=== PATIENT | female | born 1955 | race Two or more races ===

== ENCOUNTER 2022-12-07 13:40 | Outpatient (OUT) | payer MEDICARE, SELFPAY ==
--- NOTE | 2022-12-07 13:43 | US_ITS ---
[address] [address] Patient Name: SEEMA HOOPER MRN: [id number] date: 1955 Sex: F Assigned Patient Location: Current Patient Location: Accession/Order Number: [id number] Exam Date: 12/07/2022 13:44 Report Date: 12/07/2022 16:40 At the request of: NON-STAFF PHYSICIAN Procedure: US carotid duplex BI EXAMINATION: US carotid duplex BI HISTORY: Occlusion And Stenosis Of Bilateral Carotid Arteries I65.23 COMPARISON: No relevant comparison available. TECHNIQUE: Duplex Doppler ultrasound analysis of carotid and vertebral arteries. . Bilateral carotid arterial duplex examination was performed using B-mode, color flow and spectral analysis. Carotid stenosis is reported according to validated velocity parameters, similar to NASCET criteria. FINDINGS: RIGHT CAROTID ARTERY Mild atherosclerotic plaque Subclavian: PSV: 145.7 cm/s cm/s EDV: 8.1 cm/s cm/s CCA: Prox: PSV: 63.3 cm/s cm/s EDV: 14.1 cm/s cm/s Mid: PSV: 74.7 cm/s cm/s EDV: 12.7 cm/s cm/s Distal: PSV: 69.4 cm/s cm/s EDV: 12.7 cm/s cm/s BULB: PSV: 43.3 cm/s cm/s EDV: 9.2 cm/s cm/s ICA: Prox: PSV: 57.2 cm/s cm/s EDV: 15.3 cm/s cm/s Mid: PSV: 64.2 cm/s cm/s EDV: 19.7 cm/s cm/s Distal: PSV: 79.9 cm/s cm/s EDV: 24.1 cm/s cm/s ECA: PSV: 107.6 cm/s cm/s EDV: 7.4 cm/s cm/s VERTEBRAL: PSV: 44.2 cm/s cm/s EDV: 12.4 cm/s cm/s ICA/CCA ratio: PSV: 1.2 EDV: 1.9 LEFT CAROTID ARTERY mild atherosclerotic plaque Subclavian: PSV: 153.0 cm/s cm/s EDV: 10.6 cm/s CCA: Prox: PSV: 80.9 cm/s cm/s EDV: 14.9 cm/s Mid: PSV: 73.2 cm/s cm/s EDV: 10.5 cm/s Distal: PSV: 72.1 cm/s cm/s EDV: 14.9 cm/s BULB: PSV: 54.5 cm/s cm/s EDV: 10.5 cm/s ICA: Prox: PSV: 54.5 cm/s cm/s EDV: 17.1 cm/s Mid: PSV: 71.0 cm/s cm/s EDV: 20.4 cm/s Distal: PSV: 51.2 cm/s cm/s EDV: 13.8 cm/s ECA: PSV: 95.6 cm/s cm/s EDV: 6.3 cm/s VERTEBRAL: PSV: 43.5 cm/s cm/s EDV: 14.7 cm/s ICA/CCA ratio: PSV: 1.0 EDV: 1.4 IMPRESSION: 0-49% flow stenosis bilateral internal carotid arteries Spectral Doppler US Thresholds (Reference: Kings EG, et al. Radiology 2000; 214:247-252) Stenosis (%) PSV (cm/sec) VICA/VCCA 0-49 <150 <2.5 50-69 150-225 2.5-4.0 >70 >225 >4.0 Electronically authenticated by: ERICH WOODRUFF Date: 12/07/2022 16:40
== END 2022-12-07 13:41 | disposition home or self-care (01) ==
LOC: US 13:40
PROVIDERS: PCP Family Medicine
DX: I65.23 Occlusion and stenosis of bilateral carotid arteries (principal)
CPT/HCPCS: 93880

== ENCOUNTER 2023-01-30 11:44 | Outpatient (OUT) | payer MEDICARE, SELFPAY ==
[2023-01-30 12:42] LABS: Estimated Average Glucose 123 mg/dL; Glycohemoglobin A1C 5.9 % (4.5-6.2)
== END 2023-01-30 11:45 | disposition home or self-care (01) ==
LOC: LAB 11:46
PROVIDERS: PCP Family Medicine; Visit Provider Family Medicine
DX: E11.65 Type 2 diabetes mellitus with hyperglycemia (principal)
CPT/HCPCS: 36415; 83036

== ENCOUNTER 2023-07-17 12:01 | Outpatient (OUT) | payer MEDICARE, SELFPAY ==
[2023-07-17 12:46] LABS: Microalbumin Urine Random 1.3 mg/dL (<=30.0)
[2023-07-17 16:24] LABS: Basophils Absolute Auto 0.1 10^3/uL (0.0-0.1); Basophils Percent Auto 0.7 % (0.2-2.0); Eosinophils Absolute Auto 0.1 10^3/uL (0.0-0.7); Eosinophils Percent Auto 1.8 % (0.9-7.0); Hematocrit 33.1 % (36.0-48.0); Hemoglobin 9.7 g/dL (12.0-16.0); Immature Granulocytes Abs Auto 0.02 10^3/uL (0.00-0.03); Immature Granulocytes Pct Auto 0.3 % (0.0-0.5); Lymphocytes Absolute Auto 2.3 10^3/uL (1.2-3.8); Lymphocytes Percent Auto 30.7 % (20.5-60.0); Mean Corpuscular HGB Conc 29.3 g/dL (29.9-35.2); Mean Corpuscular Hemoglobin 22.4 pg (26.7-34.0); Mean Corpuscular Volume 76.3 fL (81.0-99.0); Monocytes Absolute Auto 0.5 10^3/uL (0.3-0.8); Neutrophils Absolute Auto 4.4 10^3/uL (1.4-6.5); Neutrophils Percent Auto 59.5 % (43.0-75.0); Platelet Count 325 10^3/uL (150-450); Red Blood Count 4.34 10^6/uL (4.20-5.40); Red Cell Distribution Width 16.5 % (11.0-15.0); White Blood Count 7.3 10^3/uL (4.0-11.0)
[2023-07-17 16:25] LABS: Estimated Average Glucose 123 mg/dL; Glycohemoglobin A1C 5.9 % (4.5-6.2)
[2023-07-17 16:44] LABS: Alanine Aminotransferase 15 U/L (14-59); Albumin Globulin Ratio 0.6; Albumin Level 3.1 g/dL (3.4-5.0); Alkaline Phosphatase 169 U/L (46-116); Anion Gap 11.8; Aspartate Amino Transferase 14 U/L (15-37); BUN Creatinine Ratio 19.1; Bilirubin Direct 0.1 mg/dL (0.0-0.2); Bilirubin Total 0.5 mg/dL (0.2-1.0); Calcium 9.2 mg/dL (8.5-10.1); Carbon Dioxide 28.4 mmol/L (21.0-32.0); Chloride 107 mmol/L (98-107); Chol HDL Ratio 2.5; Cholesterol 109 mg/dL (<=200); Estimated GFR (African America >60 (>=60); Estimated GFR (Non-African Ame >60 (>=60); Glucose 60 mg/dL (74-106); HDL Cholesterol 43 mg/dL (40-60); LDL Cholesterol Calculated 50.4 mg/dL; Potassium 4.2 mmol/L (3.5-5.1); Sodium 143 mmol/L (136-145); Thyroid Stimulating Hormone 1.067 uIU/mL (0.358-3.740); Total Protein 8.1 g/dL (6.4-8.2); Triglycerides 78 mg/dL (<=150); VLDL CHOLESTEROL 15.6 mg/dL
== END 2023-07-17 12:02 | disposition home or self-care (01) ==
PROVIDERS: PCP Family Medicine; Visit Provider Family Medicine
DX: E11.65 Type 2 diabetes mellitus with hyperglycemia (principal); I10 Essential (primary) hypertension; Z79.899 Other long term (current) drug therapy; E78.5 Hyperlipidemia, unspecified; E66.01 Morbid (severe) obesity due to excess calories; E55.9 Vitamin D deficiency, unspecified
CPT/HCPCS: 36415; 80048; 80061; 80076; 82043; 82306; 83036; 84443; 85025

== ENCOUNTER 2023-08-21 13:32 | Outpatient (OUT) | payer MEDICARE, SELFPAY ==
--- NOTE | 2023-08-21 13:38 | MM_ITS ---
Patient Name: SEEMA HOOPER MR#: [id number] : 1955 Exam Date: 08/21/2023 Ordering Doctor: DR Matt Hutchins . RADIOLOGY REPORT PROCEDURE: MM TOMOSYNTHESIS SCREENING BI COMPARISON: MG MAMM SCREEN ALEE W CAD, 04/22/2019. MG MAMM SCREEN 3D ALEE CAD, 07/31/2022. INDICATIONS: Screening Calculator Name NCI Breast Cancer Risk Assessment Tool 5 Year Breast Cancer Risk Not Reported. Lifetime Breast Cancer Risk Not Reported. Personal Breast Cancer No Personal Ovarian Cancer No Treatments None Family Cancers None LOCATION: [facility] BREAST COMPOSITION: Heterogeneously dense,which may obscure small masses. FINDINGS: DIAGNOSTIC CATEGORY 0--INCOMPLETE: NEED ADDITIONAL IMAGING EVALUATION. Scattered benign-appearing calcifications are present. RIGHT BREAST: Increase in size of a round nodule 2.9 x 2.6 cm retroareolar, a cyst is suspected. Ultrasound follow up necessary. LEFT BREAST: No significant suspicious finding. RECOMMENDATIONS: ULTRASOUND: RIGHT BREAST PLEASE NOTE: A NORMAL MAMMOGRAM DOES NOT EXCLUDE THE POSSIBILITY OF BREAST CANCER. A CLINICALLY SUSPICIOUS PALPABLE LUMP SHOULD BE BIOPSIED. Dictated by: Manoj Junior MD on 08/21/2023 at 15:07 Approved by: Manoj Junior MD on 08/21/2023 at 15:14
== END 2023-08-21 13:33 | disposition home or self-care (01) ==
LOC: MAMMO 13:33
PROVIDERS: PCP Family Medicine; Visit Provider Family Medicine
DX: Z12.31 Encounter for screening mammogram for malignant neoplasm of breast (principal); N63.10 Unspecified lump in the right breast, unspecified quadrant
CPT/HCPCS: 77063; 77067

== ENCOUNTER 2023-09-04 12:12 | Outpatient (OUT) | payer MEDICARE, SELFPAY ==
--- NOTE | 2023-09-04 12:16 | US_ITS ---
Patient Name: SEEMA HOOPER MR#: [id number] : 1955 Exam Date: 09/04/2023 Ordering Doctor: DR Matt Hutchins . RADIOLOGY REPORT PROCEDURE: MM DIAGNOSTIC MAMMO UNILAT RT, 09/04/2023, 11:40 US BREAST RT LIMITED, 09/04/2023, 12:52 COMPARISON: MM TOMOSYNTHESIS SCREENING BI, 08/21/2023. MG MAMM SCREEN 3D ALEE CAD, 07/31/2022. MG MAMM SCREEN ALEE W CAD, 04/22/2019. MG MAMM ALEE SCRN W CAD DIG, 09/24/2016. INDICATIONS: abnormal mammogram Calculator Name NCI Breast Cancer Risk Assessment Tool 5 Year Breast Cancer Risk Not Reported. Lifetime Breast Cancer Risk Not Reported. Personal Breast Cancer No Personal Ovarian Cancer No Treatments None Family Cancers None LOCATION: [facility] BREAST COMPOSITION: Heterogeneously dense,which may obscure small masses. FINDINGS: DIAGNOSTIC CATEGORY 2--BENIGN FINDING. NO CHANGE FROM COMPARISON. RIGHT BREAST: Spot magnification views demonstrate persistence of a partially circumscribed mass versus cyst within anterior right breast subareolar region. Ultrasound evaluation demonstrates a thin walled anechoic benign-appearing cyst in the subareolar region, 2.9 x 2.7 x 0.8 cm. This cyst could be drained if causing patient discomfort, otherwise annual screening mammography is recommended. RECOMMENDATIONS: ROUTINE MAMMOGRAM AND CLINICAL EVALUATION IN 12 MONTHS. PLEASE NOTE: A NORMAL MAMMOGRAM DOES NOT EXCLUDE THE POSSIBILITY OF BREAST CANCER. A CLINICALLY SUSPICIOUS PALPABLE LUMP SHOULD BE BIOPSIED. Dictated by: Aaron Gilmore M.D. on 09/04/2023 at 13:51 Approved by: Aaron Gilmore M.D. on 09/04/2023 at 13:57
--- OUTSIDE RECORDS SUMMARY | 2023-09-04 12:27 | XMS_ITS | CCD ---
Author Organization [facility] Care Team Providers Care Tan Room Supervisor Name Role Phone EITAN CHILD Unavailable Unavailable MATEUSZEITAN Unavailable Unavailable STEWART, AARON Emerson Unavailable Unavailable EITAN CHILD Unavailable Unavailable NADERER, MATT Referring Unavailable NADERER, MATT Primary Care Unavailable MILLY, PATY Attending Unavailable MILLY, PATY Admitting Unavailable NADERER, DR MATT Uribe Admitting Unavailable NADERER, DR MATT Uribe Attending Unavailable WEST, DR ERICH Shaw Consulting Unavailable NADERER, DR MATT Uribe Primary Care Unavailable NADERER, DR MATT Uribe Consulting Unavailable NADERER, DR MATT Uribe Admitting Unavailable NADERER, DR MATT Uribe Attending Unavailable NADERER, DR MATT Uribe Consulting Unavailable NADERER, DR MATT Uribe Primary Care Unavailable NADERER, DR MATT Uribe Admitting Unavailable NADERER, DR MATT Uribe Attending Unavailable NADERER, DR MATT Uribe Consulting Unavailable NADERER, DR MATT Uribe Primary Care Unavailable ANAIS SMALLWOOD Admitting Unavailable CL, ANAIS Attending Unavailable WEST, DR ERICH Shaw Consulting Unavailable NADERER, DR MATT Uribe Primary Care Unavailable ANAIS SMALLWOOD Consulting Unavailable ELTAHAWY, DR KEYES Attending Unavailable ELTAHAWY, DR KEYES Admitting Unavailable NADERER, DR MATT Uribe Primary Care Unavailable ELTAHAWY, DR KEYES Attending Unavailable ELTAHAWY, DR KEYES Consulting Unavailable ELTAHAWY, DR KEYES Admitting Unavailable NADERER, DR MATT Uribe Primary Care Unavailable ELTAHAWY, DR KEYES Attending Unavailable ELTAHAWY, DR KEYES Admitting Unavailable NADERER, DR MATT Uribe Primary Care Unavailable ZiebAaron rodgers Consulting Unavailable NADERER, DR MATT Uribe Attending Unavailable NADERER, DR MATT Uribe Primary Care Unavailable NADERER, DR MATT Uribe Admitting Unavailable NADERER, DR MATT Uribe Consulting Unavailable NADERER, DR MATT Uribe Primary Care Unavailable RETA, DR MATT Uribe Attending Unavailable RETA, DR MATT Uribe Consulting Unavailable RETA, DR MATT Uribe Admitting Unavailable RETA, DR MATT Uribe Primary Care Unavailable ARDENTHE DIMOCK CENTERGabbi, DR KEYES Consulting Unavailable ARDENTHE DIMOCK CENTERGabbi, DR KEYES Admitting Unavailable ARDENTHE DIMOCK CENTERGabbi, DR KEYES Attending Unavailable RANJAN, DR ERICH Shaw Consulting Unavailable IVETTE KLINE Admitting Unavailable IVETTE KLINE Attending Unavailable RETA, DR MATT Uribe Primary Care Unavailable IVETTE KLINE Consulting Unavailable Matt Mcduffie MD Primary Care Provider RETA, MATT Attending Unavailable IVETTE KLINE Attending Unavailable DONNIE, WALI Attending Unavailable NELLIE RAMIREZ Attending Unavailable Allergies Allergy Classification Reported Allergen(s) Allergy Type Date of Onset Reaction(s) Facility (1 source) Adhesive bandage Drug allergy (disorder) [facility] Repository (1 source) natural latex rubber Drug allergy (disorder) [facility] (1 source) Latex Propensity to adverse reactions 1 [facility] Medications Current Medications Medication Drug Class(es) Dates Sig (Normalized) Sig (Original) ALPRAZolam 0.5 mg disintegrating oral tablet (1 source) Benzodiazepine Start: 04-30-2023 take 1 tablet by mouth three times daily as needed for anxiety ALPRAZolam (Niravam) 0.5 MG disintegrating tablet Indications: ANMOL (generalized anxiety disorder) ([facility]) Take 1 tablet (0.5 mg) by mouth 3 (three) times a day as needed for anxiety. 90 tablet 0 04/30/2023 Active amLODIPine 5 mg oral tablet (1 source) Dihydropyridine Calcium Channel Coreen take 1 tablet by mouth in the morning amLODIPine (Norvasc) 5 MG tablet Take 5 mg by mouth in the morning. 0 Active aspirin 81 mg delayed release oral tablet (1 source) Platelet Aggregation Inhibitor, Nonsteroidal Anti-inflammatory Drug take 1 tablet by mouth in the morning aspirin 81 MG EC tablet Take 81 mg by mouth in the morning. 0 Active atorvastatin 80 mg oral tablet (1 source) HMG-CoA Reductase Inhibitor take 1 tablet by mouth in the morning atorvastatin (Lipitor) 80 MG tablet Take 80 mg by mouth in the morning and 80 mg before bedtime. 0 Active Blood Glucose Monitoring Suppl (FreeDynexyle InsuLinx System) w/Device kit (1 source) Blood Glucose Monitoring Suppl (FreeStyle InsuLinx System) w/Device kit carvedilol 12.5 mg oral tablet (1 source) alpha-Adrenergic Coreen, beta-Adrenergic Coreen take 1 tablet by mouth in the morning carvedilol (Coreg) 12.5 MG tablet Take 12.5 mg by mouth in the morning and 12.5 mg in the evening. Take with meals. 0 Active cefdinir 300 mg oral capsule (1 source) Cephalosporin Antibacterial Start: 05-14-2023 take 1 capsule by mouth twice daily cefdinir (Omnicef) 300 MG capsule Indications: Acute upper respiratory infection, unspecified TAKE 1 CAPSULE BY MOUTH TWICE DAILY 20 capsule 0 05/14/2023 Active cholecalciferol 0.05 mg oral tablet (1 source) Vitamin D take 1 tablet by mouth in the morning cholecalciferol (Vitamin D-3) 50 MCG (2000 UT) tablet Take 2,000 Units by mouth in the morning. 0 Active clopidogrel 75 mg oral tablet (1 source) P2Y12 Platelet Inhibitor take 1 tablet by mouth in the morning clopidogrel (Plavix) 75 MG tablet Take 75 mg by mouth in the morning. 0 Active glipiZIDE 10 mg oral tablet (1 source) Sulfonylurea Start: 06-26-2023 take 1 tablet by mouth once daily glipiZIDE (Glucotrol) 10 MG tablet Indications: Type 2 diabetes mellitus with hyperglycemia ([facility]) TAKE 1 TABLET BY MOUTH DAILY 30 tablet 5 06/26/2023 Active losartan potassium 50 mg oral tablet (1 source) Angiotensin 2 Receptor Coreen take 1 tablet by mouth in the morning losartan (Cozaar) 50 MG tablet Take 50 mg by mouth in the morning. 0 Active meloxicam 15 mg oral tablet (1 source) Nonsteroidal Anti-inflammatory Drug take 1 tablet by mouth in the morning meloxicam (Mobic) 15 MG tablet Take 15 mg by mouth in the morning. 0 Active methocarbamol 750 mg oral tablet (1 source) Muscle Relaxant take 1 tablet by mouth in the morning, then take 1 tablet by mouth in the evening, then take 1 tablet by mouth at bedtime methocarbamol (Robaxin) 750 MG tablet Take 750 mg by mouth in the morning and 750 mg in the evening and 750 mg before bedtime. 0 Active omeprazole 40 mg delayed release oral capsule (1 source) Proton Pump Inhibitor take 1 capsule by mouth before mealtime omeprazole (PriLOSEC) [address] capsule Take 40 mg by mouth in the morning. Take before meals. Do not crush or chew.. 0 Active semaglutide (Ozempic, 1 MG/DOSE,) 4 MG/3ML solution pen-injector (1 source) inject 1 mg by subcutaneous injection every week semaglutide (Ozempic, 1 MG/DOSE,) 4 MG/3ML solution pen-injector Inject 1 mg under the skin 1 (one) time per week 0 Active valACYclovir 1000 mg oral tablet (1 source) Herpesvirus Nucleoside Analog DNA Polymerase Inhibitor, Herpes Simplex Virus Nucleoside Analog DNA Polymerase Inhibitor, Herpes Zoster Virus Nucleoside Analog DNA Polymerase Inhibitor valACYclovir (Valtrex) 1 g tablet Take 1,000 mg by mouth every 8 (eight) hours 0 Active Problems Active Problems Problem Classification Problem Date Documented Date Episodic/Chronic Anxiety disorders (1 source) Generalized anxiety disorder; 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: [Generalized anxiety disorder] Onset: 07-11-2023 07-11-2023 Chronic Coronary atherosclerosis and other heart disease (4 sources) Atherosclerotic heart disease of lummi coronary artery without angina pectoris; 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: [Coronary arteriosclerosis] Onset: 05-17-2022 07-11-2023 Chronic Diabetes mellitus with complications (5 sources) Type 2 diabetes mellitus with hyperglycemia; 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: [Type 2 diabetes mellitus] Onset: 10-01-2022 Chronic Diabetes mellitus without complication (4 sources) Type 2 diabetes mellitus without complications; 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: [Type 2 diabetes mellitus without complications] Onset: 01-03-2017 Chronic Disorders of lipid metabolism (4 sources) Hyperlipidemia, unspecified; 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: [Dyslipidemia] Onset: 03-16-2016 07-11-2023 Chronic Disorders of teeth and jaw (4 sources) Jaw pain; 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: [JAW PAIN] Onset: 08-02-2022 Episodic Esophageal disorders (1 source) Gastroesophageal reflux disease without esophagitis; 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: [Gastro-esophageal reflux disease without esophagitis] Onset: 07-11-2023 07-11-2023 Chronic Essential hypertension (4 sources) Essential (primary) hypertension; 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: [Essential hypertension] Onset: 05-04-2019 07-11-2023 Chronic Nutritional deficiencies (1 source) Vitamin D deficiency; 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: [Vitamin D deficiency, unspecified] Onset: 07-11-2023 07-11-2023 Chronic Osteoarthritis (5 sources) Primary osteoarthritis, left hand; 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: [Primary osteoarthritis, right hand] Onset: 05-05-2022 07-11-2023 Chronic Other 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 source) Patient encounter status; 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: [Other fci (current) drug therapy] Onset: 07-11-2023 07-11-2023 Episodic Other nervous system disorders (4 sources) Aphasia; 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: [APHASIA] Onset: 06-07-2022 Chronic Other nutritional; endocrine; and metabolic disorders (1 source) Morbid obesity; 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: [Morbid (severe) obesity due to excess calories] Onset: 07-11-2023 07-11-2023 Chronic Other screening for suspected conditions (not mental disorders or infectious disease) (8 sources) Encounter for screening mammogram for malignant neoplasm of breast; 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: [Encounter for screening, unspecified] Onset: 05-16-2022 Episodic Other upper respiratory disease (1 source) Allergic rhinitis due to pollen; 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: [Allergic rhinitis due to pollen] Onset: 07-11-2023 07-11-2023 Chronic Residual codes; unclassified (1 source) Obstructive sleep apnea syndrome; 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: [Obstructive sleep apnea (adult) (pediatric)] Onset: 05-04-2019 07-11-2023 Chronic Unclassified (1 source) LOW BACK PAIN, UNSPECIFIED; 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: [LOW BACK PAIN, UNSPECIFIED] Onset: 05-05-2022 Past or Other Problems Problem Classification Problem Date Documented Da te Episodic/Chronic Other 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 source) 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 (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; 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: [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 CURRENT USE OF INSULIN] Onset: 07-04-2022 Episodic Other connective tissue disease (2 sources) Lateral epicondylitis, right elbow; 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: [Lateral epicondylitis, right elbow] Onset: 04-17-2017 Episodic Other connective tissue disease (4 sources) Pain in right hand; 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: [PAIN IN RIGHT HAND] Onset: 04-30-2022 Episodic Other connective tissue disease (1 source) Pain in left hand; 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: [PAIN IN LEFT HAND] Onset: 05-05-2022 Episodic Other non-traumatic joint disorders (1 source) Pain in right hip; 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: [PAIN IN RIGHT HIP] Onset: 05-05-2022 Episodic [place]-; endo-; and myocarditis; cardiomyopathy (except that caused by tuberculosis or sexually transmitted disease) (1 source) Pericardial effusion (noninflammatory); 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: [PERICARDIAL EFFUSION NONINFLAMM] Onset: 02-18-2022 Episodic Residual codes; unclassified (4 sources) Edema, unspecified; 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: [EDEMA UNSPECIFIED] Onset: 05-16-2022 Episodic Results Test Name Value Interpretation Reference Range Facility Office Visiton 08-28-2023 Follow-up visit [id number] DavidKayli 1955 F Date Provider Department Center 08/28/2023 Jessica-WALI QUIÑONES MONICA Malin Family History Problem Relation Age of Onset Stroke Mother Heart attack Father Hypertension Father Diabetes type II Brother Heart disease Brother Family Status - Relation Status Age at Mother Father Brother Level of Service:68183 [place] OFFICE/OUTPATIENT ESTABLISHED LOW MDM 20 MIN [facility] MICROALBUMIN, RAND URon 07-17-2023 MICROALBUMIN URINE RANDOM 1.3 mg/dL NINF - 30.0 mg/dL [facility] Office Visiton 06-19-2023 Follow-up visit [id number] HernandezKayli 1955 F Date Provider Department Center 06/19/2023 NELLIE CENTENO [facility] Family History Problem Relation Age of Onset Stroke Mother Heart attack Father Hypertension Father Diabetes type II Brother Heart disease Brother Family Status - Relation Status Age at Mother Father Brother Level of Service:46916 [place] OFFICE/OUTPATIENT ESTABLISHED MOD MDM 30 MIN Reason for Visit and Comments: Follow-up [569080] Normal [facility] Office Visiton 12-14-2022 Follow-up visit [id number] HernandezKayli rm 1955 F Date Provider Department Center 12/14/2022 IVETTE DAN [facility] No family history on file Level of Service:45181 [place] OFFICE/OUTPATIENT ESTABLISHED MOD MDM 30-39 MIN Reason for Visit and Comments: Follow-up [270037] - 6 mo f/u w/ carotid us Normal [facility] GLYCOHEMOGLOBIN A1Con 2022 ADA RECOMMENDATION SEE BELOW Normal [facility] Comment on above: Result Comment: ADA RECOMMENDED LIMIT 4.0 - 6.0 ADA THERAPEUTIC TARGET < 7.0 ACTION SUGGESTED > 7.0 Performed By: #### A 1C #### [facility] [address] [place] [address] Dr. Radha Willis Glucose [Mass/Vol] 163 mg/dL Normal [facility] Comment on above: Performed By: #### A 1C #### [facility] [address] [address] [address] Radha Willis HbA1c (Bld) [Mass fraction] 7.3 % Critically high 4.5-6.2 [facility] Comment on above: Performed By: #### A 1C #### [facility] [address] [place] [address] Dr. Radha Willis NM STRESS/REST MULTIon 08-02 NM STRESS/REST MULTI Patient: KAYLI HERNANDEZ Exam Date: 08/02/2022 : 1955 Gender:F Ordering : IVETTE KLINE Admission #: [id number] Family : Order #: [id number] CLICK HERE TO VIEW EXAM RADIOLOGY REPORT PROCEDURE: RADIONUCLIDE IMAGING STRESS/REST MULTI COMPARISON: NM STRESS/REST MULTI, 12/07/2020. NM STRESS/REST MULTI, 04/02/2019. INDICATIONS: Jaw pain R68.84 TECHNIQUE: Exam Description: Stress/Rest one day protocol gated SPECT Rest Imagin.7 mCi Tc-99m Cardiolite IV on 08/02/2022 Stress Imaging 30.1 mCi Tc-99m Cardiolite IV on 08/02/2022 Exercise Protocol: 0.4 mg Lexiscan given IV Heart Rate (bpm): Rest: 83 Max: 113 PMHR: 72 Blood Pressure: Rest: 172/100 Max: 172/100 Symptoms: Rest and peak stress ECG findings were normal and the exercise portion of the study was normal per attending physician Dr. Jasvir Olivier . For more details please see separate cardiac stress test report. FINDINGS: QUALITY OF STUDY: Good. PERFUSION DEFECT: None. LOCATION: N/A SIZE: N/A. SEVERITY: N/A. TYPE: N/A. WALL MOTION: Normal. LV SIZE: Normal. 57 mL. TID / TCD: None; 0.9 LVEF: Normal. Calculated EF 83%. SUMMARY: Myocardial perfusion imaging study is NORMAL. CONCLUSION: 1. No reversible ischemia 2. Normal exercise test Dictated by: Erich Woodruff MD on 08/03/2022 at 11:53 Approved by: Erich Woodruff MD on 08/03/2022 at 11:55 Normal [facility] MAMM SCREEN 3D ALEE CADon 07-31-2022 MG MAMM SCREEN 3D ALEE CAD Patient: KAYLI HERNANDEZ Exam Date: 07/31/2022 : 1955 Gender:F Ordering : DR MATT MCDUFFIE . Admission #: [id number] Family : Order #: [id number] CLICK HERE TO VIEW EXAM RADIOLOGY REPORT PROCEDURE: MAMMOGRAM SCREENING 3D BILATERAL CAD COMPARISON: MG MAMM ALEE SCRN W CAD DIG, 09/24/2016. MAMM SCREEN ALEE W CAD, 04/22/2019. INDICATIONS: Screening mammography Calculator Name NCI Breast Cancer Risk Assessment Tool 5 Year Breast Cancer Risk Not Reported. Lifetime Breast Cancer Risk Not Reported. Personal Breast Cancer No Personal Ovarian Cancer No Treatments None Family Cancers None LOCATION: [facility] BREAST COMPOSITION: Heterogeneously dense,which may obscure small masses. FINDINGS: DIAGNOSTIC CATEGORY 1--NEGATIVE. NO CHANGE FROM COMPARISON ASSESSMENT. Scattered benign-appearing calcifications are present. Scattered benign-appearing lymph nodes are present. RIGHT BREAST: No significant suspicious finding. LEFT BREAST: No significant suspicious finding. RECOMMENDATIONS: ROUTINE MAMMOGRAM AND CLINICAL EVALUATION IN 12 MONTHS. PLEASE NOTE: A NORMAL MAMMOGRAM DOES NOT EXCLUDE THE POSSIBILITY OF BREAST CANCER. A CLINICALLY SUSPICIOUS PALPABLE LUMP SHOULD BE BIOPSIED. Dictated by: Erich Woodruff MD on 07/31/2022 at 14:10 Approved by: Erich Woodruff MD on 07/31/2022 at 14:[address] [facility] GLYCOHEMOGLOBIN A1Con 2022 ADA RECOMMENDATION SEE BELOW Normal [facility] Comment on above: Result Comment: ADA RECOMMENDED LIMIT 4.0 - 6.0 ADA THERAPEUTIC TARGET < 7.0 ACTION SUGGESTED > 7.0 Performed By: #### A 1C #### [facility] [address] [address] [address] Radha Willis Glucose [Mass/Vol] 151 mg/dL Normal [facility] Comment on above: Performed By: #### A 1C #### [facility] [address] [address] [address] Radha Willis HbA1c (Bld) [Mass fraction] 6.9 % Critically high 4.5-6.2 [facility] Comment on above: Performed By: #### A 1C #### [facility] [address] [address] [address] Radha Willis MRI BRAIN WO W CONon 023 MRI BRAIN WO W CON EXAMINATION: MRI BRAIN WO W CON HISTORY: Aphasia COMPARISON: No relevant comparison available. TECHNIQUE: A variety of imaging planes and parameters were utilized for visualization of suspected pathology. Images were performed without and with Dotarem contrast. FINDINGS: CEREBRUM: No hemorrhage mass or acute infarct. Moderate bilateral white matter signal abnormality, nonspecific CEREBELLUM: No edema, hemorrhage, mass, acute infarction, or inappropriate atrophy. BRAINSTEM: No edema, hemorrhage, mass, acute infarction, or inappropriate atrophy. CSF SPACES: Ventricles, cisterns, and sulci are appropriate for age. No hydrocephalus, subarachnoid hemorrhage, or mass. SKULL: No mass or other significant visible lesion. SINUSES: Limited views demonstrate no significant mucosal thickening or fluid. ORBITS: Limited views are unremarkable. OTHER: No abnormal meningeal or parenchymal enhancement. IMPRESSION: Moderate bilateral white matter signal abnormality, the differential diagnosis would include chronic small vessel ischemic changes versus demyelinating process Electronically authenticated by: ERICH WOODRUFF Date: 2022-06-07 14:[address] [facility] PROF 14(COMP METB)on 022 Albumin [Mass/Vol] 3.3 g/dL Critically low 3.4-5.[address] [facility] Comment on above: Performed By: #### A 1C #### [facility] [address] [address] [address] Radha Willis Albumin/Globulin [Mass ratio] 0.8 {ratio} Normal [facility] Comment on above: Performed By: #### A 1C #### [facility] [address] [address] [address] Radha Willis ALP [Catalytic activity/Vol] 211 U/L Critically high 46-116 [facility] Comment on above: Performed By: #### A 1C #### [facility] [address] [address] [address] Radha Willis ALT [Catalytic activity/Vol] 25 U/L Normal 14-59 [facility] Comment on above: Performed By: #### A 1C #### [facility] [address] [address] [address] Radha Willis Anion gap [Moles/Vol] 12.3 mmol/L Normal [facility] Comment on above: Performed By: #### A 1C #### [facility] [address] [address] [address] Radha Willis AST [Catalytic activity/Vol] 17 U/L Normal 15-37 [facility] Comment on above: Performed By: #### A 1C #### [facility] [address] [address] [address] Radha Willis Bilirubin [Mass/Vol] 0.3 mg/dL Normal 0.2-1.0 [facility] Comment on above: Performed By: #### A 1C #### [facility] [address] [address] [address] Radha Willis Calcium [Mass/Vol] 9.2 mg/dL Normal 8.5-10.1 [facility] Comment on above: Performed By: #### A 1C #### [facility] [address] [address] [address] Radha Willis Chloride [Moles/Vol] 104 mmol/L Normal 98-[address] [facility] Comment on above: Performed By: #### A 1C #### [facility] [address] [address] [address] Radha Willis CO2 [Moles/Vol] 28.6 mmol/L Normal 21.0-32.0 [facility] Comment on above: Performed By: #### A 1C #### [facility] [address] [address] [address] Radha Willis Creatinine [Mass/Vol] 0.78 mg/dL Normal 0.55-1.02 [facility] Comment on above: Performed By: #### A 1C #### [facility] [address] [address] [address] Radha Willis EGFR-AF [facility] LUCIAN >60 Normal >=60 [facility] Comment on above: Performed By: #### A 1C #### [facility] [address] [address] [address] Radha Willis EGFR-NON AF [facility] LUCIAN >60 Normal >=60 [facility] Comment on above: Performed By: #### A 1C #### [facility] [address] [address] [address] Radha Willis Globulin (S) [Mass/Vol] 4.4 g/dL Normal [facility] Comment on above: Performed By: #### A 1C #### [facility] [address] [place] [address] Dr. Radha Willis Glucose [Mass/Vol] 50 mg/dL Critically low 74-106 [facility] Comment on above: Performed By: #### A 1C #### [facility] [address] [address] [address] Radha Willis Potassium [Moles/Vol] 3.9 mmol/L Normal 3.5-5.1 [facility] Comment on above: Performed By: #### A 1C #### [facility] [address] [place] [address] Dr. Radha Willis Protein [Mass/Vol] 7.7 g/dL Normal 6.4-8.2 [facility] Comment on above: Performed By: #### A 1C #### [facility] [address] [address] [address] Radha Willis Sodium [Moles/Vol] 141 mmol/L Normal 136-145 [facility] Comment on above: Performed By: #### A 1C #### [facility] [address] [address] [address] Radha Willis Urea nitrogen [Mass/Vol] 12.0 mg/dL Normal 7.0-18.0 [facility] Comment on above: Performed By: #### A 1C #### [facility] [address] [address] [address] Radha Willis Urea nitrogen/Creatinine [Mass ratio] 15.4 mg/mg Normal [facility] Comment on above: Performed By: #### A 1C #### [facility] [address] [place] [address] Dr. Radha Willis XR HAND ALEE MIN 3Von 022 XR HAND ALEE MIN 3V EXAMINATION: XR HAND ALEE MIN 3V HISTORY: Pain of bilateral hands COMPARISON: No relevant comparison available. FINDINGS: RIGHT FINDINGS: BONES: No significant arthropathy or acute abnormality. SOFT TISSUES: No visible soft tissue swelling. OTHER: Negative. LEFT FINDINGS: BONES: No significant arthropathy or acute abnormality. SOFT TISSUES: No visible soft tissue swelling. OTHER: Negative. IMPRESSION: RIGHT CONCLUSION: Multifocal mild degenerative joint disease favoring osteoarthritis. LEFT CONCLUSION: Multifocal mild degenerative joint disease favoring osteoarthritis. Electronically authenticated by: AARON GILMORE Date: 2022-04-30 19:39 Normal [facility] XR LSPINE 2_3 VIEWSon 2021 XR LSPINE 2_3 VIEWS EXAMINATION: XR LSPINE 2_3 VIEWS HISTORY: Low back pain COMPARISON: CT abdomen pelvis 11/10/2020 FINDINGS: BONES: Mild degenerative changes of the facet joints at L4-L5 and L5-S1. Normal height and alignment of vertebral bodies; no fracture spondylolisthesis. DISC SPACES: Mild narrowing L5-S1. PARASPINOUS: Atherosclerotic disease of aorta without visible aneurysm. OTHER: Negative. IMPRESSION: 1. Mild degenerative changes of the lower lumbar spine; slightly progressed compared to prior study allowing for differences in technique. Electronically authenticated by: AARON GILMORE Date: 2022-04-30 19:[address] [facility] XR WRIST ALEE MIN 3 Von 04-30 XR WRIST ALEE MIN 3 V EXAMINATION: XR WRI ST ALEE MIN 3 V HISTORY: Pain of bilateral hands COMPARISON: No relevant comparison available. FINDINGS: RIGHT FINDINGS: BONES: No significant arthropathy or acute abnormality. SOFT TISSUES: No visible soft tissue swelling. OTHER: Negative. LEFT FINDINGS: BONES: No significant arthropathy or acute abnormality. SOFT TISSUES: No visible soft tissue swelling. OTHER: Negative. IMPRESSION: RIGHT CONCLUSION: No acute abnormality or significant degenerative joint disease. LEFT CONCLUSION: No acute abnormality or significant degenerative joint disease. Electronically authenticated by: AARON GILMORE Date: 2022-04-30 19:42 Normal [facility] GLYCOHEMOGLOBIN A1Con 2021 ADA RECOMMENDATION SEE BELOW Normal [facility] Comment on above: Result Comment: ADA RECOMMENDED LIMIT 4.0 - 6.0 ADA THERAPEUTIC TARGET < 7.0 ACTION SUGGESTED > 7.0 Performed By: #### A 1C #### [facility] Laboratory [address] [address] [address] Radha Willis Glucose [Mass/Vol] 140 mg/dL Normal [facility] Comment on above: Performed By: #### A 1C #### [facility] Laboratory [address] [address] [address] Radha Willis HbA1c (Bld) [Mass fraction] 6.5 % Critically high 4.5-6.2 [facility] Comment on above: Performed By: #### A 1C #### [facility] Laboratory [address] [address] [address] Radha Willis ECHOCARDIO M/2D COMPLETEon 0 02-14-2022 ECHOCARDIO M/2D COMPLETE Patient: KAYLI HERNANDEZ Exam Date: 02/14/2022 : 1955 Gender:F Ordering : DR WALI QUIÑONES M.D. Admission #: [id number] Family : Order #: [id number] CLICK HERE TO VIEW EXAM ECHOCARDIOGRAM REPORT PROCEDURE: CARDIO PULMONARY ECHOCARDIO M/2D COMP INDICATIONS: Pericardial effusion COMPARISON: None. DESCRIPTION: COMPLETE ECHOCARDIOGRAM Real-time transthoracic echocardiography with 2D, M-mode, spectral and color flow Doppler performed. QUALITY: Technical quality was good. LEFT VENTRICLE: Normal chamber size. Normal left ventricular wall thickness. Global left ventricular systolic function is normal. Visual estimation of left ventricular ejection fraction is 65%. LV EF: DIASTOLIC: Normal diastolic function. ATRIAL SEPTUM: LEFT ATRIUM: Normal chamber size. RIGHT ATRIUM: Normal chamber size. RIGHT VENTRICLE: Normal chamber size. Normal right ventricular systolic function. TRICUSPID VALVE: Normal mobility and thickness. No stenosis with trivial regurgitation. No evidence of pulmonary hypertension. RVSP 22 mmHg MITRAL VALVE: Normal mobility and thickness. No mitral valve prolapse. No evidence of mitral valve stenosis. There is no mitral annular calcification. No mitral regurgitation. AORTIC VALVE: Normal trileaflet appearance. No visible sclerosis. Normal leaflet mobility. No evidence of aortic valve stenosis. DVI 0.7. No aortic regurgitation. AORTIC ROOT: Normal diameter and appearance. PULMONIC VALVE: Normal thickness and mobility. No stenosis. Trivial regurgitation. PERICARDIUM: Trivial pericardial effusion. IVC: Collapses with inspirations. Normal size PLEURA: CONCLUSION: 1. Normal ventricular systolic function. LVEF is 65%. 2. No significant valvular dysfunction. 3. Normal right-sided pressures. Adult Echocardiography Procedure Report Left Ventricle LVEDD (3.7 - 5.6 cm): 4.34 cm LVESD (2.2 - 4.0 cm): 2.70 cm LVIVS thickness (0.6 - 1.2 cm): 0.86 cm LVPW thickness (0.5 - 1.0 cm): 0.82 cm e': 0.09 m/s LVOT Max Demetri (1.5 m per sec): 1.03 m/s Left Ventricular Ejection Fraction: 65% Left Atrium Mitral Valve MV E to A Ratio: 0.76 Right Ventricle RV Internal Diastolic Dimension: 3.22 cm Aorta AO Root Diam: 2.48 cm Ascending Ao Diam: 2.79 cm Aortic Valve Peak Velocity (Antegrade Flow): 1.47 m/s Tricuspid Valve TV Mean Gradient: 1.11 mm[Hg] Peak Velocity (Regurgitant Flow): 0.53 m/s Mean Velocity: 0.53 m/s Pulmonic Valve Mean Gradient: 3.47 mm[Hg] Mean Velocity: 0.88 m/s Right Atrium Dictated by: Devon Kohli M.D. on 02/16/2022 at 18:54 Approved by: Devon Kohli M.D. on 02/16/2022 at 18:58 Normal [facility] CREATININE BLOODon 1 Creatinine [Mass/Vol] 0.78 mg/dL Normal 0.60-1.20 [facility] Comment on above: Order Comment: No: D o not add to previous draw Performed By: #### 2 5656 #### [facility] [address] [place] [address], [facility] GFR/1.73 sq M.predicted among blacks MDRD (S/P/Bld) [Vol rate/Area] mL/min/{1.73_m2} Normal >60 [facility] Comment on above: Order Comment: No: D o not add to previous draw Performed By: #### 2 5656 #### [facility] [address] [place] [address], [facility] GFR/1.73 sq M.predicted among non-blacks MDRD (S/P/Bld) [Vol rate/Area] mL/min/{1.73_m2} Normal >60 [facility] Comment on above: Order Comment: No: D o not add to previous draw Performed By: #### 2 5656 #### [facility] [address] HEMATOCRITon 12-24-2020 Hematocrit (Bld) [Volume fraction] 34.8 % Low 36.0-45.0 [facility] Comment on above: Order Comment: No: D o not add to previous draw Performed By: #### 9 2088, [id number] #### [facility] [address] [place] [address], [facility] HEMOGLOBINon 12-24-2020 Hemoglobin (Bld) [Mass/Vol] 11.1 g/dL Low 12.0-15.0 [facility] Comment on above: Order Comment: No: D o not add to previous draw Performed By: #### 9 2088, 13698 #### [facility] [address] [place] [address], [facility] POC GLUCOSE LABon 12-24-2020 Glucose [Mass/Vol] 135 mg/dL High 70-100 [facility] Comment on above: Performed By: #### 8 5499 #### [facility] [address] [place] [address], [facility] CBC COMPLETE BLOOD COUNTon 0 12-23-2020 Erythrocyte distribution width (RBC) [Ratio] 13.5 % Normal 11.5-15.0 [facility] Comment on above: Order Comment: No: D o not add to previous draw Performed By: #### 5 0608 #### [facility] [address] [place] [address], [facility] Hematocrit (Bld) [Volume fraction] 36.2 % Normal 36.0-45.0 [facility] Comment on above: Order Comment: No: D o not add to previous draw Performed By: #### 5 0608 #### [facility] [address] [place] [address], [facility] Hemoglobin (Bld) [Mass/Vol] 11.4 g/dL Low 12.0-15.0 [facility] Comment on above: Order Comment: No: D o not add to previous draw Performed By: #### 5 0608 #### [facility] [address] [place] [address], [facility] MCH (RBC) [Entitic mass] 26.5 pg Low 27.0-33.0 [facility] Comment on above: Order Comment: No: D o not add to previous draw Performed By: #### 5 0608 #### [facility] [address] [place] [address], [facility] MCHC (RBC) [Mass/Vol] 31.5 g/dL Low 32.0-35.0 [facility] Comment on above: Order Comment: No: D o not add to previous draw Performed By: #### 5 0608 #### [facility] [address] [facility] [place] [place] [address], [facility] MCV (RBC) [Entitic vol] 84.2 fL Normal 82.0-98.0 [facility] Comment on above: Order Comment: No: D o not add to previous draw Performed By: #### 5 0608 #### [facility] [address] [facility] [place] [address], [facility] Nucleated RBC/100 WBC (Bld) [Ratio] 0 % Normal 0-0 [facility] Comment on above: Order Comment: No: D o not add to previous draw Performed By: #### 5 0608 #### [facility] [address] [place] [address], [facility] PLAT CNT 248 10*3/uL Normal 150-400 The [facility] Comment on above: Order Comment: No: D o not add to previous draw Performed By: #### 5 0608 #### [facility] [address] [place] [address], [facility] RBC (Bld) [#/Vol] 4.30 10*6/uL Normal 3.80-5.00 The [facility] Comment on above: Order Comment: No: D o not add to previous draw Performed By: #### 5 0608 #### [facility] [address] [place] [id number], [facility] WBC (Bld) [#/Vol] 6.43 10*3/uL Normal 4.00-10.60 [facility] Comment on above: Order Comment: No: D o not add to previous draw Performed By: #### 5 0608 #### [facility] [address] [place] [address], [facility] CREATININE BLOODon 1 Creatinine [Mass/Vol] 0.70 mg/dL Normal 0.60-1.20 [facility] Comment on above: Order Comment: No: D o not add to previous draw Performed By: #### 2 5656 #### [facility] [address] [place] [id number], [facility] GFR/1.73 sq M.predicted among blacks MDRD (S/P/Bld) [Vol rate/Area] mL/min/{1.73_m2} Normal >60 [facility] Comment on above: Order Comment: No: D o not add to previous draw Performed By: #### 2 5656 #### [facility] [address] [place] [address], [place] GFR/1.73 sq M.predicted among non-blacks MDRD (S/P/Bld) [Vol rate/Area] mL/min/{1.73_m2} Normal >60 [facility] Comment on above: Order Comment: No: D o not add to previous draw Performed By: #### 2 5656 #### [facility] [address] [place] [address], [facility] Cardiovascular Lab Reporton 12-23-2020 Cardiovascular Lab Report [facility] #: [id number] Physician: Devon Medrano of Shea Kohli Medicine Service Date: 12/23/2020 Division of Birthdate: 1955 Cardiology Room #: [id number] Adult Cardiovascular Services [facility] [address] [facility] [place] [id number] Cardiovascular Laboratory Report INDICATION: The patient is a 65-year-old woman, who was evaluated in Cardiology Clinic for unstable angina and referred for cardiac catheterization. This was performed yesterday. This showed a high-grade stenosis in the LAD and the ostium of the right PDA. She was evaluated by Cardiothoracic Surgery and was turned down for bypass surgery due to her small caliber vessels. She was brought today for balloon angioplasty of the ostium of the right PDA. PROCEDURES: 1. Successful balloon dilatation and angioplasty of 99% stenosis in the ostium of the right PDA, reduced to 20% by balloon angioplasty alone. 2. Administration of intracoronary nitroglycerin. 3. Limited right common femoral angiography. 4. Access into the right common femoral artery under ultrasound guidance. METHODS: The procedure was explained to the patient with the risks and benefits. She signed the informed consent. She was brought to supervisor labor gang in a fasting state. The right groin area was prepped and draped in usual fashion. Micropuncture technique and ultrasound guidance was used for access in the right common femoral artery. The inner cannula angiography was performed followed by upsizing to a 6-Liberian x 11 cm sheath. Heparin was given intravenously and therapeutic ECT confirmed during the rest of the procedure. A 6-Liberian JR4 guiding catheter was advanced and used to engage the right coronary ostium, however, this could not engage the right coronary ostium at all, therefore after multiple attempts we exchanged to a 6-Liberian AR1 guiding catheter, which was initially able to sit right next to the ostium, we therefore advanced a Prowater wire into the mid segment of the right coronary artery to achieve better stability of the guiding catheter position. Angiography of the right coronary artery was performed in multiple views. This identified 99% stenosis at the ostium of the right PDA. At this time, we advanced the wire, but this particular wire could not engage the ostium of the PDA, therefore, we left the wire in the PLV and advanced another Prowater wire with a better distal curve and this was eventually able to wire into the ostium of the PDA. The other wire was retracted, an Emerge 2.0 x 15 mm balloon was advanced to the ostium of the PDA and used to perform balloon angioplasty at 10 atmospheres. Angiography revealed improvement of the stenosis, however, there was still residual significant stenosis, therefore, we advanced an NC Emerge 2.5 x 12 mm balloon and inflated it repeatedly at 12 atmospheres at the ostium of the PDA. Intracoronary nitroglycerin was administered. Additional angiography was performed. The Prowater wire was retracted to the mid RCA. Intracoronary nitroglycerin was again administered. Final angiography was performed showing COBY-3 flow in the RCA and branches. No evidence of dissection or perforation and reduction of the stenosis at the ostium of the RCA to about 20%. At this time, the procedure was concluded. The guiding catheter was removed. The patient was loaded with 600 mg of Plavix at the end of the procedure. She was transferred to the cardiovascular recovery area. The access sheath will be removed and manual compression applied for hemostasis. When the ACT is subtherapeutic, she will then be transferred back to her room. TOTAL FLUORO TIME: 21.34 minutes. TOTAL AIR KERMA: 1048 mGy. TOTAL SEDATION TIME: 57 minutes. TOTAL CONTRAST VOLUME: 140 mL. HEMODYNAMICS: AO 120/62, mean 88. RECOMMENDATIONS: 1. Aspirin and Plavix therapy for a minimum of 1 year, preferably longer given the patient's plaque burden. 2. Statin therapy for life. 3. Maximum control of risk factors. 4. The patient will be evaluated in followup in Cardiology Clinic for need for additional interventions. Electronically Signed by: Devon Kohli M.D. 12/26/2020 12:20 A Devon Kohli M.D. Date Dict: 12/23/2020/10:54 A/Devon Kohli M.D. Date Trans: 12/23/2020 11:13 A/nilesh [id number] cc: Matt Mcduffie M.D. [address] [facility] [address] [place] [facility] Cardiovascular Lab Report [facility] #: [id number] Physician: Devon Funes Department cade Kohli M.D. Medicine Service Date: 12/22/2020 Division of Birthdate: 1955 Cardiology Room #: [id number] Adult Cardiovascular Services [place] [address] Cardiovascular Laboratory Report INDICATION: The patient is a 65-year-old woman, who was evaluated recently in Cardiology Clinic because of symptoms of unstable angina. She underwent a stress test that did not show a clear area of ischemia. However, she developed chest pain with stress. Because of that, she was referred for cardiac catheterization. PROCEDURE: Bilateral selective coronary angiography from the left radial access. METHODS: Procedure was explained to the patient with the risks and benefits. She signed the informed consent. She was brought to supervisor labor gang in a fasting state. The left wrist area was prepped and draped in usual fashion. Modified Neil's test was favorable. Access in the left radial artery was obtained using micropuncture technique. A 5-Liberian x 11 cm slender sheath was advanced. Verapamil was given through the sheath and heparin was administered intravenously. Initial catheter advancement was made feasible using an angled Glidewire. Bilateral selective coronary angiography was then performed using a 5-Liberian JL3.5 catheter for engagement of the left coronary artery and a 5-Liberian JR5 diagnostic catheter for engagement of the right coronary artery. Note that we were not able to selectively engage the ostium of the right coronary artery despite attempting to use an AR modified and an AL1 diagnostic catheter. Catheters were removed. Procedure was concluded. A TR band was used for hemostasis in the left radial artery. She will be admitted for further management. She tolerated the procedure well. TOTAL SEDATION TIME: 40 minutes. TOTAL FLUORO TIME: 8.59 minutes. TOTAL AIR KERMA: 692 mGy. TOTAL CONTRAST VOLUME: 60 mL. HEMODYNAMICS: AO 126/64, mean 91. CORONARY ANGIOGRAPHY: This is a right dominant circulation. Left main: This arises from left coronary cusp. It bifurcates into left anterior descending and circumflex vessels. The left main has mild diffuse tubular narrowing about 30% in diameter narrowing seen in 1 or 2 views making this an eccentric narrowing of the left main. Left anterior descending: This has a 30% ostial narrowing after that. The caliber of the LAD tapers quickly after the takeoff of a small caliber diagonal branch. The mid LAD has an 80% stenosis. The [id number] LAD is a very small caliber and did not change significantly after administration of intracoronary nitroglycerin. Circumflex vessel: This is large and nondominant. It has a 30% mid segment narrowing. The distal circumflex is free of disease. Right coronary artery: This arises from the right coronary cusp. It is a large and dominant vessel. It has a 50% stenosis in the mid segment. Distally, it gives rise to PDA and PLV branches. The PLV branch has mild diffuse disease. It is of small caliber. The PDA branch is of small caliber and has a 90% ostial stenosis. SUMMARY OF THE FINDINGS: 1. Multivessel coronary artery disease. 2. 30% tubular left main stenosis. 3. 80% mid LAD stenosis. The caliber of the LAD is very small. 4. 30% mid circumflex stenosis. 5. 50% mid RCA and 90% ostial PDA stenosis, the caliber of the PDA is small. RECOMMENDATIONS: 1. Continue medical therapy for coronary artery disease. 2. CT Surgical consultation to consider option of revascularization by bypass surgery. 3. Consider balloon angioplasty to the ostium of the PDA if the patient is not a candidate for bypass surgery. Electronically Signed by: Devon Kohli M.D. 12/26/2020 12:04 A Devon Kohli M.D. Date Dict: 12/22/2020/04:47 P/Devon Kohli M.D. Date Trans: 12/23/2020 05:26 A/nilesh [id number] cc: Matt Mcduffie M.D. [address] [facility] [address] Normal [facility] POC GLUCOSE LABon 12-23-2020 Glucose [Mass/Vol] 170 mg/dL High 70-100 The [facility] Comment on above: Performed By: #### 8 [id number] #### [facility] [address] [facility] [place] [address], [facility] Glucose [Mass/Vol] 119 mg/dL High 70-100 [facility] Comment on above: Performed By: #### 8 5499 #### [facility] [address] [facility] [place] [address], [place] Glucose [Mass/Vol] 121 mg/dL High 70-100 [facility] Comment on above: Performed By: #### 8 5499 #### [facility] [address] [facility] [place] [address], [facility] POC GLUCOSE LABon 12-22-2020 Glucose [Mass/Vol] 117 mg/dL High 70-100 [facility] Comment on above: Performed By: #### 8 5499 #### [facility] [address] [facility] [place] [address], [facility] Lab Reportson 02-23-2020 Lab Reports [id number] .[id number]:127 Normal [facility] Lab Reports [id number] .[id number]:127 Normal [facility] Lab Reportson 02-18-2020 Lab Reports [id number]:127 Normal [facility] Ambulatory Clinical Summaryo n 02-17-2020 Ambulatory Clinical Summary {[id number] Normal [facility] Patient Educationon 02-17-20 Patient Education Family Medicine Diarrhea Diarrhea is watery poop (stool ). It can make you feel weak, tired, thirsty, or give you a dry mouth (signs of dehydration ). Watery poop is a sign of another problem, most often an infection. It often lasts 2?3 days. It can last longer if it is a sign of something serious. Take care of yourself as told by your doctor. HOME CARE ? Drink 1 cup (8 ounces) of fluid each time you have watery poop. ? Do not drink the following fluids: ? Those that contain simple sugars (fructose, glucose, galactose, lactose, sucrose, maltose). ? Sports drinks. ? Fruit juices. ? Whole milk products. ? Sodas. ? Drinks with caffeine (coffee, tea, soda) or alcohol. ? Oral rehydration solution may be used if the doctor says it is okay. You may make your own solution. Follow this recipe: ? teaspoon table salt. ? ? teaspoon baking soda. ? ? teaspoon salt substitute containing potassium chloride. ? 1 ? tablespoons sugar. ? 1 liter (34 ounces) of water. ? Avoid the following foods: ? High fiber foods, such as raw fruits and vegetables. ? Nuts, seeds, and whole grain breads and cereals. ? Those that are sweetened with sugar alcohols (xylitol, sorbitol, mannitol). ? Try eating the following foods: ? Starchy foods, such as rice, toast, pasta, low-sugar cereal, oatmeal, baked potatoes, crackers, and bagels. ? Bananas. ? Applesauce. ? Eat probiotic-rich foods, such as yogurt and milk products that are fermented. ? Wash your hands well after each time you have watery poop. ? Only take medicine as told by your doctor. ? Take a warm bath to help lessen burning or pain from having watery poop. GET HELP RIGHT AWAY IF: ? You cannot drink fluids without throwing up (vomiting ). ? You keep throwing up. ? You have blood in your poop, or your poop looks black and tarry. ? You do not pee (urinate ) in 6?8 hours, or there is only a small amount of very dark pee. ? You have belly (abdominal ) pain that gets worse or stays in the same spot (localizes ). ? You are weak, dizzy, confused, or lightheaded. ? You have a very bad headache. ? Your watery poop gets worse or does not get better. ? You have a fever or lasting symptoms for more than 2?3 days. ? You have a fever and your symptoms suddenly get worse. MAKE SURE YOU: ? Understand these instructions. ? Will watch your condition. ? Will get help right away if you are not doing well or get worse. Document Released: 11/05/2008 Document Revised: 02/11/2013 Document Reviewed: 01/25/2013 ExitCare? Patient Information ?2013 [employer]. Normal [facility] ALT-SGPTon 06-26-2017 Alanine aminotransferase (ALT) 40 U/L Normal 5-59 [facility] AST-SGOTon 06-26-2017 AST-SGOT 29 IU/L Normal 10-42 [facility] HEMOGLOBIN A1Con 06-26-2017 Glucose mass conc 160 mg/dL High 66-114 [facility] Comment on above: Result Comment: HEMO GLOBIN A1c DEGREE OF GLUCOSE CONTROL <5.7% Decreased risk of diabetes 5.7 - 6.4% Increased risk of diabetes >6.4% Consistent with diagnosis of diabetesPathology [employer] [address] [place], [place] [address]Laboratory Director: ISATU BarryIA No. [id number] CAP Accreditation No. [id number] Hemoglobin A1c/Hemoglobin.total mass fraction (Bld) 7.2 % High 4.2-5.8 [facility] RA Screenon 04-18-2017 RA Screen <10 Normal <14 [facility] Comment on above: Result Comment: Perf ormed at [address] [address] Performed By: #### C DP, CRP, SED ####[address] [place] [address] #### RA ####[address] [address] C-Reactive Proteinon 017 C reactive protein (CRP) 12.5 mg/L High 0.0-5.0 [facility] Comment on above: Result Comment: Perf ormed at [address] [place] [address] Performed By: #### C DP, CRP, SED ####[address] [place] [address] #### RA ####[address] [address] CBC with Diffon 04-17-2017 Abs. Basophil 0.00 k/uL Normal 0.0-0.2 [facility] Comment on above: Result Comment: Perf ormed at [address] [place] [address] Performed By: #### C DP, CRP, SED ####[address] [place] [address] #### RA ####[address] [address] Abs.Neutrophil (Seg) 6.30 k/uL Normal 1.8-7.7 [facility] Comment on above: Performed By: #### C DP, CRP, SED ####[address] [place] [address] #### RA ####[address] [address] Basophils/100 WBC Auto (Bld) 0 % Normal [facility] Comment on above: Performed By: #### C DP, CRP, SED ####[address] [place] [address] #### RA ####[address] [address] Eosinophils 0.20 10*3/uL Normal 0.0-0.4 [facility] Comment on above: Performed By: #### C DP, CRP, SED ####[address] [place] [address] #### RA ####[address] [address] Eosinophils/100 leukocytes 2 % Normal [facility] Comment on above: Performed By: #### C DP, CRP, SED ####[address] [place] [id number] #### RA ####[address] [address] Erythrocyte distribution width Auto Ratio (RBC) 12.9 % Normal 12.1-15.2 [facility] Comment on above: Performed By: #### C DP, CRP, SED ####[address] [place] [address] #### RA ####[address] [address] Erythrocytes (RBC) 4.68 10*6/uL Normal 4.0-5.2 [facility] Comment on above: Performed By: #### C DP, CRP, SED ####[address] [place] [address] #### RA ####[address] [address] Hematocrit (HCT) 39.4 % Normal 36-46 [facility] Comment on above: Performed By: #### C DP, CRP, SED ####[address] [place] [address] #### RA ####[address] [address] Hemoglobin mass conc (Bld) 13.1 g/dL Normal 12.0-16.0 [facility] Comment on above: Performed By: #### C DP, CRP, SED ####[address] [place] [address] #### RA ####[address] [address] Lymphocytes 1.90 10*3/uL Normal 1.0-4.8 [facility] Comment on above: Performed By: #### C DP, CRP, SED ####[address] [place] [address] #### RA ####[address] [address] Lymphocytes/100 leukocytes 22 % Normal [facility] Comment on above: Performed By: #### C DP, CRP, SED ####[address] [place] [address] #### RA ####[address] [address] MCH 27.9 pg Normal 26-34 [facility] Comment on above: Performed By: #### C DP, CRP, SED ####[address] [place] [address] #### RA ####[address] [address] MCHC mass conc (RBC) 33.2 g/dL Normal 31-37 [facility] Comment on above: Performed By: #### C DP, CRP, SED ####[address] [place] [address] #### RA ####[address] [address] MCV 84.1 fL Normal 80-100 [facility] Comment on above: Performed By: #### C DP, CRP, SED ####[address] [place] [address] #### RA ####[address] [address] Monocytes 0.50 10*3/uL Normal 0.2-0.8 [facility] Comment on above: Performed By: #### C DP, CRP, SED ####[address] [place] [address] #### RA ####[address] [address] Monocytes/100 leukocytes 6 % Normal [facility] Comment on above: Performed By: #### C DP, CRP, SED ####[address] [place] [address] #### RA ####[address] [address] Neutrophil (Seg) 70 % Normal [facility] Comment on above: Performed By: #### C DP, CRP, SED ####[address] [place] [address] #### RA ####[address] [address] Platelet mean volume (PMV) 9.4 fL Normal 6.0-12.0 [facility] Comment on above: Performed By: #### C DP, CRP, SED ####[address] [place] [address] #### RA ####[address] [address] Platelets 248 10*3/uL Normal 140-450 [facility] Comment on above: Performed By: #### C DP, CRP, SED ####[address] [place] [address] #### RA ####[address] [address] WBC (Leukocytes) 8.9 10*3/uL Normal 3.5-11.0 [facility] Comment on above: Performed By: #### C DP, CRP, SED ####[address] [place] [address] #### RA ####[address] [address] Auto Diff Performed NOT REPORTED Normal [facility] Comment on above: Performed By: #### C DP, CRP, SED ####[address] [place] [address] #### RA ####[address] [address] Erythrocyte morphology NOT REPORTED Normal [facility] Comment on above: Performed By: #### C DP, CRP, SED ####[address] [place] [address] #### RA ####[address] [address] Granulocytes/100 WBC (Bld) NOT REPORTED Normal 0.00-0.30 [facility] Comment on above: Performed By: #### C DP, CRP, SED ####[address] [place] [address] #### RA ####[address] [address] Immature granulocytes #/vol (Bld) NOT REPORTED Normal 0 [facility] Comment on above: Performed By: #### C DP, CRP, SED ####[address] [place] [address] #### RA ####[address] [place] [address] Platelets NOT REPORTED Normal [facility] Comment on above: Performed By: #### C DP, CRP, SED ####[address] [place] [address] #### RA ####[address] [place] [address] WBC Morphology NOT REPORTED Normal [facility] Comment on above: Performed By: #### C DP, CRP, SED ####[address] [place] [address] #### RA ####[address] [address] Sedimentation Rateon 11-15-2 017 Sedimentation Rate 43 mm High 0-20 [facility] Comment on above: Result Comment: Perf ormed at [address] [place] [address] Performed By: #### C DP, CRP, SED ####[address] [place] [address] #### RA ####[address] [address] Hemoglobin A1Con 01-03-2017 Glucose mass conc 131 mg/dL Normal [facility] Comment on above: Result Comment: The ADA and AACC recommend providing the estimated average glucose result to permit better patient understanding of their HBA1c result.Performed at [address] [place] [address] Performed By: #### G LYHGB ####[address] [place] [address] Hemoglobin A1c/Hemoglobin.total mass fraction (Bld) 6.2 % High 4.8-5.9 [facility] Comment on above: Performed By: #### G LYHGB ####[address] [place] [address] Encounters Encounter Date Encounter Type Care Provider Facility Start: 08-28-2023 End: 08-28-2023 ambulatory [facility] Start: 08-14-2023 End: 08-14-2023 ambulatory MATT MCDUFFIE Not Available Start: 07-17-2023 Clinisync Result Encounter Matt Mcduffie MD Work Phone: [facility] Unsolicited Start: 07-17-2023 Clinisync Result Encounter Matt Mcduffie MD Work Phone: [facility] Unsolicited Start: 06-19-2023 End: 06-19-2023 ambulatory NELLIE [facility] Start: 12-14-2022 End: 12-14-2022 ambulatory IVETTE [facility] Start: 10-01-2022 End: 10-02-[address] MATT MCDUFFIE Facility:[facility] Start: 08-02-2022 End: 08-03-[address] ERICH WOODRUFF Facility:[facility] Start: 07-31-2022 End: 08-01-[address] MATT MCDUFFIE Facility:[facility] Start: 07-03-2022 End: 07-04-[address] MATT MCDUFFIE Facility:[facility] Start: 06-07-2022 End: 06-08-2022 ambulatory ANAIS SMALLWOOD Facility:[facility] Start: 05-16-2022 End: 05-17-[address] WALI QUIÑONES Facility:[facility] Start: 05-16-2022 End: 05-17-[address] WALI QUIÑONES Facility:[facility] Start: 04-30-2022 End: 05-01-2022 ambulatory Aaron Gilmore Facility:[facility] Start: 04-02-2022 End: 04-03-[address] MATT MCDUFFIE Facility:[facility] Start: 02-14-2022 End: 02-15-[address] MATT MCDUFFIE Facility: Start: 12-22-2020 End: 12-24-2020 ambulatory MATT MCDUFFIE Facility:[facility] Start: 04-17-2017 End: 04-18-2017 Ambulatory [facility] Start: 01-03-2017 End: 01-04-2017 Ambulatory [facility] Procedures Date Procedure Procedure Detail Performing Clinician Start: 07-17-2023 [facility] MICROALBUMIN, RAND UR Matt Mcduffie MD Work Phone: Start: 12-14-2022 Follow-up visit Follow-up IVETTE MCARTHUR Start: 04-17-2017 C-reactive protein RAFAEL CHILD Start: 04-17-2017 CBC WITH AUTO DIFFERENTIAL EITAN CHILD Start: 04-17-2017 RHEUMATOID FACTOR EITAN CHILD Start: 04-17-2017 SEDIMENTATION RATE RAFAEL CHILD Start: 01-03-2017 HEMOGLOBIN A1C EITAN GASTELUM LTGILDARDO Start: 09-24-2016 Mammography Matt rodgers MD Work Phone: Plan of Treatment Date Care Activity Detail Author Start: 08-14-2023 End: 08-14-2023 Patient encounter procedure 08/14/2023 1:30 PM EDT Office Visit [facility] [address] [place] [id number] Matt Mcduffie MD [address] [place] [address] [facility] Start: 05-12-2020 Pneumococcal Vaccine : 65+ Years (2 - PPSV23 or PCV20) Pneumococcal Vaccine: 65+ Years (2 - PPSV23 or PCV20) [facility] Start: 09-24-2017 Screening for malign ant neoplasm of breast Mammogram [facility] Start: 07-23-2017 Medicare Annual Well ness (AWV) Medicare Annual Wellness (AWV) [facility] Start: 09-26-1987 Screening for malign ant neoplasm of cervix [facility] Start: 1978 Screening for malign ant neoplasm of cervix Pap Smear [facility] Start: 1976 Urine screening for protein Diabetes: Urine Protein Screening [facility] Start: 09-26-1967 Glaucoma screening Diabetes: R etinopathy Screening [facility] Start: 1957 Hemoglobin A1c measurement Diabetes: Hemoglobin A1C [facility] Start: 1957 Screening for malign ant neoplasm of colon [facility] Payers Date Payer Category Payer Medicare AETNA MEDICARE A DVANTAGE AETNA MEDICARE REPLACEMENT [id number] 2021-Present [address] [place] [address] [id number] 2018 Unknown [id number] 2016 Unknown [id number] 1959 Medicare [id number] 1957 Unknown [id number] 1957 Unknown [id number] 1957 Unknown [id number] 1957 Unknown [id number] 1957 Unknown [id number] [id number] 1957 Unknown [id number] [id number] 1957 Unknown [id number] [id number] 1957 Unknown [id number] [id number] 1957 Unknown [id number] [id number] 1957 Unknown [id number] [id number] 1957 Unknown [id number] 1957 Unknown [id number] [id number] 1957 Unknown [id number] Social History Date Type Detail Facility Start: 07-11-2023 Tobacco smoking status NHIS Never sm oked tobacco [facility] Start: 07-11-2023 History of Social function [facility] Start: 07-11-2023 Tobacco use panel [facility] Start: 1955 Sex Assigned At Not on file N [facility] Clinical Notes 02-17-2020 to 08-28-2023 Note Date & Type Note Facility 08-28-2023 Note [facility] Cardiology Clinic Note Chief Complaint: Patient here for 3 mo follow up CAD, hypertension, and hyperlipidemia. She had routine labs last month. She is only taking carvedilol once a day. Says she feels her heart pulsating when she sits sometimes, also sometimes when lying down. Denies chest pain and SOB. HPI: Kayli Hernandez is a 67 y.o. female History of coronary artery disease s/p balloon angioplasty, hypertension and diabetes here in routine follow-up Cardiology ROS: Review of Systems Cardiovascular: Positive for palpitations ( a couple times ). Neurological: Positive for light-headedness (per patient due to hypoglycemia). Psychiatric/Behavioral: The patient is nervous/anxious. All other systems reviewed and are negative. Past Medical History She has a past medical history of Coronary artery disease, Diabetes mellitus (CMS/HCC), Hyperlipidemia, Hypertension, and Sleep apnea. Surgical History She has a past surgical history that includes Cardiac catheterization; Coronary stent placement; section, classic; Hysterectomy; Cholecystectomy; Knee surgery; Elbow surgery; Shoulder surgery; and Coronary artery bypass graft. Social History She reports that she has never smoked. She has never used smokeless tobacco. She reports that she does not currently use alcohol after a past usage of about 2.0 standard drinks of alcohol per week. She reports that she does not use drugs. Family History Family History Problem Relation Name Age of Onset Stroke Mother Tangela Hernandez Heart attack Father Roge Hernandez Sr. Hypertension Father Roge Hernandez Sr. Diabetes type II Brother Roge Hernandez Jr Heart disease Brother Roge Hernandez Jr Allergies Patient has no known allergies. Medications Current Outpatient Medications: aspirin 81 mg chewable tablet, in the morning., Disp: , Rfl: atorvastatin (Lipitor) 80 mg tablet, atorvastatin 80 mg tablet take 1 tablet by mouth once daily, Disp: 90 tablet, Rfl: 3 carvedilol (Coreg) 25 mg tablet, Take 1 tablet (25 mg) by mouth with breakfast and with evening meal., Disp: 180 tablet, Rfl: 3 clopidogrel (Plavix) 75 mg tablet, Take 75 mg by mouth in the morning., Disp: , Rfl: glipiZIDE (Glucotrol) 10 mg tablet, glipizide 10 mg tablet take 1 tablet by mouth once daily, Disp: , Rfl: isosorbide mononitrate ER (Imdur) 30 mg 24 hr tablet, Take 1 tablet (30 mg) by mouth in the morning., Disp: 90 tablet, Rfl: 3 losartan (Cozaar) 50 mg tablet, losartan 50 mg tablet Take 1 tablet by mouth daily, Disp: , Rfl: omeprazole (PriLOSEC) [address] capsule, omeprazole 40 mg capsule,delayed release take 1 capsule by mouth once daily, Disp: , Rfl: semaglutide (Ozempic) 1 mg/dose (2 mg/1.5 mL) pen injector, Inject 1 mg under the skin 1 (one) time per week., Disp: , Rfl: Last Recorded Vitals BP 148/78 (BP Location: Left arm, Patient Position: Sitting) Pulse 82 Ht 1.448 m (4' 9 ) Wt 83.5 kg (184 lb) SpO2 99% BMI 39.82 kg/m??? Physical Examination: GENERAL: alert and oriented x3, well developed, in no acute distress. HEAD: atraumatic, normocephalic. EYES: SCOTT, EOMI. NECK: trachea midline, no JVD present, no carotid bruits present. CARDIAC: S1, S2 present. RRR. No murmur, rubs, or gallops. RESPIRATORY: CTAB, no increased effort of breathing, no rales, rhonchi, or wheezing. ABDOMEN: soft, nontender, nondistended. EXTREMITIES: no lower extremity edema, peripheral pulses are 2+ bilaterally. No rash/skin discoloration present. NEURO: strength/sensation equal and symmetric in bilateral upper and lower extremities. PSYCH: appropriate mood, affect, and judgement. Labs: 09/27/21 CBC stable NA 139, K+ 4.2 normal BUN 10, CR 0.62- normal ALT 29, AST 17- normal; ALP 215 elevated Chol 146, HDL 44, Trig 85, LDL 85 A1C 9.0 Last lab values have been reviewed CV Testin02/14/23 TTE Normal ventricular systolic function, LVEF 65% No significant valvular dysfunction Normal rt sided pressures Stress test: 08/03/22- no reversible ischemia, myocardial perfusion is normal Treadmill stress test 12/2020: Normal myocardial perfusion scan. No reversible ischemia. Nondiagnostic exercise test. Carotid US- B/L ICA 0-49% stenosis Coronary angiogram: 12/2020 Cardiovascular Laboratory Report INDICATION: The patient is a 65-year-old woman, who was evaluated in Cardiology Clinic for unstable angina and referred for cardiac catheterization. This was performed yesterday. This showed a high-grade stenosis in the LAD and the ostium of the right PDA. She was evaluated by Cardiothoracic Surgery and was turned down for bypass surgery due to her small caliber vessels. She was brought today for balloon angioplasty of the ostium of the right PDA. PROCEDURES: 1. Successful balloon dilatation and angioplasty of 99% stenosis in the ostium of the right PDA, reduced to 20% by balloon angioplasty alone. 2. Administration of intraco (more content not included)... [facility] 06-19-2023 Note F/U with PCP for management [facility] 06-19-2023 Note Coronary artery dise ase is stable Continue GDMT- ASA, plavix, lipitor, Coreg continue risk factor modifications- heart healthy diet, regular exercise as tolerated and continue all medications. [facility] 06-19-2023 Note Hypertension is well controlled 124/81 Continue coreg, losartan [facility] 01-17-2024 Note Continue lipitor 80 [facility] daily [facility] CARDIOLOGY PROGR ESS NOTE HPI: Kayli Hernandez is a 67 y.o. female here for Follow-up HPI F/U for known past medical history of CAD, hypertension, diabetes type 2. She is s/p balloon angioplasty Overall states she is doing well. Admits this last April just before thanksgiving she awoke with mid sternal chest pressure and anxiety, denied SOB, nausea or sweating during this episode. States that she talked herself through this episode and chest pain resolved after just a couple minutes. Denied any re-occurrence of chest pain, or activity limiting symptoms. 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 Overall states that she is doing well, denied any other concerning symptoms. Review of Systems Constitutional: Negative. Respiratory: Negative. Cardiovascular: Negative. Neurological: Negative. All other systems reviewed and are negative. Visit Vitals BP 124/81 (BP Location: Left arm, Patient Position: Sitting, BP Cuff Size: Adult) Pulse 85 Resp 12 Ht 1.448 m (4' 9 ) Wt 82.2 kg (181 lb 4.8 oz) SpO2 98% BMI 39.23 kg/m??? Smoking Status Never BSA 1.82 m??? No Known Allergies Medications: Current Outpatient Medications on File Prior to Visit Medication Sig Dispense Refill aspirin 81 mg chewable tablet in the morning. atorvastatin (Lipitor) 80 mg tablet atorvastatin 80 mg tablet take 1 tablet by mouth once daily 90 tablet 3 carvedilol (Coreg) 25 mg tablet Take 1 tablet (25 mg) by mouth with breakfast and with evening meal. 180 tablet 3 clopidogrel (Plavix) 75 mg tablet Take 75 mg by mouth in the morning. glipiZIDE (Glucotrol) 10 mg tablet glipizide 10 mg tablet take 1 tablet by mouth once daily losartan (Cozaar) 50 mg tablet losartan 50 mg tablet Take 1 tablet by mouth daily omeprazole (PriLOSEC) [address] capsule omeprazole 40 mg capsule,delayed release take 1 capsule by mouth once daily semaglutide (Ozempic) 1 mg/dose (2 mg/1.5 mL) pen injector Inject 1 mg under the skin 1 (one) time per week. isosorbide mononitrate ER (Imdur) 30 mg 24 hr tablet Take 1 tablet (30 mg) by mouth in the morning. 90 tablet 3 [DISCONTINUED] ALPRAZolam (Xanax) 0.5 mg tablet take 1 tablet by mouth three times a day if needed [DISCONTINUED] amLODIPine (Norvasc) 10 mg tablet Take 1 tablet (10 mg) by mouth in the morning. 30 tablet 11 [DISCONTINUED] escitalopram (Lexapro) 10 mg tablet [DISCONTINUED] furosemide (Lasix) 20 mg tablet Take 20 mg by mouth in the morning. [DISCONTINUED] meloxicam (Mobic) 15 mg tablet Take 15 mg by mouth in the morning. [DISCONTINUED] metFORMIN (Glucophage) 500 mg tablet metformin 500 mg tablet Take 1 tablet by mouth daily [DISCONTINUED] Vitamin D3 50 mcg (2,000 unit) tablet Take by mouth in the morning. No current facility-administered medications on file prior to visit. Physical Exam: Constitutional: Appearance: Normal appearance. Without apparent distress, obese, chronically ill HENT: Head: Normocephalic and atraumatic. Nose: Nose normal. Mouth/Throat: Mouth: Mucous membranes are moist. Eyes: Extraocular Movements: Extraocular movements intact. Conjunctiva/sclera: Conjunctivae normal. Neck: Vascular: No JVD. Cardiovascular: Rate and Rhythm: Normal rate and regular rhythm. Pulses: Dorsalis pedis pulses are 3 on the right side and 3on the left side. Posterior tibial pulses are 3 on the right side and 3 on the left side. Heart sounds: Normal heart sounds, S1 normal and S2 normal. Pulmonary: Effort: Pulmonary effort is normal. Breath sounds: Normal breath sounds. Abdominal: General: Bowel sounds are normal. Palpations: Abdomen is soft. Musculoskeletal: General: Normal range of motion. Cervical back: Normal range of motion. Right lower leg: No edema. Left lower leg: No edema. Skin: General: Skin is warm and dry. Capillary Refill: Capillary refill takes less than 2 seconds. Neurological: General: No focal deficit present. Mental Status: he is alert and oriented to person, place, and time. Psychiatric: Mood and Affect: Mood normal. Behavior: Behavior normal. Thought Content: Thought content normal. Judgment: Judgment normal. Labs: 09/27/21 CBC stable NA 139, K+ 4.2 normal BUN 10, CR 0.62- normal ALT 29, AST 17- normal; ALP 215 elevated Chol 146, HDL 44, Trig 85, LDL 85 A1C 9.0 Last lab values have been reviewed CV Testin02/14/23 TTE Normal ventricular systolic function, LVEF 65% No significant valvular dysfunction Normal rt sided pressures Stress test: 08/03/22- no reversible ischemia, myocardial perfusion is normal Treadmill stress test 12/2020: Normal myocardial perfusion scan. No reversible ischemia. Nondiagnostic exercise test. Carotid US- B/L ICA 0-49% s (more content not included)... [facility] 12-14-2022 Note Review of Systems All other systems reviewed and are negative. [facility] 12-14-2022 Note [place] Cardiology Note [facility] Reason for follow up: CAD, echo, hypertension, recent atypical chest pain HPI: Kayli Hernandez is a 67 y.o. year old with past medical history of CAD, hypertension, diabetes type 2. She is s/p balloon angioplasty She is here for 6 month follow up She has stopped her amlodipine, lasix as she did not think she needed it She was evaluated by neurology per last visit due to concerns for TIA -- her episode was determined to likely be hypoglycemia Review of Systems Constitutional: Negative for diaphoresis and malaise/fatigue. Eyes: Negative for visual disturbance. Cardiovascular: Negative for chest pain, cyanosis, dyspnea on exertion, leg swelling and near-syncope. Respiratory: Negative for shortness of breath and sleep disturbances due to breathing. Neurological: Negative for aphonia, focal weakness and paresthesias. All other systems reviewed and are negative. -------- Previous HPI per Dr. Quiñones 02/07/22: Mrs. Hernandez continues to experience atypical chest discomfort; she had an episode while driving her car. She describes sharp epigastric pain. This lasted for several minutes and resolve spontaneously. She had another episode of chest pressure while asleep at night. This was associated with shortness of breath and palpitations. Interestingly, she does not have exertional chest pain. She does have shortness of breath with exertion however this is longstanding. Investigations: reviewed 04/19/21 Chol 131, trig 68, HDL 45, LDL 72.4 LFT AST 13, ALT 26, ALP 194 CBC stable Echo 12/21/20 Normal LVSF no significant valvular abnormalities normal Rt sided pressures sm circumferential pericardial effusion Treadmill stress test 12/2020: Normal myocardial perfusion scan. No reversible ischemia. Nondiagnostic exercise test. 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 (CMS/HCC) Type 2 diabetes mellitus without complication (CMS/HCC) TIA (transient ischemic attack) Coronary artery disease involving lummi coronary artery of lummi heart without angina pectoris PSH: Past Surgical History: Procedure Laterality Date CARDIAC CATHETERIZATION SECTION, CLASSIC CHOLECYSTECTOMY CORONARY STENT PLACEMENT ELBOW SURGERY HYSTERECTOMY KNEE SURGERY SHOULDER SURGERY SH: Social Determinants of Health Tobacco Use: Not on file Alcohol Use: Not on file Financial Resource Strain: Not on file Food Insecurity: Not on file Transportation Needs: Not on file Physical Activity: Not on file Stress: Not on file Social Connections: Not on file Intimate Partner Violence: Not on file Depression: Not on file Housing Stability: Not on file Weight 83.3kg No Known Allergies Meds: Current Outpatient Medications on File Prior to Visit Medication Sig Dispense Refill ALPRAZolam (Xanax) 0.5 mg tablet take 1 tablet by mouth three times a day if needed aspirin 81 mg chewable tablet in the morning. atorvastatin (Lipitor) 80 mg tablet atorvastatin 80 mg tablet take 1 tablet by mouth once daily 90 tablet 3 carvedilol (Coreg) 25 mg tablet Take 1 tablet (25 mg) by mouth with breakfast and with evening meal. 180 tablet 3 clopidogrel (Plavix) 75 mg tablet Take 75 mg by mouth in the morning. isosorbide mononitrate ER (Imdur) 30 mg 24 hr tablet Take 1 tablet (30 mg) by mouth in the morning. 90 tablet 3 losartan (Cozaar) 50 mg tablet losartan 50 mg tablet Take 1 tablet by mouth daily omeprazole (PriLOSEC) [address] capsule omeprazole 40 mg capsule,delayed release take 1 capsule by mouth once daily semaglutide (Ozempic) 1 mg/dose (2 mg/1.5 mL) pen injector Inject 1 mg under the skin 1 (one) time per week. amLODIPine (Norvasc) 10 mg tablet Take 1 tablet (10 mg) by mouth in the morning. (Patient not taking: Reported on 12/14/2022) 30 tablet 11 escitalopram (Lexapro) 10 mg tablet furosemide (Lasix) 20 mg tablet Take 20 mg by mouth in the morning. glipiZIDE (Glucotrol) 10 mg tablet glipizide 10 mg tablet take 1 tablet by mouth once daily meloxicam (Mobic) 15 mg tablet Take 15 mg by mouth in the morning. metFORMIN (Glucophage) 500 mg tablet metformin 500 mg tablet Take 1 tablet by mouth daily Vitamin D3 50 mcg (2,000 unit) tablet Take by mouth in the morning. No current facility-administered medications on file prior to visit. Physical Exam: Constitutional General Appearance: well-nourished, well-developed, appears stated age Level of Distress: comfortable Psychiatric Mental Status: alert, normal affect Orientation: o (more content not included)... [facility] 04-30-2022 Note PROCEDURE: XR HIP RT 2 3V WO PELVIS HISTORY: Bilateral hip joint pain COMPARISON: None. FINDINGS: BONES:No fracture, acute abnormality, or significant arthropathy. SOFT TISSUES:No visible soft tissue swelling. EFFUSION:None visible. OTHER: Negative. IMPRESSION: 1. No acute bone abnormality. 2. Minimal degenerative joint disease. Electronically authenticated by: AARON GILMORE Date: 2022-04-30 19:37 [facility] 12-24-2020 Note MR#: [id number] [facility] Pt. Name: Kayli Hernandez Admitted: 12/22/2020 Discharged: 12/24/2020 Date of : 1955 Physician: Patric Fonseca MD DISCHARGE SUMMARY PRINCIPAL DIAGNOSES: 1. Unstable angina. 2. Hypertension. 3. Diabetes mellitus type 2. 4. Hyperlipidemia. 5. Obesity. IMAGING PROCEDURES: The patient had cardiac catheterization with successful balloon dilation and angioplasty of 99% stenosis and the ostium of the right PDA reduced to 20% by balloon angioplasty alone. Again, the patient was admitted to the hospital on 12/22/2020 with chest pain and she was taken to the cardiac cath for which balloon angioplasty was done as I mentioned above. The patient did fairly well and she is being discharged today. The patient denies any chest pain or shortness of breath. PHYSICAL EXAMINATION: HEENT: Eyes, extraocular muscles intact. NECK: Supple. No JVD. No lymphadenopathy. LUNGS: Clear to auscultation. HEART: S1, S2. ABDOMEN: Soft. Positive bowel sounds. EXTREMITIES: Positive pulses. MEDICATIONS ON DISCHARGE: As far as medication, the patient to continue same home medication. Only Plavix was added to her regimen. The patient to follow up with Cardiology in 3-[address] Quiñones. Total time of discharge 60 minutes. Electronically Signed by: Patric Fonseca MD 01/04/2021 12:40 P Patric Fonseca MD Date Dict: 12/24/2020/11:04 A/Patric Fonseca MD Date Trans: 12/24/2020 11:58 A/nilesh [id number] cc: Matt Mcduffie M.D. [id number] [facility] [id number] [facility] 02-17-2020 Note Chief Complaint consultation for rectal bleeding HPI Staff 64 year old female presents on self referral consultation for abdominal pain x 4 days with 3 days of diarrhea. Notes tinge of pink blood with wiping. Decrease in appetite. Denies nausea or vomiting. Believes this is related to known diverticulosis. Last colonoscopy 03/2019 with sigmoid diverticulosis. History of Present Illness 64 yo female with DMII, reports 4 day h/o abdominal pain, crampy/ache mid abd and RLQ, intermittent; no N/V; some decreased appetite; frequent loose, watery stools, even without eating; over 5 x/day; no gross blood; low grade fever at the start of this pain; had knee surgery as outpatient 4 days prior to start of pain, was on Percocet, then took a laxative for constipation; had EGD and colonoscopy 04/2019 with sigmoid diverticulosis; no left sided pain; unsure if she had antibiotic at time of knee surgery; no travel or other medication changes. patient is drinking lots of liquids. Review of Systems PHQ Score Initial Depression Screen Score: 0 ROS - Provider Constitutional: no fever, no sweats, no weight loss. Eyes: no glasses, no blurred vision, no visual loss. ENMT: no dentures, no hoarseness, no swallowing difficulties, no hearing loss, no ear infection(s), no nose bleeds. Cardiovascular: normal blood pressure, no chest pain, regular heartbeat, no heart murmur. Respiratory: no shortness of breath, no cough, no asthma, no wheezing. Gastrointestinal: no nausea, no vomiting, yes diarrhea, no constipation, no blood in stool, yes change in bowel habits, moderate abdominal pain, no hepatitis. Genitourinary: no kidney stones, no urine infection, no dysuria. Musculoskeletal: mild pain, no weakness. Skin: no changing moles, no rash, no skin lumps. Neurologic: no seizures, no epilepsy, no headache. Psychiatric: no emotional or psychiatric problem. Heme/Lymph: no bleeding problems, no anemia, no blood clots, no transfusions. Allergy/Immunologic: no swollen lymph nodes/glands, no IV drug abuse. Other: Additional ROS info: Except as noted in the above Review of Systems and in the History of Present Illness, all other systems have been reviewed and are negative or noncontributory. Physical Exam Vitals & Measurements T: 36.8 ?C (Tympanic) HR: 78(Peripheral) RR: 16 BP: 124/76 HT: 142 cm HT: 142.0 cm WT: 83.0 kg WT: 83.0 kg BMI: 41.16 HEENT: normal conjunctiva, sclera clear, no scleral icterus, EOM intact, PERRLA. oral mucosa moist without lesions Neck: trachea midline , no mass, symmetric, no thyromegaly or nodules. no adenopathy Respiratory: lungs CTA, respirations non labored. Cardiovascular: regular rate and rhythm, no murmur, , no pedal edema or varicosities. Gastrointestinal: obese, soft, non distended, mild tenderness, mid abdomen and RLQ, no peritoneal signs, no masses, no palpable hernias, diastasis recti yes, no hepatosplenomegaly. normal bs Lymphatic: no cervical adenopathy, no axillary adenopathy, Musculoskeletal: abnormalgait, digits and nails without infection, nodes, cyanosis, clubbing. Skin: no rashes, no lesions, no ulcers, no subcutaneous nodules, induration. Psychiatric/Neuro: oriented to time, place, person, judgement normal, affect appropriate for age, insight intact, no focal deficits. Tests: , review of old records completed, Assessment/Plan 1. Diarrhea (R19.7: Diarrhea, unspecified) possible infectious colitis; C diff possible since recent surgical procedure; check stool studies; cbc, chem 8; empiric Flagyl; will call patient with results, call sooner if problems/questions; if worsening pain, N/V; dehydration, present to ED for evaluation. Ordered: metronidazole, 500 mg = 1 tab(s), Oral, TID, X 10 day(s), # 30 tab(s), Refills(s) 0, Pharmacy: [facility] 142, cm, 02/17/20 14:42:00 EDT, Height/Length Dosing, 83, kg, 02/17/20 14:42:00 EDT, Weight Dosing Basic Metabolic Panel CBC w/ Auto Diff Clostridium difficile by PCR Enteric Panel by PCR O & P Exam, Routine 2. Abdominal pain, right lower quadrant (R10.31: Right lower quadrant pain) see # 1 Ordered: metronidazole, 500 mg = 1 tab(s), Oral, TID, X 10 day(s), # 30 tab(s), Refills(s) 0, Pharmacy: [facility] 142, cm, 02/17/20 14:42:00 EDT, Height/Length Dosing, 83, kg, 02/17/20 14:42:00 EDT, Weight Dosing Basic Metabolic Panel CBC w/ Auto Diff Clostridium difficile by PCR Enteric Panel by PCR O & P Exam, Routine 3. Abdominal pain, acute, generalized (R10.84: Generalized abdominal pain) see # 1 Ordered: metronidazole, 500 mg = 1 tab(s), Oral, TID, X 10 day(s), # 30 tab(s), Refills(s) 0, Pharmacy: [facility] 142, cm, 02/17/20 14:42:00 EDT, Height/Length Dosing, 83, kg, 02/17/20 14:42:00 EDT, Weight Dosing Basic Metabolic Panel CBC w/ Auto Diff Clostridium difficile by PCR Enteric Panel by PCR O & P Exam, Routine 4. Change in bowel habits (R19.4: Change in bowel habit) see # 1 5. BMI 40 (more content not included)... [facility] Comment on above: Result Comment: Elec tronically Signed By: EARNEST VILLANUEVA, Ho Lion.shabnam\Date and Time Signed: 02/17/20 17:23 EDT Summary Purpose Family History No Family History Records FoundNo Family History Records FoundNo Family History Records FoundNo Family History Records FoundNo Family History Records FoundNo Family History Records FoundNo Family History Records Found Advance Directives No Advanced Directives Records FoundNo Advanced Directives Records FoundNo Advanced Directives Records FoundNo Advanced Directives Records FoundNo Advanced Directives Records FoundNo Advanced Directives Records FoundNo Advanced Directives Records Found Additional Source Comments INFORMATION SOURCE (unrecogn ized section and content) DATE CREATED AUTHOR 11/25/2017 [facility] DATE CREATED AUTHOR AUTHOR'S ORGANIZ ATION 11/26/2017 Rosa Martin [facility] DATE CREATED AUTHOR AUTHOR'S ORGANIZ ATION 10/15/2020 [facility] DATE CREATED AUTHOR AUTHOR'S ORGANIZ ATION 01/05/2021 [facility] DATE CREATED AUTHOR AUTHOR'S ORGANIZ ATION 10/05/2022 [facility] DATE CREATED AUTHOR AUTHOR'S ORGANIZ ATION 08/15/2023 [facility] EP[facility] DATE CREATED AUTHOR AUTHOR'S ORGANIZ ATION 08/29/2023 [facility] Care Teams (unrecognized sec tion and content) Tan Room Supervisor Relationship Specialty Start Date End Date Matt Mcduffie MD [address] [place] [address] PCP - General Family Medicine 07/08/23 FOR RECORDS PERTAINING TO PATIENTS WHO ARE OR HAVE BEEN ENROLLED IN A CHEMICAL DEPENDENCY/SUBSTANCEABUSE PROGRAM, SOME INFORMATION MAY BE OMITTED. This clinical summary was aggregated from multiple sources. Caution should be exercised in using it in the provision of clinical care. This summary normalizes information from multiple sources, and as a consequence, information in this document may materially change the coding, format and clinical context of patient data. In addition, data may be omitted in some cases. CLINICAL DECISIONS SHOULD BE BASED ON THE PRIMARY CLINICAL RECORDS. [facility]. provides no warranty or guarantee of the accuracy or completeness of information in this document.
== END 2023-09-04 12:13 | disposition home or self-care (01) ==
LOC: MAMMO 12:12
PROVIDERS: PCP Family Medicine; Visit Provider Family Medicine
DX: R92.8 Other abnormal and inconclusive findings on diagnostic imaging of breast (principal)
CPT/HCPCS: 76642; 77065

== ENCOUNTER 2024-01-23 09:35 | Outpatient (OUT) | payer OTHER, SELFPAY ==
--- OUTSIDE RECORDS SUMMARY | 2024-01-23 09:54 | XMS_ITS | CCD ---
Author Organization [facility] Care Team Providers Care Systems Navigator Name Role Phone EITAN CHILD Unavailable Unavailable MATEUSZ, EITAN Tyler Unavailable Unavailable STEWARTAARON Unavailable Unavailable EITAN CHILD Unavailable Unavailable NADERECeline, MATT Referring Unavailable NADERER, MATT Primary Care [...] Primary Care Unavailable NADERER, DR MATT Uribe Attending Unavailable RETA, DR MATT Uribe Consulting Unavailable RETA, DR MATT Uribe Admitting Unavailable RETA, DR MATT Uribe Primary Care Unavailable [facility], DR KEYES Consulting Unavailable [facility], DR KEYES Admitting Unavailable [facility], DR KEYES Attending Unavailable [place], DR ERICH Shaw Consulting Unavailable IVETTE KLINE Admitting Unavailable IVETTE KLINE Attending Unavailable RETA, DR MATT Uribe Primary Care Unavailable IVETTE KLINE Consulting Unavailable Matt Mcduffie MD Primary Care Provider MATT MCDUFFIE Attending Unavailable IVETTE KLINE Attending Unavailable DONNIE, WALI Attending Unavailable NELLIE RAMIREZ Attending Unavailable Allergies Allergy Classification Reported Allergen(s) Allergy Type Date of Onset Reaction(s) Facility (1 source) Adhesive bandage Drug allergy (disorder) [facility] (1 source) natural latex rubber Drug allergy (disorder) [facility] (1 source) Latex Propensity to adverse reactions 1 [facility] Medications Current Medications Medication Drug Class(es) Dates Sig (Normalized) Sig (Original) ALPRAZolam 0.5 mg disintegrating oral tablet (1 source) Benzodiazepine Start: 04-30-2023 take 1 tablet by mouth three times daily as needed for anxiety ALPRAZolam (Niravam) 0.5 MG disintegrating tablet Indications: ANMOL (generalized anxiety disorder) ([facility]) Take 1 tablet (0.5 mg) by mouth [...] bedtime. 0 Active Blood Glucose Monitoring Suppl ([employer] System) w/Device kit (1 source) Blood [...] the morning cholecalciferol (Vitamin D-3) 50 MCG (1999 [place]) tablet Take 2,000 Units by mouth [...] Indications: Type 2 diabetes mellitus with hyperglycemia (CMS/HCC) TAKE 1 TABLET BY MOUTH DAILY 30 [...] disease (4 sources) Atherosclerotic heart disease of [place] coronary artery without angina pectoris; 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: [Coronary [...] (1 source) Patient encounter status; 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: [Other [facility] (current) drug therapy] Onset: 07-11-2023 07-11-2023 Episodic [...] Da te Episodic/Chronic Other 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 source) [facility] (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; 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: [JAIL CURRENT USE OF INSULIN] Onset: 07-04-2022 Episodic [...] Range Facility Office Visiton 08-28-2023 Follow-up visit [id number] Jessica Hernandezbeth 1955 F Date Provider Department Center 08/28/2023 Jessica-WALI QUIÑONES MONICA Malin Family History Problem Relation Age of Onset Stroke Mother Heart attack Father Hypertension Father Diabetes type II Brother Heart disease Brother Family Status - Relation Status Age at Mother Father Brother Level of Service:[address] [place] OFFICE/OUTPATIENT ESTABLISHED LOW MDM 20 MIN Normal [facility] MICROALBUMIN, RAND URon 07-17-2023 MICROALBUMIN URINE RANDOM 1.3 mg/dL NINF - 30.0 mg/dL [facility] Office Visiton 06-19-2023 Follow-up visit [id number] Jessica Hernandezbeth 1955 F Date Provider Department Center 06/19/2023 NELLIE CENTENO MONICA [facility] Family History Problem Relation Age of Onset Stroke Mother Heart attack Father Hypertension Father Diabetes type II Brother Heart disease Brother Family Status - Relation Status Age at Mother Father Brother Level of Service:59520 [place] OFFICE/OUTPATIENT ESTABLISHED MOD MDM 30 MIN Reason for Visit and Comments: Follow-up [622556] Normal [facility] Office Visiton 12-14-2022 Follow-up visit [id number] Jessica Hernandezbeth 1955 F Date Provider Department Center 12/14/2022 Dafne-IVETTE KLINE MONICA [facility] No family history on file Level of Service:15597 [place] OFFICE/OUTPATIENT ESTABLISHED MOD MDM 30-39 MIN Reason for Visit and Comments: Follow-up [976231] - 6 mo f/u w/ carotid us Normal [facility] GLYCOHEMOGLOBIN A1Con 2022 ADA RECOMMENDATION SEE BELOW Normal [facility] Comment on above: Result Comment: ADA RECOMMENDED LIMIT 4.0 - 6.0 ADA THERAPEUTIC TARGET < 7.0 ACTION SUGGESTED > 7.0 Performed By: #### A 1C #### [facility] [address] [address] [address] Radha Willis Glucose [Mass/Vol] 163 mg/dL Normal [facility] Comment on above: Performed By: #### A 1C #### [facility] [address] [address] [address] Radha Willis HbA1c (Bld) [Mass fraction] 7.3 % Critically high 4.5-6.2 [facility] Comment on above: Performed By: #### A 1C #### [facility] [address] [place] [address] Dr. Radha Willis NM STRESS/REST MULTIon 08-02 NM STRESS/REST MULTI Patient: KAYLI HERNANDEZ Exam Date: 08/02/2022 : 1955 Gender:F Ordering : IVETTE KLINE Admission #: [id number] Family : Order #: [id number] CLICK HERE TO VIEW EXAM RADIOLOGY REPORT [...] Woodruff MD on 08/03/2022 at 11:55 Normal [facility] MAMM SCREEN 3D ALEE CADon 07-31-2022 MG MAMM SCREEN 3D ALEE CAD Patient: KAYLI HERNANDEZ Exam Date: 07/31/2022 : 1955 Gender:F Ordering : DR MATT MCDUFFIE . Admission #: [id number] Family : Order #: [id number] CLICK HERE TO VIEW EXAM RADIOLOGY REPORT [...] Treatments None Family Cancers None LOCATION: [facility] BREAST COMPOSITION: Heterogeneously dense,which may obscure small [...] Woodruff MD on 07/31/2022 at 14:12 Normal [facility] GLYCOHEMOGLOBIN A1Con 2022 ADA RECOMMENDATION SEE BELOW Normal [facility] Comment on above: Result Comment: ADA RECOMMENDED LIMIT 4.0 - 6.0 ADA THERAPEUTIC TARGET < 7.0 ACTION SUGGESTED > 7.0 Performed By: #### A 1C #### [facility] [address] [address] [address] Radha Willis Glucose [Mass/Vol] 151 mg/dL Normal [facility] Comment on above: Performed By: #### A 1C #### [facility] [address] [address] [address] Radha Willis HbA1c (Bld) [Mass fraction] 6.9 % Critically high 4.5-6.2 [facility] Comment on above: Performed By: #### A 1C #### [facility] [address] [place], [place] [address] Dr. Radha Willis MRI BRAIN WO W [...] ERICH WOODRUFF Date: 2022-06-07 14:46 Normal [facility] PROF 14(COMP METB)on 022 Albumin [Mass/Vol] 3.3 g/dL Critically low 3.4-5.0 Th [facility] Comment on above: Performed By: #### A 1C #### [facility] [address] [address] [address] Radha Willis Albumin/Globulin [Mass ratio] 0.8 {ratio} Normal [facility] Comment on above: Performed By: #### A 1C #### [facility] [address] [place], [place] [address] Dr. Radha Willis ALP [Catalytic activity/Vol] 211 U/L Critically high 46-116 [facility] Comment on above: Performed By: #### A 1C #### [facility] [address] [address] [address] Radha Willis ALT [Catalytic activity/Vol] 25 U/L Normal 14-59 [facility] Comment on above: Performed By: #### A 1C #### [facility] [address] [address] [address] Radha Willis Anion gap [Moles/Vol] 12.3 mmol/L Normal [facility] Comment on above: Performed By: #### A 1C #### [facility] [address] [address] [address] Radha Willis AST [Catalytic activity/Vol] 17 U/L Normal 15-37 [facility] Comment on above: Performed By: #### A 1C #### [facility] [address] [place] [address] Dr. Radha Willis Bilirubin [Mass/Vol] 0.3 mg/dL Normal 0.2-1.0 [facility] Comment on above: Performed By: #### A 1C #### [facility] [address] [place] [address] Dr. Radha Willis Calcium [Mass/Vol] 9.2 mg/dL Normal 8.5-10.1 [facility] Comment on above: Performed By: #### A 1C #### [facility] [address] [place] [address] Dr. Radha Willis Chloride [Moles/Vol] 104 mmol/L Normal 98-107 [facility] Comment on above: Performed By: #### A 1C #### [facility] [address] [place] [address] Dr. Radha Willis CO2 [Moles/Vol] 28.6 mmol/L Normal 21.0-32.0 [facility] Comment on above: Performed By: #### A 1C #### [facility] [address] [place] [address] Dr. Radha Willis Creatinine [Mass/Vol] 0.78 mg/dL Normal 0.55-1.02 [facility] Comment on above: Performed By: #### A 1C #### [facility] [address] [place] [address] Dr. Radha Willis EGFR-AF LATVIAN >60 Normal >=60 [facility] Comment on above: Performed By: #### A 1C #### [facility] [address] [address] [address] Radha Willis EGFR-NON AF LATVIAN >60 Normal >=60 [facility] Comment on above: Performed By: #### A 1C #### [facility] [address] [address] [address] Radha Willis Globulin (S) [Mass/Vol] 4.4 g/dL Normal [facility] Comment on above: Performed By: #### A 1C #### [facility] [address] [address] [address] Radha Willis Glucose [Mass/Vol] 50 mg/dL Critically low 74-106 Th [facility] Comment on above: Performed By: #### A 1C #### [facility] [address] [address] [address] Radha Willis Potassium [Moles/Vol] 3.9 mmol/L Normal 3.5-5.1 [facility] Comment on above: Performed By: #### A 1C #### [facility] [address] [place] [address] Dr. Radha Willis Protein [Mass/Vol] 7.7 g/dL Normal 6.4-8.2 [facility] Comment on above: Performed By: #### A 1C #### [facility] [address] [address] [address] Radha Willis Sodium [Moles/Vol] 141 mmol/L Normal 136-145 [facility] Comment on above: Performed By: #### A 1C #### [facility] [address] [address] [address] Radha Willis Urea nitrogen [Mass/Vol] 12.0 mg/dL Normal 7.0-18.0 [facility] Comment on above: Performed By: #### A 1C #### [facility] [address] [address] [address] Radha Willis Urea nitrogen/Creatinine [Mass ratio] 15.4 mg/mg Normal [facility] Comment on above: Performed By: #### A 1C #### [facility] [address] [address] [address] Radha Willis XR HAND ALEE MIN [...] by: AARON GILMORE Date: 2022-04-30 19:39 Normal [facility] XR LSPINE 2_3 VIEWSon 2021 XR LSPINE [...] AARON GILMORE Date: 2022-04-30 19:45 Normal [facility] XR WRIST ALEE MIN 3 Von 04-30 [...] by: AARON GILMORE Date: 2022-04-30 19:42 Normal [facility] GLYCOHEMOGLOBIN A1Con 2021 ADA RECOMMENDATION SEE BELOW Normal [facility] Comment on above: Result Comment: ADA RECOMMENDED LIMIT 4.0 - 6.0 ADA THERAPEUTIC TARGET < 7.0 ACTION SUGGESTED > 7.0 Performed By: #### A 1C #### [facility] [address] [address] [address] Radha Willis Glucose [Mass/Vol] 140 mg/dL Normal [facility] Comment on above: Performed By: #### A 1C #### [facility] [address] [address] [address] Radha Willis HbA1c (Bld) [Mass fraction] 6.5 % Critically high 4.5-6.2 [facility] Comment on above: Performed By: #### A 1C #### [facility] [address] [place] [address] Dr. Radha Willis ECHOCARDIO M/2D COMPLETEon 0 02-14-2022 ECHOCARDIO M/2D COMPLETE Patient: KAYLI HERNANDEZ Exam Date: 02/14/2022 : 1955 Gender:F Ordering : DR WALI QUIÑONES M.D. Admission #: [id number] Family : Order #: [id number] CLICK HERE TO VIEW EXAM ECHOCARDIOGRAM REPORT [...] Kohli M.D. on 02/16/2022 at 18:58 Normal [facility] CREATININE BLOODon 1 Creatinine [Mass/Vol] 0.78 mg/dL Normal 0.60-1.20 [facility] Comment on above: Order Comment: No: D o not add to previous draw Performed By: #### 2 5656 #### [address] [place] [address], [facility] GFR/1.73 sq M.predicted among blacks MDRD (S/P/Bld) [Vol rate/Area] mL/min/{1.73_m2} Normal >60 [facility] Comment on above: Order Comment: No: D o not add to previous draw Performed By: #### 2 5656 #### [facility] [address] [place] [address], [facility] GFR/1.73 sq M.predicted among non-blacks MDRD (S/P/Bld) [Vol rate/Area] mL/min/{1.73_m2} Normal >60 [facility] Comment on above: Order Comment: No: D o not add to previous draw Performed By: #### 2 5656 #### [facility] [address] [place] [address], [facility] HEMATOCRITon 12-24-2020 Hematocrit (Bld) [Volume fraction] 34.8 % Low 36.0-45.0 [facility] Comment on above: Order Comment: No: D o not add to previous draw Performed By: #### 9 2088, 28208 #### [facility] [address] [place] [address], [facility] HEMOGLOBINon 12-24-2020 Hemoglobin (Bld) [Mass/Vol] 11.1 g/dL Low 12.0-15.0 [facility] Comment on above: Order Comment: No: D o not add to previous draw Performed By: #### 9 2088, 65037 #### [facility] [address] [place] [address], [facility] POC GLUCOSE LABon 12-24-2020 Glucose [Mass/Vol] 135 mg/dL High 70-100 [facility] Comment on above: Performed By: #### 8 5499 #### [facility] [address] [place] [address], [facility] CBC COMPLETE BLOOD COUNTon 0 12-23-2020 Erythrocyte distribution width (RBC) [Ratio] 13.5 % Normal 11.5-15.0 [facility] Comment on above: Order Comment: No: D o not add to previous draw Performed By: #### 5 0608 #### [facility] [address] [place] [address], [facility] Hematocrit (Bld) [Volume fraction] 36.2 % Normal 36.0-45.0 [facility] Comment on above: Order Comment: No: D o not add to previous draw Performed By: #### 5 0608 #### [facility] [address] [place] [address], [facility] Hemoglobin (Bld) [Mass/Vol] 11.4 g/dL Low 12.0-15.0 [facility] Comment on above: Order Comment: No: D o not add to previous draw Performed By: #### 5 0608 #### [facility] [address] [place] [address], [facility] MCH (RBC) [Entitic mass] 26.5 pg Low 27.0-33.0 [facility] Comment on above: Order Comment: No: D o not add to previous draw Performed By: #### 5 0608 #### [facility] [address] [place] [address], [facility] MCHC (RBC) [Mass/Vol] 31.5 g/dL Low 32.0-35.0 [facility] Comment on above: Order Comment: No: D o not add to previous draw Performed By: #### 5 0608 #### [facility] [address] [place] [address], [facility] MCV (RBC) [Entitic vol] 84.2 fL Normal 82.0-98.0 [facility] Comment on above: Order Comment: No: D o not add to previous draw Performed By: #### 5 0608 #### [facility] [address] [facility] [place] [address], [facility] Nucleated RBC/100 WBC (Bld) [Ratio] 0 % Normal 0-0 [facility] Comment on above: Order Comment: No: D o not add to previous draw Performed By: #### 5 0608 #### [facility] [address] [place] [address], [facility] PLAT CNT 248 10*3/uL Normal 150-400 [facility] Comment on above: Order Comment: No: D o not add to previous draw Performed By: #### 5 0608 #### [facility] [address] [place] [id number], [facility] RBC (Bld) [#/Vol] 4.30 10*6/uL Normal 3.80-5.00 [facility] Comment on above: Order Comment: No: D o not add to previous draw Performed By: #### 5 0608 #### [facility] [address] [place] [address], [facility] WBC (Bld) [#/Vol] 6.43 10*3/uL Normal 4.00-10.60 [facility] Comment on above: Order Comment: No: D o not add to previous draw Performed By: #### 5 0608 #### [facility] [address] [place] [address], [facility] CREATININE BLOODon 1 Creatinine [Mass/Vol] 0.70 mg/dL Normal 0.60-1.20 [facility] Comment on above: Order Comment: No: D o not add to previous draw Performed By: #### 2 5656 #### [facility] [address] [place] [address], [facility] GFR/1.73 sq M.predicted among blacks MDRD (S/P/Bld) [Vol rate/Area] mL/min/{1.73_m2} Normal >60 [facility] Comment on above: Order Comment: No: D o not add to previous draw Performed By: #### 2 5656 #### [facility] [address] [place] [id number], [facility] GFR/1.73 sq M.predicted among non-blacks MDRD (S/P/Bld) [Vol rate/Area] mL/min/{1.73_m2} Normal >60 [facility] Comment on above: Order Comment: No: D o not add to previous draw Performed By: #### 2 5656 #### [facility] [address] [place] [address], [facility] Cardiovascular Lab Reporton 12-23-2020 Cardiovascular Lab Report [facility]: [id number] Physician: Devon Medrano of Shea Kohli Medicine Service Date: 12/23/2020 Division of Birthdate: 1955 Cardiology Room #: [id number] Adult Cardiovascular Services [facility] [address] [place] [address] Cardiovascular Laboratory Report INDICATION: The patient is [...] the informed consent. She was brought to dairy and food laboratory assistant in a fasting state. The right groin area was prepped and draped in usual fashion. Micropuncture technique and ultrasound guidance was used for access in the right common femoral artery. The inner cannula angiography was performed followed by upsizing to a 6-Paraguayan x 11 cm sheath. Heparin was given intravenously and therapeutic ECT confirmed during the rest of the procedure. A 6-Paraguayan JR4 guiding catheter was advanced and used to engage the right coronary ostium, however, this could not engage the right coronary ostium at all, therefore after multiple attempts we exchanged to a 6-Paraguayan AR1 guiding catheter, which was initially able [...] A/Devon Kohli M.D. Date Trans: 12/23/2020 11:13 Jojo/nilesh [id number] cc: Matt Mcduffie M.D. [address] [facility] [address] [place] [facility] Cardiovascular Lab Report [facility] #: [id number] Physician: Devon Medrano of Shea Kohli Medicine Service Date: 12/22/2020 Division of Birthdate: 1955 Cardiology Room #: 4CD [id number] Adult Cardiovascular Services [address] [place] [address] Cardiovascular Laboratory Report INDICATION: The patient is [...] the informed consent. She was brought to dairy and food laboratory assistant in a fasting state. The left wrist area was prepped and draped in usual fashion. Modified Neil's test was favorable. Access in the left radial artery was obtained using micropuncture technique. A 5-Paraguayan x 11 cm slender sheath was advanced. Verapamil was given through the sheath and heparin was administered intravenously. Initial catheter advancement was made feasible using an angled Glidewire. Bilateral selective coronary angiography was then performed using a 5-Paraguayan JL3.5 catheter for engagement of the left coronary artery and a 5-Paraguayan JR5 diagnostic catheter for engagement of the [...] mid LAD has an 80% stenosis. The hei-rq-pesukn LAD is a very small caliber and [...] P/Devon Kohli M.D. Date Trans: 12/23/2020 05:26 A/lucreciao [id number] cc: Matt Mcduffie M.D. [address] [facility] [address] Normal [facility] POC GLUCOSE LABon 12-23-2020 Glucose [Mass/Vol] 170 mg/dL High 70-100 [facility] Comment on above: Performed By: #### 8 5499 #### [facility] [address] [facility] [place] [address], [facility] Glucose [Mass/Vol] 119 mg/dL High 70-100 [facility] Comment on above: Performed By: #### 8 5499 #### [facility] [address] [place] [address], [place] Glucose [Mass/Vol] 121 mg/dL High 70-100 [facility] Comment on above: Performed By: #### 8 5499 #### [facility] [address] [facility] [place] [place] [address], [facility] POC GLUCOSE LABon 12-22-2020 Glucose [Mass/Vol] 117 mg/dL High 70-100 [facility] Comment on above: Performed By: #### 8 5499 #### [facility] [address] [place] [place] [address], [facility] Lab Reportson 02-23-2020 Lab Reports [id number] .00CD:127 Normal [facility] Lab Reports [id number] .[id number]:127 Normal [facility] Lab Reportson 02-18-2020 Lab Reports [id number] .[id number]:127 Normal [facility] Ambulatory Clinical Summaryo n 02-17-2020 Ambulatory Clinical Summary {[id number] -[id number] Normal [facility] Patient Educationon 02-17-20 Patient Education Family [...] Document Reviewed: 01/25/2013 ExitCare? Patient Information ?2013 [employer]. Normal [facility] ALT-SGPTon 06-26-2017 Alanine aminotransferase (ALT) 40 U/L Normal 5-59 [facility] AST-SGOTon 06-26-2017 AST-SGOT 29 IU/L Normal 10-42 [facility] HEMOGLOBIN A1Con 06-26-2017 Glucose mass conc 160 mg/dL High 66-114 [facility] Comment on above: Result Comment: HEMO GLOBIN A1c DEGREE OF GLUCOSE CONTROL <5.7% Decreased risk of diabetes 5.7 - 6.4% Increased risk of diabetes >6.4% Consistent with diagnosis of diabetesPathology [employer] [address] [place], [place] [address]Laboratory Director: Connor Silver M.D.NOMIIA No. [id number] CAP Accreditation No. [id number] Hemoglobin A1c/Hemoglobin.total mass fraction (Bld) 7.2 % High 4.2-5.8 [facility] RA Screenon 04-18-2017 RA Screen <10 Normal <14 [facility] Comment on above: Result Comment: Perf ormed at [address] [address] Performed By: #### C DP, CRP, SED ####[address] [place] [address] #### RA ####[address] [address] C-Reactive Proteinon 017 C reactive protein (CRP) 12.5 mg/L High 0.0-5.0 [facility] Comment on above: Result Comment: Perf ormed at [address] [place] [address] Performed By: #### C DP, CRP, SED ####[address] [place] [address] #### RA ####[address] [address] CBC with Diffon 04-17-2017 Abs. Basophil 0.00 k/uL Normal 0.0-0.2 [facility] Comment on above: Result Comment: Perf ormed at [address] [place] [address] Performed By: #### C DP, CRP, SED ####[address] [place] [address] #### RA ####[address] [address] Abs.Neutrophil (Seg) 6.30 k/uL Normal 1.8-7.7 [facility] Comment on above: Performed By: #### C DP, CRP, SED ####[address] [place] [address] #### RA ####[address] [address] Basophils/100 WBC Auto (Bld) 0 % Normal [facility] Comment on above: Performed By: #### C DP, CRP, SED ####[address] [place] [address] #### RA ####[address] [address] Eosinophils 0.20 10*3/uL Normal 0.0-0.4 [facility] Comment on above: Performed By: #### C DP, CRP, SED ####[address] [place] [address] #### RA ####[address] [address] Eosinophils/100 leukocytes 2 % Normal [facility] Comment on above: Performed By: #### C DP, CRP, SED ####[address] [place] [address] #### RA ####[address] [address] Erythrocyte distribution width Auto Ratio (RBC) 12.9 % Normal 12.1-15.2 [facility] Comment on above: Performed By: #### C DP, CRP, SED ####[address] [place] [address] #### RA ####[address] [address] Erythrocytes (RBC) 4.68 10*6/uL Normal 4.0-5.2 [facility] Comment on above: Performed By: #### C DP, CRP, SED ####[address] [place] [address] #### RA ####[address] [address] Hematocrit (HCT) 39.4 % Normal 36-46 [facility] Comment on above: Performed By: #### C DP, CRP, SED ####[address] [place] [address] #### RA ####[address] [address] Hemoglobin mass conc (Bld) 13.1 g/dL Normal 12.0-16.0 [facility] Comment on above: Performed By: #### C DP, CRP, SED ####[address] [place] [address] #### RA ####[address] [address] Lymphocytes 1.90 10*3/uL Normal 1.0-4.8 [facility] Comment on above: Performed By: #### C DP, CRP, SED ####[address] [place] [address] #### RA ####[address] [address] Lymphocytes/100 leukocytes 22 % Normal [facility] Comment on above: Performed By: #### C DP, CRP, SED ####[address] [place] [address] #### RA ####[address] [address] MCH 27.9 pg Normal 26-34 [facility] Comment on above: Performed By: #### C DP, CRP, SED ####[address] [place] [address] #### RA ####[address] [address] MCHC mass conc (RBC) 33.2 g/dL Normal 31-37 [facility] Comment on above: Performed By: #### C DP, CRP, SED ####[address] [place] [address] #### RA ####[address] [address] MCV 84.1 fL Normal 80-100 [facility] Comment on above: Performed By: #### C DP, CRP, SED ####[address] [place] [address] #### RA ####[address] [address] Monocytes 0.50 10*3/uL Normal 0.2-0.8 [facility] Comment on above: Performed By: #### C DP, CRP, SED ####[address] [place] [address] #### RA ####[address] [address] Monocytes/100 leukocytes 6 % Normal [facility] Comment on above: Performed By: #### C DP, CRP, SED ####[address] [place] [address] #### RA ####[address] [address] Neutrophil (Seg) 70 % Normal [facility] Comment on above: Performed By: #### C DP, CRP, SED ####[address] [place] [address] #### RA ####[address] [address] Platelet mean volume (PMV) 9.4 fL Normal 6.0-12.0 [facility] Comment on above: Performed By: #### C DP, CRP, SED ####[address] [place] [address] #### RA ####[address] [address] Platelets 248 10*3/uL Normal 140-450 [facility] Comment on above: Performed By: #### C DP, CRP, SED ####[address] [place] [address] #### RA ####[address] [address] WBC (Leukocytes) 8.9 10*3/uL Normal 3.5-11.0 [facility] Comment on above: Performed By: #### C DP, CRP, SED ####[address] [place] [address] #### RA ####[address] [address] Auto Diff Performed NOT REPORTED Normal [facility] Comment on above: Performed By: #### C DP, CRP, SED ####[address] [place] [address] #### RA ####[address] [address] Erythrocyte morphology NOT REPORTED Normal [facility] Comment on above: Performed By: #### C DP, CRP, SED ####[address] [place] [address] #### RA ####[address] [address] Granulocytes/100 WBC (Bld) NOT REPORTED Normal 0.00-0.30 [facility] Comment on above: Performed By: #### C DP, CRP, SED ####[address] [place] [address] #### RA ####[address] [address] Immature granulocytes #/vol (Bld) NOT REPORTED Normal 0 [facility] Comment on above: Performed By: #### C DP, CRP, SED ####[address] [place] [address] #### RA ####[address] [address] Platelets NOT REPORTED Normal [facility] Comment on above: Performed By: #### C DP, CRP, SED ####[address] [place] [address] #### RA ####[address] [address] WBC Morphology NOT REPORTED Normal [facility] Comment on above: Performed By: #### C DP, CRP, SED ####[address] [place] [address] #### RA ####[address] [address] Sedimentation Rateon 11-15-2 017 Sedimentation Rate 43 mm High 0-20 [facility] Comment on above: Result Comment: Perf ormed at [address] [place] [address] Performed By: #### C DP, CRP, SED ####[address] [place] [address] #### RA ####[address] [address] Hemoglobin A1Con 01-03-2017 Glucose mass conc 131 mg/dL Normal [facility] Comment on above: Result Comment: The ADA and AACC recommend providing the estimated average glucose result to permit better patient understanding of their HBA1c result.Performed at [address] [place] [address] Performed By: #### G LYHGB ####[address] [place] [address] Hemoglobin A1c/Hemoglobin.total mass fraction (Bld) 6.2 % High 4.8-5.9 [facility] Comment on above: Performed By: #### G LYHGB ####[address] [place] [address] Encounters Encounter Date Encounter Type Care Provider Facility Start: 08-28-2023 End: 08-28-2023 ambulatory [facility] Start: 08-14-2023 End: 08-14-2023 ambulatory MATT MCDUFFIE Not Available Start: 07-17-2023 Clinisync Result Encounter Matt Mcduffie MD Work Phone: [facility] Unsolicited Start: 07-17-2023 Clinisync Result Encounter Matt Mcduffie MD Work Phone: [facility] Unsolicited Start: 06-19-2023 End: 06-19-2023 ambulatory [facility] Start: 12-14-2022 End: 12-14-[address] [facility] Start: 10-01-2022 End: 10-02-[address] MATT [...] 04-02-2022 End: 04-03-[address] MATT MCDUFFIE Facility: Start: 02-14-2022 End: 02-15-[address] MATT MCDUFFIE Facility: Start: 12-22-2020 End: 12-24-2020 ambulatory MATT MCDUFFIE Facility:[facility] Start: 04-17-2017 End: 04-18-2017 Ambulatory [facility] Start: 01-03-2017 End: 01-04-2017 Ambulatory EITAN CHILD [facility] Procedures Date Procedure Procedure Detail Performing Clinician Start: 07-17-2023 [facility] MICROALBUMIN, RAND UR Matt Mcduffie MD Work Phone: Start: 12-14-2022 Follow-up visit Follow-up IVETTE MCARTHUR Start: 04-17-2017 C-reactive protein RAFAEL CHILD Start: 04-17-2017 CBC WITH AUTO DIFFERENTIAL EITAN MATEUSZ Start: 04-17-2017 RHEUMATOID FACTOR EITAN CHILD Start: 04-17-2017 SEDIMENTATION RATE RAFAEL CHILD Start: 01-03-2017 HEMOGLOBIN A1C EITAN GASTELUM EDER Start: 09-24-2016 Mammography Matt rodgers MD Work Phone: Plan of Treatment Date Care Activity Detail Author Start: 08-14-2023 End: 08-14-2023 Patient encounter procedure 08/14/2023 1:30 PM EDT Office Visit [facility] [address] [place] [id number] Matt Mcduffie MD [address] [place] [id number] [facility] Start: 05-12-2020 Pneumococcal Vaccine [...] AETNA MEDICARE A DVANTAGE AETNA MEDICARE REPLACEMENT [id number] 2021-Present [address] [place] [address] [id number] 2018 Unknown [id number] 2016 Unknown [id number] 1957 Medicare [id number] 1957 Unknown [id number] [id number]7 1957 Unknown [id number] 2.16.840.1.889709.3.579.2.593 1957 Unknown [id number] 2.16.840.1.151969.3.579.2.593 1957 Unknown [id number] 2.16.840.1.658558.3.579.2.593 1957 Unknown [id number] 2.16.840.1.229812.3.579.2.593 1957 Unknown [id number] 2.16.840.1.832887.3.579.2.593 1957 Unknown [id number] 2.16.840.1.860380.3.579.2.593 1957 Unknown [id number] 2.16.840.1.482298.3.579.2.593 1957 Unknown [id number] 2.16.840.1.467736.3.579.2.593 1957 Unknown [id number] 2.16.840.1.839309.3.579.2.593 1957 Unknown [id number] 2.16.840.1.785732.3.579.2.593 1957 Unknown [id number] 2.16.840.1.894485.3.579.2.593 1957 Unknown [id number] 2.16.840.1.920629.3.579.2.1259 Social History Date Type Detail Facility Start: 07-11-2023 Tobacco smoking status NHIS Never sm oked tobacco [facility] Start: 07-11-2023 History of Social function [facility] Start: 07-11-2023 Tobacco use panel [facility] Start: 1955 Sex Assigned At Not on file [facility] Clinical Notes 02-17-2020 to 08-28-2023 Note Date & Type Note Facility 08-28-2023 Note [facility] Note Chief Complaint: Patient [...] Administration of intraco (more content not included)... [facility] 06-19-2023 Note F/U with PCP for management [facility] 06-19-2023 Note Coronary artery dise ase is stable Continue GDMT- ASA, plavix, lipitor, Coreg continue risk factor modifications- heart healthy diet, regular exercise as tolerated and continue all medications. [facility] 06-19-2023 Note Hypertension is well controlled 124/81 Continue coreg, losartan [facility] 06-19-2023 Note Continue lipitor 80 mg daily [facility] 06-19-2023 Note [facility] CARDIOLOGY PROGR ESS NOTE [...] ICA 0-49% s (more content not included)... [facility] 12-14-2022 Note Review of Systems All other systems reviewed and are negative. [facility] 12-14-2022 Note [facility] Reason for follow up: CAD, echo, hypertension, [...] (transient ischemic attack) Coronary artery disease involving [place] coronary artery of [place] heart without angina pectoris PSH: Past Surgical [...] affect Orientation: o (more content not included)... [facility] 04-30-2022 Note PROCEDURE: XR HIP RT 2 3V WO PELVIS HISTORY: Bilateral hip joint pain COMPARISON: None. FINDINGS: BONES:No fracture, acute abnormality, or significant arthropathy. SOFT TISSUES:No visible soft tissue swelling. EFFUSION:None visible. OTHER: Negative. IMPRESSION: 1. No acute bone abnormality. 2. Minimal degenerative joint disease. Electronically authenticated by: AARON GILMORE Date: 2022-04-30 19:37 [facility] 12-24-2020 Note MR#: [id number] 2 [facility] Pt. Name: Kayli Hernandez Admitted: 12/22/2020 [...] Fonseca MD Date Trans: 12/24/2020 11:58 A/nilesh [id number] cc: Matt Mcduffie M.D. [address] [facility] [address] [facility] 02-17-2020 Note Chief Complaint consultation for [...] day(s), # 30 tab(s), Refills(s) 0, Pharmacy: [facility], 142, cm, 02/17/20 14:42:00 EDT, Height/Length Dosing, [...] day(s), # 30 tab(s), Refills(s) 0, Pharmacy: [facility], 142, cm, 02/17/20 14:42:00 EDT, Height/Length Dosing, [...] day(s), # 30 tab(s), Refills(s) 0, Pharmacy: [facility] 142, cm, 02/17/20 14:42:00 EDT, Height/Length Dosing, 83, kg, 02/17/20 14:42:00 EDT, Weight Dosing Basic Metabolic Panel CBC w/ Auto Diff Clostridium difficile by PCR Enteric Panel by PCR O & P Exam, Routine 4. Change in bowel habits (R19.4: Change in bowel habit) see # 1 5. BMI 40 (more content not included)... [facility] Comment on above: Result Comment: Elec tronically Signed By: EARNEST VILLANUEVA, Ho Berger\ozzy\Date and Time Signed: 02/17/20 17:23 EDT Summary [...] AUTHOR AUTHOR'S ORGANIZ ATION 11/26/2017 [facility] DATE CREATED AUTHOR AUTHOR'S ORGANIZ ATION 10/15/2020 [facility] DATE CREATED AUTHOR AUTHOR'S ORGANIZ ATION 01/05/2021 [facility] DATE CREATED AUTHOR AUTHOR'S ORGANIZ ATION 10/05/2022 [facility] DATE CREATED AUTHOR AUTHOR'S ORGANIZ ATION 08/15/2023 [facility] EPIC DATE CREATED AUTHOR AUTHOR'S ORGANIZ ATION 08/29/2023 [facility] Care Teams (unrecognized sec tion and content) Systems Navigator Relationship Specialty Start Date End Date Matt Mcduffie MD [address] [facility] [place] [address] PCP - General Family Medicine 07/08/23 FOR [...] BE BASED ON THE PRIMARY CLINICAL RECORDS. [facility] [employer], [facility]. provides no warranty or guarantee of the accuracy or completeness of information in this document.
[2024-01-23 10:23] LABS: Estimated Average Glucose 126 mg/dL
== END 2024-01-23 09:36 | disposition home or self-care (01) ==
LOC: LAB 09:38
PROVIDERS: PCP Family Medicine; Visit Provider Family Medicine
DX: E11.65 Type 2 diabetes mellitus with hyperglycemia (principal)
CPT/HCPCS: 36415; 83036

== ENCOUNTER 2024-03-14 14:39 | Observation (INO) | payer OTHER, SELFPAY ==
[2024-03-14] VITALS (26 sets, daily range): BP systolic 147–176; BP diastolic 77–92; PULSE 74–89; TEMP 36.6–36.9; O2SAT 99–100; BMI 51.2; BMI 43.7
--- OUTSIDE RECORDS SUMMARY | 2024-03-14 14:45 | XMS_ITS | CCD ---
Author Organization [facility] Care Team Providers Care Gum Worker Name Role Phone EITAN CHILD Unavailable Unavailable MATEUSZ, EITAN Tyler Unavailable Unavailable STEWARTAARON Unavailable Unavailable EITAN CHILD Unavailable Unavailable NADERER, [...] Unavailable ANAIS SMALLWOOD Consulting Unavailable ELTAHAWY, DR EKYES Attending Unavailable ELTAHAWY, DR KEYES Admitting Unavailable NADERER, DR MATT Uribe Primary Care Unavailable ELTAHAWY, DR KEYES Attending Unavailable ELTAHAWY, DR KEYES Consulting Unavailable ELTAHAWY, DR KEYES Admitting Unavailable NADERER, DR MATT Uribe Primary Care Unavailable ELTAHAWY, DR KYEES Attending Unavailable ELTAHAWY, DR KEYES Admitting Unavailable [...] RETA, DR MATT Uribe Primary Care Unavailable [facility], DR KEYES Consulting Unavailable [facility], DR KEYES Admitting Unavailable [facility], DR KEYES Attending Unavailable CRUGER, DR ERICH Shaw Consulting Unavailable IVETTE KLINE Admitting Unavailable IVETTE KLINE Attending Unavailable RETA, DR MATT Uribe Primary Care Unavailable IVETTE KLINE Consulting Unavailable Matt Mcduffie MD Primary Care Provider [phone] IVETTE KLINE Attending Unavailable DONNIE, WALI Attending Unavailable NELLIE RAMIREZ Attending Unavailable RETA, MATT Attending Unavailable RETA, MATT Attending Unavailable RETA, MATT Attending Unavailable Allergies Allergy Classification Reported Allergen(s) Allergy Type Date of Onset Reaction(s) Facility (1 source) Adhesive bandage Drug allergy (disorder) [facility] (1 source) natural latex rubber Drug allergy (disorder) [facility] (1 source) Latex Propensity to adverse reactions 1 [facility] Medications Current Medications Medication Drug Class(es) Dates Sig (Normalized) Sig (Original) ALPRAZolam 0.5 mg disintegrating oral tablet (1 source) Benzodiazepine Start: 04-30-2023 take 1 tablet by mouth three times daily as needed for anxiety ALPRAZolam (Niravam) 0.5 MG disintegrating tablet Indications: ANMOL (generalized anxiety disorder) ([facility]) Take 1 tablet (0.5 mg) by [...] bedtime. 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] Onset: 07-11-2023 07-11-2023 Episodic [...] Da te Episodic/Chronic Other 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 source) 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; 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: [[facility] CURRENT USE OF INSULIN] Onset: 07-04-2022 Episodic [...] Range Facility Office Visiton 08-28-2023 Follow-up visit [id number] DavidKayli 1955 Date Provider Department Center 08/28/2023 271-WALI Q[facility] Family History Problem Relation Age of Onset Stroke Mother Heart attack Father Hypertension Father Diabetes type II Brother Heart disease Brother Family Status - Relation Status Age at Mother Father Brother Level of Service:08139 [place] OFFICE/OUTPATIENT ESTABLISHED LOW MDM 20 MIN [facility] MICROALBUMIN, RAND URon 07-17-2023 MICROALBUMIN URINE RANDOM 1.3 mg/dL NINF - 30.0 mg/dL [facility] e Office Visiton 06-19-2023 Follow-up visit [id number] HernandezKayli 1955 Date Provider Department Center 06/19/2023 120-NELLIE RAMIREZ [facility] Family History Problem Relation Age of Onset Stroke Mother Heart attack Father Hypertension Father Diabetes type II Brother Heart disease Brother Family Status - Relation Status Age at Mother Father Brother Level of Service:43450 [place] OFFICE/OUTPATIENT ESTABLISHED MOD MDM 30 MIN Reason for Visit and Comments: Follow-up [933535] Normal [facility] Office Visiton 12-14-2022 Follow-up visit [id number] HernandezKayli rm 1955 F Date Provider Department Center 12/14/2022 Dafne-IVETTE KLINE [facility] No family history on file Level of Service:39579 [place] OFFICE/OUTPATIENT ESTABLISHED MOD MDM 30-39 MIN Reason for Visit and Comments: Follow-up [468342] - 6 mo f/u w/ carotid us Normal [facility] GLYCOHEMOGLOBIN A1Con 2022 ADA RECOMMENDATION SEE BELOW Normal [facility] Comment on above: Result Comment: ADA RECOMMENDED LIMIT 4.0 - 6.0 ADA THERAPEUTIC TARGET < 7.0 ACTION SUGGESTED > 7.0 Performed By: #### A 1C #### [facility] [address] [address] [address] Radha Willis Glucose [Mass/Vol] 163 mg/dL Normal [facility] Comment on above: Performed By: #### A 1C #### [facility] [address] [address] [address] Radha Willis HbA1c (Bld) [Mass fraction] 7.3 % Critically high 4.5-6.2 [facility] Comment on above: Performed By: #### A 1C #### [facility] [address] [address] [address] Radha Willis NM STRESS/REST MULTIon 08-02 NM STRESS/REST MULTI Patient: KAYLI HERNANDEZ Exam Date: 08/02/2022 : 1955 Gender:F Ordering : IVETTE KLINE Admission #: [id number] Family : Order #: [id number] CLICK HERE TO VIEW EXAM RADIOLOGY REPORT [...] MD on 08/03/2022 at 11:55 Normal [facility] MAMM SCREEN 3D ALEE CADon 07-31-2022 MG MAMM SCREEN 3D ALEE CAD Patient: KAYLI HERNANDEZ Exam Date: 07/31/2022 : 1955 Gender:F Ordering : DR MATT MCDUFFIE . Admission #: [id number] Family : Order #: [id number] CLICK HERE TO VIEW EXAM RADIOLOGY REPORT PROCEDURE: MAMMOGRAM SCREENING 3D BILATERAL CAD COMPARISON: MG MAMM ALEE SCRN W CAD DIG, 09/24/2016. MG MAMM SCREEN ALEE W CAD, 04/22/2019. INDICATIONS: Screening mammography Calculator Name NCI Breast Cancer Risk Assessment Tool 5 Year Breast Cancer Risk Not Reported. Lifetime Breast Cancer Risk Not Reported. Personal Breast Cancer No Personal Ovarian Cancer No Treatments None Family Cancers None LOCATION: [facility] BREAST COMPOSITION: Heterogeneously dense,which may obscure [...] MD on 07/31/2022 at 14:12 Normal [facility] GLYCOHEMOGLOBIN A1Con 2022 ADA RECOMMENDATION SEE BELOW Normal [facility] Comment on above: Result Comment: ADA RECOMMENDED LIMIT 4.0 - 6.0 ADA THERAPEUTIC TARGET < 7.0 ACTION SUGGESTED > 7.0 Performed By: #### A 1C #### [facility] [address] [address] [address] Radha Willis Glucose [Mass/Vol] 151 mg/dL Normal [facility] Comment on above: Performed By: #### A 1C #### [facility] [address] [address] [address] Radha Willis HbA1c (Bld) [Mass fraction] 6.9 % Critically high 4.5-6.2 [facility] Comment on above: Performed By: #### A 1C #### [facility] [address] [address] [address] Radha Willis MRI BRAIN WO W [...] ERICH WOODRUFF Date: 2022-06-07 14:46 Normal [facility] PROF 14(COMP METB)on 022 Albumin [Mass/Vol] 3.3 g/dL Critically low 3.4-5.0 Th e [facility] Comment on above: Performed By: #### A 1C #### [facility] [id number] Radha Willis Albumin/Globulin [Mass ratio] 0.8 {ratio} Normal [facility] Comment on above: Performed By: #### A 1C #### [facility] [address] [place], [place] [address] Dr. Radha Willis ALP [Catalytic activity/Vol] 211 U/L Critically high 46-116 [facility] Comment on above: Performed By: #### A 1C #### [facility] [address] [address] [address] Radha Willis ALT [Catalytic activity/Vol] 25 U/L Normal 14-59 [facility] Comment on above: Performed By: #### A 1C #### [facility] [address] [place] [address] Dr. Radha Willis Anion gap [Moles/Vol] 12.3 mmol/L Normal [facility] Comment on above: Performed By: #### A 1C #### [facility] [address] [address] [address] Radha Willis AST [Catalytic activity/Vol] 17 U/L Normal 15-37 [facility] Comment on above: Performed By: #### A 1C #### [facility] [address] [place] [address] Dr. Radha Willis Bilirubin [Mass/Vol] 0.3 mg/dL Normal 0.2-1.0 [facility] Comment on above: Performed By: #### A 1C #### [facility] [address] [place] [address] Dr. Radha Willis Calcium [Mass/Vol] 9.2 mg/dL Normal 8.5-10.1 [facility] Comment on above: Performed By: #### A 1C #### [facility] [address] [place] [address] Dr. Radha Willis Chloride [Moles/Vol] 104 mmol/L Normal 98-107 [facility] Comment on above: Performed By: #### A 1C #### [facility] [address] [address] [address] Radha Willis CO2 [Moles/Vol] 28.6 mmol/L Normal 21.0-32.0 [facility] Comment on above: Performed By: #### A 1C #### [facility] [address] [place] [address] Dr. Radha Willis Creatinine [Mass/Vol] 0.78 mg/dL Normal 0.55-1.02 [facility] Comment on above: Performed By: #### A 1C #### [facility] [address] [address] [address] Radha Willis EGFR-AF ANDORRAN >60 Normal >=60 [facility] Comment on above: Performed By: #### A 1C #### [facility] [address] [place] [address] Dr. Radha Willis EGFR-NON AF ANDORRAN >60 Normal >=60 [facility] Comment on above: Performed By: #### A 1C #### [facility] [address] [address] [address] Radha Willis Globulin (S) [Mass/Vol] 4.4 g/dL Normal [facility] Comment on above: Performed By: #### A 1C #### [facility] [address] [place] [address] Dr. Radha Willis Glucose [Mass/Vol] 50 mg/dL Critically low 74-106 Th [facility] Comment on above: Performed By: #### A 1C #### [facility] [address] [place] [address] Dr. Radha Willis Potassium [Moles/Vol] 3.9 mmol/L Normal 3.5-5.1 [facility] Comment on above: Performed By: #### A 1C #### [facility] [address] [place] [address] Dr. Radha Willis Protein [Mass/Vol] 7.7 g/dL Normal 6.4-8.2 [facility] Comment on above: Performed By: #### A 1C #### [facility] [address] [place] [address] Dr. Radha Willis Sodium [Moles/Vol] 141 mmol/L Normal 136-145 [facility] Comment on above: Performed By: #### A 1C #### [facility] [address] [place] [address] Dr. Radha Willis Urea nitrogen [Mass/Vol] 12.0 mg/dL Normal 7.0-18.0 [facility] Comment on above: Performed By: #### A 1C #### [facility] [address] [place] [address] Dr. Radha Willis Urea nitrogen/Creatinine [Mass ratio] 15.4 mg/mg Normal [facility] Comment on above: Performed By: #### A 1C #### [facility] [address] [place] [address] Dr. Radha Willis XR HAND ALEE MIN [...] by: AARON GILMORE Date: 2022-04-30 19:39 Normal [facility] XR LSPINE 2_3 VIEWSon 2021 XR LSPINE [...] AARON GILMORE Date: 2022-04-30 19:45 Normal [facility] XR WRIST ALEE MIN 3 Von [...] by: AARON GILMORE Date: 2022-04-30 19:42 Normal [facility] GLYCOHEMOGLOBIN A1Con 2021 ADA RECOMMENDATION SEE BELOW Normal [facility] Comment on above: Result Comment: ADA RECOMMENDED LIMIT 4.0 - 6.0 ADA THERAPEUTIC TARGET < 7.0 ACTION SUGGESTED > 7.0 Performed By: #### A 1C #### [facility] [address] [address] [address] Radha Willis Glucose [Mass/Vol] 140 mg/dL Normal [facility] Comment on above: Performed By: #### A 1C #### [facility] [address] [address] [address] Radha Willis HbA1c (Bld) [Mass fraction] 6.5 % Critically high 4.5-6.2 [facility] Comment on above: Performed By: #### A 1C #### [facility] [address] [place] [address] Dr. Radha Willis ECHOCARDIO M/2D COMPLETEon 0 02-14-2022 ECHOCARDIO M/2D COMPLETE Patient: KAYLI HERNANDEZ Exam Date: 02/14/2022 : 1955 Gender:F Ordering : DR WALI QUIÑONES M.D. Admission #: [id number] Family : Order #: [id number] CLICK HERE TO VIEW EXAM ECHOCARDIOGRAM REPORT [...] Kohli M.D. on 02/16/2022 at 18:58 Normal [facility] CREATININE BLOODon 1 Creatinine [Mass/Vol] 0.78 mg/dL Normal 0.60-1.20 [facility] Comment on above: Order Comment: No: D o not add to previous draw Performed By: #### 2 5656 #### [facility] [address] [place] [address], [facility] GFR/1.73 sq M.predicted among blacks MDRD (S/P/Bld) [Vol rate/Area] mL/min/{1.73_m2} Normal >60 [facility] Comment on above: Order Comment: No: D o not add to previous draw Performed By: #### 2 5656 #### [facility] [address] [place] [address], [facility] GFR/1.73 sq M.predicted among non-blacks MDRD (S/P/Bld) [Vol rate/Area] mL/min/{1.73_m2} Normal >60 [facility] Comment on above: Order Comment: No: D o not add to previous draw Performed By: #### 2 5656 #### [facility] [address] HEMATOCRITon 12-24-2020 Hematocrit (Bld) [Volume fraction] 34.8 % Low 36.0-45.0 [facility] Comment on above: Order Comment: No: D o not add to previous draw Performed By: #### 9 2088, 05130 #### [facility] [address] HEMOGLOBINon 12-24-2020 Hemoglobin (Bld) [Mass/Vol] 11.1 g/dL Low 12.0-15.0 [facility] Comment on above: Order Comment: No: D o not add to previous draw Performed By: #### 9 2088, 72453 #### [facility] [address] [place] [address], [facility] POC GLUCOSE LABon 12-24-2020 Glucose [Mass/Vol] 135 mg/dL High 70-100 [facility] Comment on above: Performed By: #### 8 5499 #### [facility] [address] CBC COMPLETE BLOOD COUNTon 0 12-23-2020 Erythrocyte distribution width (RBC) [Ratio] 13.5 % Normal 11.5-15.0 [facility] Comment on above: Order Comment: No: D o not add to previous draw Performed By: #### 5 0608 #### [facility] [address] [place] [address], [facility] Hematocrit (Bld) [Volume fraction] 36.2 % Normal 36.0-45.0 [facility] Comment on above: Order Comment: No: D o not add to previous draw Performed By: #### 5 0608 #### [facility] [address] [place] [id number], [facility] Hemoglobin (Bld) [Mass/Vol] 11.4 g/dL Low 12.0-15.0 [facility] Comment on above: Order Comment: No: D o not add to previous draw Performed By: #### 5 0608 #### [facility] [address] [place] [address], [facility] MCH (RBC) [Entitic mass] 26.5 pg Low 27.0-33.0 [facility] Comment on above: Order Comment: No: D o not add to previous draw Performed By: #### 5 0608 #### [facility] [address] [place] [address], [facility] MCHC (RBC) [Mass/Vol] 31.5 g/dL Low 32.0-35.0 [facility] Comment on above: Order Comment: No: D o not add to previous draw Performed By: #### 5 0608 #### [facility] [address] [address] [address], [facility] MCV (RBC) [Entitic vol] 84.2 fL Normal 82.0-98.0 [facility] Comment on above: Order Comment: No: D o not add to previous draw Performed By: #### 5 0608 #### [facility] [address] [place] [address], [facility] Nucleated RBC/100 WBC (Bld) [Ratio] 0 % Normal 0-0 [facility] Comment on above: Order Comment: No: D o not add to previous draw Performed By: #### 5 0608 #### [facility] [address] [place] [id number], [facility] PLAT CNT 248 10*3/uL Normal 150-400 The [facility] Comment on above: Order Comment: No: D o not add to previous draw Performed By: #### 5 0608 #### [facility] [address] [place] [id number], [facility] RBC (Bld) [#/Vol] 4.30 10*6/uL Normal 3.80-5.00 The [facility] Comment on above: Order Comment: No: D o not add to previous draw Performed By: #### 5 0608 #### [facility] [address] [place] [id number], [facility] WBC (Bld) [#/Vol] 6.43 10*3/uL Normal 4.00-10.60 [facility] Comment on above: Order Comment: No: D o not add to previous draw Performed By: #### 5 0608 #### [facility] [address] [place] [id number], [facility] CREATININE BLOODon 1 Creatinine [Mass/Vol] 0.70 mg/dL Normal 0.60-1.20 [facility] Comment on above: Order Comment: No: D o not add to previous draw Performed By: #### 2 5656 #### [facility] [address] [place] [address], [facility] GFR/1.73 sq M.predicted among blacks MDRD (S/P/Bld) [Vol rate/Area] mL/min/{1.73_m2} Normal >60 [facility] Comment on above: Order Comment: No: D o not add to previous draw Performed By: #### 2 5656 #### [facility] [address] [place] [address], [facility] GFR/1.73 sq M.predicted among non-blacks MDRD (S/P/Bld) [Vol rate/Area] mL/min/{1.73_m2} Normal >60 [facility] Comment on above: Order Comment: No: D o not add to previous draw Performed By: #### 2 5656 #### [facility] [address] [place] [address], [facility] Cardiovascular Lab Reporton 12-23-2020 Cardiovascular Lab Report [facility]: [id number] Physician: Devon Medrano of [facility] Service Date: 12/23/2020 Division of Birthdate: 1955 Cardiology Room #: [id number] Adult Cardiovascular Services [facility] [address] [address] [place] [address] Cardiovascular Laboratory Report INDICATION: The patient is [...] the informed consent. 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 The right groin area was prepped and draped in usual fashion. Micropuncture technique and ultrasound guidance was used for access in the right common femoral artery. The inner cannula angiography was performed followed by upsizing to a 6-Bolivian x 11 cm sheath. Heparin was given intravenously and therapeutic ECT confirmed during the rest of the procedure. A 6-[place]ivian JR4 guiding catheter was advanced and used to engage the right coronary ostium, however, this could not engage the right coronary ostium at all, therefore after multiple attempts we exchanged to a 6-Bolivian AR1 guiding catheter, which was initially able [...] Kohli M.D. Date Trans: 12/23/2020 11:13 A/nilesh [id number] cc: Matt Mcduffie M.D. [address] [facility] [address] [place] [facility] Cardiovascular Lab Report [facility] #: [id number] Physician: Devon Funes Department of [facility] Service Date: 12/22/2020 Division of Birthdate: 1955 Cardiology Room #: [id number] Adult Cardiovascular Services [place] [address] Cardiovascular Laboratory Report INDICATION: The patient is [...] the informed consent. 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 The left wrist area was prepped and draped in usual fashion. Modified Neil's test was favorable. Access in the left radial artery was obtained using micropuncture technique. A 5-Bolivian x 11 cm slender sheath was advanced. Verapamil was given through the sheath and heparin was administered intravenously. Initial catheter advancement was made feasible using an angled Glidewire. Bilateral selective coronary angiography was then performed using a 5-Bolivian JL3.5 catheter for engagement of the left coronary artery and a 5-Bolivian JR5 diagnostic catheter for engagement of the [...] mid LAD has an 80% stenosis. The kro-kj-jdhduv LAD is a very small caliber and [...] Kohli M.D. Date Trans: 12/23/2020 05:26 A/nilesh [id number] cc: Matt Mcduffie M.D. [address] [facility] [address] Normal [facility] POC GLUCOSE LABon 12-23-2020 Glucose [Mass/Vol] 170 mg/dL High 70-100 [facility] Comment on above: Performed By: #### 8 5499 #### [facility] [address] [place] [address], [facility] Glucose [Mass/Vol] 119 mg/dL High 70-100 [facility] Comment on above: Performed By: #### 8 5499 #### [facility] [address] [facility] [place] [address], [place] Glucose [Mass/Vol] 121 mg/dL High 70-100 [facility] Comment on above: Performed By: #### 8 5499 #### [facility] [address] [facility] [place] [address], [place] POC GLUCOSE LABon 12-22-2020 Glucose [Mass/Vol] 117 mg/dL High 70-100 [facility] Comment on above: Performed By: #### 8 5499 #### [facility] [address] [place] [address], [place] Lab Reportson 02-23-2020 Lab Reports [id number] .00CD:127 Normal [facility] Lab Reports [id number] .00CD:127 Normal [facility] Lab Reportson 02-18-2020 Lab Reports [id number] .00CD:127 Normal [facility] Ambulatory Clinical Summaryo n 02-17-2020 Ambulatory Clinical Summary {[id number]}CD:[id number] Normal [facility] Patient Educationon 02-17-20 Patient Education Family [...] Document Reviewed: 01/25/2013 ExitCare? Patient Information ?2013 nap- Naturally Attached Parents. Normal [facility] ALT-SGPTon 06-26-2017 Alanine aminotransferase (ALT) 40 U/L Normal 5-59 [facility] AST-SGOTon 06-26-2017 AST-SGOT 29 IU/L Normal 10-42 [facility] HEMOGLOBIN A1Con 06-26-2017 Glucose mass conc 160 mg/dL High 66-114 [facility] Comment on above: Result Comment: HEMO GLOBIN A1c DEGREE OF GLUCOSE CONTROL <5.7% Decreased risk of diabetes 5.7 - 6.4% Increased risk of diabetes >6.4% Consistent with diagnosis of diabetesPathology [facility] [employer] [address] [place], [place] [address]Laboratory Director: Connor Silver M.D.CLIA No. [id number] CAP Accreditation No. [id number] Hemoglobin A1c/Hemoglobin.total mass fraction (Bld) 7.2 % High 4.2-5.8 [facility] RA Screenon 04-18-2017 RA Screen <10 Normal <14 [facility] Comment on above: Result Comment: Perf ormed at [address] [address] Performed By: #### C DP, CRP, SED ####[address] [place] [address] #### RA ####[address] [address] C-Reactive Proteinon 017 C reactive protein (CRP) 12.5 mg/L High 0.0-5.0 [facility] Comment on above: Result Comment: Perf ormed at [address] [place] [address] Performed By: #### C DP, CRP, SED ####[address] [place] [address] #### RA ####[address] [address] CBC with Diffon 04-17-2017 Abs. Basophil 0.00 k/uL Normal 0.0-0.2 [facility] Comment on above: Result Comment: Perf ormed at [address] [place] [address] Performed By: #### C DP, CRP, SED ####[address] [place] [address] #### RA ####[address] [address] Abs.Neutrophil (Seg) 6.30 k/uL Normal 1.8-7.7 [facility] Comment on above: Performed By: #### C DP, CRP, SED ####[address] [place] [address] #### RA ####[address] [address] Basophils/100 WBC Auto (Bld) 0 % Normal [facility] Comment on above: Performed By: #### C DP, CRP, SED ####[address] [place] [address] #### RA ####[address] [address] Eosinophils 0.20 10*3/uL Normal 0.0-0.4 [facility] Comment on above: Performed By: #### C DP, CRP, SED ####[address] [place] [address] #### RA ####[address] [address] Eosinophils/100 leukocytes 2 % Normal [facility] Comment on above: Performed By: #### C DP, CRP, SED ####[address] [place] [address] #### RA ####[address] [address] Erythrocyte distribution width Auto Ratio (RBC) 12.9 % Normal 12.1-15.2 [facility] Comment on above: Performed By: #### C DP, CRP, SED ####[address] [place] [address] #### RA ####[address] [address] Erythrocytes (RBC) 4.68 10*6/uL Normal 4.0-5.2 [facility] Comment on above: Performed By: #### C DP, CRP, SED ####[address] [place] [address] #### RA ####[address] [address] Hematocrit (HCT) 39.4 % Normal 36-46 [facility] Comment on above: Performed By: #### C DP, CRP, SED ####[address] [place] [address] #### RA ####[address] [address] Hemoglobin mass conc (Bld) 13.1 g/dL Normal 12.0-16.0 [facility] Comment on above: Performed By: #### C DP, CRP, SED ####[address] [place] [address] #### RA ####[address] [address] Lymphocytes 1.90 10*3/uL Normal 1.0-4.8 [facility] Comment on above: Performed By: #### C DP, CRP, SED ####[address] [place] [address] #### RA ####[address] [address] Lymphocytes/100 leukocytes 22 % Normal [facility] Comment on above: Performed By: #### C DP, CRP, SED ####[address] [place] [address] #### RA ####[address] [address] MCH 27.9 pg Normal 26-34 [facility] Comment on above: Performed By: #### C DP, CRP, SED ####[address] [place] [address] #### RA ####[address] [address] MCHC mass conc (RBC) 33.2 g/dL Normal 31-37 [facility] Comment on above: Performed By: #### C DP, CRP, SED ####[address] [place] [address] #### RA ####[address] [address] MCV 84.1 fL Normal 80-100 [facility] Comment on above: Performed By: #### C DP, CRP, SED ####[address] [place] [address] #### RA ####[address] [address] Monocytes 0.50 10*3/uL Normal 0.2-0.8 [facility] Comment on above: Performed By: #### C DP, CRP, SED ####[address] [place] [address] #### RA ####[address] [address] Monocytes/100 leukocytes 6 % Normal [facility] Comment on above: Performed By: #### C DP, CRP, SED ####[address] [place] [address] #### RA ####[address] [address] Neutrophil (Seg) 70 % Normal [facility] Comment on above: Performed By: #### C DP, CRP, SED ####[address] [place] [address] #### RA ####[address] [address] Platelet mean volume (PMV) 9.4 fL Normal 6.0-12.0 [facility] Comment on above: Performed By: #### C DP, CRP, SED ####[address] [place] [address] #### RA ####[address] [address] Platelets 248 10*3/uL Normal 140-450 [facility] Comment on above: Performed By: #### C DP, CRP, SED ####[address] [place] [address] #### RA ####[address] [address] WBC (Leukocytes) 8.9 10*3/uL Normal 3.5-11.0 [facility] Comment on above: Performed By: #### C DP, CRP, SED ####[address] [place] [address] #### RA ####[address] [address] Auto Diff Performed NOT REPORTED Normal [facility] Comment on above: Performed By: #### C DP, CRP, SED ####[address] [place] [address] #### RA ####[address] [address] Erythrocyte morphology NOT REPORTED Normal [facility] Comment on above: Performed By: #### C DP, CRP, SED ####[address] [place] [address] #### RA ####[address] [address] Granulocytes/100 WBC (Bld) NOT REPORTED Normal 0.00-0.30 [facility] Comment on above: Performed By: #### C DP, CRP, SED ####[address] [place] [address] #### RA ####[address] [place] [address] Immature granulocytes #/vol (Bld) NOT REPORTED Normal 0 [facility] Comment on above: Performed By: #### C DP, CRP, SED ####[address] [place] [address] #### RA ####[address] [address] Platelets NOT REPORTED Normal [facility] Comment on above: Performed By: #### C DP, CRP, SED ####[address] [place] [address] #### RA ####[address] [address] WBC Morphology NOT REPORTED Normal [facility] Comment on above: Performed By: #### C DP, CRP, SED ####[address] [place] [address] #### RA ####[address] [address] Sedimentation Rateon 11-15-2 017 Sedimentation Rate 43 mm High 0-20 [facility] Comment on above: Result Comment: Perf ormed at [address] [place] [address] Performed By: #### C DP, CRP, SED ####[address] [place] [address] #### RA ####[address] [address] Hemoglobin A1Con 01-03-2017 Glucose mass conc 131 mg/dL Normal [facility] Comment on above: Result Comment: The ADA and AACC recommend providing the estimated average glucose result to permit better patient understanding of their HBA1c result.Performed at [address] [place] [address] Performed By: #### G LYHGB ####[address] [place] [address] Hemoglobin A1c/Hemoglobin.total mass fraction (Bld) 6.2 % High 4.8-5.9 [facility] Comment on above: Performed By: #### G LYHGB ####[address] [place] [address] Encounters Encounter Date Encounter Type Care Provider Facility Start: 02-19-2024 End: 02-19-2024 ambulatory MATT MCDUFFIE Not Available Start: 01-22-2024 End: 01-22-2024 ambulatory MATT MCDUFFIE Not Available Start: 08-28-2023 End: [facility]28[facility]23 [facility] Start: 08-14-2023 End: 08-14-2023 ambulatory MATT MCDUFFIE Not Available Start: 07-17-2023 Clinisync Result Encounter Matt Mcduffie MD Work Phone: [facility] External [facility] Unsolicited Start: 07-17-2023 Clinisync Result Encounter Matt Mcduffie MD Work Phone: [facility] External [facility] Unsolicited Start: 06-19-2023 End: 06-19-2023 ambulatory NELLIE ASHLEY [facility] Start: 12-14-2022 End: 12-14-2022 ambulatory IVETTE [facility] Start: 10-01-2022 End: 10-02-[address] [...] 02-14-2022 End: 02-15-[address] MATT MCDUFFIE Facility:[facility] Start: 12-22-2020 End: 12-24-2020 ambulatory MATT MCDUFFIE Facility:[facility] Start: 04-17-2017 End: 04-18-2017 Ambulatory [facility] Start: 01-03-2017 End: 01-04-2017 Ambulatory EITAN CHILD [facility] Procedures Date Procedure Procedure Detail Performing Clinician Start: 07-17-2023 [facility] MICROALBUMIN, RAND UR Matt Mcduffie MD Work Phone: Start: 12-14-2022 Follow-up visit Follow-up IVETTE MCARTHUR Start: 04-17-2017 C-reactive protein RAFAEL Filiberto CHILD Start: 04-17-2017 CBC WITH AUTO DIFFERENTIAL EITAN CHILD Start: 04-17-2017 RHEUMATOID FACTOR EITAN CHILD Start: 04-17-2017 SEDIMENTATION RATE RAFAEL De Los Santos MATEUSZ Start: 01-03-2017 HEMOGLOBIN A1C EITAN GAINES Start: 09-24-2016 Mammography Matt rodgers MD Work Phone: Plan of Treatment Date Care Activity Detail Author Start: 08-14-2023 End: 08-14-2023 Patient encounter procedure 08/14/2023 1:30 PM EDT Office Visit [facility] [address] [place] [id number] Matt Mcduffie MD [address] [place] [id number] [facility] Start: 05-12-2020 Pneumococcal Vaccine : 65+ Years (2 - PPSV23 or PCV20) Pneumococcal Vaccine: 65+ Years (2 - PPSV23 or PCV20) [facility] Start: 09-24-2017 Screening for malign ant neoplasm [...] [facility] Payers Date Payer Category Payer Unknown [id number] 2021 Medicare AETNA MEDICARE A DVANTAGE AETNA MEDICARE REPLACEMENT [id number] 2021-Present [address] [place] [address] [id number] 2018 Unknown [id number] 2016 Unknown [id number] 1959 Medicare [id number] 1957 Unknown [id number] [id number] 1957 Unknown [id number] [id number] 1957 Unknown [id number] 2.840.1.772556.3.579.2.593 1957 Unknown [id number] 2.840.1.091050.3.579.2.593 1957 Unknown [id number] 2.16.840.1.301111.3.579.2.593 1957 Unknown [id number] 2.16.840.1.057339.3.579.2.593 1957 Unknown [id number] 2.16.840.1.099211.3.579.2.593 1957 Unknown [id number] 2.16.840.1.794169.3.579.2.593 1957 Unknown [id number] 2.16.840.1.285091.3.579.2.593 1957 Unknown [id number] 2.16.840.1.456976.3.579.2.593 1957 Unknown [id number] 2.16.840.1.273302.3.579.2.593 1957 Unknown [id number] 2.16.840.1.442360.3.579.2.593 1957 Unknown [id number] 2.16.840.1.049080.3.579.2.1259 1957 Unknown [id number] 2.16.840.1.345311.3.579.2.1259 1957 Unknown [id number] 2.16.840.1.862149.3.579.2.1259 Social History Date Type Detail Facility Start: 07-11-2023 Tobacco smoking status NHIS Never sm oked tobacco [facility] Start: 07-11-2023 History of Social function [facility] Start: 07-11-2023 Tobacco use panel [facility] Start: 1955 Sex Assigned At Not on file [facility] Clinical Notes 02-17-2020 to 08-28-2023 Note Date & Type Note Facility 08-28-2023 Note [facility] Cardiology Clinic Note Chief Complaint: Patient [...] Administration of intraco (more content not included)... [facility] 06-19-2023 Note F/U with PCP for management [facility] 06-19-2023 Note Coronary artery dise ase is stable Continue GDMT- ASA, plavix, lipitor, Coreg continue risk factor modifications- heart healthy diet, regular exercise as tolerated and continue all medications. [facility] 06-19-2023 Note Hypertension is well controlled 124/81 Continue coreg, losartan [facility] 06-19-2023 Note Continue lipitor 80 mg daily [facility] 06-19-2023 Note [facility] CARDIOLOGY PROGR ESS [...] ICA 0-49% s (more content not included)... [facility] 12-14-2022 Note Review of Systems All other systems reviewed and are negative. [facility] 12-14-2022 Note MD Cardiology Note [facility] Reason for follow up: CAD, echo, [...] Diagnosis Date Coronary artery disease Diabetes mellitus ([facility]) Hyperlipidemia Hypertension Sleep apnea Patient Active Problem List Diagnosis Chest pain Essential hypertension External hemorrhoids Hyperlipidemia Obesity Obstructive sleep apnea Osteoarthrosis involving lower leg Segmental colitis with rectal bleeding ([facility]) Type 2 diabetes mellitus without complication ([facility]) TIA (transient ischemic attack) Coronary artery disease involving [place] coronary artery of [place] heart without angina pectoris PSH: Past Surgical [...] affect Orientation: o (more content not included)... [facility] 04-30-2022 Note PROCEDURE: XR HIP RT 2 3V WO PELVIS HISTORY: Bilateral hip joint pain COMPARISON: None. FINDINGS: BONES:No fracture, acute abnormality, or significant arthropathy. SOFT TISSUES:No visible soft tissue swelling. EFFUSION:None visible. OTHER: Negative. IMPRESSION: 1. No acute bone abnormality. 2. Minimal degenerative joint disease. Electronically authenticated by: AARON LYNDON Date: 2022-04-30 19:37 [facility] 12-24-2020 Note MR#: [id number] [facility] Pt. Name: Kayli Hernandez Admitted: 12/22/2020 [...] Fonseca MD Date Trans: 12/24/2020 11:58 A/nilesh NEUMANN_JN:[id number] cc: Matt Mcduffie M.D. [address] [facility] [address] [facility] 02-17-2020 Note Chief Complaint consultation for [...] day(s), # 30 tab(s), Refills(s) 0, Pharmacy: [facility], 142, cm, 02/17/20 14:42:00 EDT, [...] 5. BMI 40 (more content not included)... [facility] Comment on above: Result Comment: Elec [...] AUTHOR AUTHOR'S ORGANIZ ATION 11/26/2017 [facility] DATE CREATED AUTHOR AUTHOR'S ORGANIZ ATION 10/15/2020 [facility] DATE CREATED AUTHOR AUTHOR'S ORGANIZ ATION 01/05/2021 [facility] DATE CREATED AUTHOR AUTHOR'S ORGANIZ ATION 10/05/2022 [facility] DATE CREATED AUTHOR AUTHOR'S ORGANIZ ATION 08/29/2023 [facility] DATE CREATED AUTHOR AUTHOR'S ORGANIZ ATION 02/21/2024 [facility] Care Teams (unrecognized sec tion and content) Gum Worker Relationship Specialty Start Date End Date Matt Mcduffie MD [address] [place] [address] PCP - General Family Medicine 07/08/23 FOR [...] BE BASED ON THE PRIMARY CLINICAL RECORDS. [employer] provides no warranty or guarantee of the accuracy or completeness of information in this document.
--- NOTE | 2024-03-14 14:51 | CT_ITS ---
The [address] [address] Patient Name: SEEMA HOOPER MRN: [id number] date: 1955 Sex: F Assigned Patient Location: ER Current Patient Location: ER Accession/Order Number: [id number] Exam Date: 03/14/2024 15:05 Report Date: 03/14/2024 15:49 At the request of: CHELSEA WILSON Procedure: CT stroke head/brain wo con EXAM: CT stroke head/brain wo con HISTORY: headache and facilar palsy COMPARISON: None. TECHNIQUE: Unenhanced transaxial tomographic sections obtained from the vertex through posterior fossa. FINDINGS: Diffuse cerebral atrophy. Moderate bilateral chronic microvascular ischemic change. Mucosal thickening of the bilateral ethmoidal air cells. The mastoid air cells are clear. CT/CT stroke head/brain wo con IMPRESSION: 1. No acute intracranial process is identified. 2. Mild diffuse cerebral atrophy. Moderate bilateral chronic microvascular ischemic change. Electronically authenticated by: PATRICIA HIGUERA Date: 03/14/2024 15:49
--- NOTE | 2024-03-14 14:56 | ECG_ITS ---
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
[2024-03-14] MEDS: KETOROLAC TROMETHAMINE 30 MG/ML VIAL 15 MG IVP (15:20)
[2024-03-14 15:22] LABS: Basophils Absolute Auto 0.1 10^3/uL (0.0-0.1); Basophils Percent Auto 0.6 % (0.2-2.0); Eosinophils Absolute Auto 0.2 10^3/uL (0.0-0.7); Eosinophils Percent Auto 2.9 % (0.9-7.0); Hematocrit 30.9 % (36.0-48.0); Immature Granulocytes Abs Auto 0.02 10^3/uL (0.00-0.03); Immature Granulocytes Pct Auto 0.2 % (0.0-0.5); Lymphocytes Absolute Auto 2.4 10^3/uL (1.2-3.8); Lymphocytes Percent Auto 29.3 % (20.5-60.0); Mean Corpuscular HGB Conc 29.1 g/dL (29.9-35.2); Mean Corpuscular Hemoglobin 21.5 pg (26.7-34.0); Mean Corpuscular Volume 73.9 fL (81.0-99.0); Mean Platelet Volume 10.9 fL (9.5-13.5); Monocytes Absolute Auto 0.6 10^3/uL (0.3-0.8); Platelet Count 304 10^3/uL (150-450); Red Blood Count 4.18 10^6/uL (4.20-5.40); Red Cell Distribution Width 16.2 % (11.0-15.0); White Blood Count 8.3 10^3/uL (4.0-11.0)
--- NOTE | 2024-03-14 15:28 | ED_ITS ---
HPI HPI - General Adult General Chief complaint: Headache Stated complaint: HEADACHE, CVA SYMPTOMS Time Seen by Provider: 03/14/24 14:51 Source: patient Mode of arrival: walk-in Limitations: no limitations History of Present Illness HPI narrative: The patient is a 68-year-old female with past medical history of hypertension diabetes and hyperlipidemia is coming to us after she noticed yesterday that her left side of the face is normal like she had a dental procedure done, she also noticed that she have a heaviness in her right side more than the left the patient mentioned that she never had any difficulty speaking at any time or any difficultly moving the upper or lower extremities Patient symptoms started yesterday at 3 PM She walked here into the ER with no difficulty and and she denies any other concerns of blurry vision or double vision The patient noticed today that she started having some headache in the left side Related Data Home Medications ?Medication ?Instructions ?Recorded ?Confirmed alprazolam 0.5 mg tablet 0.5 mg PO TID 03/14/24 03/14/24 aspirin 81 mg tablet,delayed 81 mg PO DAILY 03/14/24 03/14/24 release atorvastatin 80 mg tablet 80 mg PO DAILY 03/14/24 03/14/24 carvedilol 25 mg tablet 25 mg PO Q12H 03/14/24 03/14/24 clopidogrel 75 mg tablet 75 mg PO DAILY 03/14/24 03/14/24 gabapentin 100 mg capsule 100 mg PO Q8H 03/14/24 03/14/24 glipizide 10 mg tablet 10 mg PO DAILY 03/14/24 03/14/24 isosorbide dinitrate 30 mg tablet 30 mg PO BID 03/14/24 03/14/24 losartan 50 mg tablet 50 mg PO DAILY 03/14/24 03/14/24 omeprazole 40 mg capsule,delayed 40 mg PO DAILY 03/14/24 03/14/24 release Allergies Allergy/AdvReac Type Severity Reaction Status Date / Time No Known Drug Allergies Allergy Verified 03/14/24 14:43 Opioid HPI Opioid Management Most Recent Opioid Data: Last Pain Scale 3 03/14/24 15:20 03/14/24 Last MAR Pain Assessment 03/14/24 15:20 Review of Systems ROS Status of ROS 10 or more systems reviewed and unremark able except as noted in history and below PFSH PFSH Social History Little interest or pleasure in doing things: not at all Feeling down, depressed, or hopeless: not at all Exam Narrative Exam Narrative: Nurses notes and vital signs reviewed and patient is not hypoxic It was noted upon presentation that the patient whenever she is mild she have mild deviation to the right with weakness on the left side and she can close her left eyelid but not fully compared to the right General: Well-appearing and in no apparent distress. Skin: Warm, dry, no pallor noted. No rash. Head: Normocephalic, atraumatic. Neck: Supple, non-tender. Eye: Pupils are equal, round and EOMI. No scleral icterus. Ears, Nose, Mouth, and Throat: TM are clear, no nasal mucosal hypertrophy. Oral mucosa is moist, no posterior oropharynx erythema, uvula is mid-line Cardiovascular: Regular Rate and Rhythm without murmur, gallop or rub. Respiratory: No accessory muscle use or respiratory distress. Lungs are clear to auscultation, no wheezing, rales or rhonchi Chest Wall: no tenderness Back: No midline thoracic or lumbar vertebral tenderness. No CVA tenderness Musculoskeletal: normal ROM, no calf or popliteal tenderness, no lower extremity edema/swelling GI: Abdomen is soft, non-distended. Normal bowel sounds. No masses appreciated. No tenderness to palpation. No rebound, guarding, or rigidity noted. Neurological: A&O x4. No cranial nerve dysfunction observed. No truncal ataxia. Moves all extremities. Sensation intact. Psychiatric: Cooperative and interactive. Normal mood and affect. Constitutional Vital Signs, click to edit/add: Last Vital Signs Temp 98.5 F 03/14/24 14:43 Pulse 82 03/14/24 18:10 Resp 17 03/14/24 18:10 BP 147/77 H 03/14/24 15:41 Pulse Ox 100 03/14/24 14:43 Course Vital Signs Vital signs: Vital Signs Temperature 98.5 F 03/14/24 14:43 Pulse Rate 87 03/14/24 14:43 Respiratory Rate 18 03/14/24 14:43 Blood Pressure 173/92 H 03/14/24 14:43 Pulse Oximetry 100 03/14/24 14:43 Temperature 98.5 F 03/14/24 14:43 Pulse Rate 82 03/14/24 18:10 Respiratory Rate 17 03/14/24 18:10 Blood Pressure 147/77 H 03/14/24 15:41 Pulse Oximetry 100 03/14/24 14:43 Medical Decision Making MDM Narrative Medical decision making narrative: The patient presented to us with a picture of possible Reyes's palsy although it was noted that she also had elevated blood pressure and headache with the current presentation which was concern Patient presented to us with symptoms that started at least 24 hours ago and the NIH score was 2 upon arrival There was deviation of the mass to the right side with the patient smiling and the patient have numbness in the left face although the patient was not able to tell if the numbness in the upper and lower half of the face or just in the lower The patient initially had her case discussed with the technologist who agreed that this is mostly CVA symptoms The patient had a CT angio head and neck that was negative Neurology recommended MRI to be done on Saturday and the patient will continue the aspirin and Plavix Blood pressure right now is 147/77 but it seems that the patient blood pressure does fluctuate The patient case was discussed with Dr. Lamb and she will be admitted for further evaluation and management under Dr. Waterman Lab Data Labs: Lab Results 03/14/24 03/14/24 Range/Units 15:14 15:38 WBC 8.3 (4.0-11.0) 10^3/uL RBC 4.18 L (4.20-5.40) 10^6/uL Hgb 9.0 L (12.0-16.0) g/dL Hct 30.9 L (36.0-48.0) % MCV 73.9 L (81.0-99.0) fL MCH 21.5 L (26.7-34.0) pg MCHC 29.1 L (29.9-35.2) g/dL RDW 16.2 H (11.0-15.0) % Plt Count 304 (150-450) 10^3/uL MPV 10.9 (9.5-13.5) fL Neut % (Auto) 60.0 (43.0-75.0) % Lymph % (Auto) 29.3 (20.5-60.0) % Gibson % (Auto) 7.0 (1.7-12.0) % Eos % (Auto) 2.9 (0.9-7.0) % Baso % (Auto) 0.6 (0.2-2.0) % Neut # (Auto) 5.0 (1.4-6.5) 10^3/uL Lymph # (Auto) 2.4 (1.2-3.8) 10^3/uL Gibson # (Auto) 0.6 (0.3-0.8) 10^3/uL Eos # (Auto) 0.2 (0.0-0.7) 10^3/uL Baso # (Auto) 0.1 (0.0-0.1) 10^3/uL Abs Immat Gran (auto) 0.02 (0.00-0.03) 10^3/uL Imm/Tot Granulo (auto) 0.2 (0.0-0.5) % PT 10.2 (9.0-11.6) sec INR 0.96 Sodium 140 (136-145) mmol/L Potassium 3.9 (3.5-5.1) mmol/L Chloride 105 (98-107) mmol/L Carbon Dioxide 24.3 (21.0-32.0) mmol/L Anion Gap 14.6 BUN 10.0 (7.0-18.0) mg/dL Creatinine 0.89 (0.55-1.02) mg/dL Est GFR ( Amer) >60 (>=60 mL/min/1.73m^2) Est GFR (Non-Af Amer) >60 (>=60 mL/min/1.73m^2) BUN/Creatinine Ratio 11.2 Glucose 99 (74-106) mg/dL Calcium 9.1 (8.5-10.1) mg/dL Total Bilirubin 0.3 (0.2-1.0) mg/dL AST 14 L (15-37) U/L ALT 16 (14-59) U/L Alkaline Phosphatase 214 H (46-116) U/L Total Protein 7.4 (6.4-8.2) g/dL Albumin 3.0 L (3.4-5.0) g/dL Globulin 4.4 g/dL Albumin/Globulin Ratio 0.7 POC Glucose 88 (74-106) mg/dL Discharge Plan Discharge Chief Complaint: Headache Clinical Impression: Stroke Patient Disposition: Admitted As Inpatient Time of Disposition Decision: 18:27
[2024-03-14 15:40] LABS: Glucometer 88 mg/dL (74-106)
[2024-03-14 15:41] LABS: INR 0.96; Prothrombin Time 10.2 sec (9.0-11.6)
[2024-03-14 15:57] LABS: Alanine Aminotransferase 16 U/L (14-59); Albumin Globulin Ratio 0.7; Alkaline Phosphatase 214 U/L (46-116); Anion Gap 14.6; Aspartate Amino Transferase 14 U/L (15-37); BUN Creatinine Ratio 11.2; Bilirubin Total 0.3 mg/dL (0.2-1.0); Calcium 9.1 mg/dL (8.5-10.1); Carbon Dioxide 24.3 mmol/L (21.0-32.0); Chloride 105 mmol/L (98-107); Estimated GFR (African America >60 (>=60 mL/min/1.73m^2); Estimated GFR (Non-African Ame >60 (>=60 mL/min/1.73m^2); Globulin 4.4 g/dL; Glucose 99 mg/dL (74-106); Potassium 3.9 mmol/L (3.5-5.1); Sodium 140 mmol/L (136-145); Total Protein 7.4 g/dL (6.4-8.2)
--- NOTE | 2024-03-14 16:00 | CT_ITS ---
[address] [address] Patient Name: SEEMA HOOPER MRN: [id number] date: 1955 Sex: F Assigned Patient Location: ER Current Patient Location: Accession/Order Number: [id number] Exam Date: 03/14/2024 16:35 Report Date: 03/14/2024 18:04 At the request of: CHELSEA WILSON Procedure: CT angio head CTA HEAD/NECK. HISTORY: left facial numbness COMPARISON: None. TECHNIQUE: CT angiogram of the head and neck obtained after administration of 75 mL of nonionic intravenous contrast material, Isovue-300. Multiplanar and volume rendered 3-D reformats were created. NASCET criteria was used for evaluation of luminal stenosis. 3-D vascular images were constructed on a separate workstation. FINDINGS: THORACIC AORTA: Normal. There is a normal anatomy at the origin of the great vessels. RIGHT COMMON CAROTID ARTERY: No significant stenosis. RIGHT EXTERNAL CAROTID ARTERY: No significant stenosis. RIGHT INTERNAL CAROTID ARTERY: No significant stenosis. LEFT COMMON CAROTID ARTERY: No significant stenosis. LEFT EXTERNAL CAROTID ARTERY: No significant stenosis. LEFT INTERNAL CAROTID ARTERY: No significant stenosis. RIGHT VERTEBRAL ARTERY: No significant stenosis. LEFT VERTEBRAL ARTERY: No significant stenosis. ENTERPRISE OF COLEMAN: The bilateral intracranial internal carotid arteries, anterior cerebral arteries, middle cerebral arteries and anterior and posterior communicating arteries are normal. POSTERIOR INTRACRANIAL CIRCULATION: The basilar artery and posterior cerebral arteries are patent, without stenosis or occlusion. DURAL SINUSES: Patent. No intracranial aneurysm measuring least 2 mm identified. No intracranial AVM. LUNG APICES: The lung apices are clear. SOFT TISSUES: The prevertebral soft tissues are normal. No soft tissue inflammation. OSSEOUS STRUCTURES: No acute osseous abnormality throughout the imaged axial skeleton and skull base. CT/CT angio head IMPRESSION: No high-grade or hemodynamically flow-limiting stenosis of the major arteries of the head and neck. Electronically authenticated by: NAPOLEON MILLER Date: 03/14/2024 18:04
--- NOTE | 2024-03-14 16:00 | CT_ITS ---
[address] [address] Patient Name: SEEMA HOOPER MRN: [id number] date: 1955 Sex: F Assigned Patient Location: ER Current Patient Location: Accession/Order Number: [id number] Exam Date: 03/14/2024 16:35 Report Date: 03/14/2024 18:04 At the request of: CHELSEA WILSON Procedure: CT angio neck CTA HEAD/NECK. HISTORY: left facial numbness COMPARISON: None. TECHNIQUE: CT angiogram of the head and neck obtained after administration of 75 mL of nonionic intravenous contrast material, Isovue-300. Multiplanar and volume rendered 3-D reformats were created. NASCET criteria was used for evaluation of luminal stenosis. 3-D vascular images were constructed on a separate workstation. FINDINGS: THORACIC AORTA: Normal. There is a normal anatomy at the origin of the great vessels. RIGHT COMMON CAROTID ARTERY: No significant stenosis. RIGHT EXTERNAL CAROTID ARTERY: No significant stenosis. RIGHT INTERNAL CAROTID ARTERY: No significant stenosis. LEFT COMMON CAROTID ARTERY: No significant stenosis. LEFT EXTERNAL CAROTID ARTERY: No significant stenosis. LEFT INTERNAL CAROTID ARTERY: No significant stenosis. RIGHT VERTEBRAL ARTERY: No significant stenosis. LEFT VERTEBRAL ARTERY: No significant stenosis. LITTLE TRAVERSE OF COLEMAN: The bilateral intracranial internal carotid arteries, anterior cerebral arteries, middle cerebral arteries and anterior and posterior communicating arteries are normal. POSTERIOR INTRACRANIAL CIRCULATION: The basilar artery and posterior cerebral arteries are patent, without stenosis or occlusion. DURAL SINUSES: Patent. No intracranial aneurysm measuring least 2 mm identified. No intracranial AVM. LUNG APICES: The lung apices are clear. SOFT TISSUES: The prevertebral soft tissues are normal. No soft tissue inflammation. OSSEOUS STRUCTURES: No acute osseous abnormality throughout the imaged axial skeleton and skull base. CT/CT angio neck IMPRESSION: No high-grade or hemodynamically flow-limiting stenosis of the major arteries of the head and neck. Electronically authenticated by: NAPOLEON MILLER Date: 03/14/2024 18:04
--- OUTSIDE RECORDS SUMMARY | 2024-03-14 19:25 | XMS_ITS | CCD ---
Author Organization [facility] Care Team Providers Care Telecommunications Line Mechanic Name Role Phone EITAN CHILD Unavailable Unavailable [...] MATT Uribe Primary Care Unavailable ELTAHAWY, DR KEEYS Attending Unavailable ELTAHAWY, DR KEYES Admitting Unavailable [...] RETA, DR MATT Uribe Primary Care Unavailable [facility], DR KEYES Consulting Unavailable [facility], DR KEYES Admitting Unavailable [facility], DR KEYES Attending Unavailable GREENWICH, DR ERICH Shaw Consulting Unavailable IVETTE KLINE Admitting Unavailable IVETTE KLINE Attending Unavailable RETA, DR MATT Uribe Primary Care Unavailable IVETTE KLINE Consulting Unavailable Matt Mcduffie MD Primary Care Provider IVETTE KLINE Attending Unavailable DONNIE, WALI Attending Unavailable NELLIE RAMIREZ Attending Unavailable RETA, MATT Attending Unavailable RETA, MATT Attending Unavailable RETA, MATT Attending Unavailable Allergies Allergy Classification Reported Allergen(s) Allergy Type Date of Onset Reaction(s) Facility (1 source) Adhesive bandage Drug allergy (disorder) [facility] (1 source) natural latex rubber Drug allergy (disorder) [facility] (1 source) Latex Propensity to adverse reactions 1 [facility] Medications Current Medications Medication Drug Class(es) Dates Sig (Normalized) Sig (Original) ALPRAZolam 0.5 mg disintegrating oral tablet (1 source) Benzodiazepine Start: 04-30-2023 take 1 tablet by mouth three times daily as needed for anxiety ALPRAZolam (Niravam) 0.5 MG disintegrating tablet Indications: ANMOL (generalized anxiety disorder) ([facility]) Take 1 tablet (0.5 mg) by [...] Indications: Type 2 diabetes mellitus with hyperglycemia ([facility]) TAKE 1 TABLET BY MOUTH DAILY [...] disease (4 sources) Atherosclerotic heart disease of [place] coronary artery without angina pectoris; 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: [Coronary [...] source) Patient encounter status; 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: [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] Onset: 07-11-2023 07-11-2023 [...] Da te Episodic/Chronic Other 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 source) 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; 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: [PRISON CURRENT USE OF INSULIN] Onset: 07-04-2022 Episodic [...] Range Facility Office Visiton 08-28-2023 Follow-up visit [id number] DavidKayli 1955 Date Provider Department Center 08/28/2023 271-WALI Q[facility] Family History Problem Relation Age of Onset Stroke Mother Heart attack Father Hypertension Father Diabetes type II Brother Heart disease Brother Family Status - Relation Status Age at Mother Father Brother Level of Service:95590 [place] OFFICE/OUTPATIENT ESTABLISHED LOW MDM 20 MIN [facility] MICROALBUMIN, RAND URon 07-17-2023 MICROALBUMIN URINE RANDOM 1.3 mg/dL NINF - 30.0 mg/dL [facility] Office Visiton 06-19-2023 Follow-up visit [id number] HernandezKayli 1955 Date Provider Department Center 06/19/2023 120-NELLIE RAMIREZ [facility] Family History Problem Relation Age of Onset Stroke Mother Heart attack Father Hypertension Father Diabetes type II Brother Heart disease Brother Family Status - Relation Status Age at Mother Father Brother Level of Service:67981 [place] OFFICE/OUTPATIENT ESTABLISHED MOD MDM 30 MIN Reason for Visit and Comments: Follow-up [442493] Normal [facility] Office Visiton 12-14-2022 Follow-up visit [id number] HernandezKayli rm 1955 F Date Provider Department Center 12/14/2022 Dafne-IVETTE KLINE [facility] No family history on file Level of Service:59459 [place] OFFICE/OUTPATIENT ESTABLISHED MOD MDM 30-39 MIN Reason for Visit and Comments: Follow-up [240353] - 6 mo f/u w/ carotid us Normal [facility] GLYCOHEMOGLOBIN A1Con 2022 ADA RECOMMENDATION SEE BELOW Normal [facility] Comment on above: Result Comment: ADA RECOMMENDED LIMIT 4.0 - 6.0 ADA THERAPEUTIC TARGET < 7.0 ACTION SUGGESTED > 7.0 Performed By: #### A 1C #### [facility] [address] [address] [address] Radha [place] Glucose [Mass/Vol] 163 mg/dL Normal [facility] Comment on above: Performed By: #### A 1C #### [facility] [address] [address] [address] Radha [place] HbA1c (Bld) [Mass fraction] 7.3 % Critically high 4.5-6.2 [facility] Comment on above: Performed By: #### A 1C #### [facility] [address] [address] [address] Radha [place] NM STRESS/REST MULTIon 08-02 NM STRESS/REST MULTI Patient: KAYLI HERNANDEZ Exam Date: 08/02/2022 : 1955 Gender:F Ordering : IVETTE KLIEN Admission #: [id number] Family : Order #: [id number] CLICK HERE TO VIEW EXAM RADIOLOGY REPORT [...] MD on 08/03/2022 at 11:55 Normal [facility] MAMM SCREEN 3D ALEE CADon 07-31-2022 MG MAMM SCREEN 3D ALEE CAD Patient: KAYLI HERNANDEZ Exam Date: 07/31/2022 : 1955 Gender:F Ordering : DR MATT MCDUFFIE . Admission #: [id number] Family : Order #: [id number] CLICK HERE TO VIEW EXAM RADIOLOGY REPORT [...] Treatments None Family Cancers None LOCATION: [facility] BREAST COMPOSITION: Heterogeneously dense,which may obscure small [...] MD on 07/31/2022 at 14:12 Normal [facility] GLYCOHEMOGLOBIN A1Con 2022 ADA RECOMMENDATION SEE BELOW Normal [facility] Comment on above: Result Comment: ADA RECOMMENDED LIMIT 4.0 - 6.0 ADA THERAPEUTIC TARGET < 7.0 ACTION SUGGESTED > 7.0 Performed By: #### A 1C #### [facility] [address] [address] [address] Radha [place] Glucose [Mass/Vol] 151 mg/dL Normal [facility] Comment on above: Performed By: #### A 1C #### [facility] [address] [address] [address] Radha [place] HbA1c (Bld) [Mass fraction] 6.9 % Critically high 4.5-6.2 [facility] Comment on above: Performed By: #### A 1C #### [facility] [address] [address] [address] Radha [place] MRI BRAIN WO W [...] ERICH WOODRUFF Date: 2022-06-07 14:46 Normal [facility] PROF 14(COMP METB)on 022 Albumin [Mass/Vol] 3.3 g/dL Critically low 3.4-5.0 [facility] Comment on above: Performed By: #### A 1C #### [facility] [id number] Radha [place] Albumin/Globulin [Mass ratio] 0.8 {ratio} Normal [facility] Comment on above: Performed By: #### A 1C #### [facility] [address] [place], [place] [address] Dr. Radha [place] ALP [Catalytic activity/Vol] 211 U/L Critically high 46-116 [facility] Comment on above: Performed By: #### A 1C #### [facility] [address] [address] [address] Radha [place] ALT [Catalytic activity/Vol] 25 U/L Normal 14-59 [facility] Comment on above: Performed By: #### A 1C #### [facility] [address] [place] [address] Dr. Radha [place] Anion gap [Moles/Vol] 12.3 mmol/L Normal [facility] Comment on above: Performed By: #### A 1C #### [facility] [address] [address] [address] Radha [place] AST [Catalytic activity/Vol] 17 U/L Normal 15-37 [facility] Comment on above: Performed By: #### A 1C #### [facility] [address] [place] [address] Dr. Radha [place] Bilirubin [Mass/Vol] 0.3 mg/dL Normal 0.2-1.0 [facility] Comment on above: Performed By: #### A 1C #### [facility] [address] [place] [address] Dr. Radha [place] Calcium [Mass/Vol] 9.2 mg/dL Normal 8.5-10.1 [facility] Comment on above: Performed By: #### A 1C #### [facility] [address] [place] [address] Dr. Radha [place] Chloride [Moles/Vol] 104 mmol/L Normal 98-107 [facility] Comment on above: Performed By: #### A 1C #### [facility] [address] [address] [address] Radha [place] CO2 [Moles/Vol] 28.6 mmol/L Normal 21.0-32.0 [facility] Comment on above: Performed By: #### A 1C #### [facility] [address] [place] [address] Dr. Radha [place] Creatinine [Mass/Vol] 0.78 mg/dL Normal 0.55-1.02 [facility] Comment on above: Performed By: #### A 1C #### [facility] [address] [address] [address] Radha Willis EGFR-AF AUSTRIAN >60 Normal >=60 [facility] Comment on above: Performed By: #### A 1C #### [facility] [address] [place] [address] Dr. Radha Willis EGFR-NON AF AUSTRIAN >60 Normal >=60 [facility] Comment on above: Performed By: #### A 1C #### [facility] [address] [address] [address] Radha Willis Globulin (S) [Mass/Vol] 4.4 g/dL Normal [facility] Comment on above: Performed By: #### A 1C #### [facility] [address] [place] [address] Dr. Radha Willis Glucose [Mass/Vol] 50 mg/dL Critically low 74-106 [facility] Comment on above: Performed By: #### A 1C #### [facility] [address] [place] [address] Dr. Radha Willis Potassium [Moles/Vol] 3.9 mmol/L Normal 3.5-5.1 [facility] Comment on above: Performed By: #### A 1C #### [facility] [address] [place] [address] Dr. Radha Willis Protein [Mass/Vol] 7.7 g/dL Normal 6.4-8.2 [facility] Comment on above: Performed By: #### A 1C #### [facility] [address] [place] [address] Dr. Radha Willis Sodium [Moles/Vol] 141 mmol/L Normal 136-145 [facility] Comment on above: Performed By: #### A 1C #### [facility] [address] [place] [address] Dr. Radha Willis Urea nitrogen [Mass/Vol] 12.0 mg/dL Normal 7.0-18.0 [facility] Comment on above: Performed By: #### A 1C #### [facility] [address] [place] [address] Dr. Radha Willis Urea nitrogen/Creatinine [Mass ratio] 15.4 mg/mg Normal [facility] Comment on above: Performed By: #### A 1C #### [facility] [address] [place] [address] Dr. Radha Willis XR HAND ALEE MIN [...] by: AARON GILMORE Date: 2022-04-30 19:39 Normal [facility] XR LSPINE 2_3 VIEWSon 2021 XR LSPINE [...] AARON GILMORE Date: 2022-04-30 19:45 Normal [facility] XR WRIST ALEE MIN 3 Von 04-30 [...] by: AARON GILMORE Date: 2022-04-30 19:42 Normal [facility] GLYCOHEMOGLOBIN A1Con 2021 ADA RECOMMENDATION SEE BELOW Normal [facility] Comment on above: Result Comment: ADA RECOMMENDED LIMIT 4.0 - 6.0 ADA THERAPEUTIC TARGET < 7.0 ACTION SUGGESTED > 7.0 Performed By: #### A 1C #### [facility] [address] [address] [address] Radha Willis Glucose [Mass/Vol] 140 mg/dL Normal [facility] Comment on above: Performed By: #### A 1C #### [facility] [address] [address] [address] Radha Willis HbA1c (Bld) [Mass fraction] 6.5 % Critically high 4.5-6.2 [facility] Comment on above: Performed By: #### A 1C #### [facility] [address] [place] [address] Dr. Radha Willis ECHOCARDIO M/2D COMPLETEon 0 02-14-2022 ECHOCARDIO M/2D COMPLETE Patient: KAYLI HERNANDEZ Exam Date: 02/14/2022 : 1955 Gender:F Ordering : DR WALI QUIÑONES M.D. Admission #: [id number] Family : Order #: [id number] CLICK HERE TO VIEW EXAM ECHOCARDIOGRAM REPORT [...] Kohli M.D. on 02/16/2022 at 18:58 Normal [facility] CREATININE BLOODon 1 Creatinine [Mass/Vol] 0.78 mg/dL Normal 0.60-1.20 [facility] Comment on above: Order Comment: No: D o not add to previous draw Performed By: #### 2 5656 #### [facility] [address] [place] [address], [facility] GFR/1.73 sq M.predicted among blacks MDRD (S/P/Bld) [Vol rate/Area] mL/min/{1.73_m2} Normal >60 [facility] Comment on above: Order Comment: No: D o not add to previous draw Performed By: #### 2 5656 #### [facility] [address] [place] [address], [facility] GFR/1.73 sq M.predicted among non-blacks MDRD (S/P/Bld) [Vol rate/Area] mL/min/{1.73_m2} Normal >60 [facility] Comment on above: Order Comment: No: D o not add to previous draw Performed By: #### 2 5656 #### [facility] [address] HEMATOCRITon 12-24-2020 Hematocrit (Bld) [Volume fraction] 34.8 % Low 36.0-45.0 [facility] Comment on above: Order Comment: No: D o not add to previous draw Performed By: #### 9 2088, 71749 #### [facility] [address] HEMOGLOBINon 12-24-2020 Hemoglobin (Bld) [Mass/Vol] 11.1 g/dL Low 12.0-15.0 [facility] Comment on above: Order Comment: No: D o not add to previous draw Performed By: #### 9 2088, 33197 #### [facility] [address] [place] [address], [facility] POC GLUCOSE LABon 12-24-2020 Glucose [Mass/Vol] 135 mg/dL High 70-100 [facility] Comment on above: Performed By: #### 8 5499 #### [facility] [address] CBC COMPLETE BLOOD COUNTon 0 12-23-2020 Erythrocyte distribution width (RBC) [Ratio] 13.5 % Normal 11.5-15.0 [facility] Comment on above: Order Comment: No: D o not add to previous draw Performed By: #### 5 0608 #### [facility] [address] [place] [address], [facility] Hematocrit (Bld) [Volume fraction] 36.2 % Normal 36.0-45.0 [facility] Comment on above: Order Comment: No: D o not add to previous draw Performed By: #### 5 0608 #### [facility] [address] [place] [id number], [facility] Hemoglobin (Bld) [Mass/Vol] 11.4 g/dL Low 12.0-15.0 [facility] Comment on above: Order Comment: No: D o not add to previous draw Performed By: #### 5 0608 #### [facility] [address] [place] [address], [facility] MCH (RBC) [Entitic mass] 26.5 pg Low 27.0-33.0 [facility] Comment on above: Order Comment: No: D o not add to previous draw Performed By: #### 5 0608 #### [facility] [address] [place] [address], [facility] MCHC (RBC) [Mass/Vol] 31.5 g/dL Low 32.0-35.0 [facility] Comment on above: Order Comment: No: D o not add to previous draw Performed By: #### 5 0608 #### [facility] [address] [facility] [address], [facility] MCV (RBC) [Entitic vol] 84.2 fL Normal 82.0-98.0 [facility] Comment on above: Order Comment: No: D o not add to previous draw Performed By: #### 5 0608 #### [facility] [address] [place] [address], [facility] Nucleated RBC/100 WBC (Bld) [Ratio] 0 % Normal 0-0 [facility] Comment on above: Order Comment: No: D o not add to previous draw Performed By: #### 5 0608 #### [facility] [address] [place] [id number], [facility] PLAT CNT 248 10*3/uL Normal 150-400 [facility] Comment on above: Order Comment: No: D o not add to previous draw Performed By: #### 5 0608 #### [facility] [address] [place] [id number], [facility] RBC (Bld) [#/Vol] 4.30 10*6/uL Normal 3.80-5.00 [facility] Comment on above: Order Comment: No: D o not add to previous draw Performed By: #### 5 0608 #### [facility] [address] [place] [id number], [facility] WBC (Bld) [#/Vol] 6.43 10*3/uL Normal 4.00-10.60 [facility] Comment on above: Order Comment: No: D o not add to previous draw Performed By: #### 5 0608 #### [facility] [address] [place] [id number], [facility] CREATININE BLOODon 1 Creatinine [Mass/Vol] 0.70 mg/dL Normal 0.60-1.20 [facility] Comment on above: Order Comment: No: D o not add to previous draw Performed By: #### 2 5656 #### [facility] [address] [place] [address], [facility] GFR/1.73 sq M.predicted among blacks MDRD (S/P/Bld) [Vol rate/Area] mL/min/{1.73_m2} Normal >60 [facility] Comment on above: Order Comment: No: D o not add to previous draw Performed By: #### 2 5656 #### [facility] [address] [place] [address], [facility] GFR/1.73 sq M.predicted among non-blacks MDRD (S/P/Bld) [Vol rate/Area] mL/min/{1.73_m2} Normal >60 [facility] Comment on above: Order Comment: No: D o not add to previous draw Performed By: #### 2 5656 #### [facility] [address] [place] [address], [facility] Cardiovascular Lab Reporton 12-23-2020 Cardiovascular Lab Report [facility]: [id number] Physician: Devon Medrano of [facility] Medicine Service Date: 12/23/2020 Division of Birthdate: 1955 Cardiology Room #: [id number] Adult Cardiovascular Services [facility] [address] [facility]. [place] [address] Cardiovascular Laboratory Report INDICATION: The patient is [...] the informed consent. She was brought to cath lab technologist in a fasting state. The right groin area was prepped and draped in usual fashion. Micropuncture technique and ultrasound guidance was used for access in the right common femoral artery. The inner cannula angiography was performed followed by upsizing to a 6-Filipino x 11 cm sheath. Heparin was given intravenously and therapeutic ECT confirmed during the rest of the procedure. A 6-Filipino JR4 guiding catheter was advanced and used to engage the right coronary ostium, however, this could not engage the right coronary ostium at all, therefore after multiple attempts we exchanged to a 6-Filipino AR1 guiding catheter, which was initially able [...] Kohli M.D. Date Trans: 12/23/2020 11:13 A/nilesh [id number] cc: Matt Mcduffie M.D. [address] [facility] [address] [address] [facility] Cardiovascular Lab Report [facility]: [id number] Physician: Devon Funes Department of [facility] Medicine Service Date: 12/22/2020 Division of Birthdate: 1955 Cardiology Room #: 4CD [id number] Adult Cardiovascular Services [place] [address] Cardiovascular Laboratory Report INDICATION: The patient is [...] the informed consent. She was brought to cath lab technologist in a fasting state. The left wrist area was prepped and draped in usual fashion. Modified Neil's test was favorable. Access in the left radial artery was obtained using micropuncture technique. A 5-Filipino x 11 cm slender sheath was advanced. Verapamil was given through the sheath and heparin was administered intravenously. Initial catheter advancement was made feasible using an angled Glidewire. Bilateral selective coronary angiography was then performed using a 5-Filipino JL3.5 catheter for engagement of the left coronary artery and a 5-Filipino JR5 diagnostic catheter for engagement of the [...] mid LAD has an 80% stenosis. The [id number] LAD is a very small caliber and [...] Kohli M.D. Date Trans: 12/23/2020 05:26 A/nilesh [id number] cc: Matt Mcduffie M.D. [address] [facility] [address] Normal [facility] POC GLUCOSE LABon 12-23-2020 Glucose [Mass/Vol] 170 mg/dL High 70-100 [facility] Comment on above: Performed By: #### 8 5499 #### [facility] [address] [place] [address], [facility] Glucose [Mass/Vol] 119 mg/dL High 70-100 [facility] Comment on above: Performed By: #### 8 5499 #### [facility] [address] [facility] [place] [address], [place] Glucose [Mass/Vol] 121 mg/dL High 70-100 [facility] Comment on above: Performed By: #### 8 5499 #### [facility] [address] [facility] [place] [address], [place] POC GLUCOSE LABon 12-22-2020 Glucose [Mass/Vol] 117 mg/dL High 70-100 [facility] Comment on above: Performed By: #### 8 5499 #### [facility] [address] [place] [address], [place] Lab Reportson 02-23-2020 Lab Reports [id number] .00CD:127 Normal [facility] Lab Reports [id number] .[id number]:127 Normal [facility] Lab Reportson 02-18-2020 Lab Reports [id number] .[id number]:127 Normal [facility] Ambulatory Clinical Summaryo n 02-17-2020 Ambulatory Clinical Summary {[id number] -[id number] Normal [facility] Patient Educationon 02-17-20 Patient Education Family [...] Document Reviewed: 01/25/2013 ExitCare? Patient Information ?2013 [employer]. Normal [facility] ALT-SGPTon 06-26-2017 Alanine aminotransferase (ALT) 40 U/L Normal 5-59 [facility] AST-SGOTon 06-26-2017 AST-SGOT 29 IU/L Normal 10-42 [facility] HEMOGLOBIN A1Con 06-26-2017 Glucose mass conc 160 mg/dL High 66-114 [facility] Comment on above: Result Comment: HEMO GLOBIN A1c DEGREE OF GLUCOSE CONTROL <5.7% Decreased risk of diabetes 5.7 - 6.4% Increased risk of diabetes >6.4% Consistent with diagnosis of diabetesPathology [facility] [email or web address] [address] [place], [place] [address]Laboratory Director: Connor Silver M.D.CLIA No. [id number] CAP Accreditation No. [id number] Hemoglobin A1c/Hemoglobin.total mass fraction (Bld) 7.2 % High 4.2-5.8 [facility] RA Screenon 04-18-2017 RA Screen <10 Normal <14 [facility] Comment on above: Result Comment: Perf ormed at [address] [address] Performed By: #### C DP, CRP, SED ####[address] [place] [address] #### RA ####[address] [address] C-Reactive Proteinon 017 C reactive protein (CRP) 12.5 mg/L High 0.0-5.0 [facility] Comment on above: Result Comment: Perf ormed at [address] [place] [address] Performed By: #### C DP, CRP, SED ####[address] [place] [address] #### RA ####[address] [address] CBC with Diffon 04-17-2017 Abs. Basophil 0.00 k/uL Normal 0.0-0.2 [facility] Comment on above: Result Comment: Perf ormed at [address] [place] [address] Performed By: #### C DP, CRP, SED ####[address] [place] [address] #### RA ####[address] [address] Abs.Neutrophil (Seg) 6.30 k/uL Normal 1.8-7.7 [facility] Comment on above: Performed By: #### C DP, CRP, SED ####[address] [place] [address] #### RA ####[address] [address] Basophils/100 WBC Auto (Bld) 0 % Normal [facility] Comment on above: Performed By: #### C DP, CRP, SED ####[address] [place] [address] #### RA ####[address] [address] Eosinophils 0.20 10*3/uL Normal 0.0-0.4 [facility] Comment on above: Performed By: #### C DP, CRP, SED ####[address] [place] [address] #### RA ####[address] [address] Eosinophils/100 leukocytes 2 % Normal [facility] Comment on above: Performed By: #### C DP, CRP, SED ####[address] [place] [address] #### RA ####[address] [address] Erythrocyte distribution width Auto Ratio (RBC) 12.9 % Normal 12.1-15.2 [facility] Comment on above: Performed By: #### C DP, CRP, SED ####[address] [place] [address] #### RA ####[address] [address] Erythrocytes (RBC) 4.68 10*6/uL Normal 4.0-5.2 [facility] [facility] Comment on above: Performed By: #### C DP, CRP, SED ####[address] [place] [address] #### RA ####[address] [address] Hematocrit (HCT) 39.4 % Normal 36-46 [facility] Comment on above: Performed By: #### C DP, CRP, SED ####[address] [place] [address] #### RA ####[address] [address] Hemoglobin mass conc (Bld) 13.1 g/dL Normal 12.0-16.0 [facility] Comment on above: Performed By: #### C DP, CRP, SED ####[address] [place] [address] #### RA ####[address] [address] Lymphocytes 1.90 10*3/uL Normal 1.0-4.8 [facility] Comment on above: Performed By: #### C DP, CRP, SED ####[address] [place] [address] #### RA ####[address] [address] Lymphocytes/100 leukocytes 22 % Normal [facility] Comment on above: Performed By: #### C DP, CRP, SED ####[address] [place] [address] #### RA ####[address] [address] MCH 27.9 pg Normal 26-34 [facility] Comment on above: Performed By: #### C DP, CRP, SED ####[address] [place] [address] #### RA ####[address] [address] MCHC mass conc (RBC) 33.2 g/dL Normal 31-37 [facility] Comment on above: Performed By: #### C DP, CRP, SED ####[address] [place] [address] #### RA ####[address] [address] MCV 84.1 fL Normal 80-100 [facility] Comment on above: Performed By: #### C DP, CRP, SED ####[address] [place] [address] #### RA ####[address] [address] Monocytes 0.50 10*3/uL Normal 0.2-0.8 [facility] Comment on above: Performed By: #### C DP, CRP, SED ####[address] [place] [address] #### RA ####[address] [address] Monocytes/100 leukocytes 6 % Normal [facility] Comment on above: Performed By: #### C DP, CRP, SED ####[address] [place] [address] #### RA ####[address] [address] Neutrophil (Seg) 70 % Normal [facility] Comment on above: Performed By: #### C DP, CRP, SED ####[address] [place] [address] #### RA ####[address] [address] Platelet mean volume (PMV) 9.4 fL Normal 6.0-12.0 [facility] Comment on above: Performed By: #### C DP, CRP, SED ####[address] [place] [address] #### RA ####[address] [address] Platelets 248 10*3/uL Normal 140-450 [facility] Comment on above: Performed By: #### C DP, CRP, SED ####[address] [place] [address] #### RA ####[address] [address] WBC (Leukocytes) 8.9 10*3/uL Normal 3.5-11.0 [facility] Comment on above: Performed By: #### C DP, CRP, SED ####[address] [place] [address] #### RA ####[address] [address] Auto Diff Performed NOT REPORTED Normal [facility] Comment on above: Performed By: #### C DP, CRP, SED ####[address] [place] [address] #### RA ####[address] [address] Erythrocyte morphology NOT REPORTED Normal [facility] Comment on above: Performed By: #### C DP, CRP, SED ####[address] [place] [address] #### RA ####[address] [address] Granulocytes/100 WBC (Bld) NOT REPORTED Normal 0.00-0.30 [facility] Comment on above: Performed By: #### C DP, CRP, SED ####[address] [place] [address] #### RA ####[address] [place] [address] Immature granulocytes #/vol (Bld) NOT REPORTED Normal 0 [facility] Comment on above: Performed By: #### C DP, CRP, SED ####[address] [place] [address] #### RA ####[address] [address] Platelets NOT REPORTED Normal [facility] Comment on above: Performed By: #### C DP, CRP, SED ####[address] [place] [address] #### RA ####[address] [address] WBC Morphology NOT REPORTED Normal [facility] Comment on above: Performed By: #### C DP, CRP, SED ####[address] [place] [address] #### RA ####[address] [address] Sedimentation Rateon 11-15-2 017 Sedimentation Rate 43 mm High 0-20 [facility] Comment on above: Result Comment: Perf ormed at [address] [place] [address] Performed By: #### C DP, CRP, SED ####[address] [place] [address] #### RA ####[address] [address] Hemoglobin A1Con 01-03-2017 Glucose mass conc 131 mg/dL Normal [facility] Comment on above: Result Comment: The ADA and AACC recommend providing the estimated average glucose result to permit better patient understanding of their HBA1c result.Performed at [address] [place] [address] Performed By: #### G LYHGB ####[address] [place] [address] Hemoglobin A1c/Hemoglobin.total mass fraction (Bld) 6.2 % High 4.8-5.9 [facility] Comment on above: Performed By: #### G LYHGB ####[address] [place] [address] Encounters Encounter Date Encounter Type Care Provider Facility Start: 02-19-2024 End: 02-19-2024 ambulatory MATT MCDUFFIE Not Available Start: 01-22-2024 End: 01-22-2024 ambulatory MATT MCDUFFIE Not Available Start: 08-28-2023 End: 08-28-2023 [facility] Start: 08-14-2023 End: 08-14-2023 ambulatory MATT MCDUFFIE Not Available Start: 07-17-2023 Clinisync Result Encounter Matt Mcduffie MD Work Phone: [facility] External Department Unsolicited Start: 07-17-2023 Clinisync Result Encounter Matt Mcduffie MD Work Phone: [facility] External [facility] Unsolicited Start: 06-19-2023 End: 06-19-2023 ambulatory NELLIE ASHLEY [facility] Start: 12-14-2022 End: 12-14-2022 ambulatory IVETTE [facility] Start: 10-01-2022 End: 10-02-[address] [...] Start: 12-22-2020 End: 12-24-2020 ambulatory MATT MCDUFFIE Facility:[facility] Start: 04-17-2017 End: 04-18-2017 [facility] Start: 01-03-2017 End: 01-04-2017 Ambulatory EITAN CHILD [facility] Procedures Date Procedure Procedure Detail [...] procedure 08/14/2023 1:30 PM EDT Office Visit [facility] [address] [place] [id number] Matt Mcduffie MD [address] [place] [id number] [facility] Start: 05-12-2020 Pneumococcal Vaccine : 65+ Years (2 - PPSV23 or PCV20) Pneumococcal Vaccine: 65+ Years (2 - PPSV23 or PCV20) [facility] Start: 09-24-2017 Screening for malign ant neoplasm [...] AETNA MEDICARE A DVANTAGE AETNA MEDICARE REPLACEMENT [id number] 2021-Present [address] [place] [address] [id number] 2018 Unknown [id number] 2016 Unknown [id number] 1959 Medicare [id number] 1957 Unknown [id number] [id number] 1957 Unknown [id number] 2.840.1.268005.3.579.2.593 1957 Unknown [id number] 2.840.1.909233.3.579.2.593 1957 Unknown [id number] 2.840.1.278177.3.579.2.593 1957 Unknown [id number] 2.16.840.1.231358.3.579.2.593 1957 Unknown [id number] 2.16.840.1.322606.3.579.2.593 1957 Unknown [id number] 2.16.840.1.060310.3.579.2.593 1957 Unknown [id number] 2.16.840.1.033134.3.579.2.593 1957 Unknown [id number] 2.16.840.1.739706.3.579.2.593 1957 Unknown [id number] 2.16.840.1.682111.3.579.2.593 1957 Unknown [id number] 2.16.840.1.467589.3.579.2.593 1957 Unknown [id number] 2.16.840.1.297526.3.579.2.593 1957 Unknown [id number] 2.16.840.1.856476.3.579.2.1259 1957 Unknown [id number] 2.16.840.1.093183.3.579.2.1259 1957 Unknown [id number] 2.16.840.1.753699.3.579.2.1259 Social History Date Type Detail Facility Start: 07-11-2023 Tobacco smoking status NHIS Never sm oked tobacco [facility] Start: 07-11-2023 History of Social function [facility] Start: 07-11-2023 Tobacco use panel [facility] Start: 1955 Sex Assigned At Not on file [facility] Clinical Notes 02-17-2020 to 08-28-2023 Note Date & Type Note Facility 08-28-2023 Note [facility] Cardiology Clinic Note Chief Complaint: Patient [...] Father Roge Hernandez Sr. Hypertension Father Roge Heranndez Sr. Diabetes type II Brother Roge Hernandez [...] Administration of intraco (more content not included)... [facility] 06-19-2023 Note F/U with PCP for management [facility] 06-19-2023 Note Coronary artery dise ase is stable Continue GDMT- ASA, plavix, lipitor, Coreg continue risk factor modifications- heart healthy diet, regular exercise as tolerated and continue all medications. [facility] 06-19-2023 Note Hypertension is well controlled 124/81 Continue coreg, losartan [facility] 06-19-2023 Note Continue lipitor 80 mg daily [facility] 06-19-2023 Note [facility] CARDIOLOGY PROGR ESS NOTE [...] ICA 0-49% s (more content not included)... [facility] 12-14-2022 Note Review of Systems All other systems reviewed and are negative. [facility] 12-14-2022 Note [place] [facility] Note [facility] Reason for follow up: CAD, echo, hypertension, [...] Diagnosis Date Coronary artery disease Diabetes mellitus ([facility]) Hyperlipidemia Hypertension Sleep apnea Patient Active Problem List Diagnosis Chest pain Essential hypertension External hemorrhoids Hyperlipidemia Obesity Obstructive sleep apnea Osteoarthrosis involving lower leg Segmental colitis with rectal bleeding ([facility]) Type 2 diabetes mellitus without complication ([facility]) TIA (transient ischemic attack) Coronary artery disease involving [place] coronary artery of [place] heart without angina pectoris PSH: Past Surgical [...] affect Orientation: o (more content not included)... [facility] 04-30-2022 Note PROCEDURE: XR HIP RT 2 3V WO PELVIS HISTORY: Bilateral hip joint pain COMPARISON: None. FINDINGS: BONES:No fracture, acute abnormality, or significant arthropathy. SOFT TISSUES:No visible soft tissue swelling. EFFUSION:None visible. OTHER: Negative. IMPRESSION: 1. No acute bone abnormality. 2. Minimal degenerative joint disease. Electronically authenticated by: AARON LYNDON Date: 2022-04-30 19:37 [facility] 12-24-2020 Note MR#: [id number] 2 [facility] Pt. Name: Kayli Hernandez Admitted: 12/22/2020 [...] Fonseca MD Date Trans: 12/24/2020 11:58 A/nilesh [id number] cc: Matt Mcduffie M.D. [address] [facility] [address] [facility] 02-17-2020 Note Chief Complaint consultation for [...] day(s), # 30 tab(s), Refills(s) 0, Pharmacy: [facility], 142, cm, 02/17/20 14:42:00 EDT, Height/Length [...] 5. BMI 40 (more content not included)... [facility] Comment on above: Result Comment: Elec [...] DATE CREATED AUTHOR AUTHOR'S ORGANIZ ATION 10/15/2020 [facility] DATE CREATED AUTHOR AUTHOR'S ORGANIZ ATION 01/05/2021 [facility] DATE CREATED AUTHOR AUTHOR'S ORGANIZ ATION 10/05/2022 [facility] DATE CREATED AUTHOR AUTHOR'S ORGANIZ ATION 08/29/2023 [facility] DATE CREATED AUTHOR AUTHOR'S ORGANIZ ATION 02/21/2024 [facility] Care Teams (unrecognized sec tion and content) 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 [employer] provides no warranty or guarantee of the accuracy or completeness of information in this document.
[2024-03-14] MEDS: ALPRAZOLAM 0.5 MG TABLET PO (21:37)
[2024-03-14] MEDS: CARVEDILOL 25 MG TABLET PO (21:37)
[2024-03-14] MEDS: GABAPENTIN 100 MG CAPSULE PO (21:37)
[2024-03-14] MEDS: 0.9 % SODIUM CHLORIDE 1,000 ML 100 ML IV (21:37)
[2024-03-14] MEDS: ACETAMINOPHEN 325 MG TABLET 650 MG PO (21:40)
[2024-03-14] MEDS: TEMAZEPAM 15 MG CAPSULE PO (21:40)
[2024-03-14] MEDS: ISOSORBIDE DINITRATE 30 MG TABLET PO (21:56)
[2024-03-15] VITALS (53 sets, daily range): BP systolic 103–117; BP diastolic 56–62; PULSE 63–94; TEMP 36.6–36.9; O2SAT 100
[2024-03-15] MEDS: ALPRAZOLAM 0.5 MG TABLET PO (05:07)
[2024-03-15] MEDS: GABAPENTIN 100 MG CAPSULE PO (05:07)
[2024-03-15 05:23] LABS: Basophils Percent Auto 0.7 % (0.2-2.0); Eosinophils Absolute Auto 0.3 10^3/uL (0.0-0.7); Eosinophils Percent Auto 4.7 % (0.9-7.0); Hematocrit 27.5 % (36.0-48.0); Hemoglobin 7.9 g/dL (12.0-16.0); Immature Granulocytes Abs Auto 0.01 10^3/uL (0.00-0.03); Immature Granulocytes Pct Auto 0.2 % (0.0-0.5); Lymphocytes Percent Auto 35.5 % (20.5-60.0); Mean Corpuscular HGB Conc 28.7 g/dL (29.9-35.2); Mean Corpuscular Hemoglobin 21.1 pg (26.7-34.0); Mean Corpuscular Volume 73.3 fL (81.0-99.0); Mean Platelet Volume 11.2 fL (9.5-13.5); Monocytes Absolute Auto 0.4 10^3/uL (0.3-0.8); Monocytes Percent Auto 7.4 % (1.7-12.0); Neutrophils Absolute Auto 2.9 10^3/uL (1.4-6.5); Neutrophils Percent Auto 51.5 % (43.0-75.0); Platelet Count 259 10^3/uL (150-450); Red Blood Count 3.75 10^6/uL (4.20-5.40); Red Cell Distribution Width 16.4 % (11.0-15.0); White Blood Count 5.6 10^3/uL (4.0-11.0)
[2024-03-15 05:41] LABS: Alanine Aminotransferase 11 U/L (14-59); Albumin Globulin Ratio 0.7; Albumin Level 2.6 g/dL (3.4-5.0); Alkaline Phosphatase 161 U/L (46-116); Anion Gap 14.5; Aspartate Amino Transferase 9 U/L (15-37); BUN Creatinine Ratio 13.2; Bilirubin Total 0.4 mg/dL (0.2-1.0); Calcium 8.7 mg/dL (8.5-10.1); Carbon Dioxide 24.4 mmol/L (21.0-32.0); Chloride 110 mmol/L (98-107); Estimated GFR (African America >60 (>=60 mL/min/1.73m^2); Estimated GFR (Non-African Ame >60 (>=60 mL/min/1.73m^2); Globulin 3.6 g/dL; Glucose 124 mg/dL (74-106); Potassium 3.9 mmol/L (3.5-5.1); Sodium 145 mmol/L (136-145); Total Protein 6.2 g/dL (6.4-8.2)
[2024-03-15] MEDS: OMEPRAZOLE 40 MG CAPSULE.DR PO (08:36)
[2024-03-15] MEDS: CARVEDILOL 25 MG TABLET PO (08:36)
[2024-03-15] MEDS: ASPIRIN 81 MG TABLET.DR PO (08:36)
[2024-03-15] MEDS: LOSARTAN POTASSIUM 50 MG TABLET 100 MG PO (08:36)
[2024-03-15] MEDS: ATORVASTATIN CALCIUM 40 MG TABLET 80 MG PO (08:36)
[2024-03-15] MEDS: ISOSORBIDE MONONITRATE 30 MG TAB.ER.24H PO (08:36)
[2024-03-15] MEDS: CLOPIDOGREL BISULFATE 75 MG TABLET PO (08:37)
[2024-03-15] MEDS: GLIPIZIDE 10 MG TABLET PO (08:37)
[2024-03-15 08:44] LABS: Glucometer 136 mg/dL (74-106)
--- NOTE | 2024-03-15 09:23 | P.HP_ITS ---
HPI H&P: HPI History of Present Illness Chief complaint: HEADACHE, CVA SYMPTOMS, Stroke Not TPA Candidate Narrative: Patient presented to the emergency room with a progressive over the previous 12 hours left facial weakness and thickness, feels like she had a dental procedure done, denied any difficulty with her speech to me she denied any difficulty with strength of her upper or lower extremities. Workup in the ER was done to rule out possible CVA. Testing in the ER was all negative. She does have a history of coronary artery disease so increased risk for stroke. When I saw patient in the intensive care unit, she was resting comfortably in bed, she felt everything felt about the same as it did yesterday deafly not worse, denied difficulty with strength in her upper or lower extremities no difficulty swallowing, no difficulty with her speech or word finding Opioid HPI Opioid Management Most Recent Pain and Opioid Data: Last Pain Scale 3 03/14/24 22:51 03/14/24 Last Pain Assessment 03/15/24 09:49 Last ORT Total Score 0 03/14/24 20:14 03/14/24 Last ORT Risk Category Low Risk 03/14/24 20:14 03/14/24 Review of Systems ROS Status of ROS 10 or more systems reviewed and unremark able except as noted in history and below [facility] Medical History (Updated 03/15/24 @ 10:34 by Juan Diego Waterman MD) Diabetes ?E11.9 - Type 2 diabetes mellitus without complications (ICD-10) Hyperlipidemia ?E78.5 - Hyperlipidemia, unspecified (ICD-10) Obese ?E66.9 - Obesity, unspecified (ICD-10) Knee arthropathy ?M17.10 - Unilateral primary osteoarthritis, unspecified knee (ICD-10) Rotator cuff arthropathy ?M12.819 - Other specific arthropathies, not elsewhere classified, unspecified shoulder (ICD-10) Gallbladder attack ?K82.9 - Disease of gallbladder, unspecified (ICD-10) Arthritis ?M19.90 - Unspecified osteoarthritis, unspecified site (ICD-10) Sleep apnea ?G47.30 - Sleep apnea, unspecified (ICD-10) Neuropathy ?G62.9 - Polyneuropathy, unspecified (ICD-10) Blurring, left eye ?H53.8 - Other visual disturbances (ICD-10) 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) Colitis ?K52.9 - Noninfective gastroenteritis and colitis, unspecified (ICD-10) Diverticulitis ?K57.92 - Diverticulitis of intestine, part unspecified, without perforation or abscess without bleeding (ICD-10) HTN (hypertension) ?I10 - Essential (primary) hypertension (ICD-10) Anxiety ?F41.9 - Anxiety disorder, unspecified (ICD-10) Surgical History (Updated 03/14/24 @ 21:55 by Yen Tompkins) H/O: hysterectomy ?Z90.710 - Acquired absence of both cervix and uterus (ICD-10) Hx of angioplasty ?Z98.62 - Peripheral vascular angioplasty status (ICD-10) Social History Highest level of school completed/degree received: high school graduate Little interest or pleasure in doing things: several days Feeling down, depressed, or hopeless: not at all Meds Home Medications and Allergies Home Medications ?Medication ?Instructions ?Recorded ?Confirmed ?Type alprazolam 0.5 mg tablet 0.5 mg PO TID 03/14/24 03/14/24 History atorvastatin 80 mg tablet 80 mg PO DAILY 03/14/24 03/14/24 History carvedilol 25 mg tablet 25 mg PO Q12H 03/14/24 03/14/24 History clopidogrel 75 mg tablet 75 mg PO DAILY 03/14/24 03/14/24 History gabapentin 100 mg capsule 100 mg PO Q8H 03/14/24 03/14/24 History glipizide 10 mg tablet 10 mg PO DAILY 03/14/24 03/14/24 History losartan 50 mg tablet 50 mg PO DAILY 03/14/24 03/14/24 History omeprazole 40 mg capsule,delayed 40 mg PO DAILY 03/14/24 03/14/24 History release amlodipine 5 mg tablet 5 mg PO .QD 03/15/24 03/15/24 History aspirin 325 mg tablet 325 mg PO DAILY #30 tabs 03/15/24 Rx clopidogrel 75 mg tablet 75 mg PO DAILY #30 tabs 03/15/24 Rx isosorbide mononitrate 30 mg 30 mg PO .QD 03/15/24 03/15/24 History tablet,extended release 24 hr Allergies Allergy/AdvReac Type Severity Reaction Status Date / Time No Known Drug Allergies Allergy Verified 03/14/24 14:43 Exam Constitutional Vital Signs, click to edit/add: Last Vital Signs Temp 97.8 F 03/15/24 04:00 Pulse 79 03/15/24 06:00 Resp 20 03/15/24 04:00 BP 117/62 03/15/24 04:00 Pulse Ox 100 03/15/24 06:00 O2 Del Method Room Air 03/14/24 20:16 Documenting provider has reviewed patient's vital signs: yes Common normals: no apparent distress HENMT Common normals: normocephalic and head/scalp atraumatic Head and scalp: normal to inspection Face and sinus: other (Left facial droop, nl sensation over forehead, nl frontalis muscle strength); facial exam not normal and face not symmetric Chest Common normals: inspection of chest normal Respiratory Common normals: normal respiratory effort Neuro Common normals: oriented x3, CN's II-XII intact bilaterally and moves all extremities Results Labs Labs: Short CBC 03/14/24 03/15/24 Range/Units 15:14 05:08 WBC 8.3 5.6 (4.0-11.0) 10^3/uL Hgb 9.0 L 7.9 L (12.0-16.0) g/dL Hct 30.9 L 27.5 L (36.0-48.0) % Plt Count 304 259 (150-450) 10^3/uL BMP 03/14/24 03/15/24 15:14 05:08 Sodium 140 145 Potassium 3.9 3.9 Chloride 105 110 H Carbon Dioxide 24.3 24.4 BUN 10.0 12.0 Creatinine 0.89 0.91 Glucose 99 124 H Calcium 9.1 8.7 Liver Function 03/14/24 03/15/24 Range/Units 15:14 05:08 Total Bilirubin 0.3 0.4 (0.2-1.0) mg/dL AST 14 L 9 L (15-37) U/L ALT 16 11 L (14-59) U/L Alkaline Phosphatase 214 H 161 H (46-116) U/L Albumin 3.0 L 2.6 L (3.4-5.0) g/dL Assessment and Plan Assessment and Plan (1) Diabetes: (2) Hyperlipidemia: (3) Obese: (4) Sleep apnea: (5) Facial paralysis: (6) HTN (hypertension): (7) Elevated liver function tests: (8) Hyperchloremia: (9) Moderate protein-calorie malnutrition: (10) Iron deficiency anemia: (11) Coronary artery disease: Plan Admission findings: Patient was seen and evaluated in the emergency room after a progressive 12-hour course of left facial weakness. Workup in ER was unremarkable, teleneurology recommended admission for observation overnight and considerations for MRI scan Left facial weakness-on my exam she had normal sensation across her forehead and she had normal strength of the frontalis muscle. 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 Discussed care with patient, she would prefer at this point to be discharged to home, continue with her Plavix, I increased her dose of the aspirin, and she can continue the workup as an outpatient. Encourage patient to not drive but based on her response, that seems unlikely Coronary artery disease-no chest pain, history of cardiac angioplasty without stent per patient Iron deficiency anemia-monitor as an outpatient Moderate protein calorie malnutrition based on NIH criteria for albumin-monitor as an outpatient Hyperchloremia-monitor as an outpatient, improved this morning Elevated liver function test-borderline, no abdominal pain, follow-up as an outpatient Hypertension-continue with home medications Sleep apnea-monitor as an outpatient Diabetes mellitus-monitor sugars Hypercholesterolemia-continue with home medications Admission status: Patient admitted overnight for observation, she is no worse, exam more consistent with Reyes's palsy, patient is would prefer to finish workup as an outpatient. Encouraged her if she has any other symptoms she is to return to the emergency room. Did increase her dose of the aspirin, medically necessary treatment will span only 1 midnights will maintain patient to observation status
--- NOTE | 2024-03-15 10:41 | P.DS_ITS ---
DS: Providers Provider Date of admission: 03/14/24 19:12 Primary care physician: Matt Hutchins MD Consults: 03/14/24 15:33 Consult to Telestroke Routine Reason for consultation: left side facial drooping with headache 03/15/24 07:09 Occupational Therapy Eval and Treat Routine Reason for consultation: Only if needed for Rehab Has provider been notified: No Physical Therapy Eval and Treat Routine Reason for consultation: Eval and Treat Has provider been notified: No 03/15/24 07:12 Speech Therapy Eval and Treat Routine Reason for consultation: Eval and treat Has provider been notified: No DS: Diagnosis Discharge Diagnosis (1) Diabetes: (2) Hyperlipidemia: (3) Obese: (4) Sleep apnea: (5) Facial paralysis: (6) HTN (hypertension): (7) Elevated liver function tests: (8) Hyperchloremia: (9) Moderate protein-calorie malnutrition: (10) Iron deficiency anemia: (11) Coronary artery disease: Plan Admission findings: Patient was seen and evaluated in the emergency room after a progressive 12-hour course of left facial weakness. Workup in ER was unremarkable, teleneurology recommended admission for observation overnight and considerations for MRI scan Left facial weakness-on my exam she had normal sensation across her forehead and she had normal strength of the frontalis muscle. 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 Discussed care with patient, she would prefer at this point to be discharged to home, continue with her Plavix, I increased her dose of the aspirin, and she can continue the workup as an outpatient. Encourage patient to not drive but based on her response, that seems unlikely Coronary artery disease-no chest pain, history of cardiac angioplasty without stent per patient Iron deficiency anemia-monitor as an outpatient Moderate protein calorie malnutrition based on NIH criteria for albumin-monitor as an outpatient Hyperchloremia-monitor as an outpatient, improved this morning Elevated liver function test-borderline, no abdominal pain, follow-up as an outpatient Hypertension-continue with home medications Sleep apnea-monitor as an outpatient Diabetes mellitus-monitor sugars Hypercholesterolemia-continue with home medications Admission status: Patient admitted overnight for observation, she is no worse, exam more consistent with Reyes's palsy, patient is would prefer to finish workup as an outpatient. Encouraged her if she has any other symptoms she is to return to the emergency room. Did increase her dose of the aspirin, medically necessary treatment will span only 1 midnights will maintain patient to observation status ? DS: Summary Hospital Course Hospital Course: Patient was admitted for observation with left facial numbness and paralysis. This was progressive over a 12-hour period of time. When I saw patient in the intensive care unit, she was resting comfortably in bed, no change overnight, no other neurological symptoms, exam more consistent with Reyes's palsy, discussed options with patient and she would prefer to be discharged to home and continue workup as an outpatient. Medications to this. Follow-up with PCP VALERIE Status at Discharge Overall status at discharge: patient is not back to baseline Time Spent with Patient Time attestation: Total time spent providing and/or coordinating discharge services: Time spent: greater than 30 minutes Exam Constitutional Vital Signs, click to edit/add: Last Vital Signs Temp 98.5 F 03/15/24 08:00 Pulse 82 03/15/24 10:20 Resp 8 L 03/15/24 10:20 BP 117/62 03/15/24 04:00 Pulse Ox 100 03/15/24 06:00 O2 Del Method Room Air 03/14/24 20:16 Documenting provider has reviewed patient's vital signs: yes Common normals: no apparent distress HENMT Common normals: normocephalic and head/scalp atraumatic Head and scalp: normal to inspection Face and sinus: other (Left facial droop, nl sensation over forehead, nl frontalis muscle strength); facial exam not normal and face not symmetric Chest Common normals: inspection of chest normal Respiratory Common normals: normal respiratory effort Neuro Common normals: oriented x3, CN's II-XII intact bilaterally and moves all extremities DS: Data Data Completed and Pending Labs on day of discharge: Labs from last 24 hours 03/15/24 03/15/24 03/14/24 08:34 05:08 15:38 WBC 5.6 RBC 3.75 L Hgb 7.9 L Hct 27.5 L MCV 73.3 L MCH 21.1 L MCHC 28.7 L RDW 16.4 H Plt Count 259 MPV 11.2 Neut % (Auto) 51.5 Lymph % (Auto) 35.5 Cotton % (Auto) 7.4 Eos % (Auto) 4.7 Baso % (Auto) 0.7 Neut # (Auto) 2.9 Lymph # (Auto) 2.0 Cotton # (Auto) 0.4 Eos # (Auto) 0.3 Baso # (Auto) 0.0 Abs Immat Gran (auto) 0.01 Imm/Tot Granulo (auto) 0.2 PT INR Sodium 145 Potassium 3.9 Chloride 110 H Carbon Dioxide 24.4 Anion Gap 14.5 BUN 12.0 Creatinine 0.91 Est GFR ( Amer) >60 Est GFR (Non-Af Amer) >60 BUN/Creatinine Ratio 13.2 Glucose 124 H Calcium 8.7 Magnesium 2.0 Total Bilirubin 0.4 AST 9 L ALT 11 L Alkaline Phosphatase 161 H Total Protein 6.2 L Albumin 2.6 L Globulin 3.6 Albumin/Globulin Ratio 0.7 POC Glucose 136 H 88 03/14/24 15:14 WBC 8.3 RBC 4.18 L Hgb 9.0 L Hct 30.9 L MCV 73.9 L MCH 21.5 L MCHC 29.1 L RDW 16.2 H Plt Count 304 MPV 10.9 Neut % (Auto) 60.0 Lymph % (Auto) 29.3 Cotton % (Auto) 7.0 Eos % (Auto) 2.9 Baso % (Auto) 0.6 Neut # (Auto) 5.0 Lymph # (Auto) 2.4 Cotton # (Auto) 0.6 Eos # (Auto) 0.2 Baso # (Auto) 0.1 Abs Immat Gran (auto) 0.02 Imm/Tot Granulo (auto) 0.2 PT 10.2 INR 0.96 Sodium 140 Potassium 3.9 Chloride 105 Carbon Dioxide 24.3 Anion Gap 14.6 BUN 10.0 Creatinine 0.89 Est GFR ( Amer) >60 Est GFR (Non-Af Amer) >60 BUN/Creatinine Ratio 11.2 Glucose 99 Calcium 9.1 Magnesium Total Bilirubin 0.3 AST 14 L ALT 16 Alkaline Phosphatase 214 H Total Protein 7.4 Albumin 3.0 L Globulin 4.4 Albumin/Globulin Ratio 0.7 POC Glucose Discharge Plan Discharge Disposition: Home, Self-Care Discharge Medications: New aspirin 325 mg tablet 325 mg PO DAILY Qty: 30 11RF clopidogrel 75 mg Tablet 75 mg PO DAILY Qty: 30 11RF Continued alprazolam 0.5 mg tablet 0.5 mg PO TID atorvastatin 80 mg tablet 80 mg PO DAILY carvedilol 25 mg tablet 25 mg PO Q12H clopidogrel 75 mg tablet 75 mg PO DAILY gabapentin 100 mg capsule 100 mg PO Q8H losartan 50 mg tablet 50 mg PO DAILY omeprazole 40 mg capsule,delayed release(DR/EC) 40 mg PO DAILY glipizide 10 mg tablet 10 mg PO DAILY amlodipine 5 mg tablet 5 mg PO .QD isosorbide mononitrate 30 mg tablet extended release 24 hr 30 mg PO .QD Discontinued aspirin 81 mg tablet,delayed release (DR/EC) 81 mg PO DAILY Activity: resume usual activities as tolerated Diet: advance to your usual diet Print Language: Yoruba Patient Instructions: Reyes Palsy (GEN), Ischemic Stroke (GEN) Forms: Portal Instructions Follow Up Appointments: Call Dr. Hutchins's office on Saturday. Discharge location: home
--- OUTSIDE RECORDS SUMMARY | 2024-03-16 08:41 | XMS_ITS | CCD ---
Author Organization [facility] Care Team Providers Care Front End Ui Developer Name Role Phone EITAN CHILD Unavailable Unavailable [...] RETA, DR MATT Uribe Primary Care Unavailable [facility], DR KEYES Consulting Unavailable [facility], DR KEYES Admitting Unavailable [facility], DR KEYES Attending Unavailable [place], DR ERICH Shaw Consulting Unavailable IVETTE KLINE [...] source) Adhesive bandage Drug allergy (disorder) [facility] Repository (1 source) natural latex rubber Drug allergy (disorder) [facility] Repository (1 source) Latex Propensity to adverse reactions 1 [facility] Medications Current Medications Medication Drug Class(es) Dates Sig (Normalized) Sig (Original) ALPRAZolam 0.5 mg disintegrating oral tablet (1 source) Benzodiazepine Start: 04-30-2023 take 1 tablet by mouth three times daily as needed for anxiety ALPRAZolam (Niravam) 0.5 MG disintegrating tablet Indications: ANMOL (generalized anxiety disorder) ([facility]) Take 1 tablet (0.5 mg) by mouth [...] Indications: Type 2 diabetes mellitus with hyperglycemia ([facility]) TAKE 1 TABLET BY MOUTH DAILY 30 [...] disease (4 sources) Atherosclerotic heart disease of [place] coronary artery without angina pectoris; 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: [Coronary [...] (1 source) Patient encounter status; 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: [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] Onset: 07-11-2023 07-11-2023 Episodic [...] Da te Episodic/Chronic Other 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 source) 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; 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: [GROUP HOME CURRENT USE OF INSULIN] Onset: 07-04-2022 Episodic [...] Range Facility Office Visiton 08-28-2023 Follow-up visit [id number] DavidKayli 1955 Date Provider Department Center 08/28/2023 271-WALI QUI[facility] Family History Problem Relation Age of Onset Stroke Mother Heart attack Father Hypertension Father Diabetes type II Brother Heart disease Brother Family Status - Relation Status Age at Mother Father Brother Level of Service:55811 [place] OFFICE/OUTPATIENT ESTABLISHED LOW MDM 20 MIN [facility] MICROALBUMIN, RAND URon 07-17-2023 MICROALBUMIN URINE RANDOM 1.3 mg/dL NINF - 30.0 mg/dL [facility] e Office Visiton 06-19-2023 Follow-up visit [id number] HernandezKayli 1955 Date Provider Department Center 06/19/2023 120-NELLIE RAMIREZ [facility] Family History Problem Relation Age of Onset Stroke Mother Heart attack Father Hypertension Father Diabetes type II Brother Heart disease Brother Family Status - Relation Status Age at Mother Father Brother Level of Service:31436 [place] OFFICE/OUTPATIENT ESTABLISHED MOD MDM 30 MIN Reason for Visit and Comments: Follow-up [998296] Normal [facility] Office Visiton 12-14-2022 Follow-up visit [id number] HernandezaKyli rm 1955 F Date Provider Department Center 12/14/2022 Dafne-IVETTE KLINE [facility] No family history on file Level of Service:25204 [place] OFFICE/OUTPATIENT ESTABLISHED MOD MDM 30-39 MIN Reason for Visit and Comments: Follow-up [954756] - 6 mo f/u w/ carotid us Normal [facility] GLYCOHEMOGLOBIN A1Con 2022 ADA RECOMMENDATION SEE BELOW Normal [facility] Comment on above: Result Comment: ADA RECOMMENDED LIMIT 4.0 - 6.0 ADA THERAPEUTIC TARGET < 7.0 ACTION SUGGESTED > 7.0 Performed By: #### A 1C #### [facility] Laboratory [address] [address] [address] Radha Willis Glucose [Mass/Vol] 163 mg/dL Normal [facility] Comment on above: Performed By: #### A 1C #### [facility] [address] [address] [address] Radha Willis HbA1c (Bld) [Mass fraction] 7.3 % Critically high 4.5-6.2 [facility] Comment on above: Performed By: #### A 1C #### [facility] [address] [address] [address] Radha Willis NM STRESS/REST MULTIon 08-02 NM STRESS/REST MULTI Patient: KAYLI HERNANDEZ Exam Date: 08/02/2022 : 1955 Gender:F Ordering : IVETTE KLINE Admission #: [id number] Family : Order #: [id number] CLICK HERE TO VIEW EXAM RADIOLOGY REPORT [...] MD on 08/03/2022 at 11:55 Normal [facility] MAMM SCREEN 3D ALEE CADon 07-31-2022 MG MAMM SCREEN 3D ALEE CAD Patient: KAYLI HERNANDEZ Exam Date: 07/31/2022 : 1955 Gender:F Ordering : DR MATT MCDUFFIE . Admission #: [id number] Family : Order #: [id number] CLICK HERE TO VIEW EXAM RADIOLOGY REPORT [...] Treatments None Family Cancers None LOCATION: [facility] BREAST COMPOSITION: Heterogeneously dense,which may obscure small [...] MD on 07/31/2022 at 14:12 Normal [facility] GLYCOHEMOGLOBIN A1Con 2022 ADA RECOMMENDATION SEE BELOW Normal [facility] Comment on above: Result Comment: ADA RECOMMENDED LIMIT 4.0 - 6.0 ADA THERAPEUTIC TARGET < 7.0 ACTION SUGGESTED > 7.0 Performed By: #### A 1C #### [facility] [address] [address] [address] Radha Willis Glucose [Mass/Vol] 151 mg/dL Normal [facility] Comment on above: Performed By: #### A 1C #### [facility] [address] [address] [address] Radha Willis HbA1c (Bld) [Mass fraction] 6.9 % Critically high 4.5-6.2 [facility] Comment on above: Performed By: #### A 1C #### [facility] [address] [address] [address] Radha Willis MRI BRAIN WO W [...] ERICH WOODRUFF Date: 2022-06-07 14:46 Normal [facility] PROF 14(COMP METB)on 022 Albumin [Mass/Vol] 3.3 g/dL Critically low 3.4-5.0 Th e [facility] Comment on above: Performed By: #### A 1C #### [facility] [id number] Radha Willis Albumin/Globulin [Mass ratio] 0.8 {ratio} Normal [facility] Comment on above: Performed By: #### A 1C #### [facility] [address] [place], [place] [address] Dr. Radha Willis ALP [Catalytic activity/Vol] 211 U/L Critically high 46-116 [facility] Comment on above: Performed By: #### A 1C #### [facility] [address] [address] [address] Radha Willis ALT [Catalytic activity/Vol] 25 U/L Normal 14-59 [facility] Comment on above: Performed By: #### A 1C #### [facility] [address] [place] [address] Dr. Radha Willis Anion gap [Moles/Vol] 12.3 mmol/L Normal [facility] Comment on above: Performed By: #### A 1C #### [facility] [address] [address] [address] Radha Willis AST [Catalytic activity/Vol] 17 U/L Normal 15-37 [facility] Comment on above: Performed By: #### A 1C #### [facility] [address] [place] [address] Dr. Radha Willis Bilirubin [Mass/Vol] 0.3 mg/dL Normal 0.2-1.0 [facility] Comment on above: Performed By: #### A 1C #### [facility] [address] [place] [address] Dr. Radha Willis Calcium [Mass/Vol] 9.2 mg/dL Normal 8.5-10.1 [facility] Comment on above: Performed By: #### A 1C #### [facility] [address] [place] [address] Dr. Radha Willis Chloride [Moles/Vol] 104 mmol/L Normal 98-107 [facility] Comment on above: Performed By: #### A 1C #### [facility] [address] [address] [address] Radha Willis CO2 [Moles/Vol] 28.6 mmol/L Normal 21.0-32.0 [facility] Comment on above: Performed By: #### A 1C #### [facility] [address] [place] [address] Dr. Radha Willis Creatinine [Mass/Vol] 0.78 mg/dL Normal 0.55-1.02 [facility] Comment on above: Performed By: #### A 1C #### [facility] [address] [address] [address] Radha Willis EGFR-AF BRUNEIAN >60 Normal >=60 [facility] Comment on above: Performed By: #### A 1C #### [facility] [address] [place] [address] Dr. Radha Willis EGFR-NON AF BRUNEIAN >60 Normal >=60 [facility] Comment on above: Performed By: #### A 1C #### [facility] [address] [address] [address] Radha Willis Globulin (S) [Mass/Vol] 4.4 g/dL Normal [facility] Comment on above: Performed By: #### A 1C #### [facility] [address] [place] [address] Dr. Radha Willis Glucose [Mass/Vol] 50 mg/dL Critically low 74-106 [facility] Comment on above: Performed By: #### A 1C #### [facility] [address] [place] [address] Dr. Radha Willis Potassium [Moles/Vol] 3.9 mmol/L Normal 3.5-5.1 [facility] Comment on above: Performed By: #### A 1C #### [facility] [address] [place] [address] Dr. Radha Willis Protein [Mass/Vol] 7.7 g/dL Normal 6.4-8.2 [facility] Comment on above: Performed By: #### A 1C #### [facility] [address] [place] [address] Dr. Radha Willis Sodium [Moles/Vol] 141 mmol/L Normal 136-145 [facility] Comment on above: Performed By: #### A 1C #### [facility] [address] [place] [address] Dr. Radha Willis Urea nitrogen [Mass/Vol] 12.0 mg/dL Normal 7.0-18.0 [facility] Comment on above: Performed By: #### A 1C #### [facility] [address] [place] [address] Dr. Radha Willis Urea nitrogen/Creatinine [Mass ratio] 15.4 mg/mg Normal [facility] Comment on above: Performed By: #### A 1C #### [facility] [address] [place] [address] Dr. Radha Willis XR HAND ALEE MIN [...] by: AARON GILMORE Date: 2022-04-30 19:39 Normal [facility] XR LSPINE 2_3 VIEWSon 2021 [...] AARON GILMORE Date: 2022-04-30 19:45 Normal [facility] XR WRIST ALEE MIN 3 Von 04-30 [...] by: AARON GILMORE Date: 2022-04-30 19:42 Normal [facility] GLYCOHEMOGLOBIN A1Con 2021 ADA RECOMMENDATION SEE BELOW Normal [facility] Comment on above: Result Comment: ADA RECOMMENDED LIMIT 4.0 - 6.0 ADA THERAPEUTIC TARGET < 7.0 ACTION SUGGESTED > 7.0 Performed By: #### A 1C #### [facility] [address] [address] [address] Radha Willis Glucose [Mass/Vol] 140 mg/dL Normal [facility] Comment on above: Performed By: #### A 1C #### [facility] [address] [address] [address] Radha Willis HbA1c (Bld) [Mass fraction] 6.5 % Critically high 4.5-6.2 [facility] Comment on above: Performed By: #### A 1C #### [facility] [address] [place] [address] Dr. Radha Willis ECHOCARDIO M/2D COMPLETEon 0 02-14-2022 ECHOCARDIO M/2D COMPLETE Patient: KAYLI HERNANDEZ Exam Date: 02/14/2022 : 1955 Gender:F Ordering : DR WALI QUIÑONES M.D. Admission #: [id number] Family : Order #: [id number] CLICK HERE TO VIEW EXAM ECHOCARDIOGRAM REPORT [...] 0.82 cm e': 0.09 m/s LVOT Max Demetir (1.5 m per sec): 1.03 m/s Left [...] Kohli M.D. on 02/16/2022 at 18:58 Normal [facility] CREATININE BLOODon 1 Creatinine [Mass/Vol] 0.78 mg/dL Normal 0.60-1.20 [facility] Comment on above: Order Comment: No: D o not add to previous draw Performed By: #### 2 5656 #### [facility] [address] [place] [address], [facility] GFR/1.73 sq M.predicted among blacks MDRD (S/P/Bld) [Vol rate/Area] mL/min/{1.73_m2} Normal >60 [facility] Comment on above: Order Comment: No: D o not add to previous draw Performed By: #### 2 5656 #### [facility] [address] [place] [address], [facility] GFR/1.73 sq M.predicted among non-blacks MDRD (S/P/Bld) [Vol rate/Area] mL/min/{1.73_m2} Normal >60 [facility] Comment on above: Order Comment: No: D o not add to previous draw Performed By: #### 2 5656 #### [facility] [address] HEMATOCRITon 12-24-2020 Hematocrit (Bld) [Volume fraction] 34.8 % Low 36.0-45.0 [facility] Comment on above: Order Comment: No: D o not add to previous draw Performed By: #### 9 2088, 53514 #### [facility] [address] HEMOGLOBINon 12-24-2020 Hemoglobin (Bld) [Mass/Vol] 11.1 g/dL Low 12.0-15.0 [facility] Comment on above: Order Comment: No: D o not add to previous draw Performed By: #### 9 2088, 28715 #### [facility] [address] [place] [address], [facility] POC GLUCOSE LABon 12-24-2020 Glucose [Mass/Vol] 135 mg/dL High 70-100 [facility] Comment on above: Performed By: #### 8 5499 #### [facility] [address] CBC COMPLETE BLOOD COUNTon 0 12-23-2020 Erythrocyte distribution width (RBC) [Ratio] 13.5 % Normal 11.5-15.0 [facility] Comment on above: Order Comment: No: D o not add to previous draw Performed By: #### 5 0608 #### [facility] [address] [place] [address], [facility] Hematocrit (Bld) [Volume fraction] 36.2 % Normal 36.0-45.0 [facility] Comment on above: Order Comment: No: D o not add to previous draw Performed By: #### 5 0608 #### [facility] [address] [place] [address], [facility] Hemoglobin (Bld) [Mass/Vol] 11.4 g/dL Low 12.0-15.0 [facility] Comment on above: Order Comment: No: D o not add to previous draw Performed By: #### 5 0608 #### [facility] [address] [place] [address], [facility] MCH (RBC) [Entitic mass] 26.5 pg Low 27.0-33.0 [facility] Comment on above: Order Comment: No: D o not add to previous draw Performed By: #### 5 0608 #### [facility] [address] [place] [address], [facility] MCHC (RBC) [Mass/Vol] 31.5 g/dL Low 32.0-35.0 [facility] Comment on above: Order Comment: No: D o not add to previous draw Performed By: #### 5 0608 #### [facility] [address] [place] [address], [facility] MCV (RBC) [Entitic vol] 84.2 fL Normal 82.0-98.0 [facility] Comment on above: Order Comment: No: D o not add to previous draw Performed By: #### 5 0608 #### [facility] [address] [place] [address], [facility] Nucleated RBC/100 WBC (Bld) [Ratio] 0 % Normal 0-0 [facility] Comment on above: Order Comment: No: D o not add to previous draw Performed By: #### 5 0608 #### [facility] [address] [place] [address], [facility] PLAT CNT 248 10*3/uL Normal 150-400 [facility] Comment on above: Order Comment: No: D o not add to previous draw Performed By: #### 5 0608 #### [facility] [address] [place] [address], [facility] RBC (Bld) [#/Vol] 4.30 10*6/uL Normal 3.80-5.00 [facility] Comment on above: Order Comment: No: D o not add to previous draw Performed By: #### 5 0608 #### [facility] [address] [place] [address], [facility] WBC (Bld) [#/Vol] 6.43 10*3/uL Normal 4.00-10.60 [facility] Comment on above: Order Comment: No: D o not add to previous draw Performed By: #### 5 0608 #### [facility] [address] [place] [address], [facility] CREATININE BLOODon 1 Creatinine [Mass/Vol] 0.70 mg/dL Normal 0.60-1.20 [facility] Comment on above: Order Comment: No: D o not add to previous draw Performed By: #### 2 5656 #### [facility] [address] [place] [address], [facility] GFR/1.73 sq M.predicted among blacks MDRD (S/P/Bld) [Vol rate/Area] mL/min/{1.73_m2} Normal >60 [facility] Comment on above: Order Comment: No: D o not add to previous draw Performed By: #### 2 5656 #### [facility] [address] [place] [address], [facility] GFR/1.73 sq M.predicted among non-blacks MDRD (S/P/Bld) [Vol rate/Area] mL/min/{1.73_m2} Normal >60 [facility] Comment on above: Order Comment: No: D o not add to previous draw Performed By: #### 2 5656 #### [facility] [address] [place] [address], [facility] Cardiovascular Lab Reporton 12-23-2020 Cardiovascular Lab Report [facility] #: [id number] Physician: Devon Medrano of She[facility] Medicine Service Date: 12/23/2020 Division of Birthdate: 1955 Cardiology Room #: [id number] Adult Cardiovascular Services [facility] [address] [facility]. [place] [address] Cardiovascular Laboratory Report INDICATION: The patient is [...] the informed consent. She was brought to laboratory assistant in a fasting state. The right groin area was prepped and draped in usual fashion. Micropuncture technique and ultrasound guidance was used for access in the right common femoral artery. The inner cannula angiography was performed followed by upsizing to a 6-Andorran x 11 cm sheath. Heparin was given intravenously and therapeutic ECT confirmed during the rest of the procedure. A 6-Andorran JR4 guiding catheter was advanced and used to engage the right coronary ostium, however, this could not engage the right coronary ostium at all, therefore after multiple attempts we exchanged to a 6-Andorran AR1 guiding catheter, which was initially able [...] Kohli M.D. Date Trans: 12/23/2020 11:13 A/nilesh [id number] cc: Matt Mcduffie M.D. [address] [facility] [address] [place] [facility] Cardiovascular Lab Report [facility] #: [id number] Physician: Devon Funes Department of [facility] Medicine Service Date: 12/22/2020 Division of Birthdate: 1955 Cardiology Room #: 4CD [id number] Adult Cardiovascular Services [place] [address] Cardiovascular Laboratory Report INDICATION: The patient is [...] the informed consent. She was brought to laboratory assistant in a fasting state. The left wrist area was prepped and draped in usual fashion. Modified Neil's test was favorable. Access in the left radial artery was obtained using micropuncture technique. A 5-Andorran x 11 cm slender sheath was advanced. Verapamil was given through the sheath and heparin was administered intravenously. Initial catheter advancement was made feasible using an angled Glidewire. Bilateral selective coronary angiography was then performed using a 5-Andorran JL3.5 catheter for engagement of the left coronary artery and a 5-Andorran JR5 diagnostic catheter for engagement of the [...] mid LAD has an 80% stenosis. The msv-pm-wyhltt LAD is a very small caliber and [...] Kohli M.D. Date Trans: 12/23/2020 05:26 A/nilesh [id number] cc: Matt Mcduffie M.D. [address] [facility] [address] Normal [facility] POC GLUCOSE LABon 12-23-2020 Glucose [Mass/Vol] 170 mg/dL High 70-100 [facility] Comment on above: Performed By: #### 8 5499 #### [facility] [address] [place] [address], [facility] Glucose [Mass/Vol] 119 mg/dL High 70-100 [facility] Comment on above: Performed By: #### 8 5499 #### [facility] [address] [place] [address], [place] Glucose [Mass/Vol] 121 mg/dL High 70-100 [facility] Comment on above: Performed By: #### 8 5499 #### [facility] [address] [place] [address], [place] POC GLUCOSE LABon 12-22-2020 Glucose [Mass/Vol] 117 mg/dL High 70-100 [facility] Comment on above: Performed By: #### 8 5499 #### [facility] [address] [place] [address], [place] Lab Reportson 02-23-2020 Lab Reports [id number] .00CD:127 Normal [facility] Lab Reports [id number] .00CD:127 Normal [facility] Lab Reportson 02-18-2020 Lab Reports [id number] .00CD:127 Normal [facility] Ambulatory Clinical Summaryo n 02-17-2020 Ambulatory Clinical Summary {[id number] Normal [facility] Patient Educationon 02-17-20 Patient Education Family Medicine [...] Document Reviewed: 01/25/2013 ExitCare? Patient Information ?2013 [address]. Normal [facility] ALT-SGPTon 06-26-2017 Alanine aminotransferase (ALT) 40 U/L Normal 5-59 [facility] AST-SGOTon 06-26-2017 AST-SGOT 29 IU/L Normal 10-42 [facility] HEMOGLOBIN A1Con 06-26-2017 Glucose mass conc 160 mg/dL High 66-114 [facility] Comment on above: Result Comment: HEMO GLOBIN A1c DEGREE OF GLUCOSE CONTROL <5.7% Decreased risk of diabetes 5.7 - 6.4% Increased risk of diabetes >6.4% Consistent with diagnosis of diabetesPathology Device [employer] [address] [place], [place] [address]Laboratory Director: Connor Silver M.D.CLIA No. [id number] CAP Accreditation No. [id number] Hemoglobin A1c/Hemoglobin.total mass fraction (Bld) 7.2 % High 4.2-5.8 [facility] RA Screenon 04-18-2017 RA Screen <10 Normal <14 [facility] Comment on above: Result Comment: Perf ormed at [address] [address] Performed By: #### C DP, CRP, SED ####[address] [place] [address] #### RA ####[address] [address] C-Reactive Proteinon 017 C reactive protein (CRP) 12.5 mg/L High 0.0-5.0 [facility] Comment on above: Result Comment: Perf ormed at [address] [place] [address] Performed By: #### C DP, CRP, SED ####[address] [place] [address] #### RA ####[address] [address] CBC with Diffon 04-17-2017 Abs. Basophil 0.00 k/uL Normal 0.0-0.[address] [facility] Comment on above: Result Comment: Perf ormed at [address] [place] [address] Performed By: #### C DP, CRP, SED ####[address] [place] [address] #### RA ####[address] [address] Abs.Neutrophil (Seg) 6.30 k/uL Normal 1.8-7.7 [facility] Comment on above: Performed By: #### C DP, CRP, SED ####[address] [place] [address] #### RA ####[address] [address] Basophils/100 WBC Auto (Bld) 0 % Normal [facility] Comment on above: Performed By: #### C DP, CRP, SED ####[address] [place] [address] #### RA ####[address] [address] Eosinophils 0.20 10*3/uL Normal 0.0-0.[address] [facility] Comment on above: Performed By: #### C DP, CRP, SED ####[address] [place] [address] #### RA ####[address] [address] Eosinophils/100 leukocytes 2 % Normal [facility] Comment on above: Performed By: #### C DP, CRP, SED ####[address] [place] [address] #### RA ####[address] [address] Erythrocyte distribution width Auto Ratio (RBC) 12.9 % Normal 12.1-15.2 [facility] Comment on above: Performed By: #### C DP, CRP, SED ####[address] [place] [address] #### RA ####[address] [address] Erythrocytes (RBC) 4.68 10*6/uL Normal 4.0-5.2 [facility] Comment on above: Performed By: #### C DP, CRP, SED ####[address] [place] [address] #### RA ####[address] [address] Hematocrit (HCT) 39.4 % Normal 36-46 [facility] Comment on above: Performed By: #### C DP, CRP, SED ####[address] [place] [address] #### RA ####[address] [address] Hemoglobin mass conc (Bld) 13.1 g/dL Normal 12.0-16.0 [facility] Comment on above: Performed By: #### C DP, CRP, SED ####[address] [place] [address] #### RA ####[address] [address] Lymphocytes 1.90 10*3/uL Normal 1.0-4.[address] [facility] Comment on above: Performed By: #### C DP, CRP, SED ####[address] [place] [address] #### RA ####[address] [address] Lymphocytes/100 leukocytes 22 % Normal [facility] Comment on above: Performed By: #### C DP, CRP, SED ####[address] [place] [address] #### RA ####[address] [address] MCH 27.9 pg Normal 26-34 [facility] Comment on above: Performed By: #### C DP, CRP, SED ####[address] [place] [address] #### RA ####[address] [address] MCHC mass conc (RBC) 33.2 g/dL Normal 31-37 [facility] Comment on above: Performed By: #### C DP, CRP, SED ####[address] [place] [address] #### RA ####[address] [address] MCV 84.1 fL Normal 80-100 [facility] Comment on above: Performed By: #### C DP, CRP, SED ####[address] [place] [address] #### RA ####[address] [address] Monocytes 0.50 10*3/uL Normal 0.2-0.8 [facility] Comment on above: Performed By: #### C DP, CRP, SED ####[address] [place] [address] #### RA ####[address] [address] Monocytes/100 leukocytes 6 % Normal [facility] Comment on above: Performed By: #### C DP, CRP, SED ####[address] [place] [address] #### RA ####[address] [address] Neutrophil (Seg) 70 % Normal [facility] Comment on above: Performed By: #### C DP, CRP, SED ####[address] [place] [address] #### RA ####[address] [address] Platelet mean volume (PMV) 9.4 fL Normal 6.0-12.0 [facility] Comment on above: Performed By: #### C DP, CRP, SED ####[address] [place] [address] #### RA ####[address] [address] Platelets 248 10*3/uL Normal 140-450 [facility] Comment on above: Performed By: #### C DP, CRP, SED ####[address] [place] [address] #### RA ####[address] [address] WBC (Leukocytes) 8.9 10*3/uL Normal 3.5-11.0 [facility] Comment on above: Performed By: #### C DP, CRP, SED ####[address] [place] [address] #### RA ####[address] [address] Auto Diff Performed NOT REPORTED Normal [facility] Comment on above: Performed By: #### C DP, CRP, SED ####[address] [place] [address] #### RA ####[address] [address] Erythrocyte morphology NOT REPORTED Normal [facility] Comment on above: Performed By: #### C DP, CRP, SED ####[address] [place] [address] #### RA ####[address] [address] Granulocytes/100 WBC (Bld) NOT REPORTED Normal 0.00-0.30 [facility] Comment on above: Performed By: #### C DP, CRP, SED ####[address] [place] [address] #### RA ####[address] [place] [address] Immature granulocytes #/vol (Bld) NOT REPORTED Normal 0 [facility] Comment on above: Performed By: #### C DP, CRP, SED ####[address] [place] [address] #### RA ####[address] [address] Platelets NOT REPORTED Normal [facility] Comment on above: Performed By: #### C DP, CRP, SED ####[address] [place] [address] #### RA ####[address] [address] WBC Morphology NOT REPORTED Normal [facility] Comment on above: Performed By: #### C DP, CRP, SED ####[address] [place] [address] #### RA ####[address] [address] Sedimentation Rateon 11-15-2 017 Sedimentation Rate 43 mm High 0-20 [facility] Comment on above: Result Comment: Perf ormed at [address] [place] [address] Performed By: #### C DP, CRP, SED ####[address] [place] [address] #### RA ####[address] [address] Hemoglobin A1Con 01-03-2017 Glucose mass conc 131 mg/dL Normal [facility] Comment on above: Result Comment: The ADA and AACC recommend providing the estimated average glucose result to permit better patient understanding of their HBA1c result.Performed at [address] [place] [address] Performed By: #### G LYHGB ####[address] [place] [address] Hemoglobin A1c/Hemoglobin.total mass fraction (Bld) 6.2 % High 4.8-5.9 [facility] Comment on above: Performed By: #### G LYHGB ####[address] [place] [address] Encounters Encounter Date Encounter Type Care Provider Facility Start: 02-19-2024 End: 02-19-2024 ambulatory MATT MCDUFFIE Not Available Start: 01-22-2024 End: 01-22-2024 ambulatory MATT MCDUFFIE Not Available Start: 08-28-2023 End: 08-28-2023 [facility] Start: 08-14-2023 End: 08-14-2023 ambulatory MATT MCDUFFIE Not Available Start: 07-17-2023 Clinisync Result Encounter Matt Mcduffie MD Work Phone: [facility] External Department Unsolicited Start: 07-17-2023 Clinisync Result Encounter Matt Mcduffie MD Work Phone: [facility] External [facility] Unsolicited Start: 06-19-2023 End: 06-19-2023 ambulatory NELLIE ASHLEY [facility] Start: 12-14-2022 End: 12-14-2022 ambulatory IVETTE [facility] Start: 10-01-2022 End: 10-02-[address] [...] Start: 12-22-2020 End: 12-24-2020 ambulatory MATT MCDUFFIE Facility:[facility] Start: 04-17-2017 End: 04-18-2017 [facility] Start: 01-03-2017 End: 01-04-2017 Ambulatory EITAN CHILD [facility] Procedures Date Procedure Procedure Detail [...] procedure 08/14/2023 1:30 PM EDT Office Visit [facility] [address] [place] [id number] Matt Mcduffie MD [address] [place] [id number] [facility] Start: 05-12-2020 Pneumococcal Vaccine : 65+ Years (2 - PPSV23 or PCV20) Pneumococcal Vaccine: 65+ Years (2 - PPSV23 or PCV20) [facility] Start: 09-24-2017 Screening for malign ant neoplasm [...] AETNA MEDICARE A DVANTAGE AETNA MEDICARE REPLACEMENT [id number] 2021-Present [address] [place] [address] [id number] 2018 Unknown [id number] 2016 Unknown [id number] 1959 Medicare [id number] 1957 Unknown [id number] 2.840.1.912250.3.579.2.647 1957 Unknown [id number] 2.840.1.316207.3.579.2.593 1957 Unknown [id number] 2.840.1.518597.3.579.2.593 1957 Unknown [id number] 2.840.1.076659.3.579.2.593 1957 Unknown [id number] 2.16.840.1.707703.3.579.2.593 1957 Unknown [id number] 2.16.840.1.255904.3.579.2.593 1957 Unknown [id number] 2.16.840.1.652208.3.579.2.593 1957 Unknown [id number] 2.16.840.1.008369.3.579.2.593 1957 Unknown [id number] 2.16.840.1.664882.3.579.2.593 1957 Unknown [id number] 2.16.840.1.565150.3.579.2.593 1957 Unknown [id number] 2.16.840.1.773564.3.579.2.593 1957 Unknown [id number] 2.16.840.1.910830.3.579.2.593 1957 Unknown [id number] 2.16.840.1.957846.3.579.2.1259 1957 Unknown [id number] 2.16.840.1.508116.3.579.2.1259 1957 Unknown [id number] 2.16.840.1.345629.3.579.2.1259 Social History Date Type Detail Facility Start: 07-11-2023 Tobacco smoking status NHIS Never sm oked tobacco [facility] Start: 07-11-2023 History of Social function [facility] Start: 07-11-2023 Tobacco use panel [facility] Start: 1955 Sex Assigned At Not on file [facility] Clinical Notes 02-17-2020 to 08-28-2023 Note Date & Type Note Facility 08-28-2023 Note [facility] Cardiology Clinic Note Chief Complaint: Patient [...] Administration of intraco (more content not included)... [facility] 06-19-2023 Note F/U with PCP for management [facility] 06-19-2023 Note Coronary artery dise ase is stable Continue GDMT- ASA, plavix, lipitor, Coreg continue risk factor modifications- heart healthy diet, regular exercise as tolerated and continue all medications. [facility] 06-19-2023 Note Hypertension is well controlled 124/81 Continue coreg, losartan [facility] 06-19-2023 Note Continue lipitor 80 mg daily [facility] 06-19-2023 Note [facility] CARDIOLOGY PROGR ESS [...] ICA 0-49% s (more content not included)... [facility] 12-14-2022 Note Review of Systems All other systems reviewed and are negative. [facility] 12-14-2022 Note [place] Cardiology Note [facility] Reason for follow up: CAD, echo, hypertension, [...] Diagnosis Date Coronary artery disease Diabetes mellitus ([facility]) Hyperlipidemia Hypertension Sleep apnea Patient Active Problem List Diagnosis Chest pain Essential hypertension External hemorrhoids Hyperlipidemia Obesity Obstructive sleep apnea Osteoarthrosis involving lower leg Segmental colitis with rectal bleeding ([facility]) Type 2 diabetes mellitus without complication ([facility]) TIA (transient ischemic attack) Coronary artery disease involving wilton coronary artery of wilton heart without angina pectoris PSH: Past Surgical [...] affect Orientation: o (more content not included)... [facility] 04-30-2022 Note PROCEDURE: XR HIP RT 2 3V WO PELVIS HISTORY: Bilateral hip joint pain COMPARISON: None. FINDINGS: BONES:No fracture, acute abnormality, or significant arthropathy. SOFT TISSUES:No visible soft tissue swelling. EFFUSION:None visible. OTHER: Negative. IMPRESSION: 1. No acute bone abnormality. 2. Minimal degenerative joint disease. Electronically authenticated by: AARON LYNDON Date: 2022-04-30 19:37 [facility] 12-24-2020 Note MR#: [id number] 2 [facility] Pt. Name: Kayli Hernandez Admitted: 12/22/2020 Discharged: [...] Fonseca MD Date Trans: 12/24/2020 11:58 A/nilesh NEUMANN_JN:[id number] cc: Matt Mcduffie M.D. [address] [facility] [address] [facility] 02-17-2020 Note Chief Complaint consultation for rectal [...] day(s), # 30 tab(s), Refills(s) 0, Pharmacy: [facility], 142, cm, 02/17/20 14:42:00 EDT, Height/Length [...] 5. BMI 40 (more content not included)... [facility] Comment on above: Result Comment: Elec tronically [...] DATE CREATED AUTHOR AUTHOR'S ORGANIZ ATION 10/15/2020 [facility] DATE CREATED AUTHOR AUTHOR'S ORGANIZ ATION 01/05/2021 [facility] DATE CREATED AUTHOR AUTHOR'S ORGANIZ ATION 10/05/2022 [facility] DATE CREATED AUTHOR AUTHOR'S ORGANIZ ATION 08/29/2023 [facility] DATE CREATED AUTHOR AUTHOR'S ORGANIZ ATION 02/21/[address] [facility] Care Teams (unrecognized sec tion and content) Front End Ui Developer Relationship Specialty Start Date End Date Matt Mcduffie MD [address] [place] [address] PCP - General Family Medicine 07/08/23 FOR [...] BE BASED ON THE PRIMARY CLINICAL RECORDS. [employer] provides no warranty or guarantee of the accuracy or completeness of information in this document.
--- NOTE | 2024-03-17 14:04 | CM.DCFOLLOWU ---
1st attempt 03/17/24, no answer
--- NOTE | 2024-03-18 14:17 | CM.DCFOLLOWU ---
Person spoke with:patient How are you feeling? alright just tired How is your pain? no pain Did you understand your discharge instructions?yes Do you have any questions about your discharge instructions?no Were you given any prescriptions at discharge?yes Were you able to get your prescriptions filled?yes Do you understand how to take your medications as ordered?yes Do you have any questions about your follow up appointment and do you plan to keep your follow up appointment? no questions, already had follow up with Dr. Hutchins Is there anything else that you would like to discuss?no Questions/Comments/Concerns/Other:N/A
== END 2024-03-15 10:45 | disposition home or self-care (01) ==
LOC: ER 18:27 → ICU 03-15 09:14
PROVIDERS: Registered Nurse; Admitting Provider Family Medicine; Emergency Provider Emergency Medicine; PCP Family Medicine; Visit Provider Family Medicine
DX: G51.0 Bell's palsy (principal); I10 Essential (primary) hypertension; E11.9 Type 2 diabetes mellitus without complications; E78.5 Hyperlipidemia, unspecified; I25.10 Atherosclerotic heart disease of native coronary artery without angina pectoris; D50.9 Iron deficiency anemia, unspecified; E44.0 Moderate protein-calorie malnutrition; E87.8 Other disorders of electrolyte and fluid balance, not elsewhere classified; R79.89 Other specified abnormal findings of blood chemistry; G47.30 Sleep apnea, unspecified; E78.00 Pure hypercholesterolemia, unspecified; E66.9 Obesity, unspecified; Z68.41 Body mass index [BMI] 40.0-44.9, adult; Z79.899 Other long term (current) drug therapy; Z79.02 Long term (current) use of antithrombotics/antiplatelets; Z79.82 Long term (current) use of aspirin
CPT/HCPCS: 36415; 70450; 70496; 70498; 80053; 82948; 83735; 85025; 85610; 93005; 94761; 96374; 99285; G0328; G0378; J1885; Q9967

== ENCOUNTER 2024-03-25 12:38 | Outpatient (OUT) | payer OTHER, SELFPAY ==
--- OUTSIDE RECORDS SUMMARY | 2024-03-25 12:55 | XMS_ITS | CCD ---
Author Organization [facility] Care Team Providers Care Senior Software Manager Name Role Phone EITAN CHILD Unavailable Unavailable MATEUSZEITAN EWING Unavailable Unavailable STEWART, AARON Emerson Unavailable Unavailable EITAN CHILD Unavailable Unavailable NADEREMATT Berger Referring Unavailable NADERER, MATT Primary Care Unavailable MILLY, PATY Attending Unavailable MILLYPATY Admitting Unavailable NADERER, DR MATT Uribe Admitting [...] RETA, DR MATT Uribe Primary Care Unavailable [facility], DR KEYES Consulting Unavailable [facility], DR KEYES Admitting Unavailable [facility], DR KEYES Attending Unavailable GRANBY, DR ERICH Shaw Consulting Unavailable IVETTE KLINE Admitting Unavailable IVETTE KLINE Attending Unavailable RETA, DR MATT Uribe Primary Care Unavailable IVETTE KLINE Consulting Unavailable Matt Mcduffie MD Primary Care Provider IVETTE KLINE Attending Unavailable DONNIE, WALI Attending Unavailable NELLIE RAMIREZ Attending Unavailable RETA, MATT Attending Unavailable RETA, MATT Attending Unavailable RETA, MATT Attending Unavailable RETA, MATT Attending Unavailable Matt Mcduffie MD Unavailable Allergies Allergy Classification Reported Allergen(s) Allergy Type Date of Onset Reaction(s) Facility (1 source) Adhesive bandage Drug allergy (disorder) [facility] (1 source) natural latex rubber Drug allergy (disorder) [facility] (3 sources) Latex Propensity to adverse reactions [facility] Medications Current Medications Medication Drug Class(es) Dates Sig (Normalized) Sig (Original) ALPRAZolam 0.5 mg oral tablet (3 sources) Benzodiazepine Start: 01-24-2024 take 1 tablet by mouth three times daily as needed for anxiety ALPRAZolam (Xanax) 0.5 MG tablet Indications: ANMOL (generalized anxiety disorder) (CMS/HCC) TAKE 1 TABLET BY MOUTH THREE TIMES DAILY NEEDED FOR ANXIETY 90 tablet 01/24/2024 Active Start: 04-30-2023 take 1 tablet by margarito th three times daily as needed for anxiety ALPRAZolam (Niravam) 0.5 MG disintegrating tablet Indications: ANMOL (generalized anxiety disorder) (CMS/HCC) Take 1 tablet (0.5 mg) by mouth 3 (three) times a day as needed for anxiety. 90 tablet 0 04/30/2023 Active amLODIPine 5 mg oral tablet (3 sources) Dihydropyridine Calcium Channel Coreen Start: 02-19-2024 take 1 tablet by mouth once daily amLODIPine (Norvasc) 5 MG tablet Indications: Essential hypertension (CMS/HCC) Take 1 tablet (5 mg) by mouth Daily 30 tablet 5 02/19/2024 Active take 1 tablet by mouth in the mo rning amLODIPine (Norvasc) 5 MG tablet Take 5 mg by mouth in the morning. 0 Active aspirin 81 mg delayed release oral tablet (5 sources) Platelet Aggregation Inhibitor, Nonsteroidal Anti-inflammatory Drug Start: 03-16-2024 take 4 tablets by mouth once daily aspirin 81 MG EC tablet Take 4 tablets (325 mg) by mouth Daily 03/16/2024 Active Start: 03-16-2024 take 4 tablets by mo [facility] once daily aspirin 81 MG EC tablet Take 4 tablets (325 mg) by mouth Daily 03/16/2024 Active End: 03-16-2024 take 1 tablet by mouth in the morning aspirin 81 MG EC tablet Take 81 mg by mouth in the morning. 03/16/2024 Discontinued (Dose adjustment) atorvastatin 80 mg oral tablet (3 sources) HMG-CoA Reductase Inhibitor take 1 tablet by mouth in the morning atorvastatin (Lipitor) 80 MG tablet Take 80 mg by mouth in the morning and 80 mg before bedtime. Active benzonatate 200 mg oral capsule (2 sources) Non-narcotic Antitussive Start: take 1 capsule by mouth three times daily as needed for cough benzonatate (Tessalon) 200 MG capsule Indications: Upper respiratory tract infection, unspecified type Take 1 capsule (200 mg) by mouth 3 (three) times a day as needed for cough Do not crush or chew. 30 capsule 2 02/05/2024 Active Blood Glucose Monitoring Suppl (FreeStyle InsuLinx System) w/Device kit (3 sources) Blood Glucose Monitoring Suppl (FreeStyle InsuLinx System) w/Device kit Active Blood Glucose Mo nitoring Suppl (FreeStyle InsuLinx System) w/Device kit carvedilol 25 mg oral tablet (3 sources) alpha-Adrenergic Coreen, beta-Adrenergic Coreen Start: 12-24-2023 take 1 tablet by mouth in the morning carvedilol (Coreg) 25 MG tablet Take 25 mg by mouth in the morning and 25 mg in the evening. Take with meals. 12/24/2023 Active take 1 tablet by mouth in the mo rning carvedilol (Coreg) 12.5 MG tablet Take 12.5 [...] 05/14/2023 Active cholecalciferol 0.05 mg oral tablet (3 sources) Vitamin D take 1 tablet by mouth in the morning cholecalciferol (Vitamin D-3) 50 MCG (2000 UT) tablet Take 2,000 Units by mouth in the morning. 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 0 Active gabapentin 100 mg oral capsule (2 sources) Anti-epileptic Agent Start: 02-19-2024 take 1 capsule by mouth once at bedtime gabapentin (Neurontin) 100 MG capsule Indications: Type 2 diabetes mellitus with polyneuropathy (CMS/HCC) 1 PO at bedtime on day #1, then 1 PO BID on day #2, then 1 PO TID 90 capsule 2 02/19/2024 Active glipiZIDE 10 mg oral tablet (3 sources) Sulfonylurea Start: 12-16-2023 take 1 tablet by mouth once daily glipiZIDE (Glucotrol) 10 MG tablet Indications: Type 2 diabetes mellitus with hyperglycemia (CMS/HCC) TAKE 1 TABLET BY MOUTH DAILY 30 tablet 5 12/16/2023 Active Start: 06-26-2023 take 1 tablet by margarito th once daily glipiZIDE (Glucotrol) 10 MG tablet Indications: Type 2 diabetes mellitus with hyperglycemia (CMS/HCC) TAKE 1 TABLET BY MOUTH DAILY 30 tablet 5 06/26/2023 Active 24 hr isosorbide mononitrate 30 mg extended release oral tablet (2 sources) Nitrate Vasodilator take 1 tablet by mouth in the morning, then take 1 tablet by mouth every twenty-four hours isosorbide mononitrate ER (Imdur) 30 MG 24 hr tablet Take 30 mg by mouth in the morning. Active losartan potassium 50 mg oral tablet (3 sources) Angiotensin 2 Receptor Coreen Start: 09-26-19 End: 09-26-19 take 1 tablet by mouth once daily losartan (Cozaar) 50 MG tablet Indications: Essential hypertension (CMS/HCC) Take 1 tablet (50 mg) by mouth Daily 30 tablet 11 09/26/2023 2024 Active take 1 tablet by mouth in the mo rning losartan (Cozaar) 50 MG tablet Take 50 mg by mouth in the morning. 0 Active meloxicam 15 mg oral tablet (3 sources) Nonsteroidal Anti-inflammatory Drug Start: 09-26-2023 End: 03-16-2024 take 1 tablet by mouth once daily meloxicam (Mobic) 15 MG tablet Indications: Bilateral primary osteoarthritis of hip Take 1 tablet (15 mg) by mouth Daily 30 tablet 11 09/26/2023 03/16/2024 Discontinued take 1 tablet by mouth in the mo rning meloxicam (Mobic) 15 MG tablet Take 15 mg by mouth in the morning. 0 Active methocarbamol 750 mg oral tablet (3 sources) Muscle Relaxant take 1 tablet by mouth in the morning, then take 1 tablet by mouth in the evening, then take 1 tablet by mouth at bedtime methocarbamol (Robaxin) 750 MG tablet Take 750 mg by mouth in the morning and 750 mg in the evening and 750 mg before bedtime. Active omeprazole 40 mg delayed release oral capsule (3 sources) Proton Pump Inhibitor Start: 09-26-19 End: 09-26-19 take 1 capsule by mouth before mealtime omeprazole (PriLOSEC) [address] capsule Indications: Gastroesophageal reflux disease without esophagitis Take 1 capsule (40 mg) by mouth in the morning. Take before meals. Do not crush or chew.. 30 capsule 09/26/2023 2024 Active take 1 capsule by mouth before m ealtime omeprazole (PriLOSEC) [address] capsule Take 40 mg by mouth in the morning. Take before meals. Do not crush or chew.. 0 Active predniSONE 50 mg oral tablet (2 sources) Start: 03-16-2024 End: 03-22-2024 take 1 tablet by mouth once daily predniSONE (Deltasone) 50 MG tablet Indications: Left-sided Reyes palsy Take 1 tablet (50 mg) by mouth Daily for 6 days 6 tablet 03/16/2024 03/22/2024 Active semaglutide (Ozempic, 1 MG/DOSE,) 4 MG/3ML solution pen-injector (1 source) inject 1 mg by subcutaneous injection every week semaglutide (Ozempic, 1 MG/DOSE,) 4 MG/3ML solution pen-injector Inject 1 mg under the skin 1 (one) time per week 0 Active valACYclovir 1000 mg oral tablet (5 sources) Herpesvirus Nucleoside Analog DNA Polymerase Inhibitor, Herpes Simplex Virus Nucleoside Analog DNA Polymerase Inhibitor, Herpes Zoster Virus Nucleoside Analog DNA Polymerase Inhibitor Start: 03-16-2024 End: 03-23-2024 take 1 tablet by mouth every eight hours valACYclovir (Valtrex) 1 g tablet Indications: Left-sided Reyes palsy Take 1 tablet (1,000 mg) by mouth every 8 (eight) hours for 7 days 21 tablet 03/16/2024 03/23/2024 Active End: 03-16-2024 valACYclovir (Valtrex) 1 g t ablet Take 1,000 mg by mouth every 8 (eight) hours 03/16/2024 Discontinued (Reorder) Problems Active Problems Problem Classification Problem Date Documented Date Episodic/Chronic Anxiety disorders (3 sources) Generalized anxiety disorder; 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: [Generalized anxiety disorder] Onset: 07-11-2023 07-11-2023 Chronic Coronary atherosclerosis and other heart disease (6 sources) Atherosclerotic heart disease of [place] coronary artery without angina pectoris; 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: [Coronary arteriosclerosis] Onset: 05-17-2022 07-11-2023 Chronic Diabetes mellitus with complications (9 sources) Type 2 diabetes mellitus with hyperglycemia; 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: [Type 2 diabetes mellitus] Onset: 10-01-2022 Chronic Diabetes mellitus without complication (4 sources) Type 2 diabetes mellitus without complications; 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: [Type 2 diabetes mellitus without complications] Onset: 01-03-2017 Chronic Disorders of lipid metabolism (6 sources) Hyperlipidemia, unspecified; 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: [Dyslipidemia] Onset: 03-16-2016 07-11-2023 Chronic Disorders of teeth and jaw (4 sources) Jaw pain; 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: [JAW PAIN] Onset: 08-02-2022 Episodic Esophageal disorders (3 sources) Gastroesophageal reflux disease without esophagitis; 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: [Gastro-esophageal reflux disease without esophagitis] Onset: 07-11-2023 07-11-2023 Chronic Essential hypertension (6 sources) Essential (primary) hypertension; 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: [Essential hypertension] Onset: 05-04-2019 07-11-2023 Chronic Nutritional deficiencies (3 sources) Vitamin D deficiency; 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: [Vitamin D deficiency, unspecified] Onset: 07-11-2023 07-11-2023 Chronic Osteoarthritis (11 sources) Primary osteoarthritis, left hand; 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: [Primary osteoarthritis, right hand] Onset: 05-05-2022 07-11-2023 Chronic Other 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 source) Patient encounter status; 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: [Other mcc (current) drug therapy] Onset: 07-11-2023 07-11-2023 Episodic Other connective tissue disease (6 sources) Weakness of face muscles; 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: [Facial weakness] Onset: 03-16-2024 03-16-2024 Episodic Other nervous system disorders (4 sources) Aphasia; 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: [APHASIA] Onset: 06-07-2022 Chronic Other nervous system disorders (6 sources) [place] palsy of left side of face; 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] Onset: 03-16-2024 03-16-2024 Episodic Other nervous system disorders (6 sources) Facial paresthesia; 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: [Paresthesia of skin] Onset: 03-16-2024 03-16-2024 Episodic Other nutritional; endocrine; and metabolic disorders (3 sources) Morbid obesity; 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: [Morbid (severe) obesity due to excess calories] Onset: 07-11-2023 07-11-2023 Chronic Other screening for suspected conditions (not mental disorders or infectious disease) (8 sources) Encounter for screening mammogram for malignant neoplasm of breast; 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: [Encounter for screening, unspecified] Onset: 05-16-2022 Episodic Other upper respiratory disease (3 sources) Allergic rhinitis due to pollen; 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: [Allergic rhinitis due to pollen] Onset: 07-11-2023 07-11-2023 Chronic Residual codes; unclassified (3 sources) Obstructive sleep apnea syndrome; 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: [Obstructive sleep apnea (adult) (pediatric)] Onset: 05-04-2019 07-11-2023 Chronic Unclassified (1 source) LOW BACK PAIN, UNSPECIFIED; 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: [LOW BACK PAIN, UNSPECIFIED] Onset: 05-05-2022 Past or Other Problems Problem Classification Problem Date Documented Da te Episodic/Chronic Mood disorders (2 sources) Mood disorders Onset: 01-22-2024 01-22-2024 Other 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 source) 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; 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] Onset: 07-04-2022 Episodic Other aftercare (2 sources) Long-term current use of drug therapy; 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: [Other mcc (current) drug therapy] Onset: 07-11-2023 07-11-2023 Episodic Other connective tissue disease (2 sources) [...] [facility] Office Visiton 08-28-2023 Follow-up visit [id number] Kayli Hernandez 1955 F Date Provider Department Center 08/28/2023 [id number] QUIÑONES CARD [facility] Family History Problem Relation Age of Onset Stroke Mother Heart attack Father Hypertension Father Diabetes type II Brother Heart disease Brother Family Status - Relation Status Age at Mother Father Brother Level of Service:11371 [place] OFFICE/OUTPATIENT ESTABLISHED LOW MDM 20 MIN Normal [facility] MICROALBUMIN, RAND URon 07-17-2023 MICROALBUMIN URINE RANDOM 1.3 mg/dL NINF - 30.0 mg/dL [facility] 06-19-2023 Follow-up visit [id number] Kayli Hernandez 1955 F Date Provider Department Center 06/19/2023 NELLIE CENTENO [facility] Family History Problem Relation Age of Onset Stroke Mother Heart attack Father Hypertension Father Diabetes type II Brother Heart disease Brother Family Status - Relation Status Age at Mother Father Brother Level of Service:67893 RI OFFICE/OUTPATIENT ESTABLISHED MOD MDM 30 MIN Reason for Visit and Comments: Follow-up [923034] Normal [facility] Office Visiton 12-14-2022 Follow-up visit [id number] Kayli Hernandez 1955 F Date Provider Department Center 12/14/2022 IVETTE DAN [facility] No family history on file Level of Service:69087 [place] OFFICE/OUTPATIENT ESTABLISHED MOD MDM 30-39 MIN Reason for Visit and Comments: Follow-up [709554] - 6 mo f/u w/ carotid us Normal [facility] GLYCOHEMOGLOBIN A1Con 2022 ADA RECOMMENDATION SEE BELOW Normal [facility] Comment on above: Result Comment: ADA RECOMMENDED LIMIT 4.0 - 6.0 ADA THERAPEUTIC TARGET < 7.0 ACTION SUGGESTED > 7.0 Performed By: #### A 1C #### [facility] [address] [place] [address] Dr. Radha Willis Glucose [Mass/Vol] 163 mg/dL Normal [facility] Comment on above: Performed By: #### A 1C #### [facility] [address] [address] [address] Radha Willis HbA1c (Bld) [Mass fraction] 7.3 % Critically high 4.5-6.2 [facility] Comment on above: Performed By: #### A 1C #### [facility] [address] [place] [address] Dr. Radha Willis NM STRESS/REST MULTIon 08-02 NM STRESS/REST MULTI Patient: KAYLI HERNANDEZ Exam Date: 08/02/2022 : 1955 Gender:F Ordering : IVETTE KLINE Admission #: [id number] Family : Order #: [id number] CLICK HERE TO VIEW EXAM RADIOLOGY REPORT [...] MD on 08/03/2022 at 11:55 Normal [facility] MAMM SCREEN 3D ALEE CADon 07-31-2022 MAMM SCREEN 3D ALEE CAD Patient: KAYLI HERNANDEZ Exam Date: 07/31/2022 : 1955 Gender:F Ordering : DR MATT MCDUFFIE . Admission #: [id number] Family : Order #: [id number] CLICK HERE TO VIEW EXAM RADIOLOGY REPORT [...] Treatments None Family Cancers None LOCATION: [facility] BREAST COMPOSITION: Heterogeneously dense,which may obscure [...] Woodruff MD on 07/31/2022 at 14:12 Normal [facility] GLYCOHEMOGLOBIN A1Con 2022 ADA RECOMMENDATION SEE BELOW Normal [facility] Comment on above: Result Comment: ADA RECOMMENDED LIMIT 4.0 - 6.0 ADA THERAPEUTIC TARGET < 7.0 ACTION SUGGESTED > 7.0 Performed By: #### A 1C #### [facility] [address] [place] [address] Dr. Radha Willis Glucose [Mass/Vol] 151 mg/dL Normal [facility] Comment on above: Performed By: #### A 1C #### [facility] [address] [address] [address] Radha Willis HbA1c (Bld) [Mass fraction] 6.9 % Critically high 4.5-6.2 [facility] Comment on above: Performed By: #### A 1C #### [facility] [address] [place] [address] Dr. Radha Willis MRI BRAIN WO W [...] ERICH WOODRUFF Date: 2022-06-07 14:46 Normal [facility] PROF 14(COMP METB)on 022 Albumin [Mass/Vol] 3.3 g/dL Critically low 3.4-5.0 [facility] Comment on above: Performed By: #### A 1C #### [facility] [address] [place] [address] Dr. Radha Willis Albumin/Globulin [Mass ratio] 0.8 {ratio} Normal [facility] Comment on above: Performed By: #### A 1C #### [facility] [address] [place] [address] Dr. Radha Willis ALP [Catalytic activity/Vol] 211 U/L Critically high 46-116 [facility] Comment on above: Performed By: #### A 1C #### [facility] [address] [place] [address] Dr. Radha Willis ALT [Catalytic activity/Vol] 25 U/L Normal 14-59 [facility] Comment on above: Performed By: #### A 1C #### [facility] [address] [place] [address] Dr. Radha Willis Anion gap [Moles/Vol] 12.3 mmol/L Normal [facility] Comment on above: Performed By: #### A 1C #### [facility] [address] [place] [address] Dr. Radha Willis AST [Catalytic activity/Vol] 17 U/L Normal 15-37 [facility] Comment on above: Performed By: #### A 1C #### [facility] [address] [place] [address] Dr. Radha Willis Bilirubin [Mass/Vol] 0.3 mg/dL Normal 0.2-1.0 [facility] Comment on above: Performed By: #### A 1C #### [facility] [address] [address] [address] Radha Willis Calcium [Mass/Vol] 9.2 mg/dL Normal 8.5-10.1 [facility] Comment on above: Performed By: #### A 1C #### [facility] [address] [address] [address] Radha Willis Chloride [Moles/Vol] 104 mmol/L Normal 98-107 [facility] Comment on above: Performed By: #### A 1C #### [facility] [address] [address] [address] Radha Willis CO2 [Moles/Vol] 28.6 mmol/L Normal 21.0-32.0 [facility] Comment on above: Performed By: #### A 1C #### [facility] [address] [place] [address] Dr. Radha Willis Creatinine [Mass/Vol] 0.78 mg/dL Normal 0.55-1.02 [facility] Comment on above: Performed By: #### A 1C #### [facility] [address] [place] [address] Dr. Radha Willis EGFR-AF ROMANIAN >60 Normal >=60 [facility] Comment on above: Performed By: #### A 1C #### [facility] [address] [place] [address] Dr. Radha Willis EGFR-NON AF ROMANIAN >60 Normal >=60 [facility] Comment on above: Performed By: #### A 1C #### [facility] [address] [place] [address] Dr. Radha Willis Globulin (S) [Mass/Vol] 4.4 g/dL Normal [facility] Comment on above: Performed By: #### A 1C #### [facility] [address] [place] [address] Dr. Radha Willis Glucose [Mass/Vol] 50 mg/dL Critically low 74-106 [facility] Comment on above: Performed By: #### A 1C #### [facility] [address] [place] [address] Dr. Radha Willis Potassium [Moles/Vol] 3.9 mmol/L Normal 3.5-5.1 [facility] Comment on above: Performed By: #### A 1C #### [facility] [address] [address] [address] Radha Willis Protein [Mass/Vol] 7.7 g/dL Normal 6.4-8.2 [facility] Comment on above: Performed By: #### A 1C #### [facility] [address] [address] [address] Radha Willis Sodium [Moles/Vol] 141 mmol/L Normal 136-145 [facility] Comment on above: Performed By: #### A 1C #### [facility] [address] [address] [address] Radha Willis Urea nitrogen [Mass/Vol] 12.0 mg/dL Normal 7.0-18.0 [facility] Comment on above: Performed By: #### A 1C #### [facility] [address] [address] [address] Radha Willis Urea nitrogen/Creatinine [Mass ratio] 15.4 mg/mg Normal [facility] Comment on above: Performed By: #### A 1C #### [facility] [id number] Radha Willis XR HAND ALEE MIN [...] by: AARON GILMORE Date: 2022-04-30 19:39 Normal [facility] XR LSPINE 2_3 VIEWSon 2021 XR LSPINE [...] AARON GILMORE Date: 2022-04-30 19:45 Normal [facility] XR WRIST ALEE MIN 3 Von [...] by: AARON GILMORE Date: 2022-04-30 19:42 Normal [facility] GLYCOHEMOGLOBIN A1Con 2021 ADA RECOMMENDATION SEE BELOW Normal [facility] Comment on above: Result Comment: ADA RECOMMENDED LIMIT 4.0 - 6.0 ADA THERAPEUTIC TARGET < 7.0 ACTION SUGGESTED > 7.0 Performed By: #### A 1C #### [facility] [address] [address] [address] Radha Willis Glucose [Mass/Vol] 140 mg/dL Normal [facility] Comment on above: Performed By: #### A 1C #### [facility] [address] [address] [address] Radha Willis HbA1c (Bld) [Mass fraction] 6.5 % Critically high 4.5-6.2 [facility] Comment on above: Performed By: #### A 1C #### [facility] [address] [address] [address] Radha Willis ECHOCARDIO M/2D COMPLETEon 0 02-14-2022 ECHOCARDIO M/2D COMPLETE Patient: KAYLI HERNANDEZ Exam Date: 02/14/2022 : 1955 Gender:F Ordering : DR WALI QUIÑONES M.D. Admission #: [id number] Family : Order #: [id number] CLICK HERE TO VIEW EXAM ECHOCARDIOGRAM REPORT [...] Kohli M.D. on 02/16/2022 at 18:58 Normal [facility] CREATININE BLOODon Creatinine [Mass/Vol] 0.78 mg/dL Normal 0.60-1.20 [facility] Comment on above: Order Comment: No: D o not add to previous draw Performed By: #### 2 5656 #### [facility] [address] [place] [address], [facility] GFR/1.73 sq M.predicted among blacks MDRD (S/P/Bld) [Vol rate/Area] mL/min/{1.73_m2} Normal >60 [facility] Comment on above: Order Comment: No: D o not add to previous draw Performed By: #### 2 5656 #### [facility] [address] [place] [address], [facility] GFR/1.73 sq M.predicted among non-blacks MDRD (S/P/Bld) [Vol rate/Area] mL/min/{1.73_m2} Normal >60 [facility] Comment on above: Order Comment: No: D o not add to previous draw Performed By: #### 2 5656 #### [facility] [address] [place] [address], [place] HEMATOCRITon 12-24-2020 Hematocrit (Bld) [Volume fraction] 34.8 % Low 36.0-45.0 [facility] Comment on above: Order Comment: No: D o not add to previous draw Performed By: #### 9 2089, [id number] #### [facility] [address] [place] [address], [facility] HEMOGLOBINon 12-24-2020 Hemoglobin (Bld) [Mass/Vol] 11.1 g/dL Low 12.0-15.0 [facility] Comment on above: Order Comment: No: D o not add to previous draw Performed By: #### 9 2089, [id number] #### [facility] [address] [place] [address], [facility] POC GLUCOSE LABon 12-24-2020 Glucose [Mass/Vol] 135 mg/dL High 70-100 [facility] Comment on above: Performed By: #### 8 5499 #### [facility] [address] [place] [address], [facility] CBC COMPLETE BLOOD COUNTon 0 12-23-2020 Erythrocyte distribution width (RBC) [Ratio] 13.5 % Normal 11.5-15.0 [facility] Comment on above: Order Comment: No: D o not add to previous draw Performed By: #### 5 0608 #### [facility] [address] [place] [address], [facility] Hematocrit (Bld) [Volume fraction] 36.2 % Normal 36.0-45.0 [facility] Comment on above: Order Comment: No: D o not add to previous draw Performed By: #### 5 0608 #### [facility] [address] [place] [address], [facility] Hemoglobin (Bld) [Mass/Vol] 11.4 g/dL Low 12.0-15.0 [facility] Comment on above: Order Comment: No: D o not add to previous draw Performed By: #### 5 0608 #### [facility] [address] [place] [address], [facility] MCH (RBC) [Entitic mass] 26.5 pg Low 27.0-33.0 [facility] Comment on above: Order Comment: No: D o not add to previous draw Performed By: #### 5 0608 #### [facility] [address] [place] [address], [facility] MCHC (RBC) [Mass/Vol] 31.5 g/dL Low 32.0-35.0 [facility] Comment on above: Order Comment: No: D o not add to previous draw Performed By: #### 5 0608 #### [facility] [address] [place] [address], [facility] MCV (RBC) [Entitic vol] 84.2 fL Normal 82.0-98.0 [facility] Comment on above: Order Comment: No: D o not add to previous draw Performed By: #### 5 0608 #### [facility] [address] Nucleated RBC/100 WBC (Bld) [Ratio] 0 % Normal 0-0 [facility] Comment on above: Order Comment: No: D o not add to previous draw Performed By: #### 5 0608 #### [facility] [address] [facility] [place] [address], [facility] PLAT CNT 248 10*3/uL Normal 150-400 [facility] Comment on above: Order Comment: No: D o not add to previous draw Performed By: #### 5 0608 #### [facility] [address] [facility] [place] [address], [facility] RBC (Bld) [#/Vol] 4.30 10*6/uL Normal 3.80-5.00 [facility] Comment on above: Order Comment: No: D o not add to previous draw Performed By: #### 5 0608 #### [facility] [address] [facility] [place] [address], [facility] WBC (Bld) [#/Vol] 6.43 10*3/uL Normal 4.00-10.60 [facility] Comment on above: Order Comment: No: D o not add to previous draw Performed By: #### 5 0608 #### [facility] [address] [place] [address], [facility] CREATININE BLOODon Creatinine [Mass/Vol] 0.70 mg/dL Normal 0.60-1.20 [facility] Comment on above: Order Comment: No: D o not add to previous draw Performed By: #### 2 5656 #### [facility] [address] [place] [address], [facility] GFR/1.73 sq M.predicted among blacks MDRD (S/P/Bld) [Vol rate/Area] mL/min/{1.73_m2} Normal >60 [facility] Comment on above: Order Comment: No: D o not add to previous draw Performed By: #### 2 5656 #### [facility] [address] [facility] [place] [address], [facility] GFR/1.73 sq M.predicted among non-blacks MDRD (S/P/Bld) [Vol rate/Area] mL/min/{1.73_m2} Normal >60 [facility] Comment on above: Order Comment: No: D o not add to previous draw Performed By: #### 2 5656 #### [facility] [address] [place] [address], [facility] Cardiovascular Lab Reporton 12-23-2020 Cardiovascular Lab Report [facility] #: [id number] Physician: Devon Medrano of [facility] Kohli Medicine Service Date: 12/23/2020 Division of Birthdate: 1955 Cardiology Room #: [id number] Adult Cardiovascular Services [place] [address] Cardiovascular Laboratory Report INDICATION: The patient is [...] the informed consent. She was brought to lab head in a fasting state. The right groin area was prepped and draped in usual fashion. Micropuncture technique and ultrasound guidance was used for access in the right common femoral artery. The inner cannula angiography was performed followed by upsizing to a 6-Tristanian x 11 cm sheath. Heparin was given intravenously and therapeutic ECT confirmed during the rest of the procedure. A 6-Tristanian JR4 guiding catheter was advanced and used to engage the right coronary ostium, however, this could not engage the right coronary ostium at all, therefore after multiple attempts we exchanged to a 6-Tristanian AR1 guiding catheter, which was initially able [...] Kohli M.D. Date Trans: 12/23/2020 11:13 A/nilesh [id number] cc: Matt Mcduffie M.D. [address] [facility] [address] Normal [facility] Cardiovascular Lab Report [facility] Patient Name: Jessica HernandezPsychiatric MR #: [id number] Physician: Devon Alejo M.D. Medicine Service Date: 12/22/2020 Division of Birthdate: 1955 Cardiology Room #: 4CD [id number] Adult Cardiovascular Services [place] [address] Cardiovascular Laboratory Report INDICATION: The patient is [...] the informed consent. She was brought to lab head in a fasting state. The left wrist area was prepped and draped in usual fashion. Modified Neil's test was favorable. Access in the left radial artery was obtained using micropuncture technique. A 5-Tristanian x 11 cm slender sheath was advanced. Verapamil was given through the sheath and heparin was administered intravenously. Initial catheter advancement was made feasible using an angled Glidewire. Bilateral selective coronary angiography was then performed using a 5-Tristanian JL3.5 catheter for engagement of the left coronary artery and a 5-Tristanian JR5 diagnostic catheter for engagement of the [...] mid LAD has an 80% stenosis. The zvy-un-pyrmcv LAD is a very small caliber and [...] Kohli M.D. Date Trans: 12/23/2020 05:26 A/nilesh [id number] cc: Matt Mcduffie M.D. [address] [facility] [address] Normal [facility] POC GLUCOSE LABon 12-23-2020 Glucose [Mass/Vol] 170 mg/dL High 70-100 [facility] Comment on above: Performed By: #### 8 0739 #### [facility] [address] [facility] [place] [address], [facility] Glucose [Mass/Vol] 119 mg/dL High 70-100 [facility] Comment on above: Performed By: #### 8 9719 #### [facility] [address] [facility] [place] [address], [facility] Glucose [Mass/Vol] 121 mg/dL High 70-100 [facility] Comment on above: Performed By: #### 8 5499 #### [facility] [address] [place] [address], [facility] POC GLUCOSE LABon 12-22-2020 Glucose [Mass/Vol] 117 mg/dL High 70-100 [facility] Comment on above: Performed By: #### 8 5499 #### [facility] [address] [place] [address], [facility] Lab Reportson 02-23-2020 Lab Reports [id number]:127 Normal [facility] Lab Reports [id number]:127 Normal [facility] Lab Reportson 02-18-2020 Lab Reports [id number]:127 Normal [facility] Ambulatory Clinical Summaryo n 02-17-2020 Ambulatory Clinical Summary {[id number] Normal [facility] Patient Educationon 02-17-20 Patient Education Family [...] Document Reviewed: 01/25/2013 ExitCare? Patient Information ?2013 [employer]. [facility]-SGPTon 06-26-2017 Alanine aminotransferase (ALT) 40 U/L Normal 5-59 [facility] AST-SGOTon 06-26-2017 AST-SGOT 29 IU/L Normal 10-42 [facility] HEMOGLOBIN A1Con 06-26-2017 Glucose mass conc 160 mg/dL High 66-114 [facility] Comment on above: Result Comment: HEMO GLOBIN A1c DEGREE OF GLUCOSE CONTROL <5.7% Decreased risk of diabetes 5.7 - 6.4% Increased risk of diabetes >6.4% Consistent with diagnosis of diabetesPathology Laboratories, Inc. [address] [place], [place] [address]Laboratory Director: Connor Silver M.D.CLIA No. [id number] CAP Accreditation No. [id number] Hemoglobin A1c/Hemoglobin.total mass fraction (Bld) 7.2 % High 4.2-5.8 [facility] RA Screenon 04-18-2017 RA Screen <10 Normal <14 [facility] Comment on above: Result Comment: Perf ormed at [address] [id number] ([phone] Performed By: #### C DP, CRP, SED ####[address] [place] [address] #### RA ####[address] [id number] C-Reactive Proteinon 15-2 017 C reactive protein (CRP) 12.5 mg/L High 0.0-5.0 [facility] Comment on above: Result Comment: Perf ormed at [address] [place] [address] ([phone] Performed By: #### C DP, CRP, SED ####[address] [place] [address] #### RA ####[address] [address] CBC with Diffon 04-17-2017 Abs. Basophil 0.00 k/uL Normal 0.0-0.2 [facility] Comment on above: Result Comment: Perf ormed at [address] [place] [address] Performed By: #### C DP, CRP, SED ####[address] [place] [address] #### RA ####[address] [address] Abs.Neutrophil (Seg) 6.30 k/uL Normal 1.8-7.7 [facility] Comment on above: Performed By: #### C DP, CRP, SED ####[address] [place] [address] #### RA ####[address] [address] Basophils/100 WBC Auto (Bld) 0 % Normal [facility] Comment on above: Performed By: #### C DP, CRP, SED ####[address] [place] [address] #### RA ####[address] [address] Eosinophils 0.20 10*3/uL Normal 0.0-0.4 [facility] Comment on above: Performed By: #### C DP, CRP, SED ####[address] [place] [address] #### RA ####[address] [address] Eosinophils/100 leukocytes 2 % Normal [facility] Comment on above: Performed By: #### C DP, CRP, SED ####[address] [place] [address] #### RA ####[facility] [place] [address] Erythrocyte distribution width Auto Ratio (RBC) 12.9 % Normal 12.1-15.2 [facility] Comment on above: Performed By: #### C DP, CRP, SED ####[address] [place] [address] #### RA ####[address] [address] Erythrocytes (RBC) 4.68 10*6/uL Normal 4.0-5.2 [facility] Comment on above: Performed By: #### C DP, CRP, SED ####[address] [place] [address] #### RA ####[address] [address] Hematocrit (HCT) 39.4 % Normal 36-46 [facility] Comment on above: Performed By: #### C DP, CRP, SED ####[address] [place] [address] #### RA ####[address] [address] Hemoglobin mass conc (Bld) 13.1 g/dL Normal 12.0-16.0 [facility] Comment on above: Performed By: #### C DP, CRP, SED ####[address] [place] [address] #### RA ####[address] [address] Lymphocytes 1.90 10*3/uL Normal 1.0-4.8 [facility] Comment on above: Performed By: #### C DP, CRP, SED ####[address] [place] [address] #### RA ####[address] [address] Lymphocytes/100 leukocytes 22 % Normal [facility] Comment on above: Performed By: #### C DP, CRP, SED ####[address] [place] [address] #### RA ####[address] [address] MCH 27.9 pg Normal 26-34 [facility] Comment on above: Performed By: #### C DP, CRP, SED ####[address] [place] [address] #### RA ####[address] [address] MCHC mass conc (RBC) 33.2 g/dL Normal 31-37 [facility] Comment on above: Performed By: #### C DP, CRP, SED ####[address] [place] [address] #### RA ####[address] [address] MCV 84.1 fL Normal 80-100 [facility] Comment on above: Performed By: #### C DP, CRP, SED ####[address] [place] [address] #### RA ####[address] [address] Monocytes 0.50 10*3/uL Normal 0.2-0.8 [facility] Comment on above: Performed By: #### C DP, CRP, SED ####[address] [place] [address] #### RA ####[address] [address] Monocytes/100 leukocytes 6 % Normal [facility] Comment on above: Performed By: #### C DP, CRP, SED ####[address] [place] [address] #### RA ####[address] [address] Neutrophil (Seg) 70 % Normal [facility] Comment on above: Performed By: #### C DP, CRP, SED ####[address] [place] [address] #### RA ####[address] [address] Platelet mean volume (PMV) 9.4 fL Normal 6.0-12.0 [facility] Comment on above: Performed By: #### C DP, CRP, SED ####[address] [place] [address] #### RA ####[address] [address] Platelets 248 10*3/uL Normal 140-450 [facility] Comment on above: Performed By: #### C DP, CRP, SED ####[address] [place] [address] #### RA ####[address] [address] WBC (Leukocytes) 8.9 10*3/uL Normal 3.5-11.0 [facility] Comment on above: Performed By: #### C DP, CRP, SED ####[address] [place] [address] #### RA ####[address] [address] Auto Diff Performed NOT REPORTED Normal [facility] Comment on above: Performed By: #### C DP, CRP, SED ####[address] [place] [address] #### RA ####[address] [address] Erythrocyte morphology NOT REPORTED Normal [facility] Comment on above: Performed By: #### C DP, CRP, SED ####[address] [place] [address] #### RA ####[address] [address] Granulocytes/100 WBC (Bld) NOT REPORTED Normal 0.00-0.30 [facility] Comment on above: Performed By: #### C DP, CRP, SED ####[address] [place] [address] #### RA ####[address] [address] Immature granulocytes #/vol (Bld) NOT REPORTED Normal 0 [facility] Comment on above: Performed By: #### C DP, CRP, SED ####[address] [place] [address] #### RA ####[address] [address] Platelets NOT REPORTED Normal [facility] Comment on above: Performed By: #### C DP, CRP, SED ####[address] [place] [address] #### RA ####[address] [address] WBC Morphology NOT REPORTED Normal [facility] Comment on above: Performed By: #### C DP, CRP, SED ####[address] [place] [address] #### RA ####[facility] [place], [place] [id number] Sedimentation Rateon 11-15-2 017 Sedimentation Rate 43 mm High 0-20 [facility] Comment on above: Result Comment: Perf ormed at [address] [place] [address] Performed By: #### C DP, CRP, SED ####[address] [place] [address] #### RA ####[place] [address] [place], [place] [id number] Hemoglobin A1Con 01-03-2017 Glucose mass conc 131 mg/dL Normal [facility] Comment on above: Result Comment: The ADA and AACC recommend providing the estimated average glucose result to permit better patient understanding of their HBA1c result.Performed at [address] [place], [place] [id number] (210) Performed By: #### G LYHGB ####[address] , [place] [phone] Hemoglobin A1c/Hemoglobin.total mass fraction (Bld) 6.2 % High 4.8-5.9 [facility] Comment on above: Performed By: #### G LYHGB ####[address] , [place] [id number] Vital Signs Date Time Vital Sign Value Performing Clinician Ramiro pisano 03-16-2024 09:36-0400 Body height 147.3 cm Matt Mcduffie MD Work Phone: [facility] 03-16-2024 09:36-0400 Body mass index (BMI) [Ratio] 40.76 kg/m2 Matt Mcduffie MD Work Phone: [facility] 03-16-2024 09:36-0400 Body temperature 97.5 [degF] Matt Mcduffie MD Work Phone: [facility] 03-16-2024 09:36-0400 Body weight 88.45 kg Matt Mcduffie MD Work Phone: [facility] 03-16-2024 09:36-0400 Diastolic blood pressure 92 mm[Hg] Matt Mcduffie MD Work Phone: [facility] 03-16-2024 09:36-0400 Heart rate 91 /min Matt Mcduffie MD Work Phone: [facility] 03-16-2024 09:36-0400 Respiratory rate 22 /min Matt Mcduffie MD Work Phone: [facility] 03-16-2024 09:36-0400 SaO2% (BldA) [Mass fraction] 99 % Matt Mcduffie MD Work Phone: [facility] 03-16-2024 09:36-0400 Systolic blood pressure 170 mm[Hg] Matt Mcduffie MD Work Phone: [facility] Healthcare Encounters Encounter Date Encounter Type Care Provider Facility Start: 03-16-2024 End: 03-16-2024 Office outpatient visit 25 minutes Matt Mcduffie MD Work Phone: [facility] CW FM Comment on above: Left-sided Reyes pals y (Primary Dx); Facial droop; Facial paresthesia Start: 03-16-2024 End: 03-16-2024 ambulatory MATT MCDUFFIE Not Available Start: 02-19-2024 End: 02-19-2024 ambulatory MATT NADERER Not Available Start: 01-22-2024 Patient encounter procedure Matt Mcduffie MD Work Phone: [facility] Healthcare Start: 01-22-2024 End: 01-22-2024 ambulatory MATT NADERER Not Available Start: 08-28-2023 End: 08-28-2023 ambulatory [facility] Start: 08-14-2023 End: 08-14-2023 ambulatory MATT NADERER Not Available Start: 07-17-2023 Clinisync Result Encounter Matt Mcduffie MD Work Phone: [facility] External Department Unsolicited Start: 07-17-2023 Clinisync Result Encounter Matt Mcduffie MD Work Phone: [facility] External Department Unsolicited Start: 06-19-2023 End: 06-19-2023 ambulatory NELLIE RAMIREZ [facility] Start: 12-14-2022 End: 12-14-2022 ambulatory IVETTE KLINE [facility] Start: 10-01-2022 End: 10-02-2022 [...] Start: 12-22-2020 End: 12-24-2020 ambulatory MATT MCDUFFIE Facility:[facility] Start: 04-17-2017 End: 04-18-2017 Ambulatory [facility] Start: 01-03-2017 End: 01-04-2017 Ambulatory EITAN [facility] Procedures Date Procedure Procedure Detail Performing Clinician Start: 09-04-2023 Mammography Matt rodgers MD Work Phone: Start: 07-17-2023 [facility] MICROALBUMIN, RAND UR Matt Mcduffie MD Work Phone: Start: 12-14-2022 Follow-up visit Follow-up IVETTE B LYUBOV Start: 04-17-2017 C-reactive protein RAFAEL CHILD Start: 04-17-2017 CBC WITH AUTO DIFFERENTIAL EITAN CHILD Start: 04-17-2017 RHEUMATOID FACTOR EITAN CHILD Start: 04-17-2017 SEDIMENTATION RATE RAFAEL CHILD Start: 01-03-2017 HEMOGLOBIN A1C EITAN GAINES Start: 10-11-2016 Colonoscopy Matt rodgers MD Work Phone: Start: 09-24-2016 Mammography Matt rodgers MD Work Phone: Plan of Treatment Date Care Activity Detail Author Start: 10-11-2026 Screening for malign ant neoplasm of colon [facility] Start: 01-21-2025 Medicare Annual Wellness (AWV) Medicare Annual Wellness (AWV) [facility] Start: 09-21-2024 Glaucoma screening Diabetes: R etinopathy Screening [facility] Start: 09-03-2024 Screening for malign ant neoplasm of breast Mammogram [facility] Start: 07-25-2024 Hemoglobin A1c measurement Diabetes: Hemoglobin A1C [facility] Start: 07-17-2024 Urine screening for protein Diabetes: Urine Protein Screening [facility] Start: 05-20-2024 End: 05-20-2024 Patient encounter procedure 05/20/2024 1:45 PM EST Office Visit [facility] [address] [place] [address] Matt Mcduffie MD [address] [place] [address] [facility] Start: 03-16-2024 End: 03-16-2025 MR Brain WO contrast MR brain wo contrast Imaging Routine Left-Sided Reyes Palsy Facial droop Facial paresthesia Expected: 03/16/2024, Expires: 03/16/2025 [facility] Work Phone: Comment on above: Expected: 03/16/2024 , Expires: 03/16/2025 Start: 08-14-2023 End: 08-14-2023 Patient encounter procedure 08/14/2023 1:30 PM EDT Office Visit [facility] [address] [place] [id number] Matt Mcduffie MD [address] [place] [phone] [facility] Start: 05-12-2020 Pneumococcal Vaccine : 65+ Years (2 - PPSV23 or PCV20) Pneumococcal Vaccine: 65+ Years (2 - PPSV23 or PCV20) [facility] Start: 05-12-2020 Pneumococcal Vaccine : 65+ Years (2 of 2 - PPSV23 or PCV20) Pneumococcal Vaccine: 65+ Years (2 of 2 - PPSV23 or PCV20) [facility] Start: 09-24-2017 Screening for malign ant neoplasm of breast Mammogram [facility] Start: 07-23-2017 Medicare Annual Wellness (AWV) Medicare Annual Wellness (AWV) [facility] Start: 09-26-1987 Screening for malign ant neoplasm of cervix [facility] Start: 1978 Screening for malign ant neoplasm of cervix Pap Smear [facility] Start: 1976 Urine screening for protein Diabetes: Urine Protein Screening [facility] Start: 09-26-1967 Glaucoma screening Diabetes: R etinopathy Screening [facility] Start: 1957 Hemoglobin A1c measurement Diabetes: Hemoglobin A1C [facility] Healthcare Start: 1957 Screening for malign ant neoplasm of colon [facility] Payers Date Payer Category Payer Medicare (Managed Care) [employer] [id number] 2023 Unknown [id number] 2021 Medicare AETNA MEDICARE A DVANTAGE AETNA MEDICARE REPLACEMENT [id number] 2021-Present [address] [place] [address] [id number] 2018 Unknown [id number] 2016 Unknown [id number] 1959 Medicare [id number] 1955 Unknown [id number] 2.16.840.1.361454.3.579.2. 647 1957 Unknown [id number] 2.16.840.1.844580.3.579.2. 593 1957 Unknown [id number] 2.16.840.1.291567.3.579.2. 593 1957 Unknown [id number] 2.16.840.1.528841.3.579.2. 593 1957 Unknown [id number] 2.16.840.1.786100.3.579.2. 593 1957 Unknown [id number] 2.16.840.1.180510.3.579.2. 593 1957 Unknown [id number] 2.16.840.1.213687.3.579.2. 593 1957 Unknown [id number] 2.16.840.1.917122.3.579.2. 593 1957 Unknown [id number] 2.16.840.1.677065.3.579.2. 593 1957 Unknown [id number] 2.16.840.1.165907.3.579.2. 593 1957 Unknown [id number] 2.16.840.1.330156.3.579.2. 593 1957 Unknown [id number] 2.16.840.1.776379.3.579.2. 593 1957 Unknown [id number] 2.16.840.1.029648.3.579.2. 1259 1957 Unknown [id number] 2.16.840.1.157061.3.579.2. 1259 1957 Unknown [id number] 2.16.840.1.317793.3.579.2. 1259 1957 Unknown [id number] 2.16.840.1.023687.3.579.2. 1259 Social History Date Type Detail Facility Start: 07-11-2023 End: 08-14-2023 Tobacco smoking status NHIS Never smoked tobacco [facility] Start: 07-11-2023 End: 08-07-2023 [facility] of Social function [facility] Start: 07-11-2023 End: 08-07-2023 Tobacco use panel [facility] Start: 1955 Sex Assigned At Not on file [facility] Start: 08-14-2023 Tobacco use and exposure Smoke less tobacco non-user [facility] How often do you att end restorationism or sikh services? Patient declined [facility] Do you belong to any clubs or organizations such as restorationism groups, unions, fraternal or athletic groups, or school groups? Yes [facility] Are you now , , , , never or living with a partner? Never [facility] How often to you hav e a drink containing alcohol? Never [facility] Do you feel stress - tense, restless, nervous, or anxious, or unable to sleep at night because your mind is troubled all the time - these days [OSQ] Very much [facility] (I/We) worried wheth er (my/our) food would run out before (I/we) got money to buy more. Never true [facility] In the past 12 month s, was there a time when you were not able to pay the mortgage or rent on time? 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 Treat with valtrex and prednisone. Associated Problem(s): Facial paresthesia Symptoms likely Reyes's palsy but neurology recommended MRI and will order. Patient with multiple CVA risk factors including DM, HTN, CAD, and dyslipidemia. Associated Problem(s): Facial droop Symptoms likely Reyes's palsy but neurology recommended MRI and will order. Patient with multiple CVA risk factors including DM, HTN, CAD, and dyslipidemia. Images from the original note were not included. Subjective Patient ID: Kayli Hernandez is a 68 y.o. female who presents for Follow-up ([facility]. Possible bells palsy, ). Hospital follow up from 03/14-03/15 for left facial droop and possible reyes's palsy. 03/11 noticed having a hard time drinking coffee and drooling. Next few days problems brushing teeth and hard to hold things in mouth. 03/14 looked in mirror and noticed left side face drooping. No speech problems and no weakness in arms or legs. Not able to move left side face or raise eyebrows. Difficult time closing left eye. To ER and thought possible Reyes's palsy. Spoke to neurology who recommended monitoring and MRI. Did well overnight. Already on aspirin, plavix, and lipitor. Not able to move left forehead and no wrinkles in forehead. [place] likely Reyes's palsy and patient did not want to wait for MRI. Discharged home. Still with facial droop. Notice discomfort and fullness around left jaw. Review of Systems Respiratory: Negative for cough, shortness of breath and wheezing. Cardiovascular: Negative for chest pain and palpitations. Gastrointestinal: Negative for abdominal pain, diarrhea, nausea and vomiting. Genitourinary: Negative for dysuria. Objective Physical Exam Constitutional: General: She is not in acute distress. Appearance: Normal appearance. HENT: Head: Normocephalic. Right Ear: Tympanic membrane normal. Left Ear: Tympanic membrane normal. Eyes: Extraocular Movements: Extraocular movements intact. Pupils: Pupils are equal, round, and reactive to light. Cardiovascular: Rate and Rhythm: Normal rate and regular rhythm. Heart sounds: No murmur heard. No friction rub. No gallop. Pulmonary: Effort: Pulmonary effort is normal. Breath sounds: Normal breath sounds. No wheezing, rhonchi or rales. Abdominal: General: Bowel sounds are normal. There is no distension. Palpations: Abdomen is soft. Tenderness: There is no abdominal tenderness. There is no guarding or rebound. Musculoskeletal: Cervical back: Neck supple. Right lower leg: No edema. Left lower leg: No edema. Neurological: Mental Status: She is alert. Comments: Left facial droop. Absence of wrinkles in left forehead Assessment/Plan Problem List Items Addressed This Visit Left-sided Reyes palsy - Primary Exam consistent with Reyes's palsy. Treat with valtrex and prednisone. Relevant Medications valACYclovir (Valtrex) 1 g tablet predniSONE (Deltasone) 50 MG tablet Other Relevant Orders MR brain wo contrast Facial droop Symptoms likely Reyes's palsy but neurology recommended MRI and will order. Patient with multiple CVA risk factors including DM, HTN, CAD, and dyslipidemia. Relevant Orders MR brain wo contrast Facial paresthesia Symptoms likely Reyes's palsy but neurology recommended MRI and will order. Patient with multiple CVA risk factors including DM, HTN, CAD, and dyslipidemia. Relevant Orders MR brain wo contrast documented in this encounter [facility] 08-28-2023 Note [facility] Note Chief Complaint: Patient [...] Administration of intraco (more content not included)... [facility] 06-19-2023 Note F/U with PCP for management [facility] 06-19-2023 Note Coronary artery dise ase is stable Continue GDMT- ASA, plavix, lipitor, Coreg continue risk factor modifications- heart healthy diet, regular exercise as tolerated and continue all medications. [facility] 06-19-2023 Note Hypertension is well controlled 124/81 Continue coreg, losartan [facility] 06-19-2023 Note Continue lipitor 80 mg daily [facility] 06-19-2023 Note [facility] [...] ICA 0-49% s (more content not included)... [facility] 12-14-2022 Note Review of Systems All other systems reviewed and are negative. [facility] 12-14-2022 Note [place] [facility] Note [facility] Reason for follow up: CAD, echo, [...] All other systems reviewed and are negative. Previous HPI per Dr. Quiñones 02/07/22: Mrs. [...] (CMS/HCC) Type 2 diabetes mellitus without complication ([facility]/HCC) TIA (transient ischemic attack) Coronary artery disease involving [place] coronary artery of [place] heart without angina pectoris PSH: Past Surgical [...] affect Orientation: o (more content not included)... [facility] 04-30-2022 Note PROCEDURE: XR HIP RT 2 3V WO PELVIS HISTORY: Bilateral hip joint pain COMPARISON: None. FINDINGS: BONES:No fracture, acute abnormality, or significant arthropathy. SOFT TISSUES:No visible soft tissue swelling. EFFUSION:None visible. OTHER: Negative. IMPRESSION: 1. No acute bone abnormality. 2. Minimal degenerative joint disease. Electronically authenticated by: AARON GILMORE Date: 2022-04-30 19:37 [facility] 12-24-2020 Note MR#: [id number] [facility] Pt. Name: Kayli Hernandez Admitted: 12/22/2020 [...] by: Patric Fonseca MD 01/04/2021 12:40 P ____ Patric Fonseca MD Date Dict: 12/24/2020/11:04 A/Patric Fonseca MD Date Trans: 12/24/2020 11:58 A/nilesh [id number] cc: Matt Mcduffie M.D. [address] [place] [id number] [facility] 02-17-2020 Note Chief Complaint consultation for [...] day(s), # 30 tab(s), Refills(s) 0, Pharmacy: [facility] [facility], [address], cm, 02/17/20 14:42:00 EDT, Height/Length [...] day(s), # 30 tab(s), Refills(s) 0, Pharmacy: [facility], cm, 02/17/20 14:42:00 [...] day(s), # 30 tab(s), Refills(s) 0, Pharmacy: [facility] 142, cm, 02/17/20 14:42:00 EDT, Height/Length Dosing, 83, kg, 02/17/20 14:42:00 EDT, Weight Dosing Basic Metabolic Panel CBC w/ Auto Diff Clostridium difficile by PCR Enteric Panel by PCR O & P Exam, Routine 4. Change in bowel habits (R19.4: Change in bowel habit) see # 1 5. BMI 40 (more content not included)... [facility] Comment on above: Result Comment: Elec tronically Signed By: EARNEST VILLANUEVA, Ho Bailey\Date and Time Signed: 02/17/20 17:23 EDT Evaluation note Diagnosis Type 2 diabetes mellitus with hyperglycemia, without long-term current use of insulin (CMS/[facility])- Primary Essential hypertension (CMS/[facility]) Unspecified essential hypertension ANMOL (generalized anxiety disorder) (CMS/[facility]) Generalized anxiety disorder Primary osteoarthritis of right knee Gastroesophageal reflux disease without esophagitis Esophageal reflux Obstructive sleep apnea Obstructive sleep apnea (adult) (pediatric) Breast cancer screening by mammogram Dyslipidemia (CMS/[facility]) Other and unspecified hyperlipidemia Medicare annual wellness visit, subsequent- Primary Type 2 diabetes mellitus with hyperglycemia, without long-term current use of insulin (CMS/[facility]) Type 2 diabetes mellitus with hyperglycemia, without long-term current use of insulin (CMS/HCC)- Primary Essential hypertension (CMS/HCC) Unspecified essential hypertension Type 2 diabetes mellitus with polyneuropathy ([facility]) Type II or unspecified type diabetes mellitus with neurological manifestations, not stated as uncontrolled ANMOL (generalized anxiety disorder) ([facility]) Generalized anxiety disorder Gastroesophageal reflux disease without esophagitis Esophageal reflux Morbid obesity due to excess calories ([facility]) Left-sided Reyes palsy- Primary Facial droop Facial weakness Facial paresthesia documented in this encounter [facility] Summary Purpose Family History No Family History [...] content) DATE CREATED AUTHOR 11/25/2017 [facility] DATE CREATED AUTHOR AUTHOR'S ORGANIZ ATION 11/26/2017 [facility] DATE CREATED AUTHOR AUTHOR'S ORGANIZ ATION 10/15/2020 [facility] DATE CREATED AUTHOR AUTHOR'S ORGANIZ ATION 01/05/2021 [facility] DATE CREATED AUTHOR AUTHOR'S ORGANIZ ATION 10/05/[address] [facility] DATE CREATED AUTHOR AUTHOR'S ORGANIZ ATION 08/29/2023 [facility] DATE CREATED AUTHOR AUTHOR'S ORGANIZ ATION 03/17/2024 [facility] [employer] Care Teams (unrecognized sec tion and content) Senior Software Manager Relationship Specialty Start Date End Date Matt Mcduffie MD [address] [place] [phone] PCP - General Family Medicine 07/08/23 Senior Software Manager Relationship Specialty Start Date End Date Matt Mcduffie MD [address] [place] [phone] PCP - General Family Medicine 07/08/23 Matt Mcduffie MD [address] [place] [address] PCP - [facility] 10/02/23 Reason for Visit (unrecogniz ed section and content) Reason Comments Follow-up [facility]. Possi ble bells palsy, FOR RECORDS PERTAINING TO PATIENTS WHO ARE [...] BE BASED ON THE PRIMARY CLINICAL RECORDS. [facility] [employer] provides no warranty or guarantee of the accuracy or completeness of information in this document.
--- NOTE | 2024-03-25 13:00 | CA_ITS ---
Patient Name: SEEMA HOOPER MR#: [id number] : 1955 Exam Date: 03/25/2024 Ordering Doctor: DR WALI FIELDS M.D. ECHOCARDIOGRAM REPORT PROCEDURE: CA ECHO DOPPLER COMPLETE INDICATIONS: Hypertension I10, Coronary Artery Disease I25.10, Fatigue COMPARISON: None. DESCRIPTION: COMPLETE ECHOCARDIOGRAM Real-time transthoracic echocardiography with 2D, M-mode, spectral and color flow Doppler performed. QUALITY: Technical quality was good. LEFT VENTRICLE: Normal chamber size. Borderline left ventricular hypertrophy. Normal systolic function. LV EF: Normal left ventricular ejection fraction, (55-60%). DIASTOLIC: Diastolic function is indeterminate. ATRIAL SEPTUM: Visually appears intact. LEFT ATRIUM: Normal chamber size. RIGHT ATRIUM: Normal chamber size. RIGHT VENTRICLE: Normal chamber size. Normal right ventricular systolic function. TRICUSPID VALVE: Normal mobility and thickness. No stenosis with trivial regurgitation. Doppler studies reveal mildly (35-45) elevated right sided pressures. RVSP 35 mmHg MITRAL VALVE: Normal mobility and thickness. No evidence of mitral valve stenosis. There is no mitral annular calcification. Trivial mitral regurgitation. AORTIC VALVE: Normal trileaflet appearance. Thickened aortic valve. Normal leaflet mobility. No evidence of aortic valve stenosis. No aortic regurgitation. AORTIC ROOT: Normal diameter and appearance. Ascending aorta is normal in size. PULMONIC VALVE: Normal thickness and mobility. No stenosis. No regurgitation. PERICARDIUM: No evidence of pericardial effusion. IVC: Within normal limits. PLEURA: CONCLUSION: 1. The left ventricle is normal in size and exhibits normal systolic function. LVEF is 55-60%. 2. Normal right ventricular size and systolic function. 3. No significant valvular dysfunction. 4. Mildly elevated right sided pressures. Adult Echocardiography Procedure Report Left Ventricle LVEDD (3.7 - 5.6 cm): 4.35 cm LVESD (2.2 - 4.0 cm): 2.85 cm LVIVS thickness (0.6 - 1.2 cm): 0.93 cm LVPW thickness (0.5 - 1.0 cm): 1.12 cm e': 0.08 m/s E - e': 8.31 LVOT Max Gradient: 4.41 mm[Hg] LVOT Area (cm2): 1.05 m/s Peak Velocity (LVOT): 1.05 m/s Mean Velocity (LVOT): 0.65 m/s LVOT Diameter 1.66 cm Left Atrium LA Volume Index (2D A2C): 27.15 ml/m2 Left Atrium Systolic Dimension: 3.97 cm Mitral Valve MV E to A Ratio: 0.63 Mitral Valve A-Wave Peak Velocity: 1.03 m/s Mitral Valve E-Wave Peak Velocity: 0.65 m/s Right Ventricle Aorta AO Root Diam: 2.95 cm Ascending Ao Diam: 2.52 cm Aortic Valve AoV Area (Peak Demetri): 1.26 cm2, 1.26 cm2 AoV Area (VTI): 1.54 cm2, 1.54 cm2 Peak Velocity(Antegrade Flow): 1.80 m/s Peak Gradient(Antegrade Flow): 12.99 mm[Hg] Mean Velocity(Antegrade Flow): 1.07 m/s Mean Gradient(Antegrade Flow): 5.51 mm[Hg] Velocity Time Integral: 30.92 cm Tricuspid Valve Peak Velocity (Regurgitant Flow): 2.83 m/s Pulmonic Valve Mean Gradient: 3.52 mm[Hg] Mean Velocity: 0.88 m/s Peak Velocity: 1.34 m/s, 1.19 m/s Peak Gradient: 5.69 mm[Hg], 7.23 mm[Hg] Right Atrium Right Atrium Systolic Pressure: 35.80 ml, 35.80 ml Dictated by: Devon Kohli M.D. on 03/25/2024 at 18:59 Approved by: Devon Kohli M.D. on 03/25/2024 at 19:04
== END 2024-03-25 12:39 | disposition home or self-care (01) ==
LOC: CARD 12:38
PROVIDERS: PCP Family Medicine; Visit Provider Internal Medicine Interventional Cardiology
DX: R53.83 Other fatigue (principal); R60.1 Generalized edema; I10 Essential (primary) hypertension; I25.10 Atherosclerotic heart disease of native coronary artery without angina pectoris
CPT/HCPCS: 93306

== ENCOUNTER 2024-03-27 07:30 | Outpatient (OUT) | payer OTHER, SELFPAY ==
--- OUTSIDE RECORDS SUMMARY | 2024-03-27 07:32 | XMS_ITS | CCD ---
Author Organization [facility] Care Team Providers Care Concrete Pointer Name Role Phone EITAN CHILD Unavailable Unavailable [...] RETA, DR MATT Uribe Primary Care Unavailable [facility] DR KEYES Consulting Unavailable [facility], DR KEYES Admitting Unavailable [facility], DR KEYES Attending Unavailable CARLETON, DR ERICH Shaw Consulting Unavailable IVETTE KLINE Admitting Unavailable IVETTE KLINE Attending Unavailable RETA, DR MATT Uribe Primary Care Unavailable IVETTE KLINE Consulting Unavailable Matt Mcduffie MD Primary Care Provider [phone] IVETTE KLINE Attending Unavailable DONNIE, WALI Attending Unavailable NELLIE RAMIREZ Attending Unavailable RETA, MATT Attending Unavailable RETA, MATT Attending Unavailable RETA, MATT Attending Unavailable RETA, MATT Attending Unavailable Matt Mcduffie MD Unavailable Allergies Allergy Classification Reported Allergen(s) Allergy Type Date of Onset Reaction(s) Facility (1 source) Adhesive bandage Drug allergy (disorder) [facility] Repository (1 source) natural latex rubber Drug allergy (disorder) [facility] Repository (3 sources) Latex Propensity to adverse [...] Start: 03-16-2024 take [address] 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; 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: [Coronary [...] (1 source) Patient encounter status; 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: [Other care home (current) drug therapy] Onset: 07-11-2023 07-11-2023 Episodic Other connective tissue disease (6 sources) Weakness of face muscles; 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: [Facial weakness] Onset: 03-16-2024 03-16-2024 Episodic Other nervous system disorders (4 sources) Aphasia; 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: [APHASIA] Onset: 06-07-2022 Chronic Other nervous system disorders (6 sources) [place] palsy of left side of face; 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: [...] Onset: 01-22-2024 01-22-2024 Other 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 source) 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; 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: [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] Onset: 07-04-2022 Episodic Other aftercare (2 sources) Long-term current use of drug therapy; 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: [Other care home (current) drug therapy] Onset: 07-11-2023 07-11-2023 Episodic [...] Range Facility Office Visiton 08-28-2023 Follow-up visit [id number] Kayli Hernandez 1955 F Date Provider Department Center 08/28/2023 271-WALI QUIÑONES CARD [facility] Family History Problem Relation Age of Onset Stroke Mother Heart attack Father Hypertension Father Diabetes type II Brother Heart disease Brother Family Status - Relation Status Age at Mother Father Brother Level of Service:87481 ID OFFICE/OUTPATIENT ESTABLISHED LOW MDM 20 MIN Normal [facility] MICROALBUMIN, RAND URon 07-17-2023 MICROALBUMIN URINE RANDOM 1.3 mg/dL NINF - 30.0 mg/dL [facility] 06-19-2023 Follow-up visit [id number] Kayli Hernandez 1955 F Date Provider Department Center 06/19/2023 NELLIE CENTENO [facility] Family History Problem Relation Age of Onset Stroke Mother Heart attack Father Hypertension Father Diabetes type II Brother Heart disease Brother Family Status - Relation Status Age at Mother Father Brother Level of Service:34575 ID OFFICE/OUTPATIENT ESTABLISHED MOD MDM 30 MIN Reason for Visit and Comments: Follow-up [837814] Normal [facility] Office Visiton 12-14-2022 Follow-up visit [id number] Kayli Hernandez 1955 F Date Provider Department Center 12/14/2022 IVETTE DAN [facility] No family history on file Level of Service:00251 ID OFFICE/OUTPATIENT ESTABLISHED MOD MDM 30-39 MIN Reason for Visit and Comments: Follow-up [180040] - 6 mo f/u w/ carotid us Normal [facility] GLYCOHEMOGLOBIN A1Con 2022 ADA RECOMMENDATION SEE BELOW Normal [facility] Comment on above: Result Comment: ADA RECOMMENDED LIMIT 4.0 - 6.0 ADA THERAPEUTIC TARGET < 7.0 ACTION SUGGESTED > 7.0 Performed By: #### A 1C #### [facility] [address] [place] [address] Dr. Radha Willis Glucose [Mass/Vol] 163 mg/dL Normal [facility] Comment on above: Performed By: #### A 1C #### [facility] [address] [address] [address] Radha Willis HbA1c (Bld) [Mass fraction] 7.3 % Critically high 4.5-6.2 [facility] Comment on above: Performed By: #### A 1C #### [facility] [address] [place] [address] Dr. Radha Willis NM STRESS/REST MULTIon 08-02 NM STRESS/REST MULTI Patient: KAYLI HERNANDEZ Exam Date: 08/02/2022 : 1955 Gender:F Ordering : IVETTE KLINE Admission #: [id number] Family : Order #: [id number] CLICK HERE TO VIEW EXAM RADIOLOGY REPORT [...] MD on 08/03/2022 at 11:55 Normal [facility] MAMM SCREEN 3D ALEE CADon 07-31-2022 MAMM SCREEN 3D ALEE CAD Patient: KAYLI HERNANDEZ Exam Date: 07/31/2022 : 1955 Gender:F Ordering : DR MATT MCDUFFIE . Admission #: [id number] Family : Order #: [id number] CLICK HERE TO VIEW EXAM RADIOLOGY REPORT [...] Cancers None LOCATION: [facility] BREAST COMPOSITION: Heterogeneously dense,which may obscure small [...] Woodruff MD on 07/31/2022 at 14:12 Normal [facility] GLYCOHEMOGLOBIN A1Con 2022 ADA RECOMMENDATION SEE BELOW Normal [facility] Comment on above: Result Comment: ADA RECOMMENDED LIMIT 4.0 - 6.0 ADA THERAPEUTIC TARGET < 7.0 ACTION SUGGESTED > 7.0 Performed By: #### A 1C #### [facility] [address] [place] [address] Dr. Radha Willis Glucose [Mass/Vol] 151 mg/dL Normal [facility] Comment on above: Performed By: #### A 1C #### [facility] [address] [address] [address] Radha Willis HbA1c (Bld) [Mass fraction] 6.9 % Critically high 4.5-6.2 [facility] Comment on above: Performed By: #### A 1C #### [facility] [address] [place] [address] Dr. Radha Willis MRI BRAIN WO W [...] 2022-06-07 14:[address] [facility] PROF 14(COMP METB)on 022 Albumin [Mass/Vol] 3.3 g/dL Critically low 3.4-5.[address] [facility] Comment on above: Performed By: #### A 1C #### [facility] [address] [place] [address] Dr. Radha Willis Albumin/Globulin [Mass ratio] 0.8 {ratio} Normal [facility] Comment on above: Performed By: #### A 1C #### [facility] [address] [place] [address] Dr. Radha Willis ALP [Catalytic activity/Vol] 211 U/L Critically high 46-116 [facility] Comment on above: Performed By: #### A 1C #### [facility] [address] [place] [address] Dr. Radha Willis ALT [Catalytic activity/Vol] 25 U/L Normal 14-59 [facility] Comment on above: Performed By: #### A 1C #### [facility] [address] [place] [address] Dr. Radha Willis Anion gap [Moles/Vol] 12.3 mmol/L Normal [facility] Comment on above: Performed By: #### A 1C #### [facility] [address] [place] [address] Dr. Radha Willis AST [Catalytic activity/Vol] 17 U/L Normal 15-37 [facility] Comment on above: Performed By: #### A 1C #### [facility] [address] [place] [address] Dr. Radha Willis Bilirubin [Mass/Vol] 0.3 mg/dL Normal 0.2-1.0 [facility] Comment on above: Performed By: #### A 1C #### [facility] [address] [address] [address] Radha Willis Calcium [Mass/Vol] 9.2 mg/dL Normal 8.5-10.1 [facility] Comment on above: Performed By: #### A 1C #### [facility] [address] [address] [address] Radha Willis Chloride [Moles/Vol] 104 mmol/L Normal 98-107 [facility] Comment on above: Performed By: #### A 1C #### [facility] [address] [address] [address] Radha Willis CO2 [Moles/Vol] 28.6 mmol/L Normal 21.0-32.0 [facility] Comment on above: Performed By: #### A 1C #### [facility] [address] [place] [address] Dr. Radha Willis Creatinine [Mass/Vol] 0.78 mg/dL Normal 0.55-1.02 [facility] Comment on above: Performed By: #### A 1C #### [facility] [address] [place] [address] Dr. Radha Willis EGFR-AF FIJIAN >60 Normal >=60 [facility] Comment on above: Performed By: #### A 1C #### [facility] [address] [place] [address] Dr. Radha Willis EGFR-NON AF FIJIAN >60 Normal >=60 [facility] Comment on above: Performed By: #### A 1C #### [facility] [address] [place] [address] Dr. Radha Willis Globulin (S) [Mass/Vol] 4.4 g/dL Normal [facility] Comment on above: Performed By: #### A 1C #### [facility] [address] [place] [address] Dr. Radha Willis Glucose [Mass/Vol] 50 mg/dL Critically low 74-106 [facility] Comment on above: Performed By: #### A 1C #### [facility] [address] [place] [address] Dr. Radha Willis Potassium [Moles/Vol] 3.9 mmol/L Normal 3.5-5.1 [facility] Comment on above: Performed By: #### A 1C #### [facility] [address] [address] [address] Radha Willis Protein [Mass/Vol] 7.7 g/dL Normal 6.4-8.2 [facility] Comment on above: Performed By: #### A 1C #### [facility] [address] [address] [address] Radha Willis Sodium [Moles/Vol] 141 mmol/L Normal 136-145 [facility] Comment on above: Performed By: #### A 1C #### [facility] [address] [address] [address] Radha Willis Urea nitrogen [Mass/Vol] 12.0 mg/dL Normal 7.0-18.0 [facility] Comment on above: Performed By: #### A 1C #### [facility] [address] [address] [address] Radha Willis Urea nitrogen/Creatinine [Mass ratio] 15.4 mg/mg Normal [facility] Comment on above: Performed By: #### A 1C #### [facility] [address] [id number] Radha Willis XR HAND ALEE MIN [...] by: AARON GILMORE Date: 2022-04-30 19:39 Normal [facility] XR LSPINE 2_3 VIEWSon 2021 XR LSPINE [...] 2022-04-30 19:[address] [facility] XR WRIST ALEE MIN 3 Von 04-30 [...] AARON GILMORE Date: 2022-04-30 19:[address] [facility] GLYCOHEMOGLOBIN A1Con 2021 ADA RECOMMENDATION SEE BELOW Normal [facility] Comment on above: Result Comment: ADA RECOMMENDED LIMIT 4.0 - 6.0 ADA THERAPEUTIC TARGET < 7.0 ACTION SUGGESTED > 7.0 Performed By: #### A 1C #### [facility] [address] [address] [address] Radha Willis Glucose [Mass/Vol] 140 mg/dL Normal [facility] Comment on above: Performed By: #### A 1C #### [facility] [address] [address] [address] Radha Willis HbA1c (Bld) [Mass fraction] 6.5 % Critically high 4.5-6.2 [facility] Comment on above: Performed By: #### A 1C #### [facility] [address] [address] [address] Radha Willis ECHOCARDIO M/2D COMPLETEon 0 02-14-2022 ECHOCARDIO M/2D COMPLETE Patient: KAYLI HERNANDEZ Exam Date: 02/14/2022 : 1955 Gender:F Ordering : DR WALI QUIÑONES M.D. Admission #: [id number] Family : Order #: [id number] CLICK HERE TO VIEW EXAM ECHOCARDIOGRAM REPORT [...] Kohli M.D. on 02/16/2022 at 18:58 Normal [facility] CREATININE BLOODon Creatinine [Mass/Vol] 0.78 mg/dL Normal 0.60-1.20 [facility] Comment on above: Order Comment: No: D o not add to previous draw Performed By: #### 2 5656 #### [facility] [address] [place] [address], [facility] GFR/1.73 sq M.predicted among blacks MDRD (S/P/Bld) [Vol rate/Area] mL/min/{1.73_m2} Normal >60 [facility] Comment on above: Order Comment: No: D o not add to previous draw Performed By: #### 2 5656 #### [facility] [address] [place] [address], [facility] GFR/1.73 sq M.predicted among non-blacks MDRD (S/P/Bld) [Vol rate/Area] mL/min/{1.73_m2} Normal >60 [facility] Comment on above: Order Comment: No: D o not add to previous draw Performed By: #### 2 5656 #### [facility] [address] [place] [address], [place] HEMATOCRITon 12-24-2020 Hematocrit (Bld) [Volume fraction] 34.8 % Low 36.0-45.0 [facility] Comment on above: Order Comment: No: D o not add to previous draw Performed By: #### 9 2089, 76648 #### [facility] [address] [place] [address], [facility] HEMOGLOBINon 12-24-2020 Hemoglobin (Bld) [Mass/Vol] 11.1 g/dL Low 12.0-15.0 [facility] Comment on above: Order Comment: No: D o not add to previous draw Performed By: #### 9 2089, 81828 #### [facility] [address] [place] [address], [facility] POC GLUCOSE LABon 12-24-2020 Glucose [Mass/Vol] 135 mg/dL High 70-100 [facility] Comment on above: Performed By: #### 8 5499 #### [facility] [address] [place] [address], [facility] CBC COMPLETE BLOOD COUNTon 0 12-23-2020 Erythrocyte distribution width (RBC) [Ratio] 13.5 % Normal 11.5-15.0 [facility] Comment on above: Order Comment: No: D o not add to previous draw Performed By: #### 5 0608 #### [facility] [address] [place] [address], [facility] Hematocrit (Bld) [Volume fraction] 36.2 % Normal 36.0-45.0 [facility] Comment on above: Order Comment: No: D o not add to previous draw Performed By: #### 5 0608 #### [facility] [address] [place] [address], [facility] Hemoglobin (Bld) [Mass/Vol] 11.4 g/dL Low 12.0-15.0 [facility] Comment on above: Order Comment: No: D o not add to previous draw Performed By: #### 5 0608 #### [facility] [address] [place] [address], [facility] MCH (RBC) [Entitic mass] 26.5 pg Low 27.0-33.0 [facility] Comment on above: Order Comment: No: D o not add to previous draw Performed By: #### 5 0608 #### [facility] [address] [place] [address], [facility] MCHC (RBC) [Mass/Vol] 31.5 g/dL Low 32.0-35.0 [facility] Comment on above: Order Comment: No: D o not add to previous draw Performed By: #### 5 0608 #### [facility] [address] [place] [address], [facility] MCV (RBC) [Entitic vol] 84.2 fL Normal 82.0-98.0 [facility] Comment on above: Order Comment: No: D o not add to previous draw Performed By: #### 5 0608 #### [facility] [address] Nucleated RBC/100 WBC (Bld) [Ratio] 0 % Normal 0-0 [facility] Comment on above: Order Comment: No: D o not add to previous draw Performed By: #### 5 0608 #### [facility] [address] [facility] [address], [facility] PLAT CNT 248 10*3/uL Normal 150-400 [facility] Comment on above: Order Comment: No: D o not add to previous draw Performed By: #### 5 0608 #### [facility] [address] [facility] [address], [facility] RBC (Bld) [#/Vol] 4.30 10*6/uL Normal 3.80-5.00 [facility] Comment on above: Order Comment: No: D o not add to previous draw Performed By: #### 5 0608 #### [facility] [address] [facility] [place] [address], [facility] WBC (Bld) [#/Vol] 6.43 10*3/uL Normal 4.00-10.60 [facility] Comment on above: Order Comment: No: D o not add to previous draw Performed By: #### 5 0608 #### [facility] [address] [place] [address], [facility] CREATININE BLOODon Creatinine [Mass/Vol] 0.70 mg/dL Normal 0.60-1.20 [facility] Comment on above: Order Comment: No: D o not add to previous draw Performed By: #### 2 5656 #### [facility] [address] [place] [address], [facility] GFR/1.73 sq M.predicted among blacks MDRD (S/P/Bld) [Vol rate/Area] mL/min/{1.73_m2} Normal >60 [facility] Comment on above: Order Comment: No: D o not add to previous draw Performed By: #### 2 5656 #### [facility] [address] [facility] [place] [address], [facility] GFR/1.73 sq M.predicted among non-blacks MDRD (S/P/Bld) [Vol rate/Area] mL/min/{1.73_m2} Normal >60 [facility] Comment on above: Order Comment: No: D o not add to previous draw Performed By: #### 2 5656 #### [facility] [address] [place] [address], [facility] Cardiovascular Lab Reporton 12-23-2020 Cardiovascular Lab Report [facility] MR #: [id number] Physician: Devon Medrano of [facility] Kohli Medicine Service Date: 12/23/2020 Division of Birthdate: 1955 Cardiology Room #: [id number] Adult Cardiovascular Services [address] [address] Cardiovascular Laboratory Report INDICATION: The patient is [...] informed consent. She was brought to laboratory technical specialist in a fasting state. The right groin area was prepped and draped in usual fashion. Micropuncture technique and ultrasound guidance was used for access in the right common femoral artery. The inner cannula angiography was performed followed by upsizing to a 6-Peruvian x 11 cm sheath. Heparin was given intravenously and therapeutic ECT confirmed during the rest of the procedure. A 6-Peruvian JR4 guiding catheter was advanced and used to engage the right coronary ostium, however, this could not engage the right coronary ostium at all, therefore after multiple attempts we exchanged to a 6-Peruvian AR1 guiding catheter, which was initially able [...] Kohli M.D. Date Trans: 12/23/2020 11:13 A/nilesh [id number] cc: Matt Mcduffie M.D. [address] [facility] [address] Normal [facility] Cardiovascular Lab Report [facility] Patient Name: Jessica HernandezPsychiatric MR #: [id number] Physician: Devon Alejo M.D. Medicine Service Date: 12/22/2020 Division of Birthdate: 1955 Cardiology Room #: [id number] Adult Cardiovascular Services [place] [address] Cardiovascular Laboratory Report INDICATION: The patient is [...] informed consent. She was brought to laboratory technical specialist in a fasting state. The left wrist area was prepped and draped in usual fashion. Modified Neil's test was favorable. Access in the left radial artery was obtained using micropuncture technique. A 5-Peruvian x 11 cm slender sheath was advanced. Verapamil was given through the sheath and heparin was administered intravenously. Initial catheter advancement was made feasible using an angled Glidewire. Bilateral selective coronary angiography was then performed using a 5-Peruvian JL3.5 catheter for engagement of the left coronary artery and a 5-Peruvian JR5 diagnostic catheter for engagement of the [...] mid LAD has an 80% stenosis. The [id number]-ry-jqetdv LAD is a very small caliber and [...] Kohli M.D. Date Trans: 12/23/2020 05:26 A/nilesh [id number] cc: Matt Mcduffie M.D. [address] [facility] [address] Normal [facility] POC GLUCOSE LABon 12-23-2020 Glucose [Mass/Vol] 170 mg/dL High 70-100 [facility] Comment on above: Performed By: #### 8 4839 #### [facility] [address] [facility] [place] [address], [facility] Glucose [Mass/Vol] 119 mg/dL High 70-100 [facility] Comment on above: Performed By: #### 8 7429 #### [facility] [address] [facility] [place] [address], [facility] Glucose [Mass/Vol] 121 mg/dL High 70-100 [facility] Comment on above: Performed By: #### 8 5499 #### [facility] [address] [place] [address], [facility] POC GLUCOSE LABon 12-22-2020 Glucose [Mass/Vol] 117 mg/dL High 70-100 [facility] Comment on above: Performed By: #### 8 5499 #### [facility] [address] [place] [address], [facility] Lab Reportson 02-23-2020 Lab Reports [id number] .[id number]:127 Normal [facility] Lab Reports [id number] .[id number]:127 Normal [facility] Lab Reportson 02-18-2020 Lab Reports [id number] .[id number]:127 Normal [facility] Ambulatory Clinical Summaryo n 02-17-2020 Ambulatory Clinical Summary {[id number] -[id number]}CD:[id number] Normal [facility] Patient Educationon 02-17-20 Patient Education Family [...] Document Reviewed: 01/25/2013 ExitCare? Patient Information ?2013 ID [place]. [facility]-SGPTon 06-26-2017 Alanine aminotransferase (ALT) 40 U/L Normal [...] Consistent with diagnosis of diabetesPathology Laboratories, Inc. [address] [place], [place] [address]Laboratory Director: Connor Silver M.D.CLIA No. [id number] CAP Accreditation No. [id number] Hemoglobin A1c/Hemoglobin.total mass fraction (Bld) 7.2 % High 4.2-5.8 [facility] RA Screenon 04-18-2017 RA Screen <10 Normal <14 [facility] Comment on above: Result Comment: Perf ormed at [address] [id number] ([phone] Performed By: #### C DP, CRP, SED ####[address] [place] [address] #### RA ####[address] [id number] C-Reactive Proteinon 15-2 017 C reactive protein (CRP) 12.5 mg/L High 0.0-5.0 [facility] Comment on above: Result Comment: Perf ormed at [address] [place] [address] ([phone] Performed By: #### C DP, CRP, SED ####[address] [place] [address] #### RA ####[address] [address] CBC with Diffon 04-17-2017 Abs. Basophil 0.00 k/uL Normal 0.0-0.2 [facility] Comment on above: Result Comment: Perf ormed at [address] [place] [address] Performed By: #### C DP, CRP, SED ####[address] [place] [address] #### RA ####[address] [address] Abs.Neutrophil (Seg) 6.30 k/uL Normal 1.8-7.7 [facility] Comment on above: Performed By: #### C DP, CRP, SED ####[address] [place] [address] #### RA ####[address] [address] Basophils/100 WBC Auto (Bld) 0 % Normal [facility] Comment on above: Performed By: #### C DP, CRP, SED ####[address] [place] [address] #### RA ####[address] [address] Eosinophils 0.20 10*3/uL Normal 0.0-0.4 [facility] Comment on above: Performed By: #### C DP, CRP, SED ####[address] [place] [address] #### RA ####[address] [address] Eosinophils/100 leukocytes 2 % Normal [facility] Comment on above: Performed By: #### C DP, CRP, SED ####[address] [place] [address] #### RA ####[facility] [place] [address] Erythrocyte distribution width Auto Ratio (RBC) 12.9 % Normal 12.1-15.2 [facility] Comment on above: Performed By: #### C DP, CRP, SED ####[address] [place] [address] #### RA ####[address] [address] Erythrocytes (RBC) 4.68 10*6/uL Normal 4.0-5.2 [facility] Comment on above: Performed By: #### C DP, CRP, SED ####[address] [place] [address] #### RA ####[address] [address] Hematocrit (HCT) 39.4 % Normal 36-46 [facility] Comment on above: Performed By: #### C DP, CRP, SED ####[address] [place] [address] #### RA ####[address] [address] Hemoglobin mass conc (Bld) 13.1 g/dL Normal 12.0-16.0 [facility] Comment on above: Performed By: #### C DP, CRP, SED ####[address] [place] [address] #### RA ####[address] [address] Lymphocytes 1.90 10*3/uL Normal 1.0-4.8 [facility] Comment on above: Performed By: #### C DP, CRP, SED ####[address] [place] [address] #### RA ####[address] [address] Lymphocytes/100 leukocytes 22 % Normal [facility] Comment on above: Performed By: #### C DP, CRP, SED ####[address] [place] [address] #### RA ####[address] [address] MCH 27.9 pg Normal 26-34 [facility] Comment on above: Performed By: #### C DP, CRP, SED ####[address] [place] [id number] #### RA ####[address] [address] MCHC mass conc (RBC) 33.2 g/dL Normal 31-37 [facility] Comment on above: Performed By: #### C DP, CRP, SED ####[address] [place] [address] #### RA ####[address] [address] MCV 84.1 fL Normal 80-100 [facility] Comment on above: Performed By: #### C DP, CRP, SED ####[address] [place] [address] #### RA ####[address] [address] Monocytes 0.50 10*3/uL Normal 0.2-0.8 [facility] Comment on above: Performed By: #### C DP, CRP, SED ####[address] [place] [address] #### RA ####[address] [address] Monocytes/100 leukocytes 6 % Normal [facility] Comment on above: Performed By: #### C DP, CRP, SED ####[address] [place] [address] #### RA ####[address] [address] Neutrophil (Seg) 70 % Normal [facility] Comment on above: Performed By: #### C DP, CRP, SED ####[address] [place] [address] #### RA ####[address] [address] Platelet mean volume (PMV) 9.4 fL Normal 6.0-12.0 [facility] Comment on above: Performed By: #### C DP, CRP, SED ####[address] [place] [address] #### RA ####[address] [address] Platelets 248 10*3/uL Normal 140-450 [facility] Comment on above: Performed By: #### C DP, CRP, SED ####[address] [place] [address] #### RA ####[address] [address] WBC (Leukocytes) 8.9 10*3/uL Normal 3.5-11.0 [facility] Comment on above: Performed By: #### C DP, CRP, SED ####[address] [place] [address] #### RA ####[address] [address] Auto Diff Performed NOT REPORTED Normal [facility] Comment on above: Performed By: #### C DP, CRP, SED ####[address] [place] [address] #### RA ####[address] [address] Erythrocyte morphology NOT REPORTED Normal [facility] Comment on above: Performed By: #### C DP, CRP, SED ####[address] [place] [address] #### RA ####[address] [address] Granulocytes/100 WBC (Bld) NOT REPORTED Normal 0.00-0.30 [facility] Comment on above: Performed By: #### C DP, CRP, SED ####[address] [place] [address] #### RA ####[address] [address] Immature granulocytes #/vol (Bld) NOT REPORTED Normal 0 [facility] Comment on above: Performed By: #### C DP, CRP, SED ####[address] [place] [address] #### RA ####[address] [address] Platelets NOT REPORTED Normal [facility] Comment on above: Performed By: #### C DP, CRP, SED ####[address] [place] [address] #### RA ####[address] [address] WBC Morphology NOT REPORTED Normal [facility] Comment on above: Performed By: #### C DP, CRP, SED ####[address] [place] [address] #### RA ####[facility] [place], [place] [address] Sedimentation Rateon 11-15-2 017 Sedimentation Rate 43 mm High 0-20 [facility] Comment on above: Result Comment: Perf ormed at [address] [place] [address] Performed By: #### C DP, CRP, SED ####[address] [place] [address] #### RA ####[place] [address] [place], [place] 2[address] Hemoglobin A1Con 01-03-2017 Glucose mass conc 131 mg/dL Normal [facility] Comment on above: Result Comment: The ADA and AACC recommend providing the estimated average glucose result to permit better patient understanding of their HBA1c result.Performed at [address] [place], [place] [id number] (620) Performed By: #### G LYHGB ####[address] , [place] [phone] Hemoglobin A1c/Hemoglobin.total mass fraction (Bld) 6.2 % High 4.8-5.9 [facility] Comment on above: Performed By: #### G LYHGB ####[address] , [place] [id number] Vital Signs Date Time Vital Sign Value Performing Clinician Ramiro pisano 03-16-2024 09:36-0400 Body height 147.3 cm Matt Mcduffie MD Work Phone: [facility] 03-16-2024 09:36-0400 Body mass index (BMI) [Ratio] 40.76 kg/m2 Matt Mcduffie MD Work Phone: [facility] 03-16-2024 09:36-0400 Body temperature 97.5 [degF] Matt Mcduffie MD Work Phone: [facility] 03-16-2024 09:36-0400 Body weight 88.45 kg Matt Mcduffie MD Work Phone: [facility] 03-16-2024 09:36-0400 Diastolic blood pressure 92 mm[Hg] Matt Mcduffie MD Work Phone: [facility] 03-16-2024 09:36-0400 Heart rate 91 /min Matt Mcduffie MD Work Phone: [facility] 03-16-2024 09:36-0400 Respiratory rate 22 /min Matt Mcduffie MD Work Phone: [facility] 03-16-2024 09:36-0400 SaO2% (BldA) [Mass fraction] 99 % Matt Mcduffie MD Work Phone: [facility] 03-16-2024 09:36-0400 Systolic blood pressure 170 mm[Hg] Matt Mcduffie MD Work Phone: [facility] Encounters Encounter Date Encounter Type Care Provider Facility Start: 03-16-2024 End: 03-16-2024 Office outpatient visit 25 minutes Matt Mcduffie MD Work Phone: [facility] CW FM Comment on above: Left-sided Reyes pals y (Primary Dx); Facial droop; Facial paresthesia Start: 03-16-2024 End: 03-16-2024 ambulatory MATT MCDUFFIE Not Available Start: 02-19-2024 End: 02-19-2024 ambulatory MATT NADERER Not Available Start: 01-22-2024 Patient encounter procedure Matt Mcduffie MD Work Phone: [facility] Healthcare Start: 01-22-2024 End: 01-22-2024 ambulatory MATT NADERER Not Available Start: 08-28-2023 End: 08-28-2023 ambulatory EHAB [facility] Start: 08-14-2023 End: 08-14-2023 ambulatory MATT NADERER Not Available Start: 07-17-2023 Clinisync Result Encounter Matt Mcduffie MD Work Phone: [facility] External Department Unsolicited Start: 07-17-2023 Clinisync Result Encounter Matt Mcduffie MD Work Phone: [facility] External Department Unsolicited Start: 06-19-2023 End: 06-19-2023 ambulatory NELLIE RAMIREZ [facility] Start: 12-14-2022 End: 12-14-2022 ambulatory IVETTE KLINE [facility] Start: 10-01-2022 End: 10-02-[address] MATT [...] Start: 12-22-2020 End: 12-24-2020 ambulatory MATT MCDUFFIE Facility:[facility] Start: 04-17-2017 End: 04-18-2017 Ambulatory [facility] Start: 01-03-2017 End: 01-04-2017 Ambulatory EITAN [facility] Procedures Date Procedure Procedure Detail [...] screening for protein Diabetes: Urine Protein Screening [facility] Start: 05-20-2024 End: 05-20-2024 Patient encounter procedure 05/20/2024 1:45 PM EST Office Visit [facility] [address] [place] [address] Matt Mcduffie MD [address] [place] [address] [facility] Start: 03-16-2024 End: 03-16-2025 MR Brain WO contrast MR brain wo contrast Imaging Routine Left-Sided Reyes Palsy Facial droop Facial paresthesia Expected: 03/16/2024, Expires: 03/16/2025 [facility] Work Phone: Comment on above: Expected: 03/16/2024 , Expires: 03/16/2025 Start: 08-14-2023 End: 08-14-2023 Patient encounter procedure 08/14/2023 1:30 PM EDT Office Visit [facility] [address] [place] [phone] Matt Mcduffie MD [address] [place] [address] [facility] Start: 05-12-2020 Pneumococcal Vaccine : 65+ Years (2 - PPSV23 or PCV20) Pneumococcal Vaccine: 65+ Years (2 - PPSV23 or PCV20) [facility] Start: 05-12-2020 Pneumococcal Vaccine : 65+ Years (2 of 2 - PPSV23 or PCV20) Pneumococcal Vaccine: 65+ Years (2 of 2 - PPSV23 or PCV20) [facility] Start: 09-24-2017 Screening for malign ant neoplasm of breast Mammogram [facility] Start: 07-23-2017 Medicare Annual Wellness (AWV) Medicare Annual Wellness (AWV) [facility] Start: 09-26-1987 Screening for malign ant neoplasm of cervix [facility] Start: 1978 Screening for malign ant neoplasm of cervix Pap Smear [facility] Start: 1976 Urine screening for protein Diabetes: Urine Protein Screening [facility] Start: 09-26-1967 Glaucoma screening Diabetes: R etinopathy Screening [facility] Start: 1957 Hemoglobin A1c measurement Diabetes: Hemoglobin A1C [facility] Start: 1957 Screening for malign ant neoplasm of colon [facility] Payers Date Payer Category Payer Medicare (Managed Care) [employer] [id number] 2023 Unknown [id number] 2021 Medicare AETNA MEDICARE A DVANTAGE AETNA MEDICARE REPLACEMENT [id number] 2021-Present [address] [place] [address] [id number] 2018 Unknown [id number] 2016 Unknown [id number] 1959 Medicare [id number] 1957 Unknown [id number] 2.16.840.1.181256.3.579.2. 647 1957 Unknown [id number] 2.16.840.1.368218.3.579.2. 593 1957 Unknown [id number] 2.16.840.1.733975.3.579.2. 593 1957 Unknown [id number] 2.16.840.1.226769.3.579.2. 593 1957 Unknown [id number] 2.16.840.1.115147.3.579.2. 593 1957 Unknown [id number] 2.16.840.1.996977.3.579.2. 593 1957 Unknown [id number] 2.16.840.1.541939.3.579.2. 593 1957 Unknown [id number] 2.16.840.1.364766.3.579.2. 593 1957 Unknown [id number] 2.16.840.1.767062.3.579.2. 593 1957 Unknown [id number] 2.16.840.1.032285.3.579.2. 593 1957 Unknown [id number] 2.16.840.1.113372.3.579.2. 593 1957 Unknown [id number] 2.16.840.1.945781.3.579.2. 593 1957 Unknown [id number] 2.16.840.1.720815.3.579.2. 1259 1957 Unknown [id number] 2.16.840.1.921192.3.579.2. 1259 1957 Unknown [id number] 2.16.840.1.958556.3.579.2. 1259 1957 Unknown [id number] 2.16.840.1.483630.3.579.2. 1259 Social History Date Type Detail Facility [...] Healthcare How often do you att end buddhist or sikhism services? Patient declined [facility] Do you belong to any clubs or organizations such as buddhist groups, unions, fraternal or athletic groups, or [...] 68 y.o. female who presents for Follow-up ([facility] FOLLOW UP. Possible bells palsy, ). Hospital [...] left forehead and no wrinkles in forehead. [place] likely Reyes's palsy and patient did not [...] brain wo contrast documented in this encounter [facility] 08-28-2023 Note [facility] Cardiology Clinic Note Chief Complaint: Patient here [...] intraco (more content not included)... [facility] 06-19-2023 Note F/U with PCP for management [facility] 06-19-2023 Note Coronary artery dise ase is stable Continue GDMT- ASA, plavix, lipitor, Coreg continue risk factor modifications- heart healthy diet, regular exercise as tolerated and continue all medications. [facility] 06-19-2023 Note Hypertension is well controlled 124/81 Continue coreg, losartan [facility] 06-19-2023 Note Continue lipitor 80 mg daily [facility] 06-19-2023 Note [facility] CARDIOLOGY PROGR ESS [...] s (more content not included)... [facility] 12-14-2022 Note Review of Systems All other systems reviewed and are negative. [facility] 12-14-2022 Note [place] [facility] Note [facility] Reason for follow up: CAD, echo, hypertension, [...] (CMS/HCC) Type 2 diabetes mellitus without complication ([facility]/HCC) TIA (transient ischemic attack) Coronary artery disease involving kiowa tribe coronary artery of kiowa tribe heart without angina pectoris PSH: Past Surgical [...] o (more content not included)... [facility] 04-30-2022 Note PROCEDURE: XR HIP RT 2 3V WO PELVIS HISTORY: Bilateral hip joint pain COMPARISON: None. FINDINGS: BONES:No fracture, acute abnormality, or significant arthropathy. SOFT TISSUES:No visible soft tissue swelling. EFFUSION:None visible. OTHER: Negative. IMPRESSION: 1. No acute bone abnormality. 2. Minimal degenerative joint disease. Electronically authenticated by: AARON GILMORE Date: 2022-04-30 19:[address] [facility] 12-24-2020 Note MR#: [id number] [facility] Pt. Name: Kayli Hernandez Admitted: 12/22/2020 Discharged: [...] Fonseca MD Date Trans: 12/24/2020 11:58 A/nilesh [id number] cc: Matt Mcdufife M.D. [address] [place] [address] [facility] 02-17-2020 Note Chief Complaint consultation for [...] day(s), # 30 tab(s), Refills(s) 0, Pharmacy: [facility] [facility], 142, cm, 02/17/20 14:42:00 EDT, Height/Length Dosing, [...] day(s), # 30 tab(s), Refills(s) 0, Pharmacy: [email or web address] 142, cm, 02/17/20 14:42:00 [...] day(s), # 30 tab(s), Refills(s) 0, Pharmacy: [facility] 142, cm, 02/17/20 14:42:00 EDT, Height/Length Dosing, 83, kg, 02/17/20 14:42:00 EDT, Weight Dosing Basic Metabolic Panel CBC w/ Auto Diff Clostridium difficile by PCR Enteric Panel by PCR O & P Exam, Routine 4. Change in bowel habits (R19.4: Change in bowel habit) see # 1 5. BMI 40 (more content not included)... [facility] Comment on above: Result Comment: Elec tronically Signed By: EARNEST VILLANUEVA, Ho Bailey\Date and Time Signed: 02/17/20 17:23 EDT Evaluation note Diagnosis Type 2 diabetes mellitus with hyperglycemia, without long-term current use of insulin (CMS/[facility])- Primary Essential hypertension (CMS/[facility]) Unspecified essential hypertension ANMOL (generalized anxiety disorder) (CMS/[facility]) Generalized anxiety disorder Primary osteoarthritis of right knee Gastroesophageal reflux disease without esophagitis Esophageal reflux Obstructive sleep apnea Obstructive sleep apnea (adult) (pediatric) Breast cancer screening by mammogram Dyslipidemia (CMS/[facility]) Other and unspecified hyperlipidemia Medicare annual wellness visit, subsequent- Primary Type 2 diabetes mellitus with hyperglycemia, without long-term current use of insulin (CMS/[facility]) Type 2 diabetes mellitus with hyperglycemia, without long-term current use of insulin (CMS/HCC)- Primary Essential hypertension (CMS/HCC) Unspecified essential hypertension Type 2 diabetes mellitus with polyneuropathy ([facility]) Type II or unspecified type diabetes mellitus with neurological manifestations, not stated as uncontrolled ANMOL (generalized anxiety disorder) ([facility]) Generalized anxiety disorder Gastroesophageal reflux disease without esophagitis Esophageal reflux Morbid obesity due to excess calories ([facility]) Left-sided Reyes palsy- Primary Facial droop Facial [...] content) DATE CREATED AUTHOR 11/25/2017 [facility] [employer] DATE CREATED AUTHOR AUTHOR'S ORGANIZ ATION 11/26/2017 [facility] DATE CREATED AUTHOR AUTHOR'S ORGANIZ ATION 10/15/2020 [facility] DATE CREATED AUTHOR AUTHOR'S ORGANIZ ATION 01/05/2021 [facility] DATE CREATED AUTHOR AUTHOR'S ORGANIZ ATION 10/05/2022 [facility] DATE CREATED AUTHOR AUTHOR'S ORGANIZ ATION 08/29/2023 [facility] DATE CREATED AUTHOR AUTHOR'S ORGANIZ ATION 03/17/2024 [facility] [employer] Care Teams (unrecognized sec tion and content) [employer] Relationship Specialty Start Date End Date Matt Mcduffie MD [address] [place] [phone] PCP - General Family Medicine 07/08/23 [employer] Relationship Specialty Start Date End Date Matt Mcduffie MD [address] [place] [phone] PCP - General Family Medicine 07/08/23 Matt Mcduffie MD [address] [place] [address] PCP - [facility] 10/02/23 Reason for Visit (unrecogniz ed section and content) Reason Comments Follow-up [facility] FOLLOW UP. Possi ble bells palsy, FOR [...] BE BASED ON THE PRIMARY CLINICAL RECORDS. [facility] [employer] provides no warranty or guarantee of the accuracy or completeness of information in this document.
--- NOTE | 2024-03-27 07:34 | MR_ITS ---
The [address] [address] Patient Name: SEEMA HOOPER MRN: [id number] date: 1955 Sex: F Assigned Patient Location: MRI Current Patient Location: Accession/Order Number: [id number] Exam Date: 03/27/2024 07:40 Report Date: 03/29/2024 08:28 At the request of: SANDY MCDUFFIE Procedure: MR head/brain wo con EXAMINATION: MR head/brain wo con HISTORY: Left Sided Reyes Palsy, Facial Droop, Facial Paresthesia COMPARISON: No relevant comparison available. TECHNIQUE: A variety of imaging planes and parameters were utilized for visualization of suspected pathology. Images were performed without contrast. FINDINGS: CEREBRUM: Numerous foci of increased T2 signal within the periventricular and subcortical deep white matter bilaterally. Moderate parenchymal atrophy. No hemorrhage, mass, or acute infarction. CEREBELLUM: No edema, hemorrhage, mass, acute infarction, or inappropriate atrophy. BRAINSTEM: No edema, hemorrhage, mass, acute infarction, or inappropriate atrophy. CSF SPACES: Ventricles, cisterns, and sulci are appropriate for age. No hydrocephalus, subarachnoid hemorrhage, or mass. SKULL: No mass or other significant visible lesion. SINUSES: Limited views demonstrate no significant mucosal thickening or fluid. ORBITS: Limited views are unremarkable. OTHER: Negative. MR/MR head/brain wo con IMPRESSION: 1. No appreciable acute abnormality or specific findings to account for patient's symptoms. 2. Peripheral atrophy; age consistent to slightly advanced. 3. Numerous T2 hyperintensities within the periventricular and subcortical deep white matter; while this may represent chronic small vessel ischemic changes, demyelinating process such as multiple sclerosis could also give this appearance. Electronically authenticated by: CHOCO HANEY Date: 03/29/2024 08:28
== END 2024-03-27 07:31 | disposition home or self-care (01) ==
LOC: MRI 07:30
PROVIDERS: PCP Family Medicine; Visit Provider Family Medicine
DX: G51.0 Bell's palsy (principal); R20.2 Paresthesia of skin
CPT/HCPCS: 70551

== ENCOUNTER 2024-05-07 13:32 | Outpatient (OUT) | payer OTHER, SELFPAY ==
[2024-05-07 14:20] LABS: Anion Gap 14.2; BUN Creatinine Ratio 21.3; Carbon Dioxide 27.4 mmol/L (21.0-32.0); Chloride 104 mmol/L (98-107); Estimated GFR (African America >60 (>=60 mL/min/1.73m^2); Estimated GFR (Non-African Ame 60 (>=60 mL/min/1.73m^2); Glucose 103 mg/dL (74-106); Potassium 3.6 mmol/L (3.5-5.1); Sodium 142 mmol/L (136-145)
== END 2024-05-07 13:33 | disposition home or self-care (01) ==
LOC: LAB 13:32
PROVIDERS: PCP Family Medicine; Visit Provider Internal Medicine Interventional Cardiology
DX: I10 Essential (primary) hypertension (principal)
CPT/HCPCS: 36415; 80048

== ENCOUNTER 2024-08-20 11:41 | Outpatient (OUT) | payer MEDICARE, SELFPAY ==
--- OUTSIDE RECORDS SUMMARY | 2024-08-20 11:50 | XMS_ITS | CCD ---
Author Organization [facility] Care Team Providers Care Passenger Agent Name Role Phone EITAN CHILD Unavailable Unavailable EITAN CHILD Unavailable Unavailable STEWART, AARON Emerson Unavailable Unavailable EITAN CHILD Unavailable Unavailable NADERECeline, [...] NADERER, DR MATT Uribe Primary Care Unavailable EvelioebAaron rodgers Consulting Unavailable NADERER, DR MATT Uribe Attending Unavailable NADERER, DR MATT Uribe Primary Care Unavailable NADERER, DR MATT Uribe Admitting Unavailable NADERER, DR MATT Uribe Consulting Unavailable NADERER, DR MATT Uribe Primary Care Unavailable NADERER, DR MATT Uribe Attending Unavailable NADERER, DR MATT Uribe Consulting Unavailable NADERER, DR MATT Uribe Admitting Unavailable NADERER, DR MATT Uribe Primary Care Unavailable ELTAHAWY, DR KEYES Consulting Unavailable ELTAHAWY, DR KEYES Admitting Unavailable ELTAHAWY, DR KEYES Attending Unavailable THORNTON, DR ERICH Shaw Consulting Unavailable ELIUD, IVETTE Admitting Unavailable ELIUD, IVETTE Attending Unavailable NADERER, DR MATT Uribe Primary Care Unavailable ELIUD, IVETTE Consulting Unavailable Matt Mcduffie MD Primary Care Provider [phone] Matt Mcduffie MD Unavailable Luis A Leo MA Unavailable Unavailable NADERECeline, MATT Attending Unavailable NADERER, MATT Attending Unavailable NADERER, MATT Attending Unavailable NADERER, MATT Attending Unavailable NADERER, MATT Attending Unavailable ELTAHAWY, WALI Attending Unavailable ELTAHAWY, WALI Attending Unavailable JUANA ARENAS Attending Unavailable Allergies Allergy Classification Reported Allergen(s) Allergy Type Date of Onset Reaction(s) Facility (1 source) Adhesive bandage Drug allergy (disorder) [facility] (1 source) natural latex rubber Drug allergy (disorder) [facility] (19 sources) Latex Propensity to adverse reactions 1 [facility] Medications Current Medications Medication Drug Class(es) Dates Sig (Normalized) Sig (Original) ALPRAZolam 0.5 mg oral tablet (20 sources) Benzodiazepine Start: 05-07-2024 take 1 tablet by mouth three times daily as needed for anxiety ALPRAZolam (Xanax) 0.5 MG tablet Indications: ANMOL (generalized anxiety disorder) ([facility]) TAKE 1 TABLET BY MOUTH THREE TIMES DAILY NEEDED FOR ANXIETY 90 tablet 05/07/2024 Active Start: 01-24-2024 take 1 tablet by margarito three times daily as needed for anxiety ALPRAZolam (Xanax) 0.5 MG tablet Indications: ANMOL (generalized anxiety disorder) ([facility]) TAKE 1 TABLET BY MOUTH THREE TIMES DAILY NEEDED FOR ANXIETY 90 tablet 01/24/2024 Active Start: 11-01-2023 End: 05-07-2024 take 1 tablet by mouth three times daily as needed for anxiety ALPRAZolam (Xanax) 0.5 MG tablet Indications: ANMOL (generalized anxiety disorder) (CMS/HCC) TAKE 1 TABLET BY MOUTH THREE TIMES DAILY NEEDED FOR ANXIETY 90 tablet 05/07/2024 Active Start: 04-30-2023 take 1 tablet by margarito th three times daily as needed for anxiety ALPRAZolam (Niravam) 0.5 MG disintegrating tablet Indications: ANMOL (generalized anxiety disorder) (CMS/HCC) Take 1 tablet (0.5 mg) by mouth 3 (three) times a day as needed for anxiety. 90 tablet 0 04/30/2023 Active amLODIPine 5 mg oral tablet (20 sources) Dihydropyridine Calcium Channel Coreen Start: 02-19-2024 End: 05-11-2024 take 1 tablet by mouth once daily amLODIPine (Norvasc) 5 MG tablet Indications: Essential hypertension (CMS/HCC) Take 1 tablet (5 mg) by mouth Daily 30 tablet 5 05/11/2024 Active take 1 tablet by mouth in the mo rning amLODIPine (Norvasc) 5 MG tablet Take 5 mg by mouth in the morning. Active aspirin 81 mg delayed release oral tablet (20 sources) Platelet Aggregation Inhibitor, Nonsteroidal Anti-inflammatory Drug Start: 03-16-2024 take 4 tablets by mouth once daily aspirin 81 MG EC tablet Take 4 tablets (325 mg) by mouth Daily 03/16/2024 Active Start: 03-15-2024 take 1 tablet by margarito th once daily aspirin 325 MG tablet Take 325 mg by mouth Daily 03/15/2024 Active End: 03-16-2024 take 1 tablet by mouth in the morning aspirin 81 MG EC tablet Take 81 mg by mouth in the morning. 03/16/2024 Discontinued (Dose adjustment) atorvastatin 80 mg oral tablet (19 sources) HMG-CoA Reductase Inhibitor take 1 tablet by mouth in the morning atorvastatin (Lipitor) 80 MG tablet Take 80 mg by mouth in the morning and 80 mg before bedtime. Active benzonatate 200 mg oral capsule (8 sources) Non-narcotic Antitussive Start: take 1 capsule by mouth three times daily as needed for cough benzonatate (Tessalon) 200 MG capsule Indications: Upper respiratory tract infection, unspecified type Take 1 capsule (200 mg) by mouth 3 (three) times a day as needed for cough Do not crush or chew. 30 capsule 2 02/05/2024 Active Start: 11-18-2023 End: 01-22-2024 take 1 capsule by mouth three times daily as needed for cough benzonatate (Tessalon) 200 MG capsule Indications: Upper respiratory tract infection, unspecified type Take 1 capsule (200 mg) by mouth 3 (three) times a day as needed for cough Do not crush or chew. 30 capsule 2 11/18/2023 01/22/2024 Discontinued Blood Glucose Monitoring Sup pl (FreeStyle InsuLinx System) w/Device kit (19 sources) Blood Glucose Mo nitoring Suppl (FreeStyle InsuLinx System) w/Device kit Active Blood Glucose Mo nitoring Suppl (FreeStyle InsuLinx System) w/Device kit carvedilol 25 mg oral tablet (20 sources) alpha-Adrenergic Coreen, beta-Adrenergic Coreen Start: 12-24-2023 take 1 tablet by mouth in the morning carvedilol (Coreg) 25 MG tablet Take 25 mg by mouth in the morning and 25 mg in the evening. Take with meals. 12/24/2023 Active End: 01-22-2024 take 1 tablet by mouth in the morning carvedilol (Coreg) 12.5 MG tablet Take 12.5 mg by mouth in the morning and 12.5 mg in the evening. Take with meals. 01/22/2024 Discontinued cefdinir 300 mg oral capsule (1 source) Cephalosporin Antibacterial Start: 05-14-2023 take 1 capsule by mouth twice daily cefdinir (Omnicef) 300 MG capsule Indications: Acute upper respiratory infection, unspecified TAKE 1 CAPSULE BY MOUTH TWICE DAILY 20 capsule 0 05/14/2023 Active cholecalciferol 0.05 mg oral tablet (19 sources) Vitamin D take 1 tablet by mouth in the morning cholecalciferol (Vitamin D-3) 50 MCG (1999 UT) tablet Take 2,000 Units by mouth in the morning. Active clopidogrel 75 mg oral tablet (19 sources) P2Y12 Platelet Inhibitor Start: 12-16-2023 take 1 tablet by mouth once daily clopidogrel (Plavix) 75 MG tablet Indications: Atherosclerotic heart disease of [place] coronary artery without angina pectoris (CMS/HCC) TAKE 1 TABLET BY MOUTH DAILY 90 tablet 3 12/16/2023 Active take 1 tablet by mouth in the mo rning clopidogrel (Plavix) 75 MG tablet Take 75 mg by mouth in the morning. 0 Active Comirnaty 30 MCG/0.3ML suspension prefilled syringe (8 sources) Start: 02-27-2024 Comirnaty 30 MCG/0.3ML suspension prefilled syringe 02/27/2024 Active glipiZIDE 10 mg oral tablet (19 sources) Sulfonylurea Start: 12-16-2023 take 1 tablet by mouth once daily glipiZIDE (Glucotrol) 10 MG tablet Indications: Type 2 diabetes mellitus with hyperglycemia (CMS/HCC) TAKE 1 TABLET BY MOUTH DAILY 30 tablet 5 12/16/2023 Active Start: 06-26-2023 take 1 tablet by margarito once daily glipiZIDE (Glucotrol) 10 MG tablet Indications: Type 2 diabetes mellitus with hyperglycemia (CMS/HCC) TAKE 1 TABLET BY MOUTH DAILY 30 tablet 06/26/2023 Active hydroCHLOROthiazide 25 mg oral tablet (8 sources) Thiazide Diuretic Start: 04-15-2024 End: 04-15-2025 take 1 tablet by mouth in the morning hydroCHLOROthiazide (HYDRODiuril) 25 MG tablet Take 25 mg by mouth in the morning. 04/15/2024 04/15/2025 Active 24 hr isosorbide mononitrate 30 mg extended release oral tablet (18 sources) Nitrate Vasodilator take 1 tablet by mouth in the morning, then take 1 tablet by mouth every twenty-four hours isosorbide mononitrate ER (Imdur) 30 MG 24 hr tablet Take 30 mg by mouth in the morning. Active losartan potassium 50 mg oral tablet (19 sources) Angiotensin 2 Receptor Coreen Start: 09-26-2023 End: 2024 take 1 tablet by mouth once daily losartan (Cozaar) 50 MG tablet Indications: Essential hypertension (CMS/HCC) Take 1 tablet (50 mg) by mouth Daily 30 tablet 09/26/2023 2024 Active take 1 tablet by mouth in the mo rning losartan (Cozaar) 50 MG tablet Take 50 mg by mouth in the morning. 0 Active meloxicam 15 mg oral tablet (11 sources) Nonsteroidal Anti-inflammatory Drug Start: 09-26-2023 End: 2024 take 1 tablet by mouth once daily meloxicam (Mobic) 15 MG tablet Indications: Bilateral primary osteoarthritis of hip Take 1 tablet (15 mg) by mouth Daily 30 tablet 11 09/26/2023 03/16/2024 Discontinued take 1 tablet by mouth in the mo rning meloxicam (Mobic) 15 MG tablet Take 15 mg by mouth in the morning. 0 Active methocarbamol 750 mg oral tablet (11 sources) Muscle Relaxant take 1 tablet by mouth in the morning, then take 1 tablet by mouth in the evening, then take 1 tablet by mouth at bedtime methocarbamol (Robaxin) 750 MG tablet Take 750 mg by mouth in the morning and 750 mg in the evening and 750 mg before bedtime. Active omeprazole 40 mg delayed release oral capsule (11 sources) Proton Pump Inhibitor Start: 09-26-19 End: [...] 6 days 6 tablet 03/16/2024 03/22/2024 Active pregabalin 75 mg oral capsule (3 sources) Start: 05-20-2024 take 1 capsule by mouth in the morning pregabalin (Lyrica) 75 MG capsule Indications: Type 2 diabetes mellitus with polyneuropathy (CMS/HCC) Take 1 capsule (75 mg) by mouth in the morning and 1 capsule (75 mg) before bedtime. 60 capsule 2 05/20/2024 Active 0.25 mg, 0.5 mg dose 1.5 ml semaglutide 1.34 mg/ml pen injector (2 sources) Start: 05-07-2024 semaglutide (O zempic, 0.25 or 0.5 MG/DOSE,) 2 MG/1.5ML solution pen-injector Indications: Type 2 diabetes mellitus with hyperglycemia, without long-term current use of insulin ([facility]) 0.25 mg SC weekly x 4 weeks, then 0.5 mg weekly 1 each 3 05/07/2024 Active semaglutide (Ozempic, 1 MG/DOSE,) 4 MG/3ML solution pen-injector (4 sources) End: 01-22-2024 inject 1 mg by subcutaneous injection every week semaglutide (Ozempic, 1 MG/DOSE,) 4 MG/3ML solution pen-injector Inject 1 mg under the skin 1 (one) time per week 01/22/2024 Discontinued inject 1 mg by subcu taneous injection every week semaglutide (Ozempic, 1 MG/DOSE,) 4 MG/3ML solution pen-injector Inject 1 mg under the skin 1 (one) time per week Active inject 1 mg by subcu taneous injection every week semaglutide (Ozempic, 1 MG/DOSE,) 4 MG/3ML solution pen-injector Inject 1 mg under the skin 1 (one) time per week 0 Active Semaglutide,0.25 or 0.5MG/DOS, (Ozempic, 0.25 or 0.5 MG/DOSE,) 2 MG/3ML solution pen-injector (1 source) Start: 06-11-2024 Semaglutide,0.25 or 0.5MG/DOS, (Ozempic, 0.25 or 0.5 MG/DOSE,) 2 MG/3ML solution pen-injector Indications: Type 2 diabetes mellitus with hyperglycemia, without long-term current use of insulin ([facility]) Inject 0.5 mg under the skin 1 (one) time per week 3 mL 5 06/11/2024 Active valACYclovir 1000 mg oral tablet (13 sources) Herpesvirus Nucleoside Analog DNA Polymerase Inhibitor, [...] every 8 (eight) hours 03/16/2024 Discontinued (Reorder) Completed/Discontinued Medications Medication Drug Class(es) Dates Sig (Normalized) Sig (Original) gabapentin 300 mg oral capsule (12 sources) Anti-epileptic Agent Start: 04-02-2024 End: 05-20-2024 take 1 capsule by mouth in the morning, then take 1 capsule by mouth in the evening, then take 1 capsule by mouth at bedtime gabapentin (Neurontin) 300 MG capsule Indications: Type 2 diabetes mellitus with polyneuropathy (CMS/HCC) Take 1 capsule (300 mg) by mouth in the morning and 1 capsule (300 mg) in the evening and 1 capsule (300 mg) before bedtime. 90 capsule 2 05/11/2024 05/20/2024 Discontinued Start: 02-19-2024 take 1 capsule by mo uth once at bedtime gabapentin (Neurontin) 100 MG capsule Indications: Type 2 diabetes mellitus with polyneuropathy (CMS/HCC) 1 PO at bedtime on day #1, then 1 PO BID on day #2, then 1 PO TID 90 capsule 2 02/19/2024 Active Ozempic, 0.25 or 0.5 MG/DOSE, 2 MG/3ML solution pen-injector (4 sources) Start: 05-13-2024 End: 06-10-2024 inject 0.25 mg by subcutaneous injection every week, then inject 0.5 mg by subcutaneous injection every week Ozempic, 0.25 or 0.5 MG/DOSE, 2 MG/3ML solution pen-injector Indications: Type 2 diabetes mellitus with hyperglycemia, without long-term current use of insulin (CMS/HCC) INJECT 0.25mg SUBCUTANEOUSLY (UNDER THE SKIN) ONCE A WEEK for FOUR weeks, then INJECT 0.5mg SUBCUTANEOUSLY (UNDER THE SKIN) weekly thereafter 3 mL 05/13/2024 06/10/2024 Discontinued (Reorder) Start: 05-13-2024 inject 0.25 mg by pratt bcutaneous injection every week, then inject 0.5 mg by subcutaneous injection every week Ozempic, 0.25 or 0.5 MG/DOSE, 2 MG/3ML solution pen-injector Indications: Type 2 diabetes mellitus with hyperglycemia, without long-term current use of insulin (CMS/[facility]) INJECT 0.25mg SUBCUTANEOUSLY (UNDER THE SKIN) ONCE A WEEK for FOUR weeks, then INJECT 0.5mg SUBCUTANEOUSLY (UNDER THE SKIN) weekly thereafter 3 mL 05/13/2024 Active Problems Active Problems Problem Classification Problem Date Documented Date Episodic/Chronic Anxiety disorders (20 sources) Generalized anxiety disorder; 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: [Generalized anxiety disorder] Onset: 07-11-2023 07-11-2023 Chronic Coronary atherosclerosis and other heart disease (20 sources) Atherosclerotic heart disease of [place] coronary artery without angina pectoris; 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: [Coronary arteriosclerosis] Onset: 05-17-2022 07-11-2023 Chronic Diabetes mellitus with complications (20 sources) Type 2 diabetes mellitus with hyperglycemia; 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: [Type 2 diabetes mellitus] Onset: 10-01-2022 Chronic Diabetes mellitus without complication (2 sources) Type 2 diabetes mellitus without complications; 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: [Type 2 diabetes mellitus without complications] Onset: 01-03-2017 Chronic Disorders of lipid metabolism (20 sources) Hyperlipidemia, unspecified; 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: [Dyslipidemia] Onset: 03-16-2016 07-11-2023 Chronic Disorders of teeth and jaw (4 sources) Jaw pain; 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: [JAW PAIN] Onset: 08-02-2022 Episodic Esophageal disorders (20 sources) Gastroesophageal reflux disease without esophagitis; 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: [Gastro-esophageal reflux disease without esophagitis] Onset: 07-11-2023 07-11-2023 Chronic Essential hypertension (20 sources) Essential (primary) hypertension; 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: [Essential hypertension] Onset: 05-04-2019 07-11-2023 Chronic Nutritional deficiencies (19 sources) Vitamin D deficiency; 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: [Vitamin D deficiency, unspecified] Onset: 07-11-2023 07-11-2023 Chronic Osteoarthritis (20 sources) Primary osteoarthritis, left hand; 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: [Primary osteoarthritis, right hand] Onset: 05-05-2022 07-11-2023 Chronic Other nervous system disorders (4 sources) Aphasia; 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: [APHASIA] Onset: 06-07-2022 Chronic Other nervous system disorders (14 sources) 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; 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] Onset: 03-16-2024 03-16-2024 Episodic Other nervous system disorders (14 sources) Facial paresthesia; 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: [Paresthesia of skin] Onset: 03-16-2024 03-16-2024 Episodic Other nutritional; endocrine; and metabolic disorders (19 sources) Morbid obesity; 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: [Morbid (severe) obesity due to excess calories] Onset: 07-11-2023 07-11-2023 Chronic Other nutritional; endocrine; and metabolic disorders (3 sources) Severe obesity; 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: [Class 3 severe obesity due to excess calories with serious comorbidity and body mass index (BMI) of 40.0 to 44.9 in adult] Onset: 07-11-2023 05-20-2024 Chronic Other screening for suspected conditions (not mental disorders or infectious disease) (8 sources) Encounter for screening mammogram for malignant neoplasm of breast; 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: [Encounter for screening, unspecified] Onset: 05-16-2022 Episodic Other upper respiratory disease (19 sources) Allergic rhinitis due to pollen; 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: [Allergic rhinitis due to pollen] Onset: 07-11-2023 07-11-2023 Chronic Residual codes; unclassified (19 sources) Obstructive sleep apnea syndrome; 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: [Obstructive sleep apnea (adult) (pediatric)] Onset: 05-04-2019 07-11-2023 Chronic Unclassified (1 source) LOW BACK PAIN, UNSPECIFIED; 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: [LOW BACK PAIN, UNSPECIFIED] Onset: 05-05-2022 Past or Other Problems Problem Classification Problem Date Documented Da te Episodic/Chronic Mood disorders (17 sources) Mood disorders Onset: 01-22-2024 01-22-2024 Other 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 source) meterman (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; 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: [PRISON CURRENT USE OF INSULIN] Onset: 07-04-2022 Episodic Other aftercare (6 sources) Patient encounter status; 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: [Other correction (current) drug therapy] Onset: 07-11-2023 07-11-2023 Episodic Other 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3 sources) Long-term current use of drug therapy; 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: [Other correction (current) drug therapy] Onset: 07-11-2023 07-11-2023 Episodic Other connective tissue disease (2 sources) Lateral epicondylitis, right elbow; 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: [Lateral epicondylitis, right elbow] Onset: 04-17-2017 Episodic Other connective tissue disease (4 sources) Pain in right hand; 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: [PAIN IN RIGHT HAND] Onset: 04-30-2022 Episodic Other connective tissue disease (1 source) Pain in left hand; 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: [PAIN IN LEFT HAND] Onset: 05-05-2022 Episodic Other connective tissue disease (14 sources) Weakness of face muscles; 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: [Facial weakness] Onset: 03-16-2024 Resolved: 05-20-2024 03-16-2024 Episodic Other non-traumatic joint disorders (1 source) [...] Test Name Value Interpretation Reference Range Facility 37on 08-13-2024 37 *Recommend she take plavix 75mg daily along with ASA 81mg daily for her coronary artery disease. Her last cath showed heavy plaque burden. Normal [facility] Office Visiton 08-13-2024 Follow-up visit [id number] Kayli Hernandez 1955 F Date Provider Department Center 08/13/2024 Shan-JUANA ARENAS Family History Problem Relation Age of Onset Stroke Mother Heart attack Father Hypertension Father Diabetes type II Brother Heart disease Brother Family Status - Relation Status Age at Mother Father Brother Level of Service:44441 OK OFFICE/OUTPATIENT ESTABLISHED MOD MDM 30 MIN Reason for Visit and Comments: Coronary Artery Disease [187] Hypertension [988991] Hyperlipidemia [182] Normal [facility] ALL BASIC METABOLIC PANELon 05-07-2024 Anion gap [Moles/Vol] 14.2 mmol/L [facility] Calcium [Mass/Vol] 9 mg/dL 8.5 - 10. 1 mg/dL [facility] Chloride [Moles/Vol] 104 mmol/L 98 - 10 7 mmol/L [facility] CO2 [Moles/Vol] 27.4 mmol/L 21.0 - 32.0 mmol/L [facility] Creatinine [Mass/Vol] 0.94 mg/dL 0.55 - 1.02 mg/dL [facility] GFR/1.73 sq M.predicted CKD-EPI (S/P/Bld) [Vol rate/Area] >60 >=60 mL/min/1.73m 2 [facility] Glucose [Mass/Vol] 103 mg/dL 74 - 106 mg/dL [facility] Interpretation and review of laboratory results Abnormal [facility] Potassium [Moles/Vol] 3.6 mmol/L 3.5 - 5.1 mmol/L [facility] Sodium [Moles/Vol] 142 mmol/L 136 - 145 mmol/L [facility] TBH EGFR-NON AF [facility] 60 >=60 mL/min/1.73m 2 [facility] Urea nitrogen [Mass/Vol] 20 mg/dL High 7.0 - 18.0 mg/dL [facility] Urea nitrogen/Creatinine [Mass ratio] 21.3 mg/mg [facility] Office Visiton 04-15-2024 Follow-up visit [id number] Kayli Hernandez 1955 [facility] Provider Department [facility]20[facility] Malin Family History Problem Relation Age of Onset Stroke Mother Heart attack Father Hypertension Father Diabetes type II Brother Heart disease Brother Family Status - Relation Status Age at Mother Father Brother Level of Service:56402 OK OFFICE/OUTPATIENT ESTABLISHED MOD MDM 30 MIN Normal [facility] MLR HEMOGLOBIN A1Con 024 Glucose [Mass/Vol] 126 mg/dL [facility] HbA1c (Bld) [Mass fraction] 6.0 % 4.5 - 6.2 % [facility] Comment on above: ADA RECOMMENDED LIMI T 4.0 - 6.0 ADA THERAPEUTIC TARGET < 7.0 ACTION SUGGESTED > 7.0 [facility] 08-28-2023 Follow-up visit [id number] Kayli Hernandez 1955 [facility] Provider Department Center 08/28/2023 [facility] Family History Problem Relation Age of Onset Stroke Mother Heart attack Father Hypertension Father Diabetes type II Brother Heart disease Brother Family Status - Relation Status Age at Mother Father Brother Level of Service:21541 OK OFFICE/OUTPATIENT ESTABLISHED LOW MDM 20 MIN Normal [facility] MICROALBUMIN, RAND URon 07-17-2023 MICROALBUMIN URINE RANDOM 1.3 mg/dL NINF - 30.0 mg/dL [facility] GLYCOHEMOGLOBIN A1Con 2022 ADA RECOMMENDATION SEE BELOW Normal [facility] Comment on above: Result Comment: ADA RECOMMENDED LIMIT 4.0 - 6.0 ADA THERAPEUTIC TARGET < 7.0 ACTION SUGGESTED > 7.0 Performed By: #### A 1C #### [facility] [address] [address] [address] Radha Willis Glucose [Mass/Vol] 163 mg/dL Normal [facility] Comment on above: Performed By: #### A 1C #### [facility] [address] [address] [address] Radha Willis HbA1c (Bld) [Mass fraction] 7.3 % Critically high 4.5-6.2 [facility] Comment on above: Performed By: #### A 1C #### [facility] [address] [address] [address] Radha Willis NM STRESS/REST MULTIon 08-02 NM STRESS/REST MULTI Patient: KAYLI HERNANDEZ Exam Date: 08/02/2022 : 1955 Gender:F Ordering : IVETTE KLINE Admission #: [id number] Family : Order #: [id number] CLICK HERE TO VIEW EXAM RADIOLOGY REPORT [...] 2. Normal exercise test Dictated by: Erich Woodrfuf MD on 08/03/2022 at 11:53 Approved by: Erich Woodruff MD on 08/03/2022 at 11:55 Normal [facility] MAMM SCREEN 3D ALEE CADon 07-31-2022 MG MAMM SCREEN 3D ALEE CAD Patient: KAYLI HERNANDEZ Exam Date: 07/31/2022 : 1955 Gender:F Ordering : DR MATT MCDUFFIE . Admission #: [id number] Family : Order #: [id number] CLICK HERE TO VIEW EXAM RADIOLOGY REPORT PROCEDURE: MAMMOGRAM SCREENING 3D BILATERAL CAD COMPARISON: MAMM ALEE SCRN W CAD DIG, 09/24/2016. MAMM SCREEN ALEE W CAD, 04/22/2019. INDICATIONS: Screening mammography Calculator Name NCI Breast Cancer Risk Assessment Tool 5 Year Breast Cancer Risk Not Reported. Lifetime Breast Cancer Risk Not Reported. Personal Breast Cancer No Personal Ovarian Cancer No Treatments None Family Cancers None LOCATION: [facility] BREAST COMPOSITION: Heterogeneously dense,which may obscure small [...] MD on 07/31/2022 at 14:12 Normal [facility] GLYCOHEMOGLOBIN A1Con 2022 ADA RECOMMENDATION SEE BELOW Normal [facility] Comment on above: Result Comment: ADA RECOMMENDED LIMIT 4.0 - 6.0 ADA THERAPEUTIC TARGET < 7.0 ACTION SUGGESTED > 7.0 Performed By: #### A 1C #### [facility] [address] [place] [address] Dr. Radha Willis Glucose [Mass/Vol] 151 mg/dL Normal [facility] Comment on above: Performed By: #### A 1C #### [facility] [address] [place] [address] Dr. Radha Willis HbA1c (Bld) [Mass fraction] 6.9 % Critically high 4.5-6.2 [facility] Comment on above: Performed By: #### A 1C #### [facility] [address] [place] [address] Dr. Radha Willis MRI BRAIN WO W [...] ERICH WOODRUFF Date: 2022-06-07 14:46 Normal [facility] PROF 14(COMP METB)on 022 Albumin [Mass/Vol] 3.3 g/dL Critically low 3.4-5.0 e [facility] Comment on above: Performed By: #### A 1C #### [facility] [address] [place] [address] Dr. Radha Willis Albumin/Globulin [Mass ratio] 0.8 {ratio} Normal [facility] Comment on above: Performed By: #### A 1C #### [facility] [address] [address] [address] Radha Willis ALP [Catalytic activity/Vol] 211 U/L Critically high 46-116 [facility] Comment on above: Performed By: #### A 1C #### [facility] [address] [address] [address] Radha Willis ALT [Catalytic activity/Vol] 25 U/L Normal 14-59 [facility] Comment on above: Performed By: #### A 1C #### [facility] [address] [place] [address] Dr. Radha Willis Anion gap [Moles/Vol] 12.3 mmol/L Normal [facility] Comment on above: Performed By: #### A 1C #### [facility] [address] [place] [address] Dr. Radha Willis AST [Catalytic activity/Vol] 17 U/L Normal 15-37 [facility] Comment on above: Performed By: #### A 1C #### [facility] [address] [place] [address] Dr. Radha Willis Bilirubin [Mass/Vol] 0.3 mg/dL Normal 0.2-1.0 [facility] Comment on above: Performed By: #### A 1C #### [facility] [address] [place] [address] Dr. Radha Willis Calcium [Mass/Vol] 9.2 mg/dL Normal 8.5-10.1 [facility] Comment on above: Performed By: #### A 1C #### [facility] [address] [place] [address] Dr. Radha Willis Chloride [Moles/Vol] 104 mmol/L Normal 98-107 [facility] Comment on above: Performed By: #### A 1C #### [facility] [address] [place] [address] Dr. Radha Willis CO2 [Moles/Vol] 28.6 mmol/L Normal 21.0-32.0 [facility] Comment on above: Performed By: #### A 1C #### [facility] [address] [address] [address] Radha Willis Creatinine [Mass/Vol] 0.78 mg/dL Normal 0.55-1.02 [facility] Comment on above: Performed By: #### A 1C #### [facility] [address] [address] [address] Radha Willis EGFR-AF [facility] >60 Normal >=60 [facility] [place] Comment on above: Performed By: #### A 1C #### [facility] [address] [address] [address] Radha Willis EGFR-NON AF [facility] >60 Normal >=60 [facility] Comment on above: Performed By: #### A 1C #### [facility] [address] [place] [address] Dr. Radha Willis Globulin (S) [Mass/Vol] 4.4 g/dL Normal [facility] Comment on above: Performed By: #### A 1C #### [facility] [address] [place] [address] Dr. Radha Willis Glucose [Mass/Vol] 50 mg/dL Critically low 74-106 [facility] Comment on above: Performed By: #### A 1C #### [facility] [address] [place] [address] Dr. Rdaha Willis Potassium [Moles/Vol] 3.9 mmol/L Normal 3.5-5.1 [facility] Comment on above: Performed By: #### A 1C #### [facility] [address] [place] [address] Dr. Radha Willis Protein [Mass/Vol] 7.7 g/dL Normal 6.4-8.2 [facility] Comment on above: Performed By: #### A 1C #### [facility] [address] [place] [address] Dr. Radha Willis Sodium [Moles/Vol] 141 mmol/L Normal 136-145 [facility] Comment on above: Performed By: #### A 1C #### [facility] [address] [place] [address] Dr. Radha Willis Urea nitrogen [Mass/Vol] 12.0 mg/dL Normal 7.0-18.0 [facility] Comment on above: Performed By: #### A 1C #### [facility] [address] [address] [address] Radha Willis Urea nitrogen/Creatinine [Mass ratio] 15.4 mg/mg Normal [facility] Comment on above: Performed By: #### A 1C #### [facility] [address] [address] [address] Radha Willis XR HAND ALEE MIN [...] by: AARON GILMORE Date: 2022-04-30 19:39 Normal [facility] XR LSPINE 2_3 VIEWSon 2021 XR [...] by: AARON GILMORE Date: 2022-04-30 19:45 Normal [facility] XR WRIST ALEE MIN 3 Von [...] by: AARON GILMORE Date: 2022-04-30 19:42 Normal [facility] GLYCOHEMOGLOBIN A1Con 2021 ADA RECOMMENDATION SEE BELOW Normal [facility] Comment on above: Result Comment: ADA RECOMMENDED LIMIT 4.0 - 6.0 ADA THERAPEUTIC TARGET < 7.0 ACTION SUGGESTED > 7.0 Performed By: #### A 1C #### [facility] [address] [address] [address] Radha Willis Glucose [Mass/Vol] 140 mg/dL Normal [facility] Comment on above: Performed By: #### A 1C #### [facility] [address] [address] [address] Radha Willis HbA1c (Bld) [Mass fraction] 6.5 % Critically high 4.5-6.2 [facility] Comment on above: Performed By: #### A 1C #### [facility] [address] [address] [address] Radha Willis ECHOCARDIO M/2D COMPLETEon 0 02-14-2022 ECHOCARDIO M/2D COMPLETE Patient: KAYLI HERNANDEZ Exam Date: 02/14/2022 : 1955 Gender:F Ordering : DR WALI QUIÑONES M.D. Admission #: [id number] Family : Order #: [id number] CLICK HERE TO VIEW EXAM ECHOCARDIOGRAM REPORT [...] Kohli M.D. on 02/16/2022 at 18:58 Normal [facility] CREATININE BLOODon 1 Creatinine [Mass/Vol] 0.78 mg/dL Normal 0.60-1.20 [facility] Comment on above: Order Comment: No: D o not add to previous draw Performed By: #### 2 5656 #### [facility] [address] [place] [address], [place] GFR/1.73 sq M.predicted among blacks MDRD (S/P/Bld) [Vol rate/Area] mL/min/{1.73_m2} Normal >60 [facility] Comment on above: Order Comment: No: D o not add to previous draw Performed By: #### 2 5656 #### [facility] [address] [place] [address], [place] GFR/1.73 sq M.predicted among non-blacks MDRD (S/P/Bld) [Vol rate/Area] mL/min/{1.73_m2} Normal >60 [facility] Comment on above: Order Comment: No: D o not add to previous draw Performed By: #### 2 5656 #### [facility] [address] [place] [address], [facility] HEMATOCRITon 12-24-2020 Hematocrit (Bld) [Volume fraction] 34.8 % Low 36.0-45.0 [facility] Comment on above: Order Comment: No: D o not add to previous draw Performed By: #### 9 2088, 48493 #### [facility] [address] [place] [address], [facility] HEMOGLOBINon 12-24-2020 Hemoglobin (Bld) [Mass/Vol] 11.1 g/dL Low 12.0-15.0 [facility] Comment on above: Order Comment: No: D o not add to previous draw Performed By: #### 9 2088, 31920 #### [facility] [address] [place] [address], [facility] POC GLUCOSE LABon 12-24-2020 Glucose [Mass/Vol] 135 mg/dL High 70-100 [facility] Comment on above: Performed By: #### 8 5499 #### [facility] [address] CBC COMPLETE BLOOD COUNTon 0 12-23-2020 Erythrocyte distribution width (RBC) [Ratio] 13.5 % Normal 11.5-15.0 [facility] Comment on above: Order Comment: No: D o not add to previous draw Performed By: #### 5 0608 #### [facility] [address] [facility] [address], [facility] Hematocrit (Bld) [Volume fraction] 36.2 % Normal 36.0-45.0 [facility] Comment on above: Order Comment: No: D o not add to previous draw Performed By: #### 5 0608 #### [facility] [address] Hemoglobin (Bld) [Mass/Vol] 11.4 g/dL Low 12.0-15.0 [facility] Comment on above: Order Comment: No: D o not add to previous draw Performed By: #### 5 0608 #### [facility] [address] [place] [address], [facility] MCH (RBC) [Entitic mass] 26.5 pg Low 27.0-33.0 [facility] Comment on above: Order Comment: No: D o not add to previous draw Performed By: #### 5 0608 #### [facility] [address] [place] [address], [facility] MCHC (RBC) [Mass/Vol] 31.5 g/dL Low 32.0-35.0 [facility] Comment on above: Order Comment: No: D o not add to previous draw Performed By: #### 5 0608 #### [facility] [address] [place] [address], [facility] MCV (RBC) [Entitic vol] 84.2 fL Normal 82.0-98.0 [facility] Comment on above: Order Comment: No: D o not add to previous draw Performed By: #### 5 0608 #### [facility] [address] [place] [address], [facility] Nucleated RBC/100 WBC (Bld) [Ratio] 0 % Normal 0-0 [facility] Comment on above: Order Comment: No: D o not add to previous draw Performed By: #### 5 0608 #### [facility] [address] [place] [address], [facility] PLAT CNT 248 10*3/uL Normal 150-400 [facility] Comment on above: Order Comment: No: D o not add to previous draw Performed By: #### 5 0608 #### [facility] [address] [facility] [place] [address], [facility] RBC (Bld) [#/Vol] 4.30 10*6/uL Normal 3.80-5.00 [facility] Comment on above: Order Comment: No: D o not add to previous draw Performed By: #### 5 0608 #### [facility] [address] [facility] [place] [address], [facility] WBC (Bld) [#/Vol] 6.43 10*3/uL Normal 4.00-10.60 [facility] Comment on above: Order Comment: No: D o not add to previous draw Performed By: #### 5 0608 #### [facility] [address] [facility] [place] [address], [facility] CREATININE BLOODon 1 Creatinine [Mass/Vol] 0.70 mg/dL Normal 0.60-1.20 [facility] Comment on above: Order Comment: No: D o not add to previous draw Performed By: #### 2 5656 #### [facility] [address] [facility] [place] [address], [facility] GFR/1.73 sq M.predicted among blacks MDRD (S/P/Bld) [Vol rate/Area] mL/min/{1.73_m2} Normal >60 [facility] Comment on above: Order Comment: No: D o not add to previous draw Performed By: #### 2 5656 #### [facility] [address] GFR/1.73 sq M.predicted among non-blacks MDRD (S/P/Bld) [Vol rate/Area] mL/min/{1.73_m2} Normal >60 [facility] Comment on above: Order Comment: No: D o not add to previous draw Performed By: #### 2 5656 #### [facility] [address] Cardiovascular Lab Reporton 12-23-2020 Cardiovascular Lab Report [facility]: [id number] Physician: Devon Medrano of [facility] Medicine Service Date: 12/23/2020 Division of Birthdate: 1955 Cardiology Room #: [id number] Adult [facility] [address] [place] [address] Cardiovascular Laboratory Report INDICATION: The patient is [...] the informed consent. She was brought to filling station laborer in a fasting state. The right groin area was prepped and draped in usual fashion. Micropuncture technique and ultrasound guidance was used for access in the right common femoral artery. The inner cannula angiography was performed followed by upsizing to a 6-Faroese x 11 cm sheath. Heparin was given intravenously and therapeutic ECT confirmed during the rest of the procedure. A 6-Faroese JR4 guiding catheter was advanced and used to engage the right coronary ostium, however, this could not engage the right coronary ostium at all, therefore after multiple attempts we exchanged to a 6-Faroese AR1 guiding catheter, which was initially able [...] Kohli M.D. Date Trans: 12/23/2020 11:13 A/nilesh [id number] cc: Matt Mcduffie M.D. [address] [facility] [address] Normal [facility] Cardiovascular Lab Report [facility] Patient Name: [facility] MR #: [id number] Physician: Devon Medrano of [facility] Service Date: 12/22/2020 Division of Birthdate: 1955 Cardiology Room #: [id number] Adult Cardiovascular Services [place] [address] Cardiovascular Laboratory Report INDICATION: The patient is [...] the informed consent. She was brought to filling station laborer in a fasting state. The left wrist area was prepped and draped in usual fashion. Modified Neil's test was favorable. Access in the left radial artery was obtained using micropuncture technique. A 5-Faroese x 11 cm slender sheath was advanced. Verapamil was given through the sheath and heparin was administered intravenously. Initial catheter advancement was made feasible using an angled Glidewire. Bilateral selective coronary angiography was then performed using a 5-Faroese JL3.5 catheter for engagement of the left coronary artery and a 5-Faroese JR5 diagnostic catheter for engagement of the [...] mid LAD has an 80% stenosis. The hxi-lh-mesduj LAD is a very small caliber and [...] Kohli M.D. Date Trans: 12/23/2020 05:26 A/nilesh [id number] cc: Matt Mcduffie M.D. [address] [facility] [address] Normal [facility] POC GLUCOSE LABon 12-23-2020 Glucose [Mass/Vol] 170 mg/dL High 70-100 [facility] Comment on above: Performed By: #### 8 5499 #### [facility] [address] [facility] [place] [address], [place] Glucose [Mass/Vol] 119 mg/dL High 70-100 [facility] Comment on above: Performed By: #### 8 5499 #### [facility] [address] [place] [address], [place] Glucose [Mass/Vol] 121 mg/dL High 70-100 [facility] Comment on above: Performed By: #### 8 5499 #### [facility] [address] [place] [address], [place] POC GLUCOSE LABon 12-22-2020 Glucose [Mass/Vol] 117 mg/dL High 70-100 [facility] Comment on above: Performed By: #### 8 5499 #### [facility] [address] [place] [address], [place] Lab Reportson 02-23-2020 Lab Reports [id number]:127 Normal [facility] Lab Reports [id number]:127 Normal [facility] Lab Reportson 02-18-2020 Lab Reports [id number]:127 Normal [facility] Ambulatory Clinical Summaryo n 02-17-2020 Ambulatory Clinical Summary {[id number] Normal [facility] Patient Educationon 02-17-20 [...] Document Reviewed: 01/25/2013 ExitCare? Patient Information ?2013 Drop Messages. Normal [facility] ALT-SGPTon 06-26-2017 Alanine aminotransferase (ALT) 40 U/L Normal 5-59 [facility] AST-SGOTon 06-26-2017 AST-SGOT 29 IU/L Normal 10-42 [facility] HEMOGLOBIN A1Con 06-26-2017 Glucose mass conc 160 mg/dL High 66-114 [facility] Comment on above: Result Comment: HEMO GLOBIN A1c DEGREE OF GLUCOSE CONTROL <5.7% Decreased risk of diabetes 5.7 - 6.4% Increased risk of diabetes >6.4% Consistent with diagnosis of diabetesPathology sailsquare, Inc. [address] [place], [place] [address]Laboratory Director: Connor Silver M.D.CLIA No. [id number] CAP Accreditation No. [id number] Hemoglobin A1c/Hemoglobin.total mass fraction (Bld) 7.2 % High 4.2-5.8 [facility] RA Screenon 04-18-2017 RA Screen <10 Normal <14 [facility] Comment on above: Result Comment: Perf ormed at [address] [place] [address] Performed By: #### C DP, CRP, SED ####[address] [place] [address] #### RA ####[address] [address] C-Reactive Proteinon 017 C reactive protein (CRP) 12.5 mg/L High 0.0-5.0 [facility] Comment on above: Result Comment: Perf ormed at [address] [place], [place] [id number] [phone] Performed By: #### C DP, CRP, SED ####[address] [place] [address] #### RA ####[address] [address] CBC with Diffon 04-17-2017 Abs. Basophil 0.00 k/uL Normal 0.0-0.2 [facility] Comment on above: Result Comment: Perf ormed at [address] [place] [address] Performed By: #### C DP, CRP, SED ####[address] [place], [place] [address] #### RA ####[address] [address] Abs.Neutrophil (Seg) 6.30 k/uL Normal 1.8-7.7 [facility] Comment on above: Performed By: #### C DP, CRP, SED ####[address] [place] [address] #### RA ####[address] [address] Basophils/100 WBC Auto (Bld) 0 % Normal [facility] Comment on above: Performed By: #### C DP, CRP, SED ####[address] [place] [address] #### RA ####[address] [address] Eosinophils 0.20 10*3/uL Normal 0.0-0.4 [facility] Comment on above: Performed By: #### C DP, CRP, SED ####[address] [place] [address] #### RA ####[address] [address] Eosinophils/100 leukocytes 2 % Normal [facility] Comment on above: Performed By: #### C DP, CRP, SED ####[address] [place] [address] #### RA ####[address] [address] Erythrocyte distribution width Auto Ratio (RBC) 12.9 % Normal 12.1-15.2 [facility] Comment on above: Performed By: #### C DP, CRP, SED ####[address] [place] [address] #### RA ####[address] [address] Erythrocytes (RBC) 4.68 10*6/uL Normal 4.0-5.2 [facility] Comment on above: Performed By: #### C DP, CRP, SED ####[address] [place] [address] #### RA ####[address] [address] Hematocrit (HCT) 39.4 % Normal 36-46 [facility] Comment on above: Performed By: #### C DP, CRP, SED ####[address] [place] [address] #### RA ####[address] [address] Hemoglobin mass conc (Bld) 13.1 g/dL Normal 12.0-16.0 [facility] Comment on above: Performed By: #### C DP, CRP, SED ####[address] [place] [address] #### RA ####[address] [address] Lymphocytes 1.90 10*3/uL Normal 1.0-4.8 [facility] Comment on above: Performed By: #### C DP, CRP, SED ####[address] [place] [address] #### RA ####[address] [address] Lymphocytes/100 leukocytes 22 % Normal [facility] Comment on above: Performed By: #### C DP, CRP, SED ####[address] [place] [address] #### RA ####[address] [address] MCH 27.9 pg Normal 26-34 [facility] Comment on above: Performed By: #### C DP, CRP, SED ####[address] [place] [address] #### RA ####[address] [address] MCHC mass conc (RBC) 33.2 g/dL Normal 31-37 [facility] Comment on above: Performed By: #### C DP, CRP, SED ####[address] [place] [address] #### RA ####[address] [address] MCV 84.1 fL Normal 80-100 [facility] Comment on above: Performed By: #### C DP, CRP, SED ####[address] [place] [address] #### RA ####[address] [address] Monocytes 0.50 10*3/uL Normal 0.2-0.8 [facility] Comment on above: Performed By: #### C DP, CRP, SED ####[address] [place] [address] #### RA ####[address] [address] Monocytes/100 leukocytes 6 % Normal [facility] Comment on above: Performed By: #### C DP, CRP, SED ####[address] [place] [address] #### RA ####[address] [address] Neutrophil (Seg) 70 % Normal [facility] Comment on above: Performed By: #### C DP, CRP, SED ####[address] [place] [address] #### RA ####[address] [address] Platelet mean volume (PMV) 9.4 fL Normal 6.0-12.0 [facility] Comment on above: Performed By: #### C DP, CRP, SED ####[address] [place] [address] #### RA ####[address] [address] Platelets 248 10*3/uL Normal 140-450 [facility] Comment on above: Performed By: #### C DP, CRP, SED ####[address] [place] [address] #### RA ####[address] [address] WBC (Leukocytes) 8.9 10*3/uL Normal 3.5-11.[address] [facility] Comment on above: Performed By: #### C DP, CRP, SED ####[address] [place] [address] #### RA ####[address] [address] Auto Diff Performed NOT REPORTED Normal [facility] Comment on above: Performed By: #### C DP, CRP, SED ####[address] [place] [address] #### RA ####[address] [address] Erythrocyte morphology NOT REPORTED Normal [facility] Comment on above: Performed By: #### C DP, CRP, SED ####[address] [place] [address] #### RA ####[address] [address] Granulocytes/100 WBC (Bld) NOT REPORTED Normal 0.00-0.30 [facility] Comment on above: Performed By: #### C DP, CRP, SED ####[address] [place] [address] #### RA ####[address] [address] Immature granulocytes #/vol (Bld) NOT REPORTED Normal 0 [facility] Comment on above: Performed By: #### C DP, CRP, SED ####[address] [place] [address] #### RA ####[address] [address] Platelets NOT REPORTED Normal [facility] Comment on above: Performed By: #### C DP, CRP, SED ####[address] [place] [address] #### RA ####[address] [address] WBC Morphology NOT REPORTED Normal [facility] Comment on above: Performed By: #### C DP, CRP, SED ####[address] [place] [address] #### RA ####[address] [address] Sedimentation Rateon 11-15-2 017 Sedimentation Rate 43 mm High 0-20 [facility] Comment on above: Result Comment: Perf ormed at [address] [place] [address] Performed By: #### C DP, CRP, SED ####[address] [place] [address] #### RA ####[address] [address] Hemoglobin A1Con 01-03-2017 Glucose mass conc 131 mg/dL Normal [facility] Comment on above: Result Comment: The ADA and AACC recommend providing the estimated average glucose result to permit better patient understanding of their HBA1c result.Performed at [address] [place] [address] [phone] Performed By: #### G LYHGB ####[address] [place] [address] Hemoglobin A1c/Hemoglobin.total mass fraction (Bld) 6.2 % High 4.8-5.9 [facility] Comment on above: Performed By: #### G LYHGB ####[address] [place] [address] Vital Signs Date Time Vital Sign Value Performing Clinician Ramiro pisano 05-20-2024 13:53-0500 Body height 147.3 cm Matt Mcduffie MD Work Phone: [facility] 05-20-2024 13:53-0500 Body mass index (BMI) [Ratio] 41.59 kg/m2 Matt Mcduffie MD Work Phone: [facility] 05-20-2024 13:53-0500 Body temperature 97.11 [degF] Matt Mcduffie MD Work Phone: [facility] 05-20-2024 13:53-0500 Body weight 90.27 kg Matt Mcduffie MD Work Phone: [facility] 05-20-2024 13:53-0500 Diastolic blood pressure 50 mm[Hg] Matt Mcduffie MD Work Phone: [facility] 05-20-2024 13:53-0500 Heart rate 82 /min Matt Mcduffie MD Work Phone: [facility] 05-20-2024 13:53-0500 Respiratory rate 22 /min Matt Mcduffie MD Work Phone: [facility] 05-20-2024 13:53-0500 SaO2% (BldA) [Mass fraction] 97 % Matt Mcduffie MD Work Phone: [facility] 05-20-2024 13:53-0500 Systolic blood pressure 118 mm[Hg] Matt Mcduffie MD Work Phone: [facility] 03-16-2024 09:36-0400 Body height 147.3 cm Matt Mcduffie MD Work Phone: [facility] 03-16-2024 09:36-0400 Body mass index (BMI) [Ratio] 40.76 kg/m2 Matt Mcduffie MD Work Phone: [facility] 03-16-2024 09:36-0400 Body temperature 97.5 [degF] Matt Mcduffie MD Work Phone: [facility] 03-16-2024 09:36-0400 Body weight 88.45 kg Matt Mcduffie MD Work Phone: [facility] 03-16-2024 09:36-0400 Diastolic blood pressure 92 mm[Hg] Matt Mcduffie MD Work Phone: [facility] 03-16-2024 09:36-0400 Heart rate 91 /min Matt Mcduffie MD Work Phone: [facility] 03-16-2024 09:36-0400 Respiratory rate 22 /min Matt Mcduffie MD Work Phone: [facility] 03-16-2024 09:36-0400 SaO2% (BldA) [Mass fraction] 99 % Matt Mcduffie MD Work Phone: [facility] 03-16-2024 09:36-0400 Systolic blood pressure 170 mm[Hg] Matt Mcduffie MD Work Phone: [facility] 02-19-2024 13:15-0400 Body height 147.3 cm Matt Mcduffie MD Work Phone: [facility] 02-19-2024 13:15-0400 Body mass index (BMI) [Ratio] 40.34 kg/m2 Matt Mcduffie MD Work Phone: [facility] 02-19-2024 13:15-0400 Body temperature 97.5 [degF] Matt Mcduffie MD Work Phone: [facility] 02-19-2024 13:15-0400 Body weight 87.54 kg Matt Mcduffie MD Work Phone: [facility] 02-19-2024 13:15-0400 Diastolic blood pressure 88 mm[Hg] Matt Mcduffie MD Work Phone: [facility] 02-19-2024 13:15-0400 Heart rate 87 /min Matt Mcduffie MD Work Phone: [facility] 02-19-2024 13:15-0400 Respiratory rate 20 /min Matt Mcduffie MD Work Phone: [facility] 02-19-2024 13:15-0400 SaO2% (BldA) [Mass fraction] 98 % Matt Mcduffie MD Work Phone: [facility] 02-19-2024 13:15-0400 Systolic blood pressure 190 mm[Hg] Matt Mcduffie MD Work Phone: [facility] 01-22-2024 13:15-0400 Body height 147.3 cm Matt Mcduffie MD Work Phone: [facility] 01-22-2024 13:15-0400 Body mass index (BMI) [Ratio] 41.17 kg/m2 Matt Mcduffie MD Work Phone: [facility] 01-22-2024 13:15-0400 Body temperature 97.81 [degF] Matt Mcduffie MD Work Phone: [facility] 01-22-2024 13:15-0400 Body weight 89.36 kg Matt Mcduffie MD Work Phone: [facility] 01-22-2024 13:15-0400 Diastolic blood pressure 90 mm[Hg] Matt Mcduffie MD Work Phone: [facility] 01-22-2024 13:15-0400 Heart rate 88 /min Matt Mcduffie MD Work Phone: [facility] 01-22-2024 13:15-0400 Respiratory rate 20 /min Matt Mcduffie MD Work Phone: [facility] 01-22-2024 13:15-0400 SaO2% (BldA) [Mass fraction] 98 % Matt Mcduffie MD Work Phone: [facility] 01-22-2024 13:15-0400 Systolic blood pressure 152 mm[Hg] Matt Mcduffie MD Work Phone: [facility] Healthcare Encounters Encounter Date Encounter Type Care Provider Facility Start: 08-13-2024 End: 08-13-2024 ambulatory [facility] Start: 06-10-2024 End: 06-11-2024 Refill Val Maurice [facility] Comment on above: Type 2 diabetes lesley itus with hyperglycemia, without long-term current use of insulin ([facility]) Start: 05-20-2024 End: 05-20-2024 Bamboo flowsheet Matt Mcduffie MD Work Phone: [facility] Start: 05-20-2024 End: 05-20-2024 Bamboo flowsheet Matt Mcduffie MD Work Phone: [facility] Start: 05-20-2024 End: 05-20-2024 Office outpatient visit 25 minutes Matt Mcduffie MD Work Phone: [facility] Comment on above: Type 2 diabetes lesley itus with hyperglycemia, without long-term current use of insulin (CMS/HCC) (Primary Dx); Essential hypertension (CMS/HCC); Type 2 diabetes mellitus with polyneuropathy (CMS/HCC); Primary osteoarthritis of right knee; ANMOL (generalized anxiety disorder) (CMS/HCC) Start: 05-20-2024 End: 05-20-2024 ambulatory MATT MCDUFFIE Not Available Start: 05-11-2024 End: 05-11-2024 Refill Matt Mcduffie MD Work Phone: [facility] Comment on above: ANMOL (generalized anx iety disorder) ([facility]); Essential hypertension ([facility]); Type 2 diabetes mellitus with polyneuropathy ([facility]) Start: 05-07-2024 End: 05-07-2024 Clinisync Result Encounter Generic External Data Provider [facility] Unsolicited Start: 05-07-2024 End: 05-07-2024 Clinisync Result Encounter Generic External Data Provider [facility] Unsolicited Start: 05-07-2024 End: 05-07-2024 Orders Only Matt Mcduffie MD Work Phone: [facility] Comment on above: Morbid obesity due t o excess calories ([facility]) (Primary Dx); Type 2 diabetes mellitus with hyperglycemia, without long-term current use of insulin ([facility]) Start: 05-07-2024 End: 05-07-2024 Refill Matt Mcduffie MD Work Phone: [facility] Comment on above: ANMOL (generalized anx iety disorder) ([facility]) Start: 04-15-2024 End: 04-15-2024 ambulatory [facility] Start: 03-16-2024 End: 03-16-2024 Office outpatient visit 25 minutes Matt Mcduffie MD Work Phone: [facility] Comment on above: Left-sided Reyes pals y (Primary Dx); Facial droop; Facial paresthesia Start: 03-16-2024 End: 03-16-2024 ambulatory MATT MCDUFFIE Not Available Start: 02-19-2024 End: 02-19-2024 Bamboo flowsheet Matt Mcduffie MD Work Phone: [facility] Start: 02-19-2024 End: 02-19-2024 Bamboo flowsheet Matt Mcduffie MD Work Phone: [facility] Start: 02-19-2024 End: 02-19-2024 Office outpatient visit 25 minutes Matt Mcduffie MD Work Phone: [facility] Comment on above: Type 2 diabetes lesley itus with hyperglycemia, without long-term current use of insulin ([facility]) (Primary Dx); Essential hypertension ([facility]); Type 2 diabetes mellitus with polyneuropathy ([facility]); ANMOL (generalized anxiety disorder) ([facility]); Gastroesophageal reflux disease without esophagitis; Morbid obesity due to excess calories ([facility]) Start: 02-19-2024 End: 02-19-2024 ambulatory MATT MCDUFFIE Not Available Start: 01-24-2024 End: 01-24-2024 Refill Matt Mcduffie MD Work Phone: [facility] Comment on above: ANMOL (generalized anx iety disorder) ([facility]) Start: 01-23-2024 End: 01-23-2024 Clinisync Result Encounter Matt Mcduffie MD Work Phone: [facility] External Department Unsolicited Start: 01-23-2024 End: 01-23-2024 Clinisync Result Encounter Matt Mcduffie MD Work Phone: [facility] External Department Unsolicited Start: 01-22-2024 End: 01-22-2024 Bamboo flowsheet Matt Mcduffie MD Work Phone: [facility] Start: 01-22-2024 End: 01-22-2024 Bamboo flowsheet Matt Mcduffie MD Work Phone: [facility] Start: 01-22-2024 End: 01-22-2024 ambulatory MATT MCDUFFIE Not Available Start: 01-22-2024 End: 01-22-2024 Patient encounter procedure Matt Mcduffie MD Work Phone: [facility] Healthcare Start: 01-22-2024 End: 01-22-2024 Postop follow up visit related to original px Matt Mcduffie MD Work Phone: [facility] Comment on above: Medicare annual well ness visit, subsequent (Primary Dx); Type 2 diabetes mellitus with hyperglycemia, without long-term current use of insulin ([facility]) Start: 08-28-2023 End: 08-28-2023 ambulatory [facility] Start: 08-14-2023 End: 08-14-2023 ambulatory MATT MCDUFFIE Not Available Start: 07-17-2023 Clinisync Result Encounter Matt Mcduffie MD Work Phone: [facility]solicited Start: 07-17-2023 Clinisync Result Encounter Matt Mcduffie MD Work Phone: [facility] Unsolicited Start: 10-01-2022 End: 10-02-[address] MATT MCDUFFIE Facility:[facility] Start: 08-02-2022 End: 08-03-[address] ERICH WOODRUFF Facility:[facility] Start: 07-31-2022 End: 08-01-[address] MATT MCDUFFIE Facility:[facility] Start: 07-03-2022 End: 07-04-[address] MATT MCDUFFIE Facility:[facility] Start: 06-07-2022 End: 06-08-2022 ambulatory NAAIS SMALLWOOD Facility:[facility] Start: 05-16-2022 End: 05-17-[address] WALI QUIÑONES Facility:[facility] Start: 05-16-2022 End: 05-17-[address] WALI QUIÑONES Facility:[facility] Start: 04-30-2022 End: 05-01-2022 ambulatory Aaron Gilmore Facility:[facility] Start: 04-02-2022 End: 04-03-[address] MATT MCDUFFIE Facility:[facility] Start: 02-14-2022 End: 02-15-[address] MATT MCDUFFIE Facility:[facility] Start: 12-22-2020 End: 12-24-2020 ambulatory MATT MCDUFFIE Facility:[facility] Start: 04-17-2017 End: 04-18-2017 Ambulatory [facility] Start: 01-03-2017 End: 01-04-2017 Ambulatory EITAN [facility] Procedures Date Procedure Procedure Detail Performing Clinician Start: 05-07-2024 ALL BASIC METABOLIC PANEL Generic External Data Provider Start: 01-23-2024 MLR HEMOGLOBIN A1C Matt Mcduffie MD Work Phone: Start: 09-04-2023 Mammography Matt rodgers MD Work Phone: Start: 07-17-2023 TBH MICROALBUMIN, RAND UR Matt Mcduffie MD Work Phone: Start: 04-17-2017 C-reactive protein RAFAEL CHILD Start: [...] Screening for malign ant neoplasm of colon [facility] Start: 01-21-2025 Medicare Annual Wellness (AWV) Medicare Annual Wellness (AWV) [facility] Start: 09-21-2024 Glaucoma screening Diabetes: R etinopathy Screening [facility] Start: 09-03-2024 Screening for malign ant neoplasm of breast Mammogram [facility] Start: 08-19-2024 End: 08-19-2024 Patient encounter procedure 08/19/2024 1:45 PM EDT Office Visit [facility] [address] [place] [id number] Matt Mcduffie MD [address] [place] [id number] [facility] Start: 07-25-2024 Hemoglobin A1c measurement Diabetes: Hemoglobin A1C [facility] Start: 07-17-2024 Urine screening for protein Diabetes: Urine Protein Screening [facility] Start: 05-20-2024 End: 05-20-2024 Patient encounter procedure [facility] Comment on above: Arrived Start: 03-16-2024 End: 03-16-2025 MR Brain WO contrast MR brain wo contrast Imaging Routine Left-Sided Reyes Palsy Facial droop Facial paresthesia Expected: 03/16/2024, Expires: 03/16/2025 [facility] Work Phone: Comment on above: Expected: 03/16/2024 , Expires: 03/16/2025 Start: 02-19-2024 End: 02-19-2024 Patient encounter procedure [facility] Comment on above: Arrived Start: 02-02-2024 Influenza vaccination Influenza Vacc ine (#1) [facility] Start: 01-22-2024 End: 01-21-2025 Hemoglobin A1c/Hemoglobin.total in Blood Hemoglobin A1c Lab Routine Type 2 diabetes mellitus with hyperglycemia, without long-term current use of insulin ([facility]) Expected: 01/22/2024 (Approximate), Expires: 01/21/2025 [facility] Work Phone: Comment on above: Expected: 01/22/2024 (Approximate), Expires: 01/21/2025 Start: 01-15-2024 Hemoglobin A1c measurement Diabetes: Hemoglobin A1C [facility] Start: 08-14-2023 End: 08-14-2023 Patient encounter procedure 08/14/2023 1:30 PM EDT Office Visit [facility] [address] [place] [address] Matt Mcduffie MD [address] [place] [phone] [facility] Start: 05-12-2020 Pneumococcal Vaccine : 65+ Years (2 - PPSV23 or PCV20) Pneumococcal Vaccine: 65+ Years (2 - PPSV23 or PCV20) [facility] Start: 05-12-2020 Pneumococcal Vaccine : 65+ Years (2 of 2 - PPSV23 or PCV20) Pneumococcal Vaccine: 65+ Years (2 of 2 - PPSV23 or PCV20) [facility] Start: 09-24-2017 Screening for malign ant neoplasm of breast Mammogram [facility] Start: 07-23-2017 Medicare Annual Wellness (AWV) Medicare Annual Wellness (AWV) [facility] Start: 09-26-1987 Screening for malign ant neoplasm of cervix [facility] Start: 1978 Screening for malign ant neoplasm of cervix Pap Smear [facility] Start: 1976 Urine screening for protein Diabetes: Urine Protein Screening [facility] Start: 09-26-1967 Glaucoma screening Diabetes: R etinopathy Screening [facility] Start: 1957 Hemoglobin A1c measurement Diabetes: Hemoglobin A1C [facility] Start: 1957 Screening for malign ant neoplasm of colon [facility] Immunizations Immunization Date Immunization Notes Care Provider Leonides anderson 02-27-2024 Fluad 0.5 ML suspens ion prefilled syringe Generic Provider [facility] 03-14-2023 influenza virus vacc ine, unspecified formulation Matt Mcduffie MD Work Phone: [facility] Payers Date Payer Category Payer Medicare (Managed Care) [employer] [id number] 2023 Unknown [employer] [id number] 2023-Present [address] [place] [phone] [id number] 2023 Unknown [id number] 2021 Medicare [employer] MEDICARE A DVANTAGE A[employer]NA MEDICARE REPLACEMENT [id number] 2021-Present [address] [place] [address] [id number] 2018 Unknown [id number] 2016 Unknown [id number] 1959 Medicare [id number] 1957 Unknown [id number] [id number]. 647 1957 Unknown [id number] 2.16.840.1.495603.3.579.2. 593 1957 Unknown [id number] 2.16.840.1.801211.3.579.2. 593 1957 Unknown [id number] 2.16.840.1.263401.3.579.2. 593 1957 Unknown [id number] 2.16.840.1.696851.3.579.2. 593 1957 Unknown [id number] 2.16.840.1.387857.3.579.2. 593 1957 Unknown [id number] 2.16.840.1.917251.3.579.2. 593 1957 Unknown [id number] 2.16.840.1.227012.3.579.2. 593 1957 Unknown [id number] 2.16.840.1.837394.3.579.2. 593 1957 Unknown [id number] 2.16.840.1.252696.3.579.2. 593 1957 Unknown [id number] 2.16.840.1.265898.3.579.2. 593 1957 Unknown [id number] 2.16.840.1.262860.3.579.2. 593 1957 Unknown [id number] 2.16.840.1.570669.3.579.2. 1259 1957 Unknown [id number] 2.16.840.1.505478.3.579.2. 1259 1957 Unknown [id number] 2.16.840.1.124712.3.579.2. 1259 1957 Unknown [id number] 2.16.840.1.731046.3.579.2. 1259 1957 Unknown [id number] 2.16.840.1.055008.3.579.2. 1259 Social History Date Type Detail Facility Start: 07-11-2023 End: 08-14-2023 Tobacco smoking status NHIS Never smoked tobacco [facility] Start: 07-11-2023 End: 04-22-2024 History of Social function [facility] Start: 07-11-2023 End: 04-22-2024 Tobacco use panel [facility] Start: 1955 Sex Assigned At Not on file [facility] Start: 08-14-2023 Tobacco use and exposure Smoke less tobacco non-user [facility] How often do you att end mandaeism or protestant services? Patient declined [facility] Do you belong to any clubs or organizations such as mandaeism groups, unions, fraternal or athletic groups, or [...] or rent on time? No [facility] How hard is it for y ou to pay for the very basics like food, housing, medical care, and heating Not very hard [facility] Do you feel stress - tense, restless, nervous, or anxious, or unable to sleep at night because your mind is troubled all the time - these days [OSQ] Only a little [facility] Clinical Notes 02-17-2020 to 08-13-2024 Matt Mcduffie MD - 05/20/2024 2:36 PM Bhupinder Mcduffie MD - 05/20/2024 2:35 PM Bhupinder Mcduffie MD - 05/20/2024 2:35 PM Bhupinder Mcduffie MD - 05/20/2024 2:35 PM EST Note Date & Type Note Facility 08-13-2024 Note Cardiovascular Medic [facility] SUBJECTIVE Chief Complaint Patient presents with Coronary Artery Disease Hypertension Hyperlipidemia Kayli Hernandez is a 68 y.o. female here for follow-up. HPI PMHx: CAD s/p balloon angioplasty, HTN, DM She c/o ongoing cough. She notes hx of Covid recently. She reports feeling dizzy with excessive coughing. She has LARES - this has been stable. She never filled hydrochlorothiazide, her pharmacy stated they didn't receive it. No current exercise regimen. She has occasional palpitations. Denies CP, orthopnea, PND, LE edema, syncope. Patient Active Problem List Diagnosis Chest pain Essential hypertension External hemorrhoids Hyperlipidemia Obesity Obstructive sleep apnea Osteoarthrosis involving lower leg Segmental colitis with rectal bleeding ([facility]/HCC) Type 2 diabetes mellitus without complication ([facility]) TIA (transient ischemic attack) Coronary artery disease involving [place] coronary artery of [place] heart without angina pectoris Bilateral primary osteoarthritis of hip Dyslipidemia Encounter for long-term current use of medication ANMOL (generalized anxiety disorder) Gastroesophageal reflux disease without esophagitis Primary osteoarthritis of hands, bilateral Primary osteoarthritis of right knee Seasonal allergic rhinitis due to pollen Vitamin D deficiency Facial droop Left-sided Reyes palsy Medicare annual wellness visit, subsequent Type 2 diabetes mellitus with hyperglycemia, without long-term current use of insulin ([facility]) Type 2 diabetes mellitus with polyneuropathy ([facility]) Diabetic neuropathy ([facility]) Iron deficiency anemia Past Medical History: Diagnosis Date Coronary artery disease Diabetes mellitus ([facility]/HCC) Hyperlipidemia Hypertension Sleep apnea Family History Problem Relation Name Age of Onset Stroke Mother Tangela Hernandez Heart attack Father Roge Hernandez Sr. Hypertension Father Roge Hernandez Sr. Diabetes type II Brother Roge Syeda Jr Heart disease Brother Roge Hernandez Social History Tobacco Use Smoking status: Never Smokeless tobacco: Never Substance Use Topics Alcohol use: Not Currently Alcohol/week: 2.0 standard drinks of alcohol Types: 1 Glasses of wine, 1 Cans of beer per week Drug use: Never No Known Allergies ROS Constitutional: Positive for malaise/fatigue. Cardiovascular: Positive for palpitations (occasional). Respiratory: Positive for cough (dry cough) and shortness of breath. Musculoskeletal: Positive for joint pain (left shoulder). All other systems reviewed and are negative. OBJECTIVE Visit Vitals BP 152/78 (BP Location: Right arm, Patient Position: Sitting) Pulse 68 Ht 1.448 m (4' 9 ) Wt 88.5 kg (195 lb) SpO2 97% BMI 42.20 kg/m??? Smoking Status Never BSA 1.89 m??? Medications: Current Outpatient Medications: amLODIPine (Norvasc) 5 mg tablet, Take 5 mg by mouth in the morning., Disp: , Rfl: aspirin 325 mg tablet, Take 325 mg by mouth in the morning., Disp: , Rfl: atorvastatin (Lipitor) 80 mg tablet, atorvastatin 80 mg tablet take 1 tablet by mouth once daily, Disp: 90 tablet, Rfl: 3 carvedilol (Coreg) 25 mg tablet, Take 1 tablet (25 mg) by mouth with breakfast and with evening meal., Disp: 180 tablet, Rfl: 3 cholecalciferol (Vitamin D-3) 50 MCG (2000 UT) tablet, Take 2,000 Units by mouth in the morning., Disp: , [...] by mouth once daily, Disp: , Rfl: ALPRAZolam (Xanax) 0.5 mg tablet, Take 0.5 mg by mouth if needed in the morning, at noon, and at bedtime., Disp: , Rfl: aspirin 81 mg chewable tablet, in the morning., Disp: , Rfl: clopidogrel (Plavix) 75 mg tablet, Take 75 mg by mouth in the morning., Disp: , Rfl: gabapentin (Neurontin) 100 mg capsule, Take 300 mg by mouth three times daily., Disp: , Rfl: Physical Exam Vitals reviewed. Constitutional: Appearance: Normal appearance. HENT: Head: Normocephalic and atraumatic. Right Ear: External ear normal. Left Ear: External ear normal. Eyes: Extraocular Movements: Extraocular movements intact. Conjunctiva/sclera: Conjunctivae normal. Pupils: Pupils are equal, round, and reactive to light. Neck: Vascular: No carotid bruit. Cardiovascular: Rate and Rhythm: Normal rate and regular rhythm. Pulses: Normal pulses. Heart sounds: Normal heart sounds. Pulmonary: Effort: Pulmonary effort is normal. Breath sounds: Normal breath sounds. Abdominal: General: Bowel sounds are normal. Palpations: Abdomen is (more content not included)... [facility] 08-13-2024 Note Patient here for 3 m [facility] follow up. Patient has a history of CAD, HTN, Hyperlipidemia, C[place], diabetes, and Reyes's Palsy. Patient has not been Plavix due to no refills. Patient denies, chest pain, leg swelling, C/o dizziness from coughing due a dry cough that started about 05/26. Fatigue and SOB with going up and down stairs. Left shoulder pain, palpations on occasion. Not sleeping well, patient is using her Cpap machine nightly. Review of Systems Constitutional: Positive for malaise/fatigue. Cardiovascular: Positive for palpitations (occasional). Respiratory: Positive for cough (dry cough) and shortness of breath. Musculoskeletal: Positive for joint pain (left shoulder). All other systems reviewed and are negative. [facility] 05-20-2024 History of Presen t illness Narrative Associated Problem(s): Type 2 diabetes mellitus with polyneuropathy (CMS/HCC) No change with neurontin and stop. Try lyrica. Associated Problem(s): Type 2 diabetes mellitus with hyperglycemia, without long-term current use of insulin (CMS/HCC) BS controlled and A1C 6.0. Stick to ADA diet and limit carbs. Associated Problem(s): Primary osteoarthritis of right knee Pain stable and use mobic PRN. Increase activity and walk regularly. Associated Problem(s): ANMOL (generalized anxiety disorder) ([facility]/HCC) Symptoms stable and continue xanax PRN. Associated Problem(s): Essential hypertension (CMS/HCC) BP controlled and monitor PRN. Images from the original note were not included. Subjective Patient ID: Kayli Hernandez is a 68 y.o. female who presents for Follow-up (3m ), Leg Pain (Burning pain), and Foot Injury (Top of right foot pins and needles). Follow up DM, HTN, neuropathy, OA knee, and anxiety. Reports BS controlled around 100-110. Tries to eat well and stick to ADA diet. Denies signs of elevated BS such as polyuria, polyphagia or polydipsia. Last A1c 6.0. Checking BP PRN and typically controlled. BP normal today. Taking medication daily and tolerating without side effects. Neuropathy unchanged. Continues to have numbness, pain and tingling in feet and hands. Symptoms worse with walking and standing. Severe symptoms at end of day and night. At times hard to sleep due to symptoms. Started neurontin last visit and increased dose but no change in pain. OA knee stable. Frequent popping, clicking, and grinding. Pain worse with walking and standing. Difficult getting up from sitting. Not unsteady or giving out. Using mobic PRN and helps. Anxiety stable. Not as stressed out or overwhelmed. Not as nervous or worry as much. Not as mckeon or irritable. Using xanax PRN and helps when needed. Leg Pain Foot Injury Review of Systems Respiratory: Negative for cough, [...] edema. Neurological: Mental Status: She is alert. Assessment/Plan Problem List Items Addressed This Visit Essential hypertension (CMS/HCC) (Chronic) BP controlled and monitor PRN. ANMOL (generalized anxiety disorder) (CMS/HCC) Symptoms stable and continue xanax PRN. Primary osteoarthritis of right knee Pain stable and use mobic PRN. Increase activity and walk regularly. Type 2 diabetes mellitus with hyperglycemia, without long-term current use of insulin (CMS/HCC) - Primary BS controlled and A1C 6.0. Stick to ADA diet and limit carbs. Type 2 diabetes mellitus with polyneuropathy (CMS/HCC) No change with neurontin and stop. Try lyrica. Relevant Medications pregabalin (Lyrica) 75 MG capsule documented in this encounter [facility] 05-07-2024 Telephone encounter Note Patient reached out to Luis A sheffieldrding restarting her ozempic, she needs a new script if you want her back on it. clm [facility] 05-07-2024 Miscellaneous Notes Patient reached out to Luis A regcalixtording restarting her ozempic, she needs a new script if you want her back on it. clm documented in this encounter [facility] 04-15-2024 Note [facility] Cardiology Clinic Note Chief Complaint: Patient here for 6 mo follow up CAD, hypertension, and hyperlipidemia. She was admitted to [facility] last month for Reyes's Palsy. She had an outpatient echo the following week. Denies chest pain and increased palpitations. C/o worsening LARES. HPI: Kayli Hernandez is a 68 y.o. female History of coronary artery disease s/p balloon angioplasty, hypertension and diabetes here in routine follow-up Update 04/15/2024 Was admitted to the hospital with Reyes's palsy Has gained significant amount of weight recently as she has had to stop Ozempic. Denies chest pain. Does have worsening exertional shortness of breath. No orthopnea, no paroxysmal: Dyspnea, no lower extremity edema Cardiology ROS: Review of Systems Cardiovascular: Positive for dyspnea on exertion (worsening) and palpitations (stable). Neurological: Positive for light-headedness (per patient due to hypoglycemia). Psychiatric/Behavioral: The patient is nervous/anxious. All other systems reviewed and are negative. Past Medical History She has a past medical history of Coronary artery disease, Diabetes mellitus (CMS/[facility]), Hyperlipidemia, Hypertension, and Sleep apnea. Surgical History [...] Sr. Diabetes type II Brother Roge Hernandez Heart disease Brother Roge Hernandez Jr Allergies [...] evening meal., Disp: 180 tablet, Rfl: 3 cholecalciferol (Vitamin D-3) 50 MCG (1999) tablet, Take 2,000 Units by mouth in the morning., Disp: , Rfl: clopidogrel (Plavix) 75 mg tablet, Take 75 [...] Disp: , Rfl: Last Recorded Vitals BP 140/76 (BP Location: Left arm, Patient Position: Sitting) Pulse 85 Ht 1.448 m (4' 9 ) Wt 90.3 kg (199 lb) SpO2 98% BMI 43.06 kg/m??? Physical Examination: GENERAL: alert and oriented [...] the LAD and the ostium of the ri (more content not included)... [facility] 03-16-2024 History of Presen t illness Narrative Associated Problem(s): Left-sided Reyes palsy [...] 68 y.o. female who presents for Follow-up ([facility] FOLLOW UP. Possible bells palsy, ). Hospital [...] left forehead and no wrinkles in forehead. Thoreau likely Reyes's palsy and patient did not [...] brain wo contrast documented in this encounter [facility] 02-19-2024 History of Presen t illness Narrative Associated Problem(s): Type 2 diabetes mellitus with polyneuropathy ([facility]/HCC) Developed neuropathy and start neurontin. Associated Problem(s): Type 2 diabetes mellitus with hyperglycemia, without long-term current use of insulin (CMS/HCC) BS controlled and A1C 6.0. Stick to ADA diet and limit carbs. Associated Problem(s): Gastroesophageal reflux disease without esophagitis Symptoms controlled with omeprazole and continue. Associated Problem(s): ANMOL (generalized anxiety disorder) ([facility]) Symptoms stable and continue xanax PRN. Associated Problem(s): Essential hypertension ([facility]) BP elevated and add norvasc. Continue losartan and coreg. Monitor BP PRN. Images from the original note were not included. Subjective Patient ID: Kayli Hernandez is a 68 y.o. female who presents for Follow-up (6m f/up/bp) and Foot Injury (Pain on top of right foot, travels up leg). Follow up DM, HTN, OA knee, anxiety, and GERD. Reports BS controlled around 100-120. Tries to eat well and stick to ADA diet. Denies signs of elevated BS such as polyuria, polyphagia or polydipsia. Recent A1c 6.0. Checking BP PRN and typically controlled. BP normal today. Taking medication daily and tolerating without side effects. OA knee stable. Frequent popping, clicking, and grinding. Pain worse with walking and standing. Difficult getting up from sitting. Not unsteady or giving out. Using mobic PRN and helps. Anxiety stable. Not as stressed out or overwhelmed. Not as nervous or worry as much. Not as mckeon or irritable. Using xanax PRN and helps when needed. GERD controlled with omeprazole. Denies epigastric pain or burning and not waking up with symptoms. Concerned of neuropathy. C/o pain and burning in right foot and right hand. Feels like nerve pain and not an ache. Feels different than arthritis pain. Mobic not helping. Symptoms worse with walking and standing. Foot Injury Review of Systems Respiratory: Negative for cough, [...] edema. Neurological: Mental Status: She is alert. Assessment/Plan Problem List Items Addressed This Visit Essential hypertension (CMS/HCC) (Chronic) BP elevated and add norvasc. Continue losartan and coreg. Monitor BP PRN. Relevant Medications amLODIPine (Norvasc) 5 MG tablet ANMOL (generalized anxiety disorder) (CMS/HCC) Symptoms stable and continue xanax PRN. Gastroesophageal reflux disease without esophagitis Symptoms controlled with omeprazole and continue. Type 2 diabetes mellitus with hyperglycemia, without long-term current use of insulin ([facility]) - Primary BS controlled and A1C 6.0. Stick to ADA diet and limit carbs. Morbid obesity due to excess calories ([facility]) Type 2 diabetes mellitus with polyneuropathy ([facility]) Developed neuropathy and start neurontin. Relevant Medications gabapentin (Neurontin) 100 MG capsule documented in this encounter [facility] 01-22-2024 History of Presen t illness Narrative Associated Problem(s): Medicare annual wellness visit, subsequent Due for labs. Discussed proper diet and regular aerobic exercise. Need aerobic exercise 5-6 days a week for 30 minutes at a time. Smaller portions and limit total calories. Colonoscopy every 10 years. Tetanus every 10 years. Advised not to smoke. Discussed daily Aspirin therapy. Images from the original note were not included. Subjective Patient ID: Kayli Hernandez is a 68 y.o. female who presents for Medicare Annual Wellness Visit Subsequent (wellness). Presents for medicare annual wellness visit. Patient feels well today. Weight up 17 pounds in past year. Stopped ozempic due to cost and has gained weight back since. Tries to walk and stay active but no regular exercise. Tries to watch diet and eat healthy. Increased fruits and vegetables. Smaller portions and limits snacking. Tries to limit total daily calories. Due for labs. Review of Systems Respiratory: Negative for cough, [...] There is no guarding or rebound. Musculoskeletal: General: No swelling or tenderness. Cervical back: Neck supple. Right lower leg: No edema. Left lower leg: No edema. Skin: Findings: No erythema or rash. Neurological: General: No focal deficit present. Mental Status: She is alert and oriented to person, place, and time. Cranial Nerves: No cranial nerve deficit. Motor: No weakness. Gait: Gait normal. Assessment/Plan Problem List Items Addressed This Visit Type 2 diabetes mellitus with hyperglycemia, without long-term current use of insulin ([facility]) Relevant Orders Hemoglobin A1c Medicare annual wellness visit, subsequent - Primary Due for labs. Discussed proper diet and regular aerobic exercise. Need aerobic exercise 5-6 days a week for 30 minutes at a time. Smaller portions and limit total calories. Colonoscopy every 10 years. Tetanus every 10 years. Advised not to smoke. Discussed daily Aspirin therapy. documented in this encounter [facility] 08-28-2023 Note [facility] Cardiology Clinic Note Chief Complaint: Patient here [...] Administration of intraco (more content not included)... [facility] 04-30-2022 Note PROCEDURE: XR HIP RT 2 3V WO PELVIS HISTORY: Bilateral hip joint pain COMPARISON: None. FINDINGS: BONES:No fracture, acute abnormality, or significant arthropathy. SOFT TISSUES:No visible soft tissue swelling. EFFUSION:None visible. OTHER: Negative. IMPRESSION: 1. No acute bone abnormality. 2. Minimal degenerative joint disease. Electronically authenticated by: AARON GILMORE Date: 2022-04-30 19:37 [facility] 12-24-2020 Note MR#: [id number] 2 [facility] Pt. Name: Kayli Hernandez Admitted: [...] Fonseca MD Date Trans: 12/24/2020 11:58 A/nilesh [id number] cc: Matt Mcduffie M.D. [address] [facility] [id number] [facility] 02-17-2020 Note Chief Complaint consultation [...] day(s), # 30 tab(s), Refills(s) 0, Pharmacy: [facility], [address], cm, 02/17/20 14:42:00 EDT, Height/Length Dosing, [...] hyperglycemia, without long-term current use of insulin ([facility])- Primary Essential hypertension ([facility]) Unspecified essential hypertension ANMOL (generalized anxiety disorder) ([facility]) Generalized anxiety disorder Primary osteoarthritis of right knee Gastroesophageal reflux disease without esophagitis Esophageal reflux Obstructive sleep apnea Obstructive sleep apnea (adult) (pediatric) Breast cancer screening by mammogram Dyslipidemia ([facility]) Other and unspecified hyperlipidemia Medicare annual wellness visit, subsequent- Primary Type 2 diabetes mellitus with hyperglycemia, without long-term current use of insulin ([facility]) Type 2 diabetes mellitus with hyperglycemia, without long-term current use of insulin ([facility])- Primary Essential hypertension ([facility] Unspecified essential hypertension Type 2 diabetes mellitus with polyneuropathy ([facility]) Type II or unspecified type diabetes mellitus with neurological manifestations, not stated as uncontrolled ANMOL (generalized anxiety disorder) ([facility]) Generalized anxiety disorder Gastroesophageal reflux disease without esophagitis Esophageal reflux Morbid obesity due to excess calories ([facility]) Left-sided Reyes palsy- Primary Facial droop Facial weakness Facial paresthesia documented in this encounter [facility]* Diagnosis Type 2 diabetes mellitus with hyperglycemia, without long-term current use of insulin ([facility])- Primary Essential hypertension ([facility]) Unspecified essential hypertension ANMOL (generalized anxiety disorder) ([facility]) Generalized anxiety disorder Primary osteoarthritis of right knee Gastroesophageal reflux disease without esophagitis Esophageal reflux Obstructive sleep apnea Obstructive sleep apnea (adult) (pediatric) Breast cancer screening by mammogram Dyslipidemia ([facility]) Other and unspecified hyperlipidemia Medicare annual wellness visit, subsequent- Primary Type 2 diabetes mellitus with hyperglycemia, without long-term current use of insulin [facility] Type 2 diabetes mellitus with hyperglycemia, without long-term current use of insulin ([facility] Primary Essential hypertension [facility]) Unspecified essential hypertension Type 2 diabetes mellitus with polyneuropathy ([facility]) Type II or unspecified type diabetes mellitus with neurological manifestations, not stated as uncontrolled ANMOL (generalized anxiety disorder) [facility] Generalized anxiety disorder Gastroesophageal reflux disease without esophagitis Esophageal reflux Morbid obesity due to excess calories ([facility] Left-sided Reyes palsy- Primary Facial droop Facial weakness Facial paresthesia ANMOL (generalized anxiety disorder) [facility] Generalized anxiety disorder documented in this encounter [facility] note* Diagnosis Type 2 diabetes mellitus with hyperglycemia, without long-term current use of insulin ([facility])- Primary Essential hypertension [facility] Unspecified essential hypertension ANMOL (generalized anxiety disorder) ([facility] Generalized anxiety disorder Primary osteoarthritis of right knee Gastroesophageal reflux disease without esophagitis Esophageal reflux Obstructive sleep apnea Obstructive sleep apnea (adult) (pediatric) Breast cancer screening by mammogram Dyslipidemia ([facility]) Other and unspecified hyperlipidemia Medicare annual wellness visit, subsequent- Primary Type 2 diabetes mellitus with hyperglycemia, without long-term current use of insulin ([facility] Type 2 diabetes mellitus with hyperglycemia, without long-term current use of insulin ([facility] Primary Essential hypertension ([facility]) Unspecified essential hypertension Type 2 diabetes mellitus with polyneuropathy ([facility]) Type II or unspecified type diabetes mellitus with neurological manifestations, not stated as uncontrolled ANMOL (generalized anxiety disorder) ([facility] Generalized anxiety disorder Gastroesophageal reflux disease without esophagitis Esophageal reflux Morbid obesity due to excess calories ([facility]) Left-sided Reyes palsy- Primary Facial droop Facial weakness Facial paresthesia Morbid obesity due to excess calories ([facility])- Primary Type 2 diabetes mellitus with hyperglycemia, without long-term current use of insulin ([facility]) documented in this encounter [facility] HealthcareEvaluation note* Diagnosis Type 2 diabetes mellitus with hyperglycemia, without long-term current use of insulin ([facility])- Primary Essential hypertension ([facility]) Unspecified essential hypertension Type 2 diabetes mellitus with polyneuropathy ([facility]) Type II or unspecified type diabetes mellitus with neurological manifestations, not stated as uncontrolled ANMOL (generalized anxiety disorder) ([facility]) Generalized anxiety disorder Gastroesophageal reflux disease without esophagitis Esophageal reflux Morbid obesity due to excess calories ([facility]) documented in this encounter [facility] HealthcareEvaluation note* Diagnosis Type 2 diabetes mellitus with hyperglycemia, without long-term current use of insulin ([facility])- Primary Essential hypertension ([facility] Unspecified essential hypertension ANMOL (generalized anxiety disorder) ([facility]) Generalized anxiety disorder Primary osteoarthritis of right knee Gastroesophageal reflux disease without esophagitis Esophageal reflux Obstructive sleep apnea Obstructive sleep apnea (adult) (pediatric) Breast cancer screening by mammogram Dyslipidemia ([facility]) Other and unspecified hyperlipidemia Medicare annual wellness visit, subsequent- Primary Type 2 diabetes mellitus with hyperglycemia, without long-term current use of insulin ([facility]) Type 2 diabetes mellitus with hyperglycemia, without long-term current use of insulin ([facility])- Primary Essential hypertension ([facility]) Unspecified essential hypertension Type 2 diabetes mellitus with polyneuropathy ([facility]) Type II or unspecified type diabetes mellitus with neurological manifestations, not stated as uncontrolled ANMOL (generalized anxiety disorder) ([facility]) Generalized anxiety disorder Gastroesophageal reflux disease without esophagitis Esophageal reflux Morbid obesity due to excess calories ([facility]) Left-sided Reyes palsy- Primary Facial droop Facial weakness Facial paresthesia ANMOL (generalized anxiety disorder) ([facility]) Generalized anxiety disorder Essential hypertension ([facility]) Unspecified essential hypertension Type 2 diabetes mellitus with polyneuropathy ([facility]) Type II or unspecified type diabetes mellitus with neurological manifestations, not stated as uncontrolled documented in this encounter [facility] HealthcareEvaluation note* Diagnosis Medicare annual wellness visit, subsequent- Primary Type 2 diabetes mellitus with hyperglycemia, without long-term current use of insulin ([facility]) documented in this encounter [facility] HealthcareEvaluation note* Diagnosis ANMOL (generalized anxiety disorder) ([facility]) Generalized anxiety disorder documented in this encounter [facility] HealthcareEvaluation note* Diagnosis Type 2 diabetes mellitus with hyperglycemia, without long-term current use of insulin ([facility])- Primary Essential hypertension ([facility]) Unspecified essential hypertension ANMOL (generalized anxiety disorder) ([facility]) Generalized anxiety disorder Primary osteoarthritis of right knee Gastroesophageal reflux disease without esophagitis Esophageal reflux Obstructive sleep apnea Obstructive sleep apnea (adult) (pediatric) Breast cancer screening by mammogram Dyslipidemia ([facility]) Other and unspecified hyperlipidemia Medicare annual wellness visit, subsequent- Primary Type 2 diabetes mellitus with hyperglycemia, without long-term current use of insulin ([facility]) Type 2 diabetes mellitus with hyperglycemia, without long-term current use of insulin ([facility])- Primary Essential hypertension ([facility]) Unspecified essential hypertension Type 2 diabetes mellitus with polyneuropathy ([facility]) Type II or unspecified type diabetes mellitus with neurological manifestations, not stated as uncontrolled ANMOL (generalized anxiety disorder) ([facility]) Generalized anxiety disorder Gastroesophageal reflux disease without esophagitis Esophageal reflux Morbid obesity due to excess calories ([facility]) Left-sided Reyes palsy- Primary Facial droop Facial weakness Facial paresthesia Type 2 diabetes mellitus with hyperglycemia, without long-term current use of insulin ([facility])- Primary Essential hypertension ([facility]) Unspecified essential hypertension Type 2 diabetes mellitus with polyneuropathy ([facility]) Type II or unspecified type diabetes mellitus with neurological manifestations, not stated as uncontrolled Primary osteoarthritis of right knee ANMOL (generalized anxiety disorder) ([facility]) Generalized anxiety disorder documented in this encounter [facility] HealthcareEvaluation note* Diagnosis Type 2 diabetes mellitus with hyperglycemia, without long-term current use of insulin ([facility] CENTER/[facility])- Primary Essential hypertension ([facility] Unspecified essential hypertension ANMOL (generalized anxiety disorder) ([facility]) Generalized anxiety disorder Primary osteoarthritis of right knee Gastroesophageal reflux disease without esophagitis Esophageal reflux Obstructive sleep apnea Obstructive sleep apnea (adult) (pediatric) Breast cancer screening by mammogram Dyslipidemia ([facility]) Other and unspecified hyperlipidemia Medicare annual wellness visit, subsequent- Primary Type 2 diabetes mellitus with hyperglycemia, without long-term current use of insulin [place] [place] Type 2 diabetes mellitus with hyperglycemia, without long-term current use of insulin ([facility] [place] Primary Essential hypertension (CMS/HCC) Unspecified essential hypertension Type 2 diabetes mellitus with polyneuropathy ([facility]) Type II or unspecified type diabetes mellitus with neurological manifestations, not stated as uncontrolled ANMOL (generalized anxiety disorder) ([facility]/HCC) Generalized anxiety disorder Gastroesophageal reflux disease without esophagitis Esophageal reflux Morbid obesity due to excess calories ([facility]) Left-sided Reyes palsy- Primary Facial droop Facial weakness Facial paresthesia Type 2 diabetes mellitus with hyperglycemia, without long-term current use of insulin ([facility])- Primary Essential hypertension ([facility]) Unspecified essential hypertension Type 2 diabetes mellitus with polyneuropathy ([facility]) Type II or unspecified type diabetes mellitus with neurological manifestations, not stated as uncontrolled Primary osteoarthritis of right knee ANMOL (generalized anxiety disorder) ([facility]) Generalized anxiety disorder Type 2 diabetes mellitus with hyperglycemia, without long-term current use of insulin ([facility]) documented in this encounter [facility] Summary [...] DATE CREATED AUTHOR AUTHOR'S ORGANIZ ATION 11/26/2017 [facility] DATE CREATED AUTHOR AUTHOR'S ORGANIZ ATION 10/15/2020 [facility] DATE CREATED AUTHOR AUTHOR'S ORGANIZ ATION 01/05/2021 [facility] DATE CREATED AUTHOR AUTHOR'S ORGANIZ ATION 10/05/2022 [facility] DATE CREATED AUTHOR AUTHOR'S ORGANIZ ATION 05/23/2024 [facility] DATE CREATED AUTHOR AUTHOR'S ORGANIZ ATION 08/18/2024 [facility] Care Teams (unrecognized sec tion and content) Passenger Agent Relationship Specialty Start Date End Date Matt Mcduffie MD [address] [place] [address] PCP - General Family Medicine 07/08/23 Passenger Agent Relationship Specialty Start Date End Date Matt Mcduffie MD [address] [place] [address] PCP - General Family Medicine 07/08/23 Matt Mcduffie MD [address] [place] [address] PCP - Devoted 10/02/23 Passenger Agent Relationship Specialty Start Date End Date Matt Mcduffie MD [address] [place] [address] PCP - General Family Medicine 07/08/23 Matt Mcduffie MD [address] [place] [address] PCP - Devoted 10/02/23 Luis A Leo MA Family Medicine 04/22/24 Passenger Agent Relationship Specialty Start Date End Date Matt Mcduffie MD [address] [place] [phone] PCP - General Family Medicine 07/08/23 Matt Mcduffie MD [address] [place] [address] PCP - Devoted 10/02/23 Luis A Leo MA Family Medicine 04/22/24 Passenger Agent Relationship Specialty Start Date End Date Matt Mcduffie MD [address] [place] [address] PCP - General Family Medicine 07/08/23 Matt Mcduffie MD [address] [place] [phone] PCP - Devoted 10/02/23 Luis A Leo MA Family Medicine 04/22/24 Passenger Agent Relationship Specialty Start Date End Date Matt Mcduffie MD [address] [place] [phone] PCP - General Family Medicine 07/08/23 Matt Mcduffie MD [address] [place] [phone] PCP - Devoted 10/02/23 Passenger Agent Relationship Specialty Start Date End Date Matt Mcduffie MD [address] [place] [phone] PCP - General Family Medicine 07/08/23 Matt Mcduffie MD [address] [place] [phone] PCP - Devoted 10/02/23 Passenger Agent Relationship Specialty Start Date End Date Matt Mcduffie MD [address] [place] [phone] PCP - General Family Medicine 07/08/23 Matt Mcduffie MD [address] [place] [phone] PCP - Devoted 10/02/23 Luis A Leo MA Family Medicine 04/22/24 Passenger Agent Relationship Specialty Start Date End Date Matt Mcduffie MD [address] [place] [address] PCP - General Family Medicine 07/08/23 Matt Mcduffie MD [address] [place] [address] PCP - Devoted 10/02/23 Passenger Agent Relationship Specialty Start Date End Date Matt Mcduffie MD [address] [place] [address] PCP - General Family Medicine 07/08/23 Matt Mcduffie MD [address] [place] [address] PCP - Devoted 10/02/23 Passenger Agent Relationship Specialty Start Date End Date Matt Mcduffie MD [address] [place] [phone] PCP - General Family Medicine 07/08/23 Matt Mcduffie MD [address] [place] [phone] PCP - Devoted 10/02/23 Passenger Agent Relationship Specialty Start Date End Date Matt Mcduffie MD [address] [place] [address] PCP - General Family Medicine 07/08/23 Matt Mcduffie MD [address] [place] [address] PCP - Devoted 10/02/23 Passenger Agent Relationship Specialty Start Date End Date Matt Mcduffie MD [address] [place] [phone] PCP - General Family Medicine 07/08/23 Matt Mcduffie MD [address] [place] [phone] PCP - Devoted 10/02/23 Luis A Leo MA Family Medicine 04/22/24 Passenger Agent Relationship Specialty Start Date End Date Matt Mcduffie MD [address] [place] [phone] PCP - General [facility] Medicine 07/08/23 Matt Mcduffie MD [address] [place] [phone] PCP - Devoted 10/02/23 Luis A Leo MA [facility] Medicine 04/22/24 Passenger Agent Relationship Specialty Start Date End Date Matt Mcduffie MD [address] [place] [phone] PCP - General [facility] Medicine 07/08/23 Luis A Leo MA Family Medicine 04/22/24 Reason for Visit (unrecogniz ed section and content) Reason Comments Follow-up [facility] FOLLOW UP. Possi ble bells palsy, Reason Comments Med Refill Reason Comments Follow-up 6m f/upbp Foot Injury Pain on top of right foot, travels up leg Reason Onset Date Comments Med Refill 05/11/2024 Reason Comments Medicare Annual Wellness Visit Subsequen t wellness Reason Comments Follow-up 3m Leg Pain Burning pain Foot Injury Top of right foot pi ns and needles Reason Onset Date Comments Med Refill 06/10/2024 FOR RECORDS PERTAINING TO PATIENTS WHO ARE [...] BE BASED ON THE PRIMARY CLINICAL RECORDS. [facility]. provides no warranty or guarantee of the accuracy or completeness of information in this document.
[2024-08-20 12:11] LABS: Basophils Absolute Auto 0.1 10^3/uL (0.0-0.1); Basophils Percent Auto 0.8 % (0.2-2.0); Eosinophils Absolute Auto 0.1 10^3/uL (0.0-0.7); Eosinophils Percent Auto 1.5 % (0.9-7.0); Hematocrit 30.2 % (36.0-48.0); Hemoglobin 8.8 g/dL (12.0-16.0); Immature Granulocytes Abs Auto 0.02 10^3/uL (0.00-0.03); Immature Granulocytes Pct Auto 0.3 % (0.0-0.5); Lymphocytes Absolute Auto 1.5 10^3/uL (1.2-3.8); Lymphocytes Percent Auto 23.9 % (20.5-60.0); Mean Corpuscular HGB Conc 29.1 g/dL (29.9-35.2); Mean Corpuscular Hemoglobin 21.5 pg (26.7-34.0); Mean Corpuscular Volume 73.7 fL (81.0-99.0); Monocytes Absolute Auto 0.4 10^3/uL (0.3-0.8); Monocytes Percent Auto 6.2 % (1.7-12.0); Neutrophils Absolute Auto 4.1 10^3/uL (1.4-6.5); Neutrophils Percent Auto 67.3 % (43.0-75.0); Platelet Count 308 10^3/uL (150-450); Red Cell Distribution Width 17.2 % (11.0-15.0); White Blood Count 6.1 10^3/uL (4.0-11.0)
[2024-08-20 12:30] LABS: Estimated Average Glucose 134 mg/dL; Glycohemoglobin A1C 6.3 % (4.5-6.2)
[2024-08-20 12:55] LABS: Microalbumin Urine Random <1.3 mg/dL (<=30.0)
[2024-08-20 13:08] LABS: Alanine Aminotransferase 16 U/L (14-59); Albumin Globulin Ratio 0.8; Albumin Level 3.2 g/dL (3.4-5.0); Alkaline Phosphatase 181 U/L (46-116); Anion Gap 11.2; Aspartate Amino Transferase 13 U/L (15-37); BUN Creatinine Ratio 15.2; Bilirubin Direct 0.1 mg/dL (0.0-0.2); Bilirubin Total 0.4 mg/dL (0.2-1.0); Calcium 9.1 mg/dL (8.5-10.1); Carbon Dioxide 27.4 mmol/L (21.0-32.0); Chloride 106 mmol/L (98-107); Chol HDL Ratio 2.3; Cholesterol 105 mg/dL (<=200); Estimated GFR (African America >60 (>=60 mL/min/1.73m^2); Estimated GFR (Non-African Ame >60 (>=60 mL/min/1.73m^2); Glucose 107 mg/dL (74-106); HDL Cholesterol 46 mg/dL (40-60); LDL Cholesterol Calculated 36.4 mg/dL; Potassium 3.6 mmol/L (3.5-5.1); Sodium 141 mmol/L (136-145); Thyroid Stimulating Hormone 0.547 uIU/mL (0.358-3.740); Total Protein 7.2 g/dL (6.4-8.2); Triglycerides 113 mg/dL (<=150); VLDL CHOLESTEROL 22.6 mg/dL
== END 2024-08-20 11:42 | disposition home or self-care (01) ==
LOC: LAB 11:46
PROVIDERS: PCP Family Medicine; Visit Provider Family Medicine
DX: E78.5 Hyperlipidemia, unspecified (principal); E11.65 Type 2 diabetes mellitus with hyperglycemia; I10 Essential (primary) hypertension; Z79.899 Other long term (current) drug therapy; E66.813 Obesity, class 3; E66.01 Morbid (severe) obesity due to excess calories; Z68.41 Body mass index [BMI] 40.0-44.9, adult
CPT/HCPCS: 36415; 80048; 80061; 80076; 82043; 82570; 83036; 84443; 85025